=== PATIENT | female | born 1950 | race African-American/Black ===

== ENCOUNTER 2019-11-29 10:32 | Outpatient (CLI) | payer MEDICARE, SELFPAY ==
[2019-11-29 10:50] LABS: Basophils Absolute Auto 0.1 K/mm3 (0.0-0.1); Basophils Percent Auto 0.7 % (0.2-1.2); Eosinophils Absolute Auto 0.2 K/mm3 (0-0.3); Eosinophils Percent Auto 2.2 % (0-4.4); Hematocrit 32.1 % (37.0-47.0); Hemoglobin 9.8 g/dL (12.0-15.0); Immature Granulocyte Absolute 0.02 K/mm3 (0.00-0.031); Immature Granulocyte Percent A 0.3 % (0-0.5); Lymphocytes Absolute Auto 1.38 K/mm3 (0.9-3.2); Lymphocytes Percent Auto 18.1 % (18.3-44.2); Mean Corpuscular HGB Conc 30.5 g/dl (32-36); Mean Corpuscular Hemoglobin 27.8 pg (26-34); Mean Corpuscular Volume 90.9 fl (80-100); Monocytes Absolute Auto 0.5 K/mm3 (0.1-0.6); Monocytes Percent Auto 6.3 % (2.6-8.5); Neutrophils Absolute Auto 5.5 K/mm3 (1.3-6.7); Neutrophils Percent Auto 72.4 % (45.5-73.1); Platelet Count Result 216 k/mm3 (150-375); Red Blood Count 3.53 M/mm3 (4.2-5.4); Red Cell Distribution Width 14.9 % (11.5-14.5); White Blood Count 7.6 K/mm3 (4.5-10.0)
[2019-11-29 10:53] LABS: Blood Urea Nitrogen 80 mg/dL (8-26); Carbon Dioxide 27 mmol/L (22-30); Chloride 101 mmol/L (98-109); Estimated Glomerular Filt Rate 32; Glucose 165 mg/dL (70-105); Potassium 4.3 mmol/L (3.5-4.9); Sodium 137 mmol/L (138-146)
[2019-11-29 12:13] LABS: Iron 55 ug/dL (37-170)
[2019-11-29 12:22] LABS: Percent Iron Saturation 26 % (20-50)
== END 2019-11-29 10:33 | disposition home or self-care (01) ==
LOC: ANHLAB 10:33
PROVIDERS: PCP Internal Medicine; Visit Provider Internal Medicine Hematology & Oncology
DX: N18.3 Chronic kidney disease, stage 3 (moderate) (principal); D63.1 Anemia in chronic kidney disease
CPT/HCPCS: 36415; 80048; 82728; 83540; 83550; 85025

== ENCOUNTER 2022-04-01 08:00 | Outpatient (CLI) | payer MEDICARE, SELFPAY ==
--- NOTE | ~2022-04-01 | US_ITS ---
EXAMINATION: US venous doppler [facility] DATE: 04/01/2022 09:03 INDICATION: Acute deep venous thrombosis of the proximal vein of the bilateral lower limbs. TECHNIQUE: Grayscale ultrasound images without and with compression and Doppler ultrasound images of the bilateral lower extremity veins were obtained. COMPARISON: None. FINDINGS: There are paired right femoral veins one of which is patent throughout and the second of which is thr ombosed and noncompressible in the mid to distal vein. The visualized portions of right common femora l vein, profunda (deep) femoral vein, popliteal vein, posterior tibial veins, peroneal veins, gastroc nemius vein and greater saphenous vein outflow are patent. The visualized portions of left common femoral vein, profunda femoral vein, femoral vein, popliteal v ein, posterior tibial veins, peroneal veins, gastrocnemius vein and greater saphenous vein outflow ar e patent. IMPRESSION: 1. Deep venous thrombosis in the mid to distal aspect of one of the paired right femoral veins. The second right femoral vein remains patent. Dr. Johnson discussed these findings with Dr. Ortiz at 9: 32 AM. 2. No deep venous fibrosis in the left lower limb. Reviewed, dictated and finalized at location A. IMPRESSION: 1. Deep venous thrombosis in the mid to distal aspect of one of the paired rig ht femoral veins. The second right femoral vein remains patent. Dr. Johnson di scussed these findings with Dr. Ortiz at 9:32 AM. 2. No deep venous fibrosis in the left lower limb.
== END 2022-04-01 08:01 | disposition home or self-care (01) ==
PROVIDERS: PCP Internal Medicine; Visit Provider Internal Medicine Hematology & Oncology
DX: I82.4Y3 Acute embolism and thrombosis of unspecified deep veins of proximal lower extremity, bilateral (principal)
CPT/HCPCS: 93970

== ENCOUNTER 2022-08-11 07:09 | Outpatient (CLI) | payer MEDICARE, SELFPAY ==
--- NOTE | ~2022-08-11 | US_ITS ---
EXAMINATION:US venous doppler LE RT INDICATION:Previous deep venous thrombosis of the right femoral vein TECHNIQUE: Multiple grayscale, color flow and Doppler images of the right lower extremity deep venous systems were obtained and reviewed. COMPARISON:04/01/2022 FINDINGS: The common femoral, superficial femoral and popliteal veins demonstrate normal respiratory variation, augmentation and compressibility. There is chronic DVT of the right femoral vein. Color fl ow is also seen within the posterior tibial, peroneal, greater saphenous and profunda veins. IMPRESSION: 1: Chronic deep venous thrombosis of the right femoral vein. Reviewed, dictated and finalized at location A. Y LEVEL PROGRAMMER
== END 2022-08-11 07:10 | disposition home or self-care (01) ==
PROVIDERS: PCP Internal Medicine; Visit Provider Internal Medicine Hematology & Oncology
DX: I82.511 Chronic embolism and thrombosis of right femoral vein (principal)
CPT/HCPCS: 93971

== ENCOUNTER 2023-08-24 08:33 | Outpatient (RCR) | payer MEDICARE, SELFPAY ==
[2023-08-24] VITALS (9 sets, daily range): BP systolic 127–144; BP diastolic 57–66; PULSE 72–82; RESP 16–20; TEMP 36.1–36.8; O2SAT 100
[2023-08-24 09:22] LABS: Hematocrit 23.4 % (37.0-47.0)
[2023-08-24 09:26] LABS: Hemoglobin 6.6 g/dL (12.0-15.0)
[2023-08-24] MEDS: ACETAMINOPHEN 325 MG TABLET 650 MG PO (10:58)
[2023-08-24] MEDS: SODIUM CHLORIDE 0.9% IV 250 ML 30 ML IV CONT (10:58)
[2023-08-24] MEDS: diphenhydrAMINE HCl CAP 25 MG CAPSULE PO (10:58)
[2023-08-24] MEDS: FUROSEMIDE INJ 40 MG/4 ML VIAL 20 MG IV PUSH (13:49)
== END 2023-11-22 23:59 | disposition home or self-care (01) ==
LOC: ANHCPCTRAN 08:33
PROVIDERS: PCP Internal Medicine; Visit Provider Internal Medicine Hematology & Oncology
DX: D64.9 Anemia, unspecified (principal)
CPT/HCPCS: 36415; 36430; 85014; 85018; 86850; 86900; 86901; 86923; 96374; A9270; J1940; J7050; P9016

== ENCOUNTER 2024-06-23 08:39 | Outpatient (CLI) | payer MEDICARE, SELFPAY ==
--- NOTE | 2024-06-23 14:55 | WPDPFTINT ---
PFT Procedure Performed PFT Procedure Performed Spirometry with Pre/Post Bronchodilator Plethysmography (Lung Vol) Diffusing Cap (DLCO) Flow Vol Loop PFT Interpretation Lung volumes were measured the body plethysmography method. The diminished expiratory reserve volume is related to severe obesity. The remaining lung volumes are unremarkable. Spirometry showed diminished expiratory flow rates and a normal FEV1 to FVC ratio 74%. Following administration of a bronchodilator there was no significant increase in expiratory flow rates. Lung diffusion capacity is within the normal range at 77% predicted. The restrictive pattern on spirometry in conjunction with a normal total lung capacity is indicative of a nonspecific pattern. Impression: Nonspecific pattern. Lung diffusion capacity within normal range.
== END 2024-06-23 08:40 | disposition home or self-care (01) ==
LOC: ANHPFT 08:41
PROVIDERS: PCP Internal Medicine; Visit Provider Internal Medicine Pulmonary Disease
DX: J45.40 Moderate persistent asthma, uncomplicated (principal)
CPT/HCPCS: 94060; 94726; 94729

== ENCOUNTER 2024-11-28 08:13 | Outpatient (CLI) | payer MEDICARE, SELFPAY ==
--- OUTSIDE RECORDS SUMMARY | 2024-11-28 08:28 | XMS_ITS ---
Author Organization [facility] Address [address] [facility] [address] [place] [address] Care Team Providers Care Roll Operator Name Role Phone Reid Cashjibernardino Gentile [phone] MEDICATIONS Medication SIG (Take, Route, Frequency, Duration) Notes Start Date End Date Status Lasix 40 MG 1 tablet Orally twic e a day for 90 day(s) 07/08/2024 04/04/2025 Active Encounters Encounter Location Date Provider Diagnosis [facility] [place] [facility] [address] [place] [address] 07/08/2024 Christophe Cash PLAN OF TREATMENT Medication Medication Name Sig Start Date Stop Date Notes Lasix 40 MG 1 tablet Orally twice a day for 90 day(s) 06/1504/04/2025 Next Appt Details Provider Name:Christophe Cash , 12/09/2024 02:00:00 PM, [address] [facility], [facility], [place], [place], [facility], Progress Notes * TOMER HUTTONOB:[birth year] (73 yo F)Acc No.[id number]:07/08/2024 Patient: МАРИЯ HUTTON :1950 Age:73 Y Sex:Female Address:;;;;;, [place], [place], [place] [address] * Refills Start Lasix Tablet, 40 MG, Orally, 180 Tablet, 1 tablet, twice a day, 90 day(s), Refills=2 * true * Date:
--- OUTSIDE RECORDS SUMMARY | 2024-11-28 08:28 | XMS_ITS | Encounter Summary ---
Author Organization [facility] Healthcare Address [address] [place] [address] Care Team Providers Care Chipper Feeder Name Role Phone Quinton Gurrola MD Primary Care Provide r Mamta Gayle MD Unavailable Vy Sheehan MD Unavailable Encounter Details Date Type Department Care Team (Late st Contact Info) Description 07/06/2020 Telephone [facility] [address] [place] [address] [phone] Alyce Fairbanks MD [id number] [place] [address] Social History Tobacco Use Types Packs/Day Years Used Date Smoking Tobacco: Former Smokeless Tobacco: Never Alcohol Use Standard Drinks/Week Comments No 0 (1 standard drink = 0.6 oz pur e alcohol) PHQ-2 Answer Date Recorded PHQ-2 Score 3 11/20/2018 Comments No Sex and Gender Information Value Date Recorded Sex Assigned at Not on file Legal Sex Female 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 [address] [place] [address] Referring Physician Gynecologic Oncology 09/20/20 documented as of this encounter
--- OUTSIDE RECORDS SUMMARY | 2024-11-28 08:28 | XMS_ITS | Encounter Summary ---
Author Organization [facility] Healthcare Address [address] [place] [address] Care Team Providers Care Relay Worker Name Role Phone Quinton Gurrola MD Primary Care Provide r Mamta Gayle MD Unavailable Vy Sheehan MD Unavailable Encounter Details Date Type Department Care Team (Late st Contact Info) Description 09/20/2020 Completion of Therapy [facility] Advanced Medicine Radiation Oncology [address] 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 Vy Sheehan (Smoke Room Operator Onc) RADIATION ONCOLOGY COMPLETION OF THERAPY (COT) Cancer Staging Endometrial cancer (CMS/HCC) Staging form: Corpus Uteri - Carcinoma and Carcinosarcoma, AJCC 8th Edition - Clinical: FIGO Stage I - Signed by Alyce Fairbanks MD on 07/13/2020 Identifying Information: 70 y.o. 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 She could not tolerate MRI due to claustrophobia. She is receiving HDR brachytherapy alone to 36 Gy / 6 fractions with TO/SHC. Treatment Delivered: Radiation Treatments No active radiation treatments to show. Radiation Treatments No historical radiation treatments to show. HDR Brachytherapy, T&O/SHC Fraction 6 of 6 (3600 cGy of 3600 cGy) Concurrent Therapy: N/A Wt Readings from Last 3 Encounters: 09/11/20 123 kg (271 lb 3.2 oz) 09/04/20 123.8 kg (273 lb) 08/30/20 123.8 kg (272 lb 14.4 oz) Pain Plan: RAD ONC PAIN PLAN: The patient is not currently having any pain that requires changes in pain management. Tolerance to Treatment: Mrs. Pérez tolerated the treatment well. She had post-procedural bleeding after each implant, with continued mild bleeding between procedures but with stable hgb on CBC. She also had mild fatigue and nausea but was able to complete her ADLs. She had one episode of ED presentation due to nausea and self-induced vomiting and was prescribed antiemetics and antibiotics for a UTI. Disposition: ?? Follow up with gynecology oncology as scheduled by their clinic. ?? Post treatment skin care instructions given. ?? Patient was instructed to call with any concerns prior to scheduled follow up visit. Mamta Gayle MD supervised the patient???s radiation treatment as summarized. Mary Vergara MD Resident Physician Department of Radiation Oncology Cosigned by Mamta Gayle MD at 09/24/2020 12:10 AM LEAD DRIVER DRIVER DRIVER Associated attestation - Mamta Gayle MD - 09/24/2020 12:10 AM LEAD DRIVER Julisa Pérez was evaluated with the resident, Dr. Vergara, throughout the course of treatment along with my colleagues, and agree with the resident???s note. The patient will follow-up as scheduled and call with any questions or concerns in the interim. Mamta Gayle MD 09/24/2020 12:09 AM documented in this encounter Plan of Treatment Not on file documented as of this encounter Visit Diagnoses Diagnosis Endometrial cancer (HCC)- Primary Malignant neoplasm of corpus uteri, except isthmus documented in this encounter Care Teams Relay Worker Relationship Specialty Start Date End Date Quinton Gurrola MD [address] [address] PCP - General Internal Medicine 03/09/18 Mamta Gayle MD [address] [facility] [address] [place] [address] Radiation Oncologist Radiation Oncology 09/20/20 Vy Sheehan MD [address] [facility] [address] [place] [address] Referring Physician Gynecologic Oncology 09/20/20 documented as of this encounter
--- OUTSIDE RECORDS SUMMARY | 2024-11-28 08:28 | XMS_ITS | Continuity of Care Document ---
Author Organization [facility] Address [address] [facility] [address] [place] [address] Phone Care Team Providers Care Treasury Management Sales Consultant Name Role Phone [facility] Unavailable Unavail able Procedures Procedure Date Anti-reflective Coating Tax - Medical Progressive Lens, Polycarb Vision Svcs Frames Purchases Eye Exam & Treatment Refraction Eye Exam Established Pt Eye Exam & Treatment Advance Directives Directive Yes / No Effective Date File Name No Information Encounters Encounter Description Practice Location Reason(s) For Visit Diagnoses Date Provider Providers Copied on Encounter [facility], [address] [place] [address] [address], [place], [place], [id number], [place] tel:[phone] SEC Formerly named [facility] No Information 0-201 0 [facility]. [address] [facility], [facility] [address], [place], [id number], [place]. tel:[phone] Referring Provider: Drake plummer, [address], [place], [address]. tel:[phone] [facility], [address] [place] [address] [address], [place], [place], [id number], [place] tel:[phone] SEC Formerly named [facility] No Information 6-201 0 [facility]. [address] [facility], [facility] [address], [place], [id number], [place]. tel:[phone] Referring Provider: Drake Kurtisjose plummer, [facility], [facility] [facility] [place] [address], [place], [place], [facility]. tel:[phone] [facility], [address] [place] [address] [address], [place], [place], [id number], tel:[phone] SEC Formerly named [facility] No Information 0 2-201 0 Christina Juan. [address] [place] [address], [place], [facility], . tel:[phone] Referring Provider: Steve Pierre, [facility] [place] [place] [address], [place], [place], [facility]. tel:[phone] [facility], [address] [place] [address] [address], [place], [place], [id number], tel:[phone] SEC Formerly named [facility] No Information [address]. [facility], 1926[address] [facility] , [address], [place], [place], [facility], . tel:[phone] Referring Provider: Steve Pierre, [address] [facility] [address], [place], [place], [facility]. tel:[phone] [facility], [address] [place], [place] [address], [place], [place], [id number], tel:[phone] SEC Formerly named [facility] No Information [address]lee. [facility], 1926[address] [facility] , [address], [place], [place], [facility], [place]. tel:[phone] Referring Provider: Steve Pierre, [address] [facility] [address], [place], [place], [facility]. tel:[phone] Family History Family Member Type Diagnosis Age At Onset No Information Payers Payer name Insurance type Covered democrat ID Authoriza tion(s) No Information Social History Type Description Quantity Date Captured Comments Sex Female Smoking Status No Information Chief Complaint And Reason For Visit No Information Reason For Referral Reason For Referral No Information History Of Present Illness Encounter Date Complaint History Of Prese nt Illness No Information Functional Status Date Functional Assessmen t No Information Instructions Date Instruction Additional Infor mation No Information Assessments Type Assessment Date No Information Patient Care Teams Name Effective Dates (start - stop) Status Members No Information
--- OUTSIDE RECORDS SUMMARY | 2024-11-28 08:29 | XMS_ITS | Encounter Summary ---
Author Organization [facility] Healthcare Address [address] [place] [address] Care Team Providers Care Degreasing Wheel Operator Name Role Phone Quinton Gurrola MD Primary Care Provide r Mamta Gayle MD Unavailable Vy Sheehan MD Unavailable Encounter Details Date Type Department Care Team (Late st Contact Info) Description 06/18/2020 Telephone [facility] Advanced Medicine Radiation Oncology [address] [facility] [place] [address] Ana Barraza RN Social History Tobacco Use Types Packs/Day Years Used Date Smoking Tobacco: Former Smokeless Tobacco: Never Alcohol Use Standard Drinks/Week Comments No 0 (1 standard drink = 0.6 oz pur e alcohol) PHQ-2 Answer Date Recorded PHQ-2 Score 3 11/20/2018 Comments No Sex and Gender Information Value Date Recorded Sex Assigned at Not on file 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 Gender Identity Not on file Sexual Orientation Not on file documented as of this encounter Plan of Treatment Not on file documented as of this encounter Visit Diagnoses Not on filedocumented in this encounter Care Teams Degreasing Wheel Operator Relationship Specialty Start Date End Date Quinton Gurrola MD [address] [facility] [address] [place] [address] PCP - General Internal Medicine 03/09/18 Mamta Gayle MD [address] [facility] [address] [place] [address] Radiation Oncologist Radiation Oncology 09/20/20 Vy Sheehan MD [address] [facility] [address] [place] [address] Referring Physician Gynecologic Oncology 09/20/20 documented as of this encounter
--- OUTSIDE RECORDS SUMMARY | 2024-11-28 08:29 | XMS_ITS ---
Author Organization [facility] Physician Office Building [address] [place] [address] Care Team Providers Care Bag Bundler Name Role Phone Quinton Gurrola MD Primary Care Provide r Mamta Gayle MD Unavailable Vy Sheehan MD Unavailable Active Problems Problem Noted Date Diagnosed Date Vitamin D deficiency 07/29/2023 Moderate persistent asthma 05/07/2023 Peripheral venous insufficiency 04/30/2023 Arthritis 04/30/2023 Dyslipidemia 04/17/2023 Gastritis 02/11/2023 Abnormal uterine bleeding 12/08/2022 Cholecystitis 12/08/2022 Deep venous thrombosis of lower extremity 2022 Epigastric pain 12/08/2022 Hypothyroidism 12/08/2022 Heart murmur 12/08/2022 Hepatomegaly 12/08/2022 Trigger finger of right hand 12/08/2022 Type 2 diabetes mellitus without complication Hyperlipidemia 04/25/2022 Eczema 12/06/2021 Dry skin 06/07/2021 Anemia 05/10/2021 Family history of other specified conditions Family history of stroke 05/10/2021 History of abdominal hernia 05/10/2021 Mass of cecum 05/10/2021 Uterine cancer 07/31/2020 Asthma 07/30/2020 GERD (gastroesophageal reflux disease) 0 Hypercoagulable state 07/30/2020 Stroke 07/30/2020 Endometrial cancer 07/13/2020 Cancer Staging:Clinical:FIGO Stage I- Signed by Alyce Fairbanks MD on 07/13/2020 Chronic obstructive lung disease 06/08/2020 Diabetic nephropathy 06/08/2020 Essential hypertension 06/08/2020 Foot pain 06/08/2020 Microalbuminuria 06/08/2020 Other pulmonary embolism without acute cor pulmo nale 05/01/2020 Anemia of chronic renal failure, stage 3 (modera te) 08/02/2019 Diabetes mellitus 06/03/2019 Tinea pedis 06/03/2019 Iron deficiency anemia 12/13/2018 Restrictive lung disease 11/03/2018 Acute embolism and thrombosi s of unspecified deep veins of left lower extremity 11/04/2017 Leg edema 11/04/2017 Obstructive sleep apnea (adult) (pediatric) 05/16 Chest pain, unspecified 03/31/2017 Chronic kidney disease, stage 2 (mild) 7 Obesity 03/31/2017 Shortness of breath 03/31/2017 Current Treatment and Therapy Plans No current plan information found. Past Treatment and Therapy Plans No past plan information found. Lifetime Dose Tracking * Chemical Lifetime Dose Automatic Entry Manual Entr y Fluoro Time 0.1 minutes 0.1 minutes 0 minutes Air kerma at the reference point (Ka,r) 1 mGy 1 mGy 0 mGy DLP 8,591 mGycm 8,591 mGycm 0 mGycm
--- OUTSIDE RECORDS SUMMARY | 2024-11-28 08:29 | XMS_ITS | Patient Health Record ---
Author Organization [facility] Address [address] [place] [address] Care Team Providers Care Home Service Director Name Role Phone Christophe Cash Unavailable [phone] REASON FOR REFERRAL No Information MEDICATIONS Medication SIG (Take, Route, Frequency, Duration) Notes Start Date End Date Status Vitamin D (Ergocalciferol) 1.25 MG (26513 UT) Take 1 capsule by mouth once a week for 91 Active Metoprolol Tartrate 25 MG 1 tablet with food Orally Twice a day for 30 day(s) 06/17/2024 Active Lasix 40 MG 1 tablet Orally twic e a day for 90 day(s) 07/08/2024 07/11/2025 Active Calcitriol 0.25 MCG Take 1 capsule by mo uth once daily for 90 Active Lisinopril 20 MG Take 1 tablet by efrain th once daily for 90 Active Furosemide 40 MG Take 1 tablet by efrain th twice daily for 90 Active Allopurinol 100 MG Take 1 tablet by efrain th once daily for 90 Active Lisinopril 40 MG 1 tablet Orally twic e a day for 90 days 11/21/2021 Active SV Vitamin D3 50 MCG Take 1 capsule by m out once daily for 30 Active Quinapril HCl 40 MG 1 tablet Orally Twic e a day for 90 day(s) 11/22/2021 Active PROBLEMS Problem Type ICD Code Onset Dates Problem Status W/U Status Risk SNOMED Code Notes Problem Type 2 diabetes mellitus with hyperglycemia (E11.65) Active confirmed Hyperglycemia d ue to type 2 diabetes mellitus (221669441474763) Problem Secondary hyperparathyroid ism, not elsewhere classified (E21.1) Active confirmed Secondary hyperparathyroidism (71375756) Problem Vitamin D deficiency, unspecified (E55.9) Active confirmed Vitamin D defic iency (14745557) Problem Hyperlipidemia, unspecified (E78.5) Active confirmed Hyperlipidemia (84984562) Problem Renal osteodystrophy (N25.0) Active confirmed Renal osteodyst rophy (74840605) Problem Essential hypertension (I10) Active confirmed Essential hypertension (31485383) Problem Gastro-esophagea l reflux disease with esophagitis, without bleeding (K21.00) Active confirmed Gastroesophagea l reflux disease with esophagitis (disorder) (252252048) Problem Chronic kidney disease, stage 3a (N18.31) Active confirmed Chronic kidney disease stage 3A (disorder) (113640683) Encounters Encounter Location Date Provider Diagnosis [place] [facility] [address] [facility] [address] [place] [address] 01/08/2024 Christophe Cash Chronic kidney disea se, stage 3a N18.31 ; Gastro-esophageal reflux disease with esophagitis, without bleeding K21.00 ; Renal osteodystrophy N25.0 ; Secondary hyperparathyroidism, not elsewhere classified E21.1 ; Type 2 diabetes mellitus with hyperglycemia E11.65 and Vitamin D deficiency, unspecified E55.9 [place] [facility] [address] [facility] [address] [place] [address] 03/11/2024 Christophe Cash Chronic kidney disea se, stage 3a N18.31 ; Gastro-esophageal reflux disease with esophagitis, without bleeding K21.00 ; Renal osteodystrophy N25.0 ; Secondary hyperparathyroidism, not elsewhere classified E21.1 ; Type 2 diabetes mellitus with hyperglycemia E11.65 and Vitamin D deficiency, unspecified E55.9 [facility] [place] [facility] [address] [place] [address] 06/10/2024 Christophe Cash Chronic kidney disea se, stage 3a N18.31 ; Gastro-esophageal reflux disease with esophagitis, without bleeding K21.00 ; Renal osteodystrophy N25.0 ; Secondary hyperparathyroidism, not elsewhere classified E21.1 ; Type 2 diabetes mellitus with hyperglycemia E11.65 and Vitamin D deficiency, unspecified E55.9 [facility] [place] [facility] [address] [place] [address] 07/08/2024 Christophe Cash Chronic kidney disea se, stage 3a N18.31 ; Essential hypertension I10 ; Gastro-esophageal reflux disease with esophagitis, without bleeding K21.00 ; Renal osteodystrophy N25.0 ; Secondary hyperparathyroidism, not elsewhere classified E21.1 ; Type 2 diabetes mellitus with hyperglycemia E11.65 and Vitamin D deficiency, unspecified E55.9 [place] [facility] [address] [place] [address] 10/14/2024 Christophe Cash Chronic kidney disea se, stage 3a N18.31 ; Essential hypertension I10 ; Vitamin D deficiency, unspecified E55.9 ; Hyperlipidemia, unspecified E78.5 and Edema, unspecified R60.9 [facility] [address] [place] [address] 06/17/2024 Christophe Cash [facility] [address] [place] [address] 10/14/2024 Christophe Cash [facility] [place] [facility] [address] [place] [address] 06/10/2024 Christophe Cash [facility] [address] [place] [address] 06/17/2024 Christophe Cash [facility] [place] [facility] [address] [place] [address] 07/08/2024 Christophe Cash ASSESSMENTS Encounter Date Diagnosis Assessment Notes Treatment Notes Treatment Clinical Notes Section Notes 01/08/2024 Chronic kidney disease, stage 3a (ICD-10 - N18.31) 03/11/2024 Chronic kidney disease, stage 3a (ICD-10 - N18.31) 06/10/2024 Chronic kidney disease, stage 3a (ICD-10 - N18.31) 07/08/2024 Chronic kidney disease, stage 3a (ICD-10 - N18.31) 10/14/2024 Essential hypertension (ICD-10 - I10) 10/14/2024 Chronic kidney disease, stage 3a (ICD-10 - N18.31) 10/14/2024 Vitamin D deficiency, unspecified (ICD-10 - E55.9) 07/08/2024 Essential hypertension (ICD-10 - I10) 06/10/2024 Gastro-esophageal reflux disease with esophagitis, without bleeding (ICD-10 - K21.00) 01/08/2024 Gastro-esophageal reflux disease with esophagitis, without bleeding (ICD-10 - K21.00) 03/11/2024 Gastro-esophageal reflux disease with esophagitis, without bleeding (ICD-10 - K21.00) 03/11/2024 Renal osteodystrophy (ICD-10 - N25.0) 01/08/2024 Renal osteodystrophy (ICD-10 - N25.0) 06/10/2024 Renal osteodystrophy (ICD-10 - N25.0) 07/08/2024 Gastro-esophageal reflux disease with esophagitis, without bleeding (ICD-10 - K21.00) 10/14/2024 Hyperlipidemia, unspecified (ICD-10 - E78.5) 10/14/2024 Edema, unspecified (ICD-10 - R60.9) 07/08/2024 Renal osteodystrophy (ICD-10 - N25.0) 06/10/2024 Secondary hyperparathyroidism , not elsewhere classified (ICD-10 - E21.1) 03/11/2024 Secondary hyperparathyroidism , not elsewhere classified (ICD-10 - E21.1) 01/08/2024 Secondary hyperparathyroidism , not elsewhere classified (ICD-10 - E21.1) 01/08/2024 Type 2 diabetes mellitus with hyperglycemia (ICD-10 - E11.65) 03/11/2024 Type 2 diabetes mellitus with hyperglycemia (ICD-10 - E11.65) 06/10/2024 Type 2 diabetes mellitus with hyperglycemia (ICD-10 - E11.65) 07/08/2024 Secondary hyperparathyroidism , not elsewhere classified (ICD-10 - E21.1) 06/10/2024 Vitamin D deficiency, unspecified (ICD-10 - E55.9) 07/08/2024 Type 2 diabetes mellitus with hyperglycemia (ICD-10 - E11.65) 03/11/2024 Vitamin D deficiency, unspecified (ICD-10 - E55.9) 01/08/2024 Vitamin D deficiency, unspecified (ICD-10 - E55.9) 07/08/2024 Vitamin D deficiency, unspecified (ICD-10 - E55.9) PLAN OF TREATMENT Next Appt Details Provider Name:Christophe Cash , 12/09/2024 02:00:00 PM, [address], [place], [address],
--- OUTSIDE RECORDS SUMMARY | 2024-11-28 08:29 | XMS_ITS | Clinical Summary ---
Author Organization [facility] Address [address] [place] [address] Care Team Providers Care Veterans Services Specialist Name Role Phone Unavailable Primary Care Provider Unavailabl e Social History Tobacco Use Types Packs/Day Years Used Date Smoking Tobacco: Never Assessed Comments Unknown Sex and Gender Information Value Date Recorded Sex Assigned at Not on file Legal Sex Female 7:38 AM CDT Gender Identity Not on file Sexual Orientation Not on file Plan of Treatment Health Maintenance Due Date Last Done Comments Colorectal Cancer Screening Colonoscopy (10 Years) 1952 Hepatitis C 1970 DTaP, Tdap and Td Vaccines ( 1 - Tdap) 1971 Mammogram Screening 1992 Zoster Vaccines (1 of 2) 2002 Dexa Scan (General) 2017 Pneumococcal Vaccine: 65+ Ye ars (1 of 1 - PCV) 2017 COVID-19 Vaccine (2023-2 5 season) 2024 Influenza Adult (#1) 2024 RSV Immunization or 60+ Years (1 - 1-dose 75+ series) 2027 Meningococcal B Vaccine Aged Out No l onger eligible based on patient's age to complete this topic Meningococcal Vaccine Aged Out No timothy marquita eligible based on patient's age to complete this topic RSV Immunizations Under 20 Months Aged Out No longer eligible based on patient's age to complete this topic
--- OUTSIDE RECORDS SUMMARY | 2024-11-28 08:29 | XMS_ITS ---
Author Organization [facility] Address [address] [facility] [address] [facility] [address] [place] [address] Care Team Providers Care Data Entry Technician Name Role Phone Christophe Cash Unavailable [phone] PROBLEMS Problem Type ICD Code Onset Dates Problem Status W/U Status Risk SNOMED Code Notes Problem Hyperlipidemia, unspecified (E78.5) Active confirmed Hyperlipidemia (08039822) Encounters Encounter Location Date Provider Diagnosis [place] [facility] [address] [facility] [address] [place] [address] 10/14/2024 Christophe Cash Chronic kidney disease, stage 3a N18.31 ; Essential hypertension I10 ; Vitamin D deficiency, unspecified E55.9 ; Hyperlipidemia, unspecified E78.5 and Edema, unspecified R60.9 ASSESSMENTS Encounter Date Diagnosis Assessment Notes Treatment Notes Treatment Clinical Notes Section Notes 10/14/2024 Chronic kidney disease, stage 3a (ICD-10 - N18.31) 10/14/2024 Essential hypertension (ICD-10 - I10) 10/14/2024 Vitamin D deficiency, unspecified (ICD-10 - E55.9) 10/14/2024 Hyperlipidemia, unspecified (ICD-10 - E78.5) 10/14/2024 Edema, unspecified (ICD-10 - R60.9) PLAN OF TREATMENT Next Appt Details Provider Name:Christophe Cash , 12/09/2024 02:00:00 PM, [address] [facility], [facility] [address], [place], [address], Progress Notes * TOMER HUTTONOB:[birth year] (74 yo F)Acc No.[id number]:10/14/2024 Progress Notes Patient: МАРИЯ HUTTON Provider: MD EVANGELISTA, Kavita, F.A.S.N. :1950 Age:74 Y Sex:Female Date:10/14/2024 Address:;;;;;, [place] [address] Subjective: * Chief Complaints: * * Medical History: Objective: Assessment: * Assessment: 1. Chronic kidney disease, stage 3a - N18.31 (Primary) 2. Essential hypertension - I10 3. Vitamin D deficiency, unspecified - E55.9 4. Hyperlipidemia, unspecified - E78.5 5. Edema, unspecified - R60.9 Plan: * Treatment: * Billing Information: * Visit Code: 02887 Office Visit, Est Pt., Level 4. * Procedure Codes: * Sign off status: Pending * Provider: MD EVANGELISTA, Kavita, F.A.S.N. Date: 10/14/2024
--- OUTSIDE RECORDS SUMMARY | 2024-11-28 08:29 | XMS_ITS | Referral Summary ---
Author Organization [facility] [address] [place] [address] Care Team Providers Care Land Commissioner Name Role Phone Quinton Gurrola MD Primary Care Provide r Mamta Gayle MD Unavailable Vy Sheehan MD Unavailable Allergies Active Allergy Reactions Criticality Noted Date Comments Metformin Other (See comments) ,Shortness of breath High 03/29/2020 Glyburide Unknown 06/08/2020 Mushroom Unknown 06/08/2020 [place] Extract Unknown 06/08/2020 Omeprazole Nausea only,Nausea And Vomiting Low 10/16 Prednisone Other (See comments) ,Shortness of breath High 03/29/2020 Spinach Unknown 06/08/2020 Medications furosemide (LASIX) 40 mg tablet furosemide 40 mg tablet Active ketoconazole (NIZORAL) 2 % cream 8 Active albuterol HFA (PROVENTIL HFA,VENTOLIN HFA,PROAIR HFA) 90 mcg/actuation inhaler ProAir HFA 90 mcg/actuation aerosol inhaler Active ferrous sulfate 325 mg (65 mg of elemental iron) tablet Iron (ferrous sulfate) 1 tabs twice a day Active allopurinoL (ZYLOPRIM) 100 mg tablet allopurinol 100 mg tablet Active loratadine (CLARITIN) 10 mg tablet loratadine 10 mg tablet TAKE 1 TABLET BY MOUTH IN THE EVENING Active fluticasone propionate (FLOVENT HFA) 110 mcg/actuation inhaler Flovent HFA 110 mcg/actuation aerosol inhaler Active metoprolol tartrate (LOPRESSOR) 25 mg immediate release tablet 2 tablets (50 mg total) daily Active rosuvastatin (CRESTOR) 10 mg tablet Take 1 tablet (10 mg total) by mouth daily Active Breo Ellipta 200-25 mcg/dose diskus inhaler INHALE 1 PUFF BY MOUTH ONCE DAILY 0 Active glimepiride (AMARYL) 1 mg tablet glimepiride 1 mg tablet TAKE 1 TABLETS BY MOUTH TWICE DAILY BEFORE MEAL(S) Active calcitRIOL (ROCALTROL) 0.25 mcg capsule calcitriol 0.25 mcg capsule Active ergocalciferol (VITAMIN D) 50,000 unit capsule Vitamin D2 1,250 mcg (50,000 unit) capsule TAKE 1 CAPSULE BY MOUTH EVERY TWO WEEKS Active LORazepam (ATIVAN) 1 mg tablet lorazepam 1 mg tablet TAKE 1 HOUR PRIOR TO SCAN AND 1 MORE IF NEEDED Active ondansetron (ZOFRAN) 4 mg tablet ondansetron HCl 4 mg tablet TAKE 1 TABLET BY MOUTH EVERY 8 HOURS Active linaGLIPtin (TRADJENTA) 5 mg tablet Tradjenta 5 mg tablet TAKE 1 TABLET BY MOUTH ONCE DAILY IN THE MORNING FOR 30 DAYS Active mupirocin (BACTROBAN) 2 % ointment mupirocin 2 % topical ointment APPLY the wounds daily on the left foot Active spironolactone (ALDACTONE) 25 mg tablet spironolactone 25 mg tablet TAKE 1 TABLET BY MOUTH ONCE DAILY Active TRESIBA 100 unit/mL vial for injection INJECT 26 UNITS SUBCUTANEOUSLY ONCE DAILY AT BEDTIME 2 Active insulin syringe-needle U-100 0.3 mL 31 gauge x 5/16 syringe BD Insulin Syringe Ultra-Fine 0.3 mL 31 gauge x 5/16 USE ONCE DAILY WITH TRESIBA Active multivitamin tablet MULTIVITAMINS ORAL CAPSULE 7 Active semaglutide (Ozempic) 1 mg/dose (2 mg/1.5 mL) pen injector injection Ozempic 1 mg/dose (2 mg/1.5 mL) pen injector 0 Active ammonium lactate (LAC-HYDRIN) 12 % lotion ammonium lactate 12 % lotion APPLY TO BOTH FEET DAILY NEEDED Active terbinafine (LamISIL) 1 % cream terbinafine HCl 1 % topical cream APPLY TO THE AFFECTED AND SURROUNDING AREAS OF SKIN BY TOPICAL ROUTE ONCE DAILY Active blood glucose diagnostic (OneTouch Ultra Test) strip OneTouch Ultra Test strips TESTS TID/ DX: 250.00...ONE TOUCH ULTRA MINI STRIPS Active levothyroxine (SYNTHROID) 50 mcg tablet Take 1 tablet (50 mcg total) by mouth daily 3 Active prednisoLONE acetate (PRED FORTE) 1 % ophthalmic suspension INSTILL 1 DROP INTO THE AFFECTED EYE THREE TIMES DAILY STARTING AFTER SURGERY CONTINUE FOR 3 WEEKS 3 Active insulin glargine (LANTUS) 100 unit/mL (3 mL) pen for injection Active lisinopriL (PRINIVIL,ZEST RIL) 20 mg tablet Take 1 tablet (20 mg total) by mouth daily 4 Active apixaban (ELIQUIS) 5 mg tabletIndicati ons:Venous Thrombosis Take 1 tablet (5 mg total) by mouth 2 (two) times a day 60 tablet 11 4 Active Active Problems Problem Noted Date Diagnosed Date [...] 7 Obesity 03/31/2017 Shortness of breath 03/31/2017 Immunizations Immunization Administration Dates Next Due Influenza, Quadrivalent, Hig h Dose, Preservative Free, Intrr 08/12/2022,07/16/2021,07/24/2020 Influenza, Quadrivalent, Spl it, Intramuscular 07/24/2020,07/20/2018 Influenza, Trivalent, High D ose, Split, Preservative Free, Intramuscular 08/18/2018 Influenza, Trivalent, IM (MDV) 08/08/2014 Moderna SARS-CoV-2 Monovalen t Vaccination (12+ YRS) 01/15/2021,12/16/2020 Moderna Sars-cov-2 Monovalen t Booster Vaccination .25 Ml dose (12+ YRS) 09/05/2021 Pneumococcal Conjugate PCV 13 08/31/2018 Pneumococcal Polysaccharide PPV23 08/08/2014 Social History Tobacco Use Types Packs/Day Years Used Date Smoking Tobacco: Former Smokeless Tobacco: Never Tobacco Cessation:Counseling Given: Not Answered Alcohol Use Standard Drinks/Week Comments No 0 (1 standard drink = 0.6 oz pur e alcohol) PHQ-2 Answer Date Recorded PHQ-2 Score 3 11/20/2018 Comments No Sex and Gender Information Value Date Recorded Sex Assigned at Not on file Legal Sex Female 8:33 AM BATCH WEIGHER Gender Identity Not on file Sexual Orientation Not on file Last Filed Vital Signs Vital Sign Reading Time Taken Comments Blood Pressure 172/75 07/22/2024 11:28 AM BATCH WEIGHER Pulse 90 07/22/2024 11:28 AM BATCH WEIGHER Temperature 36.6 C (97.9 F) 07/22/2024 11:28 AM BATCH WEIGHER Respiratory Rate 16 07/22/2024 11:28 AM BATCH WEIGHER Oxygen Saturation 99% 07/22/2024 11:28 AM BATCH WEIGHER Inhaled Oxygen Concentration - - Weight 112 kg (246 lb 14.4 oz) 07/22/2024 11:28 AM BATCH WEIGHER Height 165.1 cm (5' 5 ) 07/22/2024 11:28 AM BATCH WEIGHER Body Mass Index 41.09 07/22/2024 11:28 AM BATCH WEIGHER Plan of Treatment Not on file Insurance [employer] Advance Directives For more information, please contact: [phone] * Full Code (Latest Code Status on File) Date Activated Date Inactivated Comments 08/22/2020 11:59 AM 08/22/2020 5:42 PM Care Teams Land Commissioner Relationship Specialty Start Date End Date Quinton Gurrola MD [address] [facility] [address] [place] [address] PCP - General Internal Medicine 03/09/18 Mamta Gayle MD [address] [place] [address] Radiation Oncologist Radiation Oncology 09/20/20 Vy Sheehan MD [address] [place] [address] Referring Physician Gynecologic Oncology 09/20/20
--- OUTSIDE RECORDS SUMMARY | 2024-11-28 08:29 | XMS_ITS | Encounter Summary ---
Author Organization [facility] [email or web address] [facility] Address [address] [place] [address] Care Team Providers Care Concrete Vault Maker Name Role Phone Dany Gurrola MD Primary Care Provider Encounter Details Date Type Department Care Team (Late st Contact Info) Description 11/28/2024 Orders Only [facility] Oncology and Hematology - [address] [place] [address] Braulio Ortiz MD [address] [place] [address] Anemia of chronic renal failure, stage 3 (moderate), unspecified whether stage 3a or 3b CKD (CMS/HCC) Social History Tobacco Use Types Packs/Day Years Used Date Smoking Tobacco: Former Cigarettes 0.3 5 0 12/13/1994 - 12/14/1999 Smokeless Tobacco: Never Alcohol Use Standard Drinks/Week Comments No 0 (1 standard drink = 0.6 oz pur e alcohol) Comments No Sex and Gender Information Value Date Recorded Sex Assigned at Not on file Legal Sex Female 9:41 AM CDT Gender Identity Not on file Sexual Orientation Not on file documented as of this encounter Plan of Treatment Upcoming Encounters Date Type Department Care Team (Late st Contact Info) Description 12/12/2024 9:00 AM CDT Office Visit [facility] Oncology and Hematology - [address] [place] [address] Braulio Ortiz MD [address] [place] [phone] documented as of this encounter Visit Diagnoses Diagnosis Anemia of chronic renal failure, stage 3 (moderate), unspecified whether stage 3a or 3b CKD (CMS/HCC) documented in this encounter Care Teams Concrete Vault Maker Relationship Specialty Start Date End Date Dany Gurrola MD PCP - General Internal Medicine 11/29/18 documented as of this encounter
--- OUTSIDE RECORDS SUMMARY | 2024-11-28 08:29 | XMS_ITS | Clinical Summary ---
Author Organization [facility] [address] [place] [address] Care Team Providers Care Banking Officer Name Role Phone Quinton Gurrola MD Primary Care Provide r Mamta Gayle MD Unavailable Vy Sheehan MD Unavailable Allergies Active Allergy Reactions Criticality Noted Date Comments Metformin Other (See comments) ,Shortness of breath High 03/29/2020 Glyburide Unknown 06/08/2020 Mushroom Unknown 06/08/2020 [place] Extract Unknown 06/08/2020 Omeprazole Nausea only,Nausea And [...] 07/13/2020 Cancer Staging:Clinical:FIGO Stage I- Signed by Alcye Fairbanks MD on 07/13/2020 Chronic obstructive lung [...] PCV 13 08/31/2018 Pneumococcal Polysaccharide PPV23 08/08/2014 Surgical History Surgery Date Site/Laterality Comments TUBAL LIGATION Patient states occurred around 40 years ago, does not remember details/date of surgery CENTRAL LINE PLACEMENT > 5 YEARS 08/22/2020 N/A Medical History Medical History Date Comments Diabetes mellitus (HCC) Heart murmur Jaundice Obesity Anxiety Arthritis Gastric reflux Asthma History of blood clots Irregular heart beat COPD (chronic obstructive pulmonary disease) (HC C) Endometrial cancer (HCC) Family History Medical History Relation Name Comments Diabetes Brother 1 Paul Hypertension Brother 1 Paul Diabetes Brother 2 Say Heart disease Brother 2 Say Hypertension Brother 2 Say No Known Problems Brother 3 Félix Cancer Brother 4 Deion Hypertension Brother 4 Deion Heart attack Father No Known Problems Mother Diabetes Sister 1 Inna Hypertension Sister 1 Inna Heart disease Sister 2 Anisha Diabetes Sister 3 Charlene Hypertension Sister 3 Charlene Kidney disease Sister 3 Charlene Diabetes Sister 4 Pedro Hypertension Sister 4 Pedro Relation Name Status Comments Brother 1 Paul Alive Brother 2 Say Alive Brother 3 Félix Brother 4 Deion Alive Father Mother Sister 1 Inna Alive Sister 2 Anisha Alive Sister 3 Charlene Alive Patient's Twin Sister Sister 4 Pedro Alive Social History Tobacco Use Types Packs/Day Years [...] on file Legal Sex Female 8:33 AM TEA TREE FARM WORKER Gender Identity Not on file Sexual Orientation Not on file Obstetrics History Para Term AB IAB SAB Ectopic Multiple Livin g Live Births 1 1 1 1 Date Outcome GA Total Labor Labor/2nd/3rd Weight Sex Type Anes PTL Xiao A1 A5 Name Clin Term Last Filed Vital Signs Vital Sign Reading Time Taken Comments Blood Pressure 172/75 07/22/2024 11:28 AM TEA TREE FARM WORKER Pulse 90 07/22/2024 11:28 AM TEA TREE FARM WORKER Temperature 36.6 C (97.9 F) 07/22/2024 11:28 AM TEA TREE FARM WORKER Respiratory Rate 16 07/22/2024 11:28 AM TEA TREE FARM WORKER Oxygen Saturation 99% 07/22/2024 11:28 AM TEA TREE FARM WORKER Inhaled Oxygen Concentration - - Weight 112 kg (246 lb 14.4 oz) 07/22/2024 11:28 AM TEA TREE FARM WORKER Height 165.1 cm (5' 5 ) 07/22/2024 11:28 AM TEA TREE FARM WORKER Body Mass Index 41.09 07/22/2024 11:28 AM TEA TREE FARM WORKER Plan of Treatment Health Maintenance Due Date Last Done Comments Albumin Creatinine Ratio, Urine 1950 Breast Cancer Screening-Mammogram 1950 Colon Cancer Screening-Colonoscopy 1950 Depression Screening 1950 Hemoglobin A1C 1950 Hepatitis C Screening 1950 eGFR 1950 Dilated Eye Exam 1950 Foot Exam 1950 Lipid Panel 1950 DTaP/Tdap/Td Vaccine (1 - Tdap) 1963 Hepatitis B Screening 1970 Zoster Vaccine (1 of 2) 2002 Well Visit 65+ 2017 Fall Risk Assessment 08/22/2021 08/22/2020 Pneumococcal vaccine 65+ (3 of 3 - PCV20 or PCV21) 08/31/2023 08/31/2018, 08/08/2014 Covid-19 Vaccine (4 - 2023-2 5 season) 2024 09/05/2021, 01/15/2021, 12/16/2020 Influenza Vaccine (#1) 2024 , 07/16/2021, 07/24/2020, Additional history exists Osteoporosis Screening-Bone Density Scan 07/20/2025 07/20/2023, 12/18/2020 Insurance [facility] [facility] Address: [address] [address] [employer] Address: [address] [address] [place] [address] [employer] [facility] Address: [address] [address] [place] [address] Advance Directives For more information, please contact: [phone] * Full Code (Latest Code Status on File) Date Activated Date Inactivated Comments 08/22/2020 11:59 AM 08/22/2020 5:42 PM Care Teams Banking Officer Relationship Specialty Start Date End Date Quinton Gurrola MD [address] [address] PCP - General Internal Medicine 03/09/18 Mamta Gayle MD [address] [place] [address] Radiation Oncologist Radiation Oncology 09/20/20 Vy Sheehan MD [address] [place] [address] Referring Physician Gynecologic Oncology 09/20/20
--- OUTSIDE RECORDS SUMMARY | 2024-11-28 08:29 | XMS_ITS | Clinical Summary ---
Author Organization [facility] Address [address] [place] [address] Care Team Providers Care Belt Puncher Name Role Phone Dany Gurrola MD Primary Care Provider Allergies Active Allergy Reactions Criticality Noted Date Comments Glyburide Unknown 06/08/2020 Metformin Shortness of Breath/ Wheezing,Other (See Comments) High 03/29/2020 Mushroom Unknown 06/08/2020 [place] Extract Unknown 06/08/2020 Omeprazole Nausea and Vomiting Low 11/11/2018 Prednisone Shortness of Breath/ Wheezing,Other (See Comments) High 03/29/2020 Spinach Unknown 06/08/2020 Medications metoprolol tartrate (LOPRESSOR) 25 mg tablet 50 mg daily. Active furosemide (LASIX) 40 mg tablet Take 40 mg by mouth daily. Active rosuvastatin (CRESTOR) 10 mg tablet Take 10 mg by mouth daily at bedtime. Active albuterol sulfate 90 mcg/actuation metered powder inhaler Take by inhalation. Active fluticasone propionate (FLONASE) 50 mcg/spray [place], Suspension nasal inhaler Administer 2 Sprays in each nostril daily. Active zinc oxide-hydrocor tisone-ketocon azole Apply to affected area. Active fluticasone furoate-vilant clara (BREO ELLIPTA) 200-25 mcg/dose Disk with Device Take 1 Puff by inhalation daily. Active insulin degludec (TRESIBA FLEXTOUCH U-200) 200 unit/mL pen syringe Inject by subcutaneous injection. Active levothyroxine 25 mcg tablet TAKE 1 TABLET BY MOUTH ONCE DAILY IN THE MORNING FOR 30 DAYS 2 9 Active TRADJENTA 5 mg Tablet TAKE 1 TABLET BY MOUTH ONCE DAILY IN THE MORNING FOR 30 DAYS 0 Active ketoconazole (NIZORAL) 2 % Cream ketoconazole 2 % topical cream APPLY TO THE AFFECTED AREA(S) BY TOPICAL ROUTE 2 TIMES DAILY Active allopurinoL (ZYLOPRIM) 100 mg tablet allopurinol 100 mg tablet Active ferrous sulfate 325 mg (65 mg iron) tablet Iron (ferrous sulfate) 1 tabs twice a day Active esomeprazole (NexIUM) 20 mg Capsule, Delayed Release(E.C.) 40 mg daily. Active insulin degludec (Tresiba FlexTouch U-200) 200 unit/mL pen syringe Tresiba FlexTouch U-200 insulin 200 unit/mL (3 mL) subcutaneous pen INJECT 22 UNITS SUBCUTANEOUSLY AT BEDTIME Active calcitRIOL (ROCALTROL) 0.25 mcg capsule calcitriol 0.25 mcg capsule TAKE 1 CAPSULE BY MOUTH ONCE DAILY Active ondansetron (Zofran) 4 mg Tablet 2 times daily. Activ e lisinopriL (PRINIVIL) 20 mg tablet 20 mg. 3 Active metroNIDAZOLE (FLAGYL) 500 mg tablet 3 Active loratadine (CLARITIN) 10 mg tablet Take 10 mg by mouth daily. Active apixaban (ELIQUIS) 5 mg tablet Take 5 mg by mouth 2 times daily. 3 Active Active Problems Problem Noted Date Diagnosed Date Grade 1 malignant neoplasm of endometrium 2019 DM (diabetes mellitus), type 2 07/30/2020 HTN (hypertension) 07/30/2020 Hypercoagulable state 07/30/2020 Stroke 07/30/2020 Asthma 07/30/2020 GERD (gastroesophageal reflux disease) 0 Anemia of chronic renal failure, stage 3 (modera te) 08/02/2019 Iron deficiency anemia 12/13/2018 Encounters Date Type Department Care Team Description 11/28/2024 Orders Only [facility] - [place] [address] [place] [address] Braulio Ortiz MD Anemia of chronic renal failure, stage 3 (moderate), unspecified whether stage 3a or 3b CKD (CMS/HCC) 11/14/2024 Orders Only [facility] - [place] [address] [place] [phone] Braulio Ortiz MD Anemia of chronic renal failure, stage 3 (moderate), unspecified whether stage 3a or 3b CKD (CMS/HCC) 10/31/2024 Orders Only [facility] - [place] [address] [place] [address] Braulio Ortiz MD Anemia of chronic renal failure, stage 3 (moderate), unspecified whether stage 3a or 3b CKD (CMS/HCC) 10/17/2024 Orders Only [facility] - [place] [address] Braulio Ortiz MD Anemia of chronic renal failure, stage 3 (moderate), unspecified whether stage 3a or 3b CKD (CMS/HCC) 10/14/2024 Orders Only [facility] - [place] [address] [place] [phone] Braulio Ortiz MD 10/13/2024 9:15 AM SENIOR BACK END JAVA DEVELOPER Office Visit [facility] - [place] [address] [place] [id number] Braulio Ortiz MD Chronic anemia (Primary Dx) 10/03/2024 Orders Only [facility] - [place] [address] [place] [id number] Braulio Ortiz MD Anemia of chronic renal failure, stage 3 (moderate), unspecified whether stage 3a or 3b CKD (CMS/HCC) 09/21/2024 Orders Only [facility] - [place] [address] [place] [id number] Braulio Ortiz MD 09/19/2024 Orders Only [facility] - [place] [address] [place] [id number] Braulio Ortiz MD Anemia of chronic renal failure, stage 3 (moderate), unspecified whether stage 3a or 3b CKD (CMS/HCC) 09/05/2024 Orders Only [facility] - [place] [address] [address] Braulio Ortiz MD Anemia of chronic renal failure, stage 3 (moderate), unspecified whether stage 3a or 3b CKD (CMS/HCC) from Last 3 Months Family History Medical History Relation Name Comments Diabetes Brother 1 Diabetes Brother 3 Diabetes Brother 4 Diabetes Brother 5 Diabetes Father Heart Attack Father Diabetes Mother Diabetes Sister 1 Hypertension Sister 1 Diabetes Sister 3 Kidney Disease Sister 3 Healthy Sister 5 Diabetes Sister 6 Relation Name Status Comments Brother 1 Alive Brother 2 Brother 3 Brother 4 Alive Brother 5 Alive Brother 6 Alive Father Mother Sister 1 Alive Sister 2 Alive Sister 3 Alive Sister 4 Alive Sister 5 Alive Sister 6 Alive Social History Tobacco Use Types Packs/Day Years Used Date Smoking Tobacco: Former Cigarettes 0.3 5 0 12/13/1994 - 12/14/1999 Smokeless Tobacco: Never Tobacco Cessation:Counseling Given: Not [...] Sign Reading Time Taken Comments Blood Pressure 138/67 10/13/2024 8:56 AM SENIOR BACK END JAVA DEVELOPER Pulse 74 10/13/2024 8:52 AM SENIOR BACK END JAVA DEVELOPER Temperature 36.7 C (98.1 F) 10/13/2024 8:52 AM SENIOR BACK END JAVA DEVELOPER Respiratory Rate 15 10/13/2024 8:52 AM SENIOR BACK END JAVA DEVELOPER Oxygen Saturation 98% 10/13/2024 8:52 AM SENIOR BACK END JAVA DEVELOPER Inhaled Oxygen Concentration - - Weight 112.8 kg (248 lb 9.6 oz) 10/13/2024 8:52 AM SENIOR BACK END JAVA DEVELOPER Height 165.1 cm (5' 5 ) 10/02/2021 9:43 AM SENIOR BACK END JAVA DEVELOPER Body Mass Index 41.37 10/02/2021 9:43 AM SENIOR BACK END JAVA DEVELOPER Plan of Treatment Upcoming Encounters Date Type Department Care Team (Late st Contact Info) Description 12/12/2024 9:00 AM CDT Office Visit [facility] - [place] [address] [place] [address] Braulio Ortiz MD [address] [place] [address] Health Maintenance Due Date Last Done Comments DIABETES ANNUAL FOOT EXAM 1970 DIABETES ANNUAL RETINAL EXAM 1970 DIABETES HBA1C Q 6 MONTHS 1970 LDL CHOLESTEROL ANNUAL 1970 DTAP/TDAP/TD VACCINES (1 - Tdap) 1971 BREAST CANCER SCREENING 1992 FIT-DNA Q 3 years 1997 FIT/FOBT Q 1 year 1997 Flex Sig/CT Colonography Q 5 years 1997 ZOSTER VACCINE (1 of 2) 2002 RSV VACCINE (60+ or ) (1 - Risk 60-74 years 1-dose series) 2012 DIABETES MICROALBUMIN ANNUAL SCREEN 09/30/2022 09/30/2021, 09/30/2021 PNEUMOCOCCAL VACCINE 50+ YEA RS (3 of 3 - PCV20 or PCV21) 08/31/2023 08/31/2018, 08/08/2014 INFLUENZA VACCINE (#1) 2024 , 08/12/2022, 07/16/2021, Additional history exists COVID-19 Vaccine (4 - 2023-2 5 season) 2024 09/05/2021, 01/15/2021, 12/21/2020 Medicare Advantage ([place]) Preventative Visit/Annual Wellness Visit 09/14/2024 05/17/2024, 02/12/2023 COLORECTAL SCREENING 12/03/2030 12/03/2020 Colorectal Cancer Screening 12/03/2030 OSTEOPOROSIS SCREENING Completed 07/20/2023, 2020 Procedures Procedure Name Priority Date/Time Associated Diagnosis Comments CBC WITH AUTODIFFERENTIAL Routine 2024 2:36 PM SENIOR BACK END JAVA DEVELOPER BASIC METABOLIC PANEL Routine 10/13/2024 11:46 AM SENIOR BACK END JAVA DEVELOPER CBC WITH DIFFERENTIAL Routine 10/13/2024 10:55 AM SENIOR BACK END JAVA DEVELOPER CBC WITH DIFFERENTIAL Routine 09/15/2024 4:32 PM SENIOR BACK END JAVA DEVELOPER MICROALBUMIN, RANDOM URINE Routine 09/30/2021 from Last 3 Months or Most Recently Relevant to Health Maintenance Results * CBC WITH AUTODIFFERENTIAL (11/14/2024 2:36 PM SENIOR BACK END JAVA DEVELOPER) Blood Braulio Ortiz MD HEMATOLOGY ORDERABLES Final Res ult * BASIC METABOLIC PANEL (10/13/2024 11:46 AM SENIOR BACK END JAVA DEVELOPER) Blood Braulio Ortiz MD CHEMISTRY ORDERABLES Final Resu lt * CBC WITH DIFFERENTIAL (10/13/2024 10:55 AM SENIOR BACK END JAVA DEVELOPER) Only the most recent of2 resultswithin the time period is included. Blood Braulio Ortiz MD HEMATOLOGY ORDERABLES Final Res ult * MICROALBUMIN, RANDOM URINE (09/30/2021) Urine URINE SPECIMEN OBTAINED BY CLEAN CATCH PROCEDURE / Unknown [facility] Provider URINE ORDERABLES Final Result from Last 3 Months or Most Recently Relevant to Health Maintenance [place] [address] [place] [id number] Care Teams Belt Puncher Relationship Specialty Start Date End Date Dany Gurrola MD PCP - General Internal Medicine 11/29/18
--- OUTSIDE RECORDS SUMMARY | 2024-11-28 08:29 | XMS_ITS | CONTINUITY OF CARE DOCUMENT ---
Author Name eren jason Address Unknown Organization [facility] Address [address] [place] [address] Phone [phone] Care Team Providers Care Import/Export Administrator Name Role Phone Mike Alicea MD Unavailable COREY CLAY MD Unavailable COREY CLAY MD Unavailable [phone] PROBLEMS Condition Status Date Provider Notes HTN--echo ef nl, mild LVH, 03/2023 active Steve Parson Family History of Sudden Cardiac : active ? Mike Alicea MD Diabetes mellitus active Mike Alicea MD Obesity active Mike Alicea MD Sleep apnea, obstructive, moderate--on cpap active Mike Alicea MD Leg edema active Cordell Laguna MD Ulcer of left toe completed - Cordell Laguna MD DVT r an l leg on Xarelto 20 mg active Mike Alicea MD Leg pain, left active Gricel Rosenbaum NP Uterine cancer active Prabhjot Canchola Pulmonary embolism in 10/2018 active Prabhjot Motta acht Bleeding completed - Prabhjot Canchola Shortness of breath Moderate STANISLAV active Mike Alicea MD Chest pain- nl stress test 2019, echo ef nl, mild lvh, mod phtn, 04/2023 active Steve Parson Renal disease, chronic, mild follows with ROZINA Alicea active Mike Alicea MD Family History of CVA or Stroke: completed - Mike Alicea MD ENCOUNTERS Date Type Provider Location Encounter Diag nosis - In-person encounter Office Visit Mike Alicea MD [facility] - In-person encounter Office Visit Mike Alicea MD [facility] - In-person encounter Office Visit Mike Alicea MD [facility] Chest pain- nl stress test 2019, echo ef nl, mild lvh, mod phtn, 04/2023 - In-person encounter Office Visit Mike Alicea MD [facility] HTN--echo ef nl, mild LVH, 03/2023 - In-person encounter Office Visit Mike Alicea MD [facility] - In-person encounter Office Visit Mike Alicea MD [facility] DVT r an l leg on Xarelto 20 mg - In-person encounter Office Visit Mike Alicea MD [facility] - In-person encounter Office Visit Mike Alicea MD [facility] Chest pain- nl stress test 2019, echo ef nl, mild lvh, mod phtn, 04/2023Sleep apnea, obstructive, moderate--on cpap - In-person encounter Office Visit Mike Alicea MD [facility] - In-person encounter Office Visit Mike Alicea MD [facility] BleedingPulmonary embolism in 10/2018Uterine cancer - In-person encounter Office Visit Mike Alicea MD [facility] Family History of CVA or Stroke:Pulmonary embolism in 10/2018 - In-person encounter Office Visit Mike Alicea MD [facility] - In-person encounter Office Visit Mike Alicea MD [facility] - In-person encounter Office Visit Mike Alicea MD [facility] Leg pain, left - In-person encounter Office Visit Mike Alicea MD [facility] - In-person encounter Office Visit Mike Alicea MD [facility] DVT r an l leg on Xarelto 20 mg - In-person encounter Office Visit Mike Alicea MD [facility] - In-person encounter Office Visit Cordell Laguna MD [facility] Leg edemaUlcer of left toeDVT r an l leg on Xarelto 20 mg - In-person encounter Office Visit Miek Alicea MD [facility] Renal disease, chronic, mild follows with IJ SinghChest pain- nl stress test 2019, echo ef nl, mild lvh, mod phtn, 04/2023Shortness of breath Moderate STANISLAV - In-person encounter Office Visit Mike Alicea MD [facility] HTN--echo ef nl, mild LVH, 03/2023Family History of Sudden Cardiac :Diabetes mellitusRenal disease, chronic, mild follows with IJ SinghObesityChest pain- nl stress test 2019, echo ef nl, mild lvh, mod phtn, 04/2023Shortness of breath Moderate STANISLAV VITAL SIGNS Date Observation Value Provider Body Mass Index (Ratio) 40.35 kg/m2 Russ Alicea MD blood pressure, cuff size regular [facility] blood pressure, diastolic 66 mm[Hg] [facility] blood pressure, systolic 120 mm[Hg] [facility] oxygen saturation, oximetry 98 % Siomara Laughlin pulse rate 94 /min Siomara Huddy respiratory rate E&M 18 /min Siomara murrell weight E&M 250 [lb_av] Siomara Huddy height E&M 66 [in_i] [facility] Body Mass Index (Ratio) 40.51 kg/m2 Russ Alicea MD blood pressure, diastolic 64 mm[Hg] Li sonaLogic blood pressure, systolic 118 mm[Hg] Yuki ogic blood pressure, cuff size large Ja rret blood pressure, diastolic 64 mm[Hg] Ja rret blood pressure, systolic 118 mm[Hg] Jar ret respiratory rate E&M 12 /min Phil oxygen saturation, oximetry 99 % Phil weight E&M 251 [lb_av] Phil y height E&M 66 [in_i] Phil y Body Mass Index (Ratio) 41.80 kg/m2 Russ Alicea MD blood pressure, diastolic -1 mm[Hg] Li sonaLog blood pressure, systolic 134 mm[Hg] Yuki [facility] blood pressure, diastolic 64 mm[Hg] Marilee Dominguez blood pressure, systolic 134 mm[Hg] She lina Dominguez pulse rate 871 /min Gricel Dominguez oxygen saturation, oximetry 97 % Gricel Dominguez respiratory rate E&M 20 /min Gricel Dominguez weight E&M 259 [lb_av] Gricel Dominguez blood pressure, cuff size large kayden Dominguez height E&M 66 [in_i] Gricel Dominguez Body Mass Index (Ratio) 42.44 kg/m2 Russ Alicea MD pulse rate 78 /min Phil y blood pressure, cuff size regular Ja rret blood pressure, diastolic 79 mm[Hg] Ja rret blood pressure, systolic 163 mm[Hg] Jar ret respiratory rate E&M 12 /min Phil oxygen saturation, oximetry 100 % weight E&M 263 [lb_av] Phil y height E&M 66 [in_i] Phil y Body Mass Index (Ratio) 42.61 kg/m2 Russ Alicea MD blood pressure, diastolic 65 mm[Hg] Li nkLogic blood pressure, systolic 140 mm[Hg] Yuki kLogic blood pressure, diastolic 65 mm[Hg] St acy Emmanuel blood pressure, systolic 140 mm[Hg] Sta cy Emmanuel oxygen saturation, oximetry 97 % Trang Emmanuel pulse rate 95 /min Trang Emmanuel respiratory rate E&M 18 /min Trang D torres weight E&M 264 [lb_av] Trang Emmanuel height E&M 66 [in_i] Trang Emmanuel Body Mass Index (Ratio) 43.64 kg/m2 Russ Alicea MD blood pressure, diastolic 78 mm[Hg] St acy Emmanuel blood pressure, systolic 151 mm[Hg] Sta cy Emmanuel oxygen saturation, oximetry 97 % Trang Emmanuel pulse rate 94 /min Trang Emmanuel weight E&M 270.4 [lb_av] Trang Emmanuel respiratory rate E&M 16 /min Trang D torres height E&M 66 [in_i] Trang Emmanuel blood pressure, cuff size regular Ca therine Big Laurel height E&M 66 [in_i] Dede Big [place]urel Body Mass Index (Ratio) 43.74 kg/m2 Russ Alicea MD blood pressure, diastolic 76 mm[Hg] Ca therine Alberto blood pressure, systolic 137 mm[Hg] Cat herine Alberto blood pressure, cuff size regular Ca therine Alberto oxygen saturation, oximetry 94 % Dede Alberto respiratory rate E&M 16 /min Catheri ne Alberto pulse rate 100 /min Dede Alberto weight E&M 271 [lb_av] Dede [place] height E&M 66 [in_i] Dede [place] Body Mass Index (Ratio) 42.93 kg/m2 Russ Alicea MD blood pressure, cuff size regular Cy ntdevin Keys blood pressure, diastolic 80 mm[Hg] Cy ntbhaskara Keys blood pressure, systolic 132 mm[Hg] Barbara massimo Keys oxygen saturation, oximetry 98 % Bela Keys pulse rate 93 /min Bela Jorgebel l respiratory rate E&M 16 /min Bela Keys weight E&M 266 [lb_av] Prabhjot Cordobabernardino height E&M 66 [in_i] Bela Campbel l Body Mass Index (Ratio) 45.06 kg/m2 Russ Alicea MD blood pressure, diastolic 66 mm[Hg] Delfina Casanova blood pressure, systolic 130 mm[Hg] Cassandra Casanova oxygen saturation, oximetry 93 % Pooja Casanova respiratory rate E&M 20 /min Kristina Casanova pulse rate 92 /min Pooja Hoyose nson weight E&M 279.2 [lb_av] Pooja santos height E&M 66 [in_i] Pooja Hidalgo nsangel Body Mass Index (Ratio) 46.00 kg/m2 Russ Alicea MD blood pressure, diastolic 73 mm[Hg] To lolis Weeks blood pressure, systolic 155 mm[Hg] Ton [facility] oxygen saturation, oximetry 96 % [facility] respiratory rate E&M 18 /min [facility] pulse rate 0.86 /min [facility] weight E&M 285 [lb_av] [facility] height E&M 66 [in_i] [facility] Body Mass Index (Ratio) 46.00 kg/m2 Russ Alicea MD blood pressure, diastolic 67 mm[Hg] To [facility] blood pressure, systolic 143 mm[Hg] Ton [facility] pulse rate 85 /min [facility] oxygen saturation, oximetry 98 % [facility] respiratory rate E&M 16 /min [facility] weight E&M 285 [lb_av] [facility] height E&M 66 [in_i] [facility] Body Mass Index (Ratio) 46.00 kg/m2 Russ Alicea MD respiratory rate E&M 18 /min [facility] blood pressure, diastolic 70 mm[Hg] To [facility] blood pressure, systolic 141 mm[Hg] Ton [facility] oxygen saturation, oximetry 98 % [facility] pulse rate 84 /min [facility] weight E&M 285 [lb_av] [facility] height E&M 66 [in_i] [facility] Body Mass Index (Ratio) 45.83 kg/m2 Russ Alicea MD blood pressure, diastolic 70 mm[Hg] Asif Walker blood pressure, systolic 126 mm[Hg] Yuki Walker blood pressure, resting Yes Adarsh Walker oxygen saturation, oximetry 96 % Ashley Walker pulse rate 70 /min Ashley Alicea weight E&M 284 [lb_av] Ashley Alicea height E&M 66 [in_i] Ashley Williamson- [facility] Body Mass Index (Ratio) 46.64 kg/m2 Russ Alicea MD blood pressure, cuff size large Ke rri Gruenenfelder blood pressure, diastolic 70 mm[Hg] Ke rri Gruenenfelder blood pressure, systolic 130 mm[Hg] Ker ri Gruenenfelder oxygen saturation, oximetry 95 % Jaqui Gruenenfelder respiratory rate E&M 20 /min Jaqui G ruenenfelder pulse rate 75 /min Jaqui Gruenenfe lder weight E&M 289 [lb_av] Jaqui Gruenenfe lder height E&M 66 [in_i] Jaqui Gruenenfe lder Body Mass Index (Ratio) 47.93 kg/m2 Russ Alicea MD blood pressure, cuff size large Ke rri Gruenenfelder blood pressure, diastolic 80 mm[Hg] Ke rri Gruenenfelder blood pressure, systolic 138 mm[Hg] Ker ri Gruenenfelder oxygen saturation, oximetry 98 % Jaqui Gruenenfelder respiratory rate E&M 18 /min Jaqui G ruenenfelder pulse rate 70 /min Jaqui Gruenenfe lder weight E&M 297 [lb_av] Jaqui Gruenenfe lder height E&M 66 [in_i] Jaqui Gruenenfe lder Body Mass Index (Ratio) 49.06 kg/m2 Russ Alicea MD blood pressure, cuff size large Ke rri Gruenenfelder blood pressure, diastolic 100 mm[Hg] Ke rri Gruenenfelder blood pressure, systolic 160 mm[Hg] Ker ri Gruenenfelder oxygen saturation, oximetry 95 % Jaqui Grsashanenffrancisco javierer respiratory rate E&M 24 /min Jaqui G abrahamenenfelder pulse rate 89 /min Jaqui Gruenenfe lder weight E&M 304 [lb_av] Jaqui Grsashanenfe lder height E&M 66 [in_i] Jaqui Magdalenae lder Body Mass Index (Ratio) 48.58 kg/m2 [facility] blood pressure, cuff size large Ke rri Gruenenffrancisco javierer blood pressure, diastolic 76 mm[Hg] Ke rri Gruenenfelder blood pressure, systolic 148 mm[Hg] Scarlet ri Chivouenenffrancisco javierer oxygen saturation, oximetry 98 % Jaqui Chivosmooth respiratory rate E&M 20 /min Jaqui G cecilia pulse rate 77 /min Jaqui Grasshanekiyae lder weight E&M 301 [lb_av] Jaqui Girishnekiyae lder height E&M 66 [in_i] Jaqui Blessingkiyadarcy er Body Mass Index (Ratio) 48.42 kg/m2 Russ Alicea MD blood pressure, cuff size large Ke rri Gruenenffrancisco javierer blood pressure, diastolic 80 mm[Hg] Ke rri Gruenenfelder blood pressure, systolic 142 mm[Hg] Scarlet ri Chivouenetrinity oxygen saturation, oximetry 94 % Jaqui Girishnenfnadya respiratory rate E&M 20 /min Jaqui G abrahamenenfelder pulse rate 69 /min Jaqui Gruenenfe lder weight E&M 300 [lb_av] Jaqui Gruenenfe lder height E&M 66 [in_i] Jaqui Gruenenfe er Body Mass Index (Ratio) 48.58 kg/m2 Russ Alicea MD blood pressure, cuff size large Ori Lima blood pressure, diastolic 80 mm[Hg] Ori Lima blood pressure, systolic 124 mm[Hg] Scarlet Lima oxygen saturation, oximetry 93 % Jaqui Lima respiratory rate E&M 18 /min Jaqui brooks pulse rate 73 /min Jaqui onealer weight E&M 301 [lb_av] Jaqui chicas height E&M 66 [in_i] Jaqui Barbosa asif ALLERGIES Allergy Name Onset Date Reaction Criticality Status MICRONASE Low Criticality active PREDNISONE Low Criticality active RESULTS Date Observation Value Provider Reference Range Interpretation Location microalbumin/crea tinine ratio, urine 190.7 MG/G CREAT [facility] 0.0-30.0 High microalbumin, random, urine 5.11 mg/dL [facility] Units converted. See lab report for original value. creatinine, random, urine 26.8 mg/dL [facility] Not Estab. HISTORY OF MEDICATION USE Medication Status Instructions Dates Provider Indications Com ments glimepiride 1 mg tablet completed TAKE 1 TABLET BY MOUTH TWICE DAILY BEFORE MEAL(S) - 11/23 Steve Parson calcitriol 0.25 mcg capsule active TAKE 1 CAPSULE BY MOUTH ONCE DAILY Steve Winterszanehal hydrocodone-acet aminophen 5-325 mg tablet active TAKE 1 TABLET BY MOUTH EVERY 8 HOURS NEEDED FOR PAIN. DO NOT EXCEED 4,000MG ACETAMINOPHEN PER 24 HOURS Steve Winterszanehal Xarelto 20 mg tablet completed TAKE 1 TABLET BY MOUTH ONCE DAILY DIRECTED - 10/19 Steve Winterszanehal Eliquis 5 mg tablet completed TAKE 1 TABLET BY MOUTH TWICE DAILY - 05/26 Steve Parson Ozempic 0.25 mg or 0.5 mg (2 mg/3 mL) pen injector active 0.5 mg Steve Parson metoprolol tartrate 25 mg tablet active Take 1 tablet by mouth twice daily 03/26 Steve Parson lisinopril 20 mg tablet active TAKE 1 TABLET BY MOUTH ONCE DAILY Steve Parson liothyronine 5 mcg tablet active TAKE 1 TABLET BY MOUTH TWICE DAILY Mike Alicea MD metoprolol tartrate 25 mg tablet completed Take 1/2 tablet by mouth twice daily 11/05 - 03/26 Steve Parson ondansetron HCl 4 mg tablet active Take 1 tablet once a day as needed 11/22 Prabhjot Canchola ergocalciferol (vitamin D2) 1,250 mcg (50,000 unit) capsule active Take 1 capsule by mouth every two weeks 10/03 Prabhjot Canchola #8, 84 days supply, Prescribed by SUDHA ALICEA, Filled 11/11/2020 glimepiride 1 mg tablet completed Take 1 tablet by mouth once a day 09/27 - 01/27 Mike Alicea MD #180, 90 days supply, Prescribed by BEVERLY WOLF, Filled 12/22/2020 Ozempic 0.25 mg or 0.5 mg(2 mg/1.5 mL) pen injector completed Inject 0.5 mg subcutaneously once a week - 01/28 Prabhjot Canchola #2, 28 days supply, Prescribed by BEVERLY WOLF, Filled 07/26/2020 Xarelto 10 mg tablet completed 1 tablet every night 05/01 - 09/24 Steve Parson Ozempic 1 mg/dose (2 mg/1.5 mL) pen injector completed Inject once a week 05/01 - 01/27 Mike Alicea MD ASPIRIN 81 81 MG ORAL TABLET DELAYED RELEASE completed One Tab By Mouth Daily 01/06 - 04/17 Pooja Casanova TRADJENTA 5 MG ORAL TABLET completed one tablet daily in the morning 10/04 - 05/01 Prabhjot Canchola ALLERGY 10 MG ORAL TABLET active 1 tablet once a day 04/05 Mike Alicea MD esomeprazole magnesium 20 mg capsule,delayed release(DR/EC) active 1 tablet once a day 04/05 Mike Alicea MD rosuvastatin 10 mg tablet active 1 tablet once a day 01/20 Mike Alicea MD #90, 90 days supply, Prescribed by BEVERLY WOLF, Filled 01/20/2019 MONTELUKAST SODIUM 10 MG ORAL TABLET completed TAKE 1 TABLET BY MOUTH ONCE DAILY AT BEDTIME FOR 30 DAYS 11/24 - 04/17 Pooja Casanova #30, 30 days supply, Prescribed by MANI SINGLETON, Filled 03/02/2019 Breo Ellipta 200-25 mcg/dose blister with device active Inhale 1 puff by mouth once a day 03/21 Mike Alicea MD #60, 30 days supply, Prescribed by MANI SINGLETON, Filled 03/21/2019 XARELTO 20 MG ORAL TABLET completed HOLDING FOR NOW 01/06 - 8 Pooja Casanova #30, 30 days supply, Prescribed by MANI SINGLETON, Filled 03/21/2019 levothyroxine 50 mcg tablet active Take 1 tablet by mouth every morning 01/20 Steve Parson #30, 30 days supply, Prescribed by BEVERLY WOLF, Filled 03/19/2019 allopurinol 100 mg tablet active Take 1 tablet by mouth once a day 04/01 Mike Alicea MD #90, 90 days supply, Prescribed by SUDHA ALICEA, Filled 04/01/2019 Tresiba FlexTouch U-100 100 unit/mL (3 mL) insulin pen completed 22 unit every night 09/28 - 05/26 Steve Parson TRACEBA completed 22 units once a day at night 09/28 - 09/28 Mike Alicea MD spironolactone 25 mg tablet completed 1 tablet once a day 03/16 - 01/27 Mike Alicea MD ketoconazole 2% cream active Apply twice a day 03/16 Jaqui Lima CRESTOR 10 MG ORAL TABLET completed ONE TAB. DAILY 03/16 - 04/17 Jaqui Lima XARELTO STARTER PACK 15 & 20 MG ORAL TABLET THERAPY PACK completed Take 15mg tablet twice daily x21 days, then starting on day 22, take 20mg tablet daily until directed by physician to stop 11/04 - 8 Jaqui Lima XARELTO 20 MG ORAL TABLET completed One tab. daily with evening meal 11/19 - 03/16 Mike Alicea MD ferrous sulfate 325 mg (65 mg iron) tablet active Take 1 once a day 03/31 Jaqui Lima Shortness of breath Moderate STANISLAV MULTIVITAMINS ORAL CAPSULE completed 1 tablet once a day 03/31 - 05/26 Steve Parson Breo Ellipta 100-25 mcg/dose blister with device completed 1 puff once a day 03/31 - 01/28 Jaqui Lima OMEPRAZOLE 40 MG ORAL CAPSULE DELAYED RELEASE completed once a day 03/31 - 8 Jaqui Lima TRAMADOL HCL 50 MG ORAL TABLET completed take 1 to 2 pills every 6 hours as needed 03/31 - 8 Jaqui Lima DOXAZOSIN MESYLATE 2 MG ORAL TABLET completed take one pill at bedtime 03/31 - 12/15 Mike Alicea MD Flonase Allergy Relief 50 mcg/actuation spray,suspension active as directed 03/31 Jaqui Lima furosemide 40 mg tablet active Take 1 twice a day 03/31 Jaqui Lima quinapril 40 mg tablet completed 1 tablet once a day 03/31 - 01/27 Mike Alicea MD metoprolol tartrate 25 mg tablet completed Take 1 tablet by mouth twice a day 11/11 - 11/05 Steve Parson GLIMEPIRIDE 1 MG ORAL TABLET completed one pill twice a day 03/31 - 10/04 Mike Alicea MD VITAMIN D (ERGOCALCIFEROL) 90955 UNIT ORAL CAPSULE completed once a week 03/31 - 8 Jaqui Lima LANTUS SOLOSTAR 100 UNIT/ML SUBCUTANEOUS SOLUTION PEN-INJECTOR completed 30 units a day 03/31 - 04/17 Jaqui Clarence ProAir HFA 90 mcg/actuation HFA aerosol inhaler active 2 puff every four to six hours 03/31 Jaqui Lima SOCIAL HISTORY Date Observation Value Provider smoking status Never smoker Steve Wintersriley smoking status Never smoker Steve Chawlanehal social history E&M S moking History: Alivia vásquez has never smoked. Steve Wintersriley social history reviewed E&M revi ewed - no changes required Steve Singhriley smoking status Never smoker Gricel Dominguez social history reviewed E&M revi ewed - no changes required Steve Parson social history E&M S moking History: Alivia vásquez is a former smoker. Mike Alicea MD smoking, year quit 1999 Trangnorm [place] is smoking history, tot al pack/day 1 pk per month Trang Emmanuel cigarette use yes Trang Emmanuel smoking status Former smoker Trang Emmanuel social history reviewed E&M revi ewed - no changes required Mike Alicea MD social history E&M S moking History: Alivia vásquez is a former smoker. Mike Alicea MD smoking, year quit 1999 Trang Aba is smoking history, tot al pack/day 1 pk per month Trang Benitez cigarette use yes Trang Benitez smoking status Former smoker Trang Benitez social history reviewed E&M revi ewed - no changes required Mike Alicea MD smoking, year quit 1999 Dede Dominguez smoking history, tot al pack/day 1 pk per month Dede Alberto cigarette use yes Dede Big Laurel smoking status Former smoker Dede Ot is social history reviewed E&M revi ewed - no changes required Mike Alicea MD social history E&M S moking History: P thalia is a former smoker. Steve Wintersriley social history reviewed E&M revi ewed - no changes required Steve Jossiejake smoking, year quit 1999 Dede Big [place] smoking history, tot al pack/day 1 pk per month Dede [place] cigarette use yes Dede Alberto smoking status Former smoker Dede Ot is social history E&M S moking History: P atnoah is a former smoker. Prabhjot Canchola social history reviewed E&M revi ewed - no changes required Prabhjot Canchola smoking, year quit 1999 Bela bee smoking history, tot al pack/day 1 pk per month Bela Massimo cigarette use yes Bela Patelgrecia curtis smoking status Former smoker Bela Patel patel social history E&M S moking History: Alivia vásquez is a former smoker. Prabhjot Canchola social history reviewed E&M revi ewed - no changes required Prabhjot Canchola smoking, year quit 1999 Pooja Casanova smoking history, tot al pack/day 1 pk per month Pooja Casanova cigarette use yes PoojaWhitley santos smoking status Former smoker Pooja St savage social history E&M S moking History: P thalia is a former smoker. Prabhjot Canchola social history reviewed E&M revi ewed - no changes required Prabhjot Canchola smoking, year quit 1999 Tonsha Mo ss smoking history, tot al pack/day 1 pk per month Tonsha Weeks cigarette use yes Tonsha Weeks smoking status Former smoker [facility] social history E&M S moking History: Alivia vásquez is a former smoker. Prabhjot Jesika social history reviewed E&M revi ewed - no changes required Prabhjot Cordobabernardino smoking, year quit 1999 [facility] smoking history, tot al pack/day 1 pk per month [facility] cigarette use yes [facility] smoking status Former smoker [facility] number of grandchildren Mike Alicea MD T marin Alicea MD social history E&M S moking History: Alivia vásquez is a former smoker. Mike Alicea MD social history reviewed E&M revi ewed - no changes required Mike Alicea MD smoking, year quit 1999 [facility] smoking history, tot al pack/day 1 pk per month [facility] cigarette use yes [facility] smoking status Former smoker [facility] smoking status Former smoker Gricel Raj smith [employer] smoking, year quit 1999 Ashley Torres smoking history, tot al pack/day 1 pk per month Ashley Walker cigarette use yes Ashley Ramachandran social history reviewed E&M revi ewed - no changes required Ashley Walker social history E&M S moking History: Alivia vásquez is a former smoker. Mike Alicea MD social history reviewed E&M revi ewed - no changes required Mike Alicea MD smoking, year quit 1999 Jaqui gracia smoking history, tot al pack/day 1 pk per month Jaqui Lima cigarette use yes Jaqui covington smoking status Former smoker Jaqui petersen smoking, year quit 1999 Jaqui gracia smoking history, tot al pack/day 1 pk per month Jaqui Nicholsfrancisco javierasif cigarette use yes Jaqui Nichols elder smoking status Former smoker [facility] social history reviewed E&M revi ewed - no changes required Mike Alicea MD smoking, year quit 1999 [facility], tot al pack/day 1 pk per month Jaqui Martins cigarette use yes Jaqui Nichols [facility] smoking status Former smoker Jaqui Funk banner social history reviewed E&M revi ewed - no changes required [facility] social history E&M Smoking Histo ry: Alivia vásquez is a former smoker. [facility] smoking, year quit 1999 [facility] smoking history, tot al pack/day 1 pk per month Jaqui Nicholsfrancisco javier cigarette use yes Jaqui Nichols [facility] smoking status Former smoker Jaqui Funk banner social history reviewed E&M revi ewed - no changes required Mike Alicea MD smoking, year quit 1999 [facility], tot al pack/day 1 pk per month Jaqui Waldronsashajaylafrancisco javier cigarette use yes Jaqui Nichols [facility] smoking status Former smoker Jaqui Funk banner social history reviewed E&M revi ewed - no changes required Mike Alicea MD handedness R Handed Mike Alicea MD smoking history, tot al pack/day 1 pk per month Jaqui Nicholsfrancisco javier smoking, year quit 1999 [facility] use yes Jaqui Nichols [facility] smoking status Former smoker Jaqui Funk banner FAMILY HISTORY Family Member Condition Mother Family History of Di abetes: Father Family History of Mcpherson dden Cardiac : Father Family History of CV A or Stroke: INSURANCE PROVIDERS Payer name Policy type / Coverage type [place] [employer] party ID AARP MEDICARE ADVANTAGE HMO-POS HMO [id number] ADVANCE DIRECTIVES Name Date DISCUSSED - NO DECISION MADE TREATMENT PLAN Date Name Performer [id number],S, Steve Ahmedza i [id number],S, Steve Ahmedza i [id number],S, Steve Ahmedza i [id number],S, Steve Ahmedza i [id number],S, Steve Ahmedza i [id number],B, Steve Ahmedza i [id number],S, Steve Ahmedza i [id number],S, Steve Ahmedza i [id number],S, Steve Ahmedza i [id number],S, Steve Ahmedza i [id number],S, Steve Ahmedza i [id number],S, Steve Ahmedza i [id number],B, Mike Alicea MD [id number],B, Mike Alicea MD [id number],B, Mike Alicea MD [id number],S, Mike Alicea MD [id number],B, Mike Alicea MD [id number],B, Steve Chawla i [id number],S, Steve Ahmedza i [id number],S, Steve Jossiemedza i [id number],S, Steve Chawla i [id number],B, Steve Chawla i [id number],B, [facility] [id number],S, [facility] [id number],S, [facility] [id number],S, Steve Chawla [id number],S, Stevejacqueline Chawla [id number],S, Steve Chawla [id number],S, Stevejacqueline Chawla Cardiology: H er updated medication list for this problem includes: Lisinopril 20 Mg Tablet (Lisinopril) ..... Take 1 tablet by mouth once daily Metoprolol Tartrate 25 Mg Tablet (Metoprolol tartrate) ..... Take 1 tablet by mouth twice daily Furosemide 40 Mg Tablet (Furosemide) ..... Take 1 twice a day [facility] Cardiology: H er updated medication list for this problem includes: Lisinopril 20 Mg Tablet (Lisinopril) ..... Take 1 tablet by mouth once daily Metoprolol Tartrate 25 Mg Tablet (Metoprolol tartrate) ..... Take 1 tablet by mouth twice daily [facility]: T he following medications were removed from the medication list: Glimepiride 1 Mg Tablet (Glimepiride) ..... Take 1 tablet by mouth twice daily before meal(s) Her updated medication list for this problem includes: Ozempic 0.25 Mg Or 0.5 Mg (2 Mg/3 Ml) Pen Injector (Semaglutide) ..... 0.5 mg Lisinopril 20 Mg Tablet (Lisinopril) ..... Take 1 tablet by mouth once daily [facility]: B P today: 120/66 P rior BP: 118/64 (10/19/2023) Her updated medication list for this problem includes: Lisinopril 20 Mg Tablet (Lisinopril) ..... Take 1 tablet by mouth once daily Metoprolol Tartrate 25 Mg Tablet (Metoprolol tartrate) ..... Take 1 tablet by mouth twice daily Furosemide 40 Mg Tablet (Furosemide) ..... Take 1 twice a day [facility]: H er updated medication list for this problem includes: Lisinopril 20 Mg Tablet (Lisinopril) ..... Take 1 tablet by mouth once daily Metoprolol Tartrate 25 Mg Tablet (Metoprolol tartrate) ..... Take 1 tablet by mouth twice daily Furosemide 40 Mg Tablet (Furosemide) ..... Take 1 twice a day [facility] Cardiology: H er updated medication list for this problem includes: Lisinopril 20 Mg Tablet (Lisinopril) ..... Take 1 tablet by mouth once daily Glimepiride 1 Mg Tablet (Glimepiride) ..... Take 1 tablet by mouth twice daily before meal(s) Ozempic 1 Mg/dose (4 Mg/3 Ml) Pen Injector (Semaglutide) [facility] Cardiology: H er updated medication list for this problem includes: Lisinopril 20 Mg Tablet (Lisinopril) ..... Take 1 tablet by mouth once daily Metoprolol Tartrate 25 Mg Tablet (Metoprolol tartrate) ..... Take 1 tablet by mouth twice daily Furosemide 40 Mg Tablet (Furosemide) ..... Take 1 twice a day [facility] Cardiology: H er updated medication list for this problem includes: Lisinopril 20 Mg Tablet (Lisinopril) ..... Take 1 tablet by mouth once daily Metoprolol Tartrate 25 Mg Tablet (Metoprolol tartrate) ..... Take 1 tablet by mouth twice daily [facility] Cardiology Steve [facility]ai Cardiology Steve Ahmedzai Cardiology Steve Ahmedzai Cardiology Steve Ahmedzai Cardiology Steve Ahmedzai Cardiology Steve Ahmedzai Cardiology Steve Ahmedzai Cardiology Steve Ahmedzai Cardiology Steve Ahmedzai Cardiology Steve Ahmedzai Cardiology Steve Ahmedzai Cardiology Steve Ahmedzai Cardiology Mike Alicea MD Cardiology Mike Alicea MD Cardiology Mike Alicea MD Cardiology Mike Alicea MD Cardiology Mike Alicea MD Cardiology Steve Ahmedzai Cardiology Steve Ahmedzai Cardiology Steve Ahmedzai Cardiology Steve Ahmedzai Cardiology Steve Ahmedzai Cardiology Steve Ahmedzai Cardiology Steve Ahmedzai Cardiology Steve Ahmedzai Cardiology Steve Ahmedzai Cardiology Steve Ahmedzai Cardiology Steve Ahmedzai Cardiology Steve Ahmedzai Cardiology follow [facility] Mike Alicea MD Cardiology Mike Alicea MD Cardiology Mike Alicea MD Cardiology Mike Alicea MD Cardiology Mike Alicea MD Cardiology Mike Alicea MD Cardiology:will check stress alicia t Gricel Rosenbaum NP Cardiology:Would suggest xrays o f knee. Gricel Rosenbaum NP Cardiology:Reports compliance wi th CPAP at night. Gricel Rosenbaum NP Cardiology:weight loss encourage d Gricel Rosenbaum NP Cardiology: H er updated medication list for this problem includes: Quinapril Hcl 40 Mg Oral Tablet (Quinapril hcl) ..... 1/2 pill twice a day Metoprolol Tartrate 50 Mg Oral Tablet (Metoprolol tartrate) ..... One tab. twice daily Furosemide 40 Mg Oral Tablet (Furosemide) ..... Take one pill twice a day Spironolactone 25 Mg Oral Tablet (Spironolactone) ..... One tab. daily Gricel Rosenbaum NP Cardiology:remains on Xarelto Marilee Rosenbaum NP Cardiology Follow up Mike li MD Cardiology Follow up Tusharithu li MD Cardiology Follow up Tonithu li MD Cardiology Follow up Tonithu li MD Cardiology Follow up Tonithu li MD Cardiology Follow up Mike zuniga MD Cardiology Follow up Toniya Jaspreet li MD Cardiology Follow up Tonithu li MD Cardiology Follow up Tonithu li MD Cardiology Follow up Tonithu li MD Cardiology Follow up Tonithu li MD Cardiology Follow up Toniya Sing h MD Cardiology Follow up Mike li MD Cardiology Follow up :The patient is using CPAP on a regular basis. The patient has been benefiting from therapy and should continue use. Mike Alicea MD Cardiology Follow up Mike li MD Cardiology Follow up :BP today: 148/76 P rior BP: 142/80 (04/28/2017) Her updated medication list for this problem includes: Doxazosin Mesylate 2 Mg Oral Tablet (Doxazosin mesylate) ..... Take one pill at bedtime Furosemide 40 Mg Oral Tablet (Furosemide) ..... Take one pill twice a day Quinapril Hcl 40 Mg Oral Tablet (Quinapril hcl) ..... 1/2 pill twice a day Metoprolol Tartrate 25 Mg Oral Tablet (Metoprolol tartrate) ..... Take one pill twice a day [facility] Follow up :The pt complains of swelling and pain in the left foot and ankle. On exam the foot is erythematous and swollen. Venous duplex revealed DVT. Will start Xarelto. [facility] Follow up :The pt complains of swelling and pain in the left foot and ankle. On exam the foot is erythematous and swollen. Venous duplex revealed DVT. Will start Xarelto. [facility] Follow up Mike li MD Cardiology Follow up Mike li MD Cardiology Follow up Mike li MD Cardiology Follow up Mike li MD Cardiology New Patient Toniya Chayo meyers MD Cardiology New Patient Tonithu meyers MD Cardiology New Patient Toniya Chayo meyers MD Cardiology New Patient Toniya Chayo meyers MD Date Name Complete Echo Complete Echo Stress Regadenoson URINALYSIS, RANDOM, MICROALB/CREATININE Venous Doppler Bilat eral LE - Reflux URINALYSIS, RANDOM, MICROALB/CREATININE Arterial Duplex Bi-L ower EX Venous Doppler Bilat eral LE - Reflux HISTORY OF PROCEDURES Procedure Date Procedure Name Provider Procedure Notes S tatus EKG Mike Alicea MD completed EKG Mike Alicea MD completed EKG Mike Alicea MD completed EKG Mike Alicea MD completed EKG Mike Alicea MD completed Regadenoson, 4 units Mike Alicea MD completed Cardiolite, 2 units Mike Alicea MD completed SPECT Images Mike Alicea MD complet ed Stress EKG Mike Alicea MD completed EKG Mike Alicea MD completed SNOMED-CT: 90858509 Physical Exam, Performed: Pulse Exam of Foot Mike Alicea MD completed SNOMED-CT: 893499323 103858 Current Medications Documented Mike Alicea MD completed Stress EKG Rickey Su MD complete d Regadenoson, 4 units Mike Alicea MD completed Cardiolite, 2 units Mike Alicea MD completed SPECT Images Mike Alicea MD complet ed SNOMED-CT: 62865377 Physical Exam, Performed: Pulse Exam of Foot Mike Alicea MD completed EKG Mike Alicea MD completed SNOMED-CT: 585911283 141123 Current Medications Documented Mike Alicea MD completed
--- OUTSIDE RECORDS SUMMARY | 2024-11-28 08:30 | XMS_ITS | Data Portability ---
Author Organization [facility] Shailesh LOMELI Address [address] [place] [address] Assessment No assessment recorded. Plan of Treatment Reminders Order Date Submit Date Provider Last Modified By Organization Details Last Modified Time Details Appointments None recorded. 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 Procedures None recorded. Surgeries None recorded. Imaging None recorded. Medication Orders None recorded. Patient TargetsNo targets recorded. Patient Instructions Encounter Date Encounter Id Patient Instructions Last Modified By Organization Details Last Modified Time 06/04/2017 [id number] MRSA: care instructions [email or web address] Not available 06/05/2017 09:31:07 cellulitis: care instructions [email or web address] Not available 06/05/2017 09:31:07 Reason for Referral None Reported. Results Created Date Observation Date Name Description Value Unit Range Abnormal Flag Note LastModifiedBy Organization Detail LastModifiedTime 06/04/20 17 06/04/2017 urina lysis , dipst ick Leukocytes Negati ve Not Available In-Office Order Internal Use Only DO Not Attach Compendium DO Not Attach Compendium, Do Not Delete/merge, [id number] 06/04/2017 18:02:06 06/04/20 17 06/04/2017 urina lysis , dipst ick Nitrite negati ve Not Available In-Office Order Internal Use Only DO Not Attach Compendium DO Not Attach Compendium, Do Not Delete/merge, [id number] 06/04/2017 18:02:06 06/04/20 17 06/04/2017 urina lysis , dipst ick Urobilinogen .2 Not Available In-Of fice Order Internal Use Only DO Not Attach Compendium DO Not Attach Compendium, Do Not Delete/merge, [id number] 06/04/2017 18:02:06 06/04/20 17 06/04/2017 urina lysis , dipst ick Protein 30 Not Available In-Office Order Internal Use Only DO Not Attach Compendium DO Not Attach Compendium, Do Not Delete/merge, 06/04/2017 18:02:06 06/04/20 17 06/04/2017 urina lysis , dipst ick pH 6.5 Not Available In-Office Order Internal Use Only DO Not Attach Compendium DO Not Attach Compendium, Do Not Delete/merge, [id number] 06/04/2017 18:02:06 06/04/20 17 06/04/2017 urina lysis , dipst ick Blood Non-He molyze d: Trace Not Available In-Office Order Internal Use Only DO Not Attach Compendium DO Not Attach Compendium, Do Not Delete/merge, 06/04/2017 18:02:06 06/04/20 17 06/04/2017 urina lysis , dipst ick Specific [place] 1.015 Not Available In-Off ice Order Internal Use Only DO Not Attach Compendium DO Not Attach Compendium, Do Not Delete/merge, [id number] 06/04/2017 18:02:06 06/04/20 17 06/04/2017 urina lysis , dipst ick Ketone Negati ve Not Available In-Office Order Internal Use Only DO Not Attach Compendium DO Not Attach Compendium, Do Not Delete/merge, [id number] 06/04/2017 18:02:06 06/04/20 17 06/04/2017 urina lysis , dipst ick Bilirubin Negati ve Not Available In-Office Order Internal Use Only DO Not Attach Compendium DO Not Attach Compendium, Do Not Delete/merge, [id number] 06/04/2017 18:02:06 06/04/20 17 06/04/2017 urina lysis , dipst ick Glucose Negati ve Not Available In-Office Order Internal Use Only DO Not Attach Compendium DO Not Attach Compendium, Do Not Delete/merge, [id number] 06/04/2017 18:02:06 06/04/20 17 06/04/2017 urina lysis , dipst ick Appearance Clear Not Available In-Offi ce Order Internal Use Only DO Not Attach Compendium DO Not Attach Compendium, Do Not Delete/merge, [id number] 06/04/2017 18:02:06 06/04/20 17 06/04/2017 urina lysis , dipst ick Color Yellow Not Available In-Office Order Internal Use Only DO Not Attach Compendium DO Not Attach Compendium, Do Not Delete/merge, [id number] 06/04/2017 18:02:06 06/04/20 17 06/06/2017 methi cilli n resis tant staph yloco ccus aureu s, cultu re, unspe cifie d speci men MRSA screening culture TNP Dupli anatoly proce dure order ed. Not Available [facility] ([facility]) [address] [place], [address], 06/07/2017 14:06:48 06/04/20 17 06/07/2017 methi cilli n resis tant staph yloco ccus aureu s, cultu re, nasal MRSA mssa screening culture Final report Not Available [facility] ([facility]) [address] [place], [address], 06/07/2017 14:06:49 06/04/20 17 06/07/2017 methi cilli n resis tant staph yloco ccus aureu s, cultu re, nasal result 1 Commen t No Methi cilli n - resis tant Staph yloco ccus aureu s. Not Available [facility] ([facility]) [address] [place], [address], 06/07/2017 14:06:49 06/04/20 17 06/07/2017 methi cilli n resis tant staph yloco ccus aureu s, cultu re, nasal result 2 Commen t No Methi cilli n-brenden cepti ble Staph yloco ccus aureu s Not Available [facility] ([facility]) [address], [place], [address], 06/07/2017 14:06:49 Result Notes None recorded. Procedures Surgical History Date Name Laterality Status Provider Name and Address Organization Details Recorded Time Tubal Ligation completed Gaby Enriquez MA [place] - [facility] 06/04/2017 16:51:30 Imaging Results None recorded. Procedure Notes None recorded. Medical Equipment None Reported. Allergies Allergen ID Allergen Name Allergen Category Reaction Reaction Severity Criticality Documentation Date Start Date Code Code System Note Provider Name and Address Organization Details Recorded Time 35694 metformin medicatio n other Not available Not available 06/04/2017 6809 RxNorm Start ed seein g 5 peopl e Not Available Not Available Not Available 11845 prednison e medicatio n other Not available Not available 06/04/2017 8640 RxNorm Black bumps Not Available Not Available Not Available Medications Name Sig Start Date Stop Date Status Note LastModified by Organization Details LastModified Time furosemide 40 mg tablet active Not Available Not Available No t Available azithromycin 250 mg tablet 2016 completed Not Available Not Available Not Available glyburide 5 mg tablet active Not Available Not Available Not Available cephalexin 250 mg capsule active Not Available Not Available N ot Available omeprazole 40 mg capsule,delaye d release active Not Available Not Available No t Available tramadol 50 mg tablet active Not Available Not Available Not Available quinapril 40 mg tablet active Not Available Not Available No t Available furosemide 20 mg tablet 2016 completed Not Available Not Available Not Available Vitamin D2 1,250 mcg (50,000 unit) capsule 2016 completed Not Available Not Available Not Available fluticasone propionate 50 mcg/actuation nasal spray,suspensi on active Not Available Not Available Not Available doxazosin 2 mg tablet active Not Available Not Available Not Available amoxicillin 875 mg-potassium clavulanate 125 mg tablet 2016 completed Not Available Not Available Not Available amoxicillin 500 mg-potassium clavulanate 125 mg tablet 2016 completed Not Available Not Available Not Available metoprolol tartrate 25 mg tablet active Not Available Not Available Not Available Lantus Solostar U-100 Insulin 100 unit/mL (3 mL) subcutaneous pen active Not Available Not Available Not Available Vitals Date Recorded Body weight Provider Name an d Address Organization Details Last Updated DateTime 06/04/2017 742506.53 g Gaby Enriquez MA [facility] 06/04/2017 16:45:17 Social History Question Answer Notes LastModified by Organizat ion Details LastModified Time Tobacco Smoking Status Former Smoker Gaby Enriquez MA null, [facility] 06/04/2017 17:02:56 What Is Your Level Of Alcohol Consumption? None Information not available 06/04/2017 What Is Your Level Of Caffeine Consumption? None Information not available 06/04/2017 How Much Tobacco Do You Chew? None Information not available 06/04/2017 Are You Currently Employed? No Information not available 06/04/2017 What Type Of Diet Are You Following? REGULAR Information not available 06/04/2017 Which Illicit Or Recreational Drugs Have You Used? None Information not available 06/04/2017 Education 12 Information no t available 06/04/2017 What Is Your Occupation? Retired Information not available 06/04/2017 Live Alone Or With Others? With Others Information not available 06/04/2017 What Was The Date Of Your Most Recent Tobacco Screening? 06/04/2017 Information not available 04/07/2019 How Many Children Do You Have? 2 Information not available 06/04/2017 What Is Your Relationship Status? Information not available 06/04/2017 Seat Belts Used Routinely Yes Information not available 06/04/2017 Are You Sexually Active? No Information not available 06/04/2017 General Stress Level Low Information not available 06/04/2017 Sex: Unknown Functional Status Question Answer Note LastModified by Organization D etails LastModified Time What is your exercise level? None Information not available 06/04/2017 Mental Status None recorded. Family History Relationship Description Onset Age of this Age Resolved Age Notes LastModified by Organization Details LastModified Time Mother Diabetes mellitus 70s [email or web address] Not available 06/04 16:58:24 Paternal Grandmother Diabetes mellitus Possib le [email or web address] Not available 06/04/2017 16:58:57 Paternal Grandfather Diabetes mellitus Possib le sdevriesma Not available 06/04/2017 16:58:54 Brother Diabetes mellitus [email or web address] Not available 06/04 16:59:14 Brother Diabetes mellitus [email or web address] Not available 06/04 16:59:17 Brother Hypertensive disorder most of family [email or web address] Not available 06/04/2017 17:00:54 Sister Diabetes mellitus [email or web address] Not available 06/04 17:00:16 Sister Diabetes mellitus [email or web address] Not available 06/04 16:59:25 Sister Diabetes mellitus sdevriesma Not available 06/04 16:59:29 Father Heart disease sdevriesma Not available 06/04 17:00:32 Medical History No medical history recorded. Gynecological History Statement/Question Response If Post Menopausal, Age at Menopause Sexually Active? N Menses Monthly N STIs/STDs N Current Control Method Tubal Ligat ion Most Recent Mammogram Age at First Child 20 LMP Obstetrics History GPAL:G 2 P 2 0 0 2 Type Value Multiple Births 0 Full Term 2 Induced 0 Spontaneous 0 Premature 0 Living 2 Ectopics 0 Total 2 Past Encounters Encounter ID Performer Location Encounter Start Date Encounter Closed Date Diagnosis/Indication Diagnosis SNOMED-CT Code Diagnosis ICD10 Code Diagnosis Note [id number] Vincent Kd Macdonald ([employer]) [address] [place] [address] 06/04/2017 15:47:37 06/05/2017 17:03:30 Cellulitis 622254424 L03.90 right labial cellulitis . Currently on Keflex for past 6 days. Instructed to finish entire course of meds. Cultures obtained Health Concerns Section Related Observation LastModified by Organization Detai ls LastModified Time None Recorded Concern Status LastModified by Organization Details LastModified Time None Recorded Advance Directives Directive None Recorded Payers Encounter Date Sequence Insurance Name Policy Number Policy Gusman Covered Member ID Gusman Member ID Guarantor Name 06/04/2017 1 [facility]: (PPO) [id number] Julisa Pérez [id number] Julisa Pérez Notes Date Note Type Note Provider Name and Address Organization Details Recorded Time 06/04/2017 text/html Vaginal/Vulvar ProblemReported bypatient.Associated Symptoms:no vaginal itching; no vaginal irritation; no vulvar itching/irritation; no pelvic pain; no dyspareunia; no dyruria; no fever; no abdominal pain;vulvar swelling/erythema;vul patricia pain;vulvar lesions This is a 66 y/o AAF with c/o a boil on her genital region that started 9 days ago. Reports the boil burst after 3 days and drained pus and blood. Has been on Keflex for 6 days. Reports the pain is better since then, but it is still sore. Vincent Yi [facility] 06/06/2017 06:10:32 OBGyn Episode Ob Episode Information Episode Created Date Number of Fetuses Patient Bloodtype Patient rh Status Prepregnancy Weight lbs Domestic Partner Domestic Partner Phone Father Name Caul Fat Puller Status 06/04/20 17 1 CLOSED Fetus Data First Name Last Name Admitted to NICU Weight (g) Sex Living Outcome Pediatric Complications Fetus ID Race Codes Race Delivery Type M Full Term [id number] Vaginal Fox Calculation Initial Fox Date Initial Exam Date Initial Exam Provider Initial Ultrasound Date Last Menstrual Period Date Ultra Sound Weeks Gestation 0 Eighteen To Twenty Week Fox Update Ultra Sound Date Fundal Height At Umbil Quickening Date Ultra Sound Latest Weeks Gestation Final Fox Confirmed By Final Fox Confirmed Date Final Fox Date Ultra Sound Latest Days Gestation 0 0 Menstrual History Last Menstrual Date Menses Monthly On Bcp Conception Prior Menses Frequency Hcg Plus Date Menarche Onset Age Delivery Information Delivery Date Delivery Type Labor Anesthesia Weeks Gestation Incision Type Labor Labor Length Hrs Delivered By Post Complications Tubal Sterilization Discharge Date Comments 1 [place] Discharge Information Feeding Method Contraceptive Method Maternal HG B and HCT Levels
--- OUTSIDE RECORDS SUMMARY | 2024-11-28 08:30 | XMS_ITS ---
Author Organization [facility] Address [address] [place] [address] Care Team Providers Care Ditch Inspector Name Role Phone ShaileshGwenChristophemauricio Gentile [phone] MEDICATIONS Medication SIG (Take, Route, Frequency, Duration) Notes Start Date End Date Status Ergocalciferol 1.25 MG (63120 UT) 1 capsule Orally Once a week for 30 days 10/14/2024 11/13/2024 Active Lasix 40 MG 1 tablet Orally twic e a day for 90 day(s) 07/08/2024 07/11/2025 Active Encounters Encounter Location Date Provider Diagnosis [facility] [address] [facility] [address] [place] [address] 10/14/2024 Christophe Cash PLAN OF TREATMENT Medication Medication Name Sig Start Date Stop Date Notes Ergocalciferol 1.25 MG (5000 0 UT) 1 capsule Orally Once a week for 30 days 10/14/2024 11/13/2024 Lasix 40 MG 1 tablet Orally twic e a day for 90 day(s) 07/08/2024 07/11/2025 Next Appt Details Provider Name:Christophe Cash , 12/09/2024 02:00:00 PM, [address] [facility], [place], [address], Progress Notes * TOMER HUTTONOB:[birth year] (74 yo F)Acc No.[id number]:10/14/2024 Patient: МАРИЯ HUTTON :1950 Age:74 Y Sex:Female Address:[address];, [place], [place], [place] [address] * Refills Refill Lasix Tablet, 40 MG, Orally, 180 Tablet, 1 tablet, twice a day, 90 day(s), Refills=2 Start Ergocalciferol Capsule, 1.25 MG (56673 UT), Orally, 4, 1 capsule, Once a week, 30 days * * Date:
--- OUTSIDE RECORDS SUMMARY | 2024-11-28 08:30 | XMS_ITS | Data Portability ---
Author Organization [facility] [employer], Main Office Address [address] [place] [address] Care Team Providers Care Physician Relations Representative Name Role Phone COREY GURROLA Primary Care Provider COREY GURROLA Referring Provider [phone] Assessment Encounter Date Assessment Date Assessment LastModified by Organization Details LastModified Time 06/28/2024 06/28/2024 This note is dictated and transcribed by [employer]. [employer] variances may occur. Despite proofreading, typographical errors may occur. Occasional wrong-word or '[id number]' substitutions may have occurred due to the inherent limitations of voice recording. Read the chart carefully and recognize, using context, where substitutions have occurred. Not available 06/28/2024 10:22:46 08/03/2024 08/03/2024 Assessment: Nicotine smoke: 10/13 ppd 3091-1260 = 0.5 pack year Moderate OSAHS, AHI = 20 Methacholine (+) moderate persistent asthma Multiple environmental allergies Plan: The following were reviewed and explained to the patient: [facility] home sleep study 04/21/17 AHI = 20 [facility] titration sleep study 05/23/17 F&P small Simplus full face mask @ 13 cmH2O Lab data 05/11/23 multiple environmental allergies PFT 09/01/18 nl FEV1/FVC, FEV1 1.32 L (70%), BD 30 mL = 3%, TLC 2.83 L (58%), DLCO 63%, DLCO/VA 165% PFT 07/01/21 nl FEV1/FVC, FEV1 1.35 L (70%), BD 60 mL = 5%, TLC 3.27 L (65%), DLCO 53% PFT 06/23/24 nl FEV1/FVC, FEV1 1.22 L (63%), BD 30 mL = 2%, TLC 3.52 L (77%), DLCO 77%, DLCO/VA 134% Methacholine challenge testing 06/30/23 (+) methacholine challenge at level 3 General information on bronchial asthma was covered. Patient will monitor peak flow daily at a set time and again when symptoms of chest tightness, cough, dyspnea or wheezing occur. Patient will bring peak flow record to subsequent visits. The color of a traffic light will guide the patient's use of asthma medications: (1) Green means Go Zone. Peak flow: above 80% of personal best. Symptoms: Breathing is good, no cough or wheeze present, patient sleeps through the night and can work and play. Plan: Patient will continue the use of preventative medicine. (2) Yellow means Caution Zone. Peak flow: between 50-80% of personal best. Symptoms: Presence of first signs of a cold, exposure to known trigger, mild wheeze, tight chest and coughing especially night. Plan: Patient will add quick-relief medicine to preventative medicine. (3) Red means Danger Zone. Peak flow: below 50% of personal best. Symptoms: Asthma is getting worse quickly and medicine is not helping, breathing is hard and fast, nose opens widely when breathing, ribs showing when breathing, and patient cannot speak in full sentences. Plan: Patient will get help from a physician immediately. Advised to continue not to smoke. Continue Breo Ellipta 200/25 mcg 1 puff daily. Gargle after use. Continue albuterol HFA as needed. The patient does not know how to accurately administer the inhalers. Today, the patient was shown how to take these medications. The proper technique for delivering these medications was instructed. The patient expressed a clear understanding and demonstrated back how to use these medications. Without the proper technique, the patient will not reap the benefits of these medications as the contents will not reach the lower airways as intended to be. Adherence to therapy is advocated. Nonadherence may lead to treatment failure, further progression of the condition, and other complications. Hospitals admissions are often the result of individuals not taking prescription medications accurately. Alternatively, greater adherence to medication regimens have shown to lower rates of hospitalization and decrease total medical costs in patients with chronic medical conditions. PAP compliance downloaded and interpreted x 20 minutes. Data reviewed and explained to the patient. Average apnea/hypopnea index (AHI) is 0.1. Patient used PAP > 4 hours 99% of the time. PAP is set at 13 cmH2O. PAP will remain at 13 cmH2O. Keep EPR +3 furniture assembler. Keep ramp off. Keep humidifier level at 5. Oxygen supplementation: none Patient is benefiting from PAP therapy. Encouraged patient to maintain PAP use more than 70% of the time. Statement of PAP use and benefits will be sent to the home care store. ResMed Air Sense 11 auto set unit with heated humidifier, supplies and full face mask @ 13 cmH2O ordered. Further adjustment will be based on clinical response. Educated the patient on problems and solutions associated with positive airway pressure (PAP) use. Difficulty tolerating pressure, mask leaks, intolerance of interface, nasal congestion, claustrophobic response, dry mouth, and unintentional mask removal during sleep were covered. Patient's mask leaks air. We will ensure the mask is situated properly. Patient can wear protective eye covering during sleep, and the mask can be resized. Dry mouth is a normal occurrence for people who just start out on PAP therapy because they are not used to air blowing in to the throat to hold open. Dry mouth is exacerbated for people who wear nasal PAP mask and whose jaw drops open during sleep. Not only does this create a much less efficient therapy because of leakage, it also causes dry mouth. There are a couple solutions to help prevent this type of problem. A simple solution would be to wear a chinstrap which essentially holds the jaw in place. A second solution would be a switch to a full face mask which covers both the nose and mouth. Although this is another easy solution, using a full face mask for some could seem claustrophobic or confining. There is no silver bullet solution as no single mask is right for everybody. Sometimes it takes a bit of experimentation to find a PAP mask which best meets the patient's needs as well as fits comfortably. Another tactic is to use a humidifier on your PAP machine. Most new PAP machines have integrated humidifiers. Humidification is hilton when dealing with symptoms of dry mouth because the humidifier can supply both warm and room temperate air. Even a small amount of humidity in the airflow will help nasal passages to stay hydrated. If a person is using both a full face mask and a PAP machine with a heated humidifier and is still experiencing dry mouth, an ill-fitted PAP mask might be causing the problem. Leakage can be caused by a mask that is to large or small, the wrong style mask, the cushion is degraded or simply because the mask's straps aren't adjusted correctly. If leakage occurs, dry air from the room can leak in while humidification escapes. The result is reduced humidification within the circuit and resulting in dry throat and mouth. Finally, beyond factors involving the PAP machine and mask, dry mouth can also be caused or worsened by dehydration. The general recommendation to during eight 8 oz. glasses of water a day might be too little for many people. When people drink large amounts of coffee or other caffeine beverages, or sweat a lot during the day, making sure to rehydrate is an important part of PAP therapy. Patient will setup an appointment with [employer] for supplies and pressure adjustments. A major predictor of success with use of PAP is follow-up with both the respiratory supplier and the treating physician. The download results can show the treating physician information about adherence to treatment, residual AHI while on treatment and presence of large mask leakage. This information is especially helpful if the patient has residual sleepiness despite treatment. General information on sleep disorder breathing, evaluation of sleep disordered breathing, treatment with PAP therapy, and living with PAP therapy were covered. We discussed with the patient the impact of weight on: Sleep disordered breathing PE Hypertension DM Umbilical hernia Hepatomegaly CKD Left knee pain We discussed with the patient the benefit of PAP therapy on: Sleep disordered breathing Bilateral hearing loss Hypertension DM CKD Educated the patient on sleep hygiene measures. Relaxing rituals to rest easy, understanding foods with positive and negative impact on sleep, creating a peaceful sleep environment, timing of exercise, using herbal sleep aids, and practicing sleep-friendly meditation were covered. To determine how much sleep is needed, the patient will assess where (s)he falls on the spectrum, examine what lifestyle factors such as work schedules and stress are affecting the quality and quantity of sleep. In general, adults need 7-9 hours of sleep. Educated the patient regarding foods that promote sleep. These include but are not limited to cherries, bananas, toast, oatmeal, and warm milk. Educated the patient regarding foods and drinks to avoid before bedtime. These include but are not limited to aged cheese, chocolate, spicy foods, tomato-based sauces, soy, ginseng tea and processed meat. Advocated influenza vaccination annually and pneumonia vaccination in 2025. Advocated weight loss through diet and exercise. Patient's ideal body weight according to height and gender is up to 130 lbs. Encouraged patient to adjust caloric intake to maintain/achieve ideal body weight, emphasizing on fruits, vegetables, whole grains, and fat-free or low-fat products. These include lean meats, poultry, fish, beans, eggs, and nuts and foods that are low in saturated fats, trans-fats, cholesterol, salt (sodium), and glycemic index. Stressed the importance of regular exercise up to the patient's capacity limits. In this case, we recommend 20 min daily walking, 2 days a week of resistance training. Patient to monitor BP daily and bring records to PCP for further management. Follow-up: 3 months, October 2024 Not available 08/03/2024 09:19:47 10/06/2024 10/06/2024 45 minutes spent with the patient 12/03/2022: Dr Marie/Dr Cash IJ TSH/FT4: WNL Lipids: Stable CMP: BUN 70, Cr 1.95, GFR 31 CBC: H/H 7.9/27.3 A1C 6.8 01/08/2023: Dr Ortiz CBC: H/H 7.5/25.9 03/05/2023: Dr Ortiz H/H 8.6/28.9 04/30/2023: Dr Ortiz H/H 8.9/29.4, MCV 78.4 07/23/2023: Cr 1.70, GFR 36, TP 9.0, ALK 135 H/H 8.4/29.6 07/31/2023: A1C 6.0 VIT D 109H 09/25/2023: Dr Ortiz BUN/Cr/GFR: 45/1.40/45 HGB 9.3 12/11/3033: Dr Ortiz BUN 46, Cr 1.80, GFR 34L, I ca 1.33 12/17/2023: Dr Ortiz H/H 9.8/33.3 04/14/2024: [facility] labs Chol 110, TG 61, HDL 64, LDL 34 A1C 6.4 04/20/2024: [facility] labs Gluc 191, Cr 1.53, GFR 40, ALT 101, AST 92, TP 6.2, ALB 2.9 H/H 8.4/29.4 08/25/2024: Dr Ortiz BUN 31, Cr 1.6, GFR 38 10/04/2024: Dr Ortiz H/H 9.1/31.1 45 minutes spent with the patient, reviewed the labs and updated her chart [email or web address] Not available 10/10/2024 09:04:51 10/25/2024 10/25/2024 This note is dictated and transcribed by [employer]. [employer] variances may occur. Despite proofreading, typographical errors may occur. Occasional wrong-word or '[id number]-[id number]' substitutions may have occurred due to the inherent limitations of voice recording. Read the chart carefully and recognize, using context, where substitutions have occurred. Not available 10/25/2024 11:01:22 11/02/2024 11/02/2024 Assessment: Nicotine smoke: 10/13 ppd 7109-1365 = 0.5 pack year Moderate OSAHS, AHI = 20 Methacholine (+) moderate persistent asthma Multiple environmental allergies Plan: The following were reviewed and explained to the patient: [facility] home sleep study 04/21/17 AHI = 20 [facility] titration sleep study 05/23/17 F&P small Simplus full face mask @ 13 cmH2O Lab data 05/11/23 multiple environmental allergies PFT 09/01/18 nl FEV1/FVC, FEV1 1.32 L (70%), BD 30 mL = 3%, TLC 2.83 L (58%), DLCO 63%, DLCO/VA 165% PFT 07/01/21 nl FEV1/FVC, FEV1 1.35 L (70%), BD 60 mL = 5%, TLC 3.27 L (65%), DLCO 53% PFT 06/23/24 nl FEV1/FVC, FEV1 1.22 L (63%), BD 30 mL = 2%, TLC 3.52 L (77%), DLCO 77%, DLCO/VA 134% Methacholine challenge testing 06/30/23 (+) methacholine challenge at level 3 General information on bronchial asthma was covered. Patient will monitor peak flow daily at a set time and again when symptoms of chest tightness, cough, dyspnea or wheezing occur. Patient will bring peak flow record to subsequent visits. The color of a traffic light will guide the patient's use of asthma medications: (1) Green means Go Zone. Peak flow: above 80% of personal best. Symptoms: Breathing is good, no cough or wheeze present, patient sleeps through the night and can work and play. Plan: Patient will continue the use of preventative medicine. (2) Yellow means Caution Zone. Peak flow: between 50-80% of personal best. Symptoms: Presence of first signs of a cold, exposure to known trigger, mild wheeze, tight chest and coughing especially night. Plan: Patient will add quick-relief medicine to preventative medicine. (3) Red means Danger Zone. Peak flow: below 50% of personal best. Symptoms: Asthma is getting worse quickly and medicine is not helping, breathing is hard and fast, nose opens widely when breathing, ribs showing when breathing, and patient cannot speak in full sentences. Plan: Patient will get help from a physician immediately. Advised to continue not to smoke. Continue Breo Ellipta 200/25 mcg 1 puff daily. Gargle after use. Continue albuterol HFA as needed. The patient does not know how to accurately administer the inhalers. Today, the patient was shown how to take these medications. The proper technique for delivering these medications was instructed. The patient expressed a clear understanding and demonstrated back how to use these medications. Without the proper technique, the patient will not reap the benefits of these medications as the contents will not reach the lower airways as intended to be. Adherence to therapy is advocated. Nonadherence may lead to treatment failure, further progression of the condition, and other complications. Hospitals admissions are often the result of individuals not taking prescription medications accurately. Alternatively, greater adherence to medication regimens have shown to lower rates of hospitalization and decrease total medical costs in patients with chronic medical conditions. PAP compliance downloaded and interpreted x 20 minutes. Data reviewed and explained to the patient. Average apnea/hypopnea index (AHI) is 0.1. Patient used PAP > 4 hours 100% of the time. PAP is set at 13 cmH2O. PAP will remain at 13 cmH2O. Keep EPR +3 furniture assembler. Keep ramp off. Keep humidifier level at 5. Oxygen supplementation: none Patient is benefiting from PAP therapy. Encouraged patient to maintain PAP use more than 70% of the time. Statement of PAP use and benefits will be sent to the home care store. ResMed Air Sense 11 auto set unit with heated humidifier, supplies and full face mask @ 13 cmH2O ordered. Further adjustment will be based on clinical response. Educated the patient on problems and solutions associated with positive airway pressure (PAP) use. Difficulty tolerating pressure, mask leaks, intolerance of interface, nasal congestion, claustrophobic response, dry mouth, and unintentional mask removal during sleep were covered. Patient's mask leaks air. We will ensure the mask is situated properly. Patient can wear protective eye covering during sleep, and the mask can be resized. Dry mouth is a normal occurrence for people who just start out on PAP therapy because they are not used to air blowing in to the throat to hold open. Dry mouth is exacerbated for people who wear nasal PAP mask and whose jaw drops open during sleep. Not only does this create a much less efficient therapy because of leakage, it also causes dry mouth. There are a couple solutions to help prevent this type of problem. A simple solution would be to wear a chinstrap which essentially holds the jaw in place. A second solution would be a switch to a full face mask which covers both the nose and mouth. Although this is another easy solution, using a full face mask for some could seem claustrophobic or confining. There is no silver bullet solution as no single mask is right for everybody. Sometimes it takes a bit of experimentation to find a PAP mask which best meets the patient's needs as well as fits comfortably. Another tactic is to use a humidifier on your PAP machine. Most new PAP machines have integrated humidifiers. Humidification is hilton when dealing with symptoms of dry mouth because the humidifier can supply both warm and room temperate air. Even a small amount of humidity in the airflow will help nasal passages to stay hydrated. If a person is using both a full face mask and a PAP machine with a heated humidifier and is still experiencing dry mouth, an ill-fitted PAP mask might be causing the problem. Leakage can be caused by a mask that is to large or small, the wrong style mask, the cushion is degraded or simply because the mask's straps aren't adjusted correctly. If leakage occurs, dry air from the room can leak in while humidification escapes. The result is reduced humidification within the circuit and resulting in dry throat and mouth. Finally, beyond factors involving the PAP machine and mask, dry mouth can also be caused or worsened by dehydration. The general recommendation to during eight 8 oz. glasses of water a day might be too little for many people. When people drink large amounts of coffee or other caffeine beverages, or sweat a lot during the day, making sure to rehydrate is an important part of PAP therapy. Patient will setup an appointment with [employer] for supplies and pressure adjustments. A major predictor of success with use of PAP is follow-up with both the respiratory supplier and the treating physician. The download results can show the treating physician information about adherence to treatment, residual AHI while on treatment and presence of large mask leakage. This information is especially helpful if the patient has residual sleepiness despite treatment. General information on sleep disorder breathing, evaluation of sleep disordered breathing, treatment with PAP therapy, and living with PAP therapy were covered. We discussed with the patient the impact of weight on: Sleep disordered breathing PE Hypertension DM Umbilical hernia Hepatomegaly CKD Left knee pain We discussed with the patient the benefit of PAP therapy on: Sleep disordered breathing Bilateral hearing loss Hypertension DM CKD Educated the patient on sleep hygiene measures. Relaxing rituals to rest easy, understanding foods with positive and negative impact on sleep, creating a peaceful sleep environment, timing of exercise, using herbal sleep aids, and practicing sleep-friendly meditation were covered. To determine how much sleep is needed, the patient will assess where (s)he falls on the spectrum, examine what lifestyle factors such as work schedules and stress are affecting the quality and quantity of sleep. In general, adults need 7-9 hours of sleep. Educated the patient regarding foods that promote sleep. These include but are not limited to cherries, bananas, toast, oatmeal, and warm milk. Educated the patient regarding foods and drinks to avoid before bedtime. These include but are not limited to aged cheese, chocolate, spicy foods, tomato-based sauces, soy, ginseng tea and processed meat. Advocated influenza vaccination annually and pneumonia vaccination in 2025. Advocated weight loss through diet and exercise. Patient's ideal body weight according to height and gender is up to 130 lbs. Encouraged patient to adjust caloric intake to maintain/achieve ideal body weight, emphasizing on fruits, vegetables, whole grains, and fat-free or low-fat products. These include lean meats, poultry, fish, beans, eggs, and nuts and foods that are low in saturated fats, trans-fats, cholesterol, salt (sodium), and glycemic index. Stressed the importance of regular exercise up to the patient's capacity limits. In this case, we recommend 20 min daily walking, 2 days a week of resistance training. Patient to monitor BP daily and bring records to PCP for further management. Follow-up: 3 months, January 2025 Not available 11/02/2024 09:12:02 Plan of Treatment Reminders Order Date Submit Date Provider Last Modified By Organization Details Last Modified Time Details Appointments Any 2024 09:00A Kim bonilla MD Not available Not available Not available Any 2024 07:30A Kim Smith MD Not available Not available Not available Lab lipid panel, serum 2024 025 [facility] (Lab), [address] [place], [address], 10/10/2024 11:23:02 TSH, serum or plasma 2024 025 [facility] (Lab), [address] [place], [address], 10/10/2024 11:44:17 vitamin D, 25-hydrox y, total, serum [address] (Lab), [address] [place], [address], 10/06/2024 16:40:38 glycohemo globin, total, blood [address] (Lab), [address] [place], [address], 10/06/2024 16:40:37 microalbu min, urine [address] (Lab), [address] [place], [address], 10/06/2024 16:40:37 Referral pulmonolo gist referral - Per [facility] website, patient's plan does not require an insurance referral 2024 025 [email or web address] Arnaud Smith MD, [address] [place], [address], 11/24/2024 19:48:38 nephrolog ist referral - Please call pt to schedule appt. [facility], patient's plan does not require an insurance referral 2024 025 [facility] Christophe Cash MD (Nephrology, [address], [address], [place], [address], 11/24/2024 21:57:11 hematolog ist referral - Please call patient to schedule an appointme nt. Thank you. 2024 025 ALMA Ortiz MD, [address], [place], [address], 11/25/2024 01:05:21 orthopedi c surgeon referral - Per [facility] website, patient's plan does not require an insurance referral. Please call patient to schedule an appointme nt. Thank you. 2024 025 [email or web address] Paul Leigh MD, [address] [facility], [place], [address], 11/24/2024 19:45:12 pulmonolo gist referral - Per [facility] website, patient's plan does not require an insurance referral 2024 025 [email or web address] Smith MD, [address] [place], [address], 11/24/2024 19:47:02 gastroent erologist referral - Please call patient to schedule an appointme nt. Thank you. 2024 025 [facility] Radha Stinson MD, [address], [place], [address], 11/24/2024 21:57:14 cardiolog ist referral - Please call pt to schedule appt. [facility], patient's plan does not require an insurance referral 2024 [place], [address], [address], [place], [address], 11/24/2024 21:00:58 Procedures None recorded. Surgeries None recorded. Imaging MAMMO, screening , digital, bilateral - Please call patient to schedule. Due on or around 4 2024 025 [email or web address] [facility], [address], [facility] [address], [place], [address], 10/06/2024 19:56:39 Medication Orders albuterol sulfate HFA 90 mcg/actua tion aerosol inhaler [address] [facility], [address] [place] [address], [id number], 11/02/2024 09:13:27 Breo Ellipta 200 mcg-25 mcg/dose powder for inhalatio n [address] [facility], [address] [place] [address], [id number], 11/02/2024 09:13:28 albuterol sulfate HFA 90 mcg/actua tion aerosol inhaler [address] [facility], [address] [place] [address], [id number], 08/03/2024 09:20:28 Breo Ellipta 200 mcg-25 mcg/dose powder for inhalatio n [address] [facility], [address] [place] [address], [id number], 08/03/2024 09:20:29 Patient TargetsNo targets recorded. Patient Instructions Encounter Date Encounter Id Patient Instructions Last Modified By Organization Details Last Modified Time 10/06/2024 [id number] diabetic eye exam* [email or web address] Not available 10/06/2024 16:40:38 Reason for Referral Uniform Room Attendant Referral for Ch ronic kidney disease Please call pt to schedule appt. [facility], patient's plan does not require an insurance referral Referring Physician: Satnam Chiang, Encounter Date: 10/06/2024 Trans Router Referral for He art murmur Please call pt to schedule appt. [facility] plan does not require an insurance referral Referring Physician: Satnam Chiang, Encounter Date: 10/06/2024 Welder Boilermaker Referral for A sthma Per [facility] website, patient's plan does not require an insurance referral Referring Physician: Satnam Chiang, Encounter Date: 10/06/2024 Orthopedic Surgeon Referral for Trigger finger of right hand Per [facility] website, patient's plan does not require an insurance referral. Please call patient to schedule an appointment. Thank you. Referring Physician: Satnam Chiang, Encounter Date: 10/06/2024 Welder Boilermaker Referral for S leep apnea Per [facility] website, patient's plan does not require an insurance referral Referring Physician: Satnam Chiang, Encounter Date: 10/06/2024 Button Grader Referral for Hepatomegaly Please call patient to schedule an appointment. Thank you. Referring Physician: Satnam Chiang, Encounter Date: 10/06/2024 Please call patient to sched ule an appointment. Thank you. Referring Physician: Satnam Chiang, Encounter Date: 10/06/2024 Results Created Date Observation Date Name Description Value Unit Range Abnormal Flag Note LastModifiedBy Organization Detail LastModifiedTime 10/10/192025 LIPID PANEL cholesterol 108 mg/dL 140-19 9 low [facility] SHANDA NSUS RECOM MENDA TION FOR LEONEL STERO L: ADULT CHILD LOW RISK: <200 <170 BORDE RLINE : <200- 239 ----- HIGH RISK: >240 >200 Not Available [facility] (Lab) [address] [place], [address], 10/10/2024 11:23:01 10/10/19 25 10/10/2024 LIPID PANEL triglyceride s 60 mg/dL 0-150 NIH SHANDA NSUS REPOR T RECOM MENDA TION FOR TRIGL YCERI KATEY: ADULT CHILD LOW RISK: <150 ----- BODER LINE: 150-1 99 ----- HIGH RISK: >200 ----- Not Available [facility] (Lab) [address] [place], [address], 10/10/2024 11:23:01 10/10/19 25 10/10/2024 LIPID PANEL HDL cholesterol 56 mg/dL 40- Not Available [facility] (Lab) [address] [place], [address], 10/10/2024 11:23:01 10/10/19 25 10/10/2024 LIPID PANEL LDL cholesterol, calculated 40 mg/dL 0-130 [facility] SHANDA NSUS REPOR T RECOM MENDA TIONS FOR LDL: ADULT CHILD LOW RISK <130 <110 (OPTI MAL LDL) <100 ----- BORDE RLINE : 130-1 59 ----- HIGH RISK: >160 >130 A TRIGL YCERI DE RESUL T >400 INVAL IDATE S THE CALCU LATIO N FOR LDL FRACT IONAT ION - THE LDL RESUL T WILL NOT BE REPOR SE. Not Available [facility] (Lab) [address] [place], [address], 10/10/2024 11:23:01 10/10/19 25 10/10/2024 TSH W/REF JOSE CARLOS FT4 TSH with reflex free T4 2.220 uIU/m L 0.465- 4.680 Not Available [facility] (Lab) [address], [place], [address], 10/10/2024 11:44:16 07/29/20 24 07/29/2024 imagi ng/di agnos tic resul t No observ ation record ed. [facility] [address], [place], [address], 07/29/2024 11:10:21 08/02/20 24 06/23/2024 compl ete PFT w/ post [facility] hodil ator lex metry * No observ ation record ed. [facility] [address], [place], [address], 08/02/2024 11:16:42 Result Notes None recorded. Problems Name Problem SNOMED Code Status Onset Date Resolution Date Notes Provider Name and Address Organization Details Recorded Time Allergic rhinitis 21384551 Active 2022 Not Available [facility] 4 05:37:12 Deep venous thrombosis of lower extremity 815965109 Active 2022 Not Available [facility] 4 05:37:11 Hypothyroi dism 15064259 Active 2022 Not Available [facility] 4 05:37:11 Arthritis 2800247 Active 2022 Not Available [facility] 4 05:37:11 Peripheral venous insufficie ncy 59690161 Active 2022 Not Available [facility] 4 05:37:11 Moderate persistent asthma 579778368 Active 2022 Not Available [facility] 4 05:37:11 Trigger finger of right hand 0392131701783 9101 Active 2022 Not Available [facility] 4 05:37:11 Vitamin D deficiency 01251437 Active 2022 Not Available [facility] 4 05:37:11 Goiter 9932573 Active 2022 Not Available [facility] 4 05:37:11 Obesity 215713489 Active 2022 Not Available [facility] 4 05:37:11 Hepatomega ly 35683833 Active 2024 Corey acosta MD [address] [facility], [facility] [address], [place], [address] , [facility] 5 15:17:01 Heart murmur 36546150 Active 2024 Corey acosta MD [address] [facility] [facility], [facility] [address], [place], [address] , [facility] 5 15:17:01 Disorder of kidney due to diabetes mellitus 560593206 Active Not Available [facility] 4 05:37:11 Anemia 673316333 Active Not Available [facility] 4 05:37:11 Microalbum inuria 590725308 Active Not Available [facility] 4 05:37:11 Saddle embolus of pulmonary artery 9231554586362 09 Active 2018 Not Available [facility] 4 05:37:11 Body mass index 40+ - severely obese 976569636 Active 2017 Not Available [facility] 4 05:37:11 Hyperlipid emia 17126229 Active 2021 Not Available [facility] 4 05:37:12 Essential hypertensi on 06075440 Active Not Available [facility] 4 05:37:12 Obstructiv e sleep apnea syndrome 16179697 Active 2017 Not Available [facility] 4 05:37:12 Notes:Medical History: Bilat eral hearing loss Rhinitis to multiple environmental allergens IgE 56 IU/mL Eosinophils 160 /uL Left thyroid nodules AAT PiMM 160 mg% Methacholine (+) moderate persistent asthma Bibasilar atelectasis Saddle embolus 11/09/18 on Eliquis Obesity with mod OSAHS, AHI = 20, 04/21/17, on CPAP c/o [employer] Hypertension T2DM with microalbuminuria Umbilical hernia Hepatomegaly CKD Iron deficiency Normocytic anemia Vit D deficiency Left knee pain Tinea pedis Procedure History: Colonoscopy 2020 Cholecystectomy 2023 Occupational History: Seamstress Problem Notes None recorded. Procedures Surgical History Date Name Laterality Status Provider Name and Address Organization Details Recorded Time 10/25/19 25 Nail Debridement completed Prabhjot Lee DPM [address] [facility] [facility], [place], [address], [facility] [employer] [facility] [employer] [facility] 10/25/2024 11:00:56 05/17/20 24 Medicare Wellness CPT Code, subsequent completed Bridger Guidry LPN [place] [employer] [facility] [employer] [facility] 05/17/2024 09:00:47 05/17/20 24 Advanced Care Planning completed Bridger Guidry LPN [place] [employer] [facility] [employer] [facility] 05/17/2024 16:59:07 04/18/20 24 Cholecystectomy completed Anneliese Rothman MA [facility] [employer] [facility] 05/09/2024 14:34:41 11/09/19 24 Ortho - Cortisone Injection completed Jaclyn Schilling NP [address] [facility], [place], [address], [facility] [employer] [facility] [employer] [facility] 11/09/2023 11:33:37 05/07/20 23 Transitional_Care_ Management completed Corey Gurrola MD [address] [facility], [place], [address], [facility] [employer] [facility] [employer] [facility] 05/07/2023 10:22:47 02/13/20 23 Medicare Wellness CPT Code, subsequent completed Renee Torres RN [facility] [employer] [facility] 02/12/2023 15:45:44 12/19/19 21 Most Recent Bone Density completed Not Available [facility] 11/12/2022 04:42:06 12/04/19 21 Date of Last Colonoscopy completed Not Available [facility] 11/12/2022 04:42:06 04/26/20 20 Dilation and curettage completed Not Available [facility] 11/12/2022 04:42:10 Ther radiology tx plng smpl completed Not Available [facility] 11/12/2022 04:42:10 Tubal Ligation completed Not Available [facility] 11/12/2022 04:42:10 section completed Not Available [facility] 11/12/2022 04:42:10 Cataract Surgery completed Rossana Ángel, RMA [employer] 08/04/2023 09:20:48 Imaging Results Imaging Date Name Status LastModified by Organization Details LastModified Time 07/29/2024 imaging/diagnostic result active [facility] [address], [place], [address], 07/29/2024 11:10:21 06/23/2024 complete PFT w/ post bronchodilator spirometry* completed [facility] [address], [place], [address], 08/02/2024 11:16:42 Procedure Notes None recorded. Medical Equipment None Reported. Allergies Allergen ID Allergen Name Allergen Category Reaction Reaction Severity Criticality Documentation Date Start Date Code Code System Note Provider Name and Address Organization Details Recorded Time 24717 glyburide medicatio n rash Not available Not available 11/02/2024 4815 RxNorm Arnaud Smith MD [address] [facility], [facility] [address], [place], [address], [employer] 5 09:03:52 8895 spinach extract food Not available Not available Not available 11/12/2022 36951 76 RxNorm Not Available [facility] 3 05:06:45 8896 prednison e medicatio n rash Not available Not available 11/12/2022 8640 RxNorm Arnaud Smith MD [address] [facility], [facility] [address], [place], [address], [employer] 5 09:13:25 8899 omeprazol e medicatio n nausea Not available Not available 11/12/20222018 7646 RxNorm Not Available [facility] 3 05:06:45 8901 olive extract food,medi cation Not available Not available Not available 11/12/2022 06890 UNK Not Available [facility] 3 05:06:45 8902 cultivate d mushroom extract food Not available Not available Not available 11/12/2022 32037 17 RxNorm Not Available [facility] 3 05:06:45 8904 metformin medicatio n Not available Not available Not available 11/12/2022 6809 RxNorm Not Available [facility] 3 05:06:45 8906 Glucophag e medicatio n Not available Not available Not available 11/12/2022 32324 7 RxNorm Not Available [facility] 3 05:06:45 Medications Name Sig Start Date Stop Date Status Note LastModified by Organization Details LastModified Time vitamin d3 (leonel) 50mcg cap TAKE 1 CAPSULE BY MOUTH ONCE DAILY 08/03 completed Not Available Not Available Not Available amoxicill in 500 mg capsule 02/25 completed Not Available Not Available Not Available furosemid e 40 mg tablet TAKE 1 TABLET BY MOUTH TWICE DAILY active Not Available Not Available No t Available terbinafi ne HCl 1 % topical cream APPLY TO THE AFFECTED AND SURROUND ING AREAS OF SKIN BY TOPICAL ROUTE ONCE DAILY 08/12 completed Not Available Not Available Not Available ammonium lactate 12 % lotion APPLY TO BOTH FEET DAILY NEEDED 04/17 completed Not Available Not Available Not Available azithromy criss 250 mg tablet TAKE 2 TABLETS (500 MG) BY ORAL ROUTE ONCE DAILY FOR 1 DAY THEN 1 TABLET (250 MG) BY ORAL ROUTE ONCE DAILY FOR 4 DAYS 09/30 completed Not Available Not Available Not Available glyburide 5 mg tablet TAKE TWO TABLETS BY MOUTH TWICE DAILY 08/31 completed Not Available Not Available Not Available Cytotec 200 mcg tablet Take 2 tablets by oral route at bedtime for 1 day. active Not Available Not Available No t Available cephalexi n 250 mg capsule Take 1 capsule 4 times a day by oral route for 7 days. active Not Available Not Available No t Available hydrocodo ne 5 mg-acetam inophen 325 mg tablet TAKE 1 TABLET BY MOUTH EVERY 6 HOURS NEEDED FOR PAIN ON SCALE 4-6 ON SCALE 05/17 completed Not Available Not Available Not Available sucralfat e 1 gram tablet 10/06 completed Not Available Not Available Not Available lisinopri l 20 mg tablet TAKE 1 TABLET BY MOUTH ONCE DAILY active Not Available Not Available No t Available ondansetr on HCl 4 mg tablet TAKE 1 TABLET BY MOUTH EVERY 8 HOURS 12/16 completed Not Available Not Available Not Available metronida zole 500 mg tablet TAKE 1 TABLET BY MOUTH 4 TIMES DAILY 02/12 completed Not Available Not Available Not Available acetamino phen 300 mg-codein e 30 mg tablet 05/27 completed Not Available Not Available Not Available fexofenad ine 180 mg tablet Take 1 tablet every day by oral route for 30 days. 02/12 completed Not Available Not Available Not Available ciproflox acin 250 mg tablet TAKE 1 TABLET BY MOUTH TWICE DAILY 02/12 completed Not Available Not Available Not Available allopurin ol 100 mg tablet TAKE 1 TABLET BY MOUTH ONCE DAILY active Not Available Not Available No t Available omeprazol e 40 mg capsule,d elayed release Take 1 capsule every day by oral route for 30 days. 10/06 completed Not Available Not Available Not Available liothyron ine 5 mcg tablet TAKE 1 TABLET BY MOUTH TWICE DAILY 01/20 completed made her feel worse so she stopped taking Not Available Not Available Not Available doxycycli ne monohydra te 100 mg tablet Take 1 tablet twice a day by oral route as directed for 5 days. active Not Available Not Available No t Available tramadol 50 mg tablet tramadol 1-2 tabs po q6 hrs prn pain active called to pharm Not Available Not Available Not Available spironola ctone 25 mg tablet TAKE 1 TABLET BY MOUTH ONCE DAILY active Not Available Not Available No t Available amoxicill in 500 mg tablet Take 1 tablet twice a day by oral route with meals for 5 days. 12/25 completed Not Available Not Available Not Available quinapril 40 mg tablet TAKE 1 TABLET BY MOUTH TWICE DAILY 09/18 completed Not Available Not Available Not Available levothyro xine 25 mcg tablet TAKE 1 TABLET BY MOUTH ONCE DAILY FOR 90 DAYS 05/21 completed Not Available Not Available Not Available glimepiri de 1 mg tablet TAKE 2 TABLETS BY MOUTH TWICE DAILY BEFORE MEAL(S) 10/06 completed Not Available Not Available Not Available meloxicam 7.5 mg tablet Take 1 tablet twice a day by oral route as needed for 15 days. 10/06 completed Not Available Not Available Not Available prednisol one acetate 1 % eye drops,brenden pension INSTILL 1 DROP INTO LEFT EYE THREE TIMES DAILY 08/04 completed Not Available Not Available Not Available dicyclomi ne 20 mg tablet TAKE 1 TABLET BY MOUTH THREE TIMES DAILY 03/11 /2021 completed Not Available Not Available Not Available OneTouch Ultra Test strips TESTS TID/ DX: 250.00.. .ONE TOUCH ULTRA MINI STRIPS active Not Available Not Available No t Available levothyro xine 50 mcg tablet TAKE 1 TABLET BY MOUTH ONCE DAILY active Not Available Not Available No t Available ranitidin e 150 mg tablet active Not Available Not Available Not Available lisinopri l 10 mg tablet TAKE 1 TABLET BY MOUTH ONCE DAILY FOR 90 DAYS 08/04 completed pt taking 1/2 tab daily Not Available Not Available Not Available Qvar 40 mcg/actua tion Metered Aerosol oral inhaler Inhale 2 puffs twice a day by inhalati on route. 12/02 completed pt states takes once daily Not Available Not Available Not Available metoprolo l tartrate 50 mg tablet TAKE 1 TABLET BY MOUTH TWICE DAILY active Not Available Not Available No t Available omeprazol e 20 mg capsule,d elayed release Take 1 capsule every day by oral route as needed for 90 days. 11/11 completed Not Available Not Available Not Available etodolac 400 mg tablet Take 1 tablet twice a day by oral route as needed. 10/02 completed Not Available Not Available Not Available monteluka st 10 mg tablet Take 1 tablet every day by oral route at bedtime for 30 days. 05/31 completed Not Available Not Available Not Available mupirocin 2 % topical ointment Apply 1 applicat ion twice a day by topical route for 7 days. active Not Available Not Available No t Available diclofena c sodium 50 mg tablet,de layed release Take 1 tablet twice a day by oral route for 14 days. active Not Available Not Available No t Available furosemid e 20 mg tablet Take 1 tablet every day by oral route. 02/12 completed Not Available Not Available Not Available ergocalci ferol (vitamin D2) 1,250 mcg (50,000 unit) capsule TAKE 1 CAPSULE BY MOUTH ONCE A WEEK active Not Available Not Available No t Available lorazepam 1 mg tablet TAKE 1 HOUR PRIOR TO SCAN AND 1 MORE IF NEEDED active Not Available Not Available No t Available albuterol sulfate HFA 90 mcg/actua tion aerosol inhaler Inhale 1 puff every 4 hours by inhalati on route as needed. 2024 active Not Available Not Available Not Avai lable ketoconaz ole 2 % topical cream APPLY TO THE AFFECTED AREA(S) BY TOPICAL ROUTE 2 TIMES DAILY 07/16 completed Not Available Not Available Not Available lisinopri l 40 mg tablet TAKE 1 TABLET BY MOUTH TWICE DAILY FOR 90 DAYS 08/12 completed Not Available Not Available Not Available ondansetr on 4 mg disintegr ating tablet DISSOLVE 1 TABLET ON THE TONGUE EVERY 8 HOURS 11/22 completed Not Available Not Available Not Available fluticaso ne propionat e 50 mcg/actua tion nasal spray,bren[employer] pension USE 2 SPRAY(S) IN EACH NOSTRIL ONCE DAILY 02/13 completed Not Available Not Available Not Available calcitrio l 0.25 mcg capsule TAKE 1 CAPSULE BY MOUTH ONCE DAILY active Not Available Not Available No t Available loratadin e 10 mg tablet TAKE 1 TABLET BY MOUTH ONCE DAILY 04/17 completed Not Available Not Available Not Available metoclopr amide 10 mg tablet TAKE 1 TABLET BY MOUTH ONCE DAILY FOR 1 DAY TAKE 2 HOURS PRIOR TO CAPSULE INGESTIO N 08/03 completed Not Available Not Available Not Available doxazosin 2 mg tablet qd 12/19 completed Not Available Not Available Not Available amoxicill in 875 mg-potass ium clavulana te 125 mg tablet TAKE 1 TABLET BY MOUTH TWICE DAILY active Not Available Not Available No t Available amoxicill in 500 mg-potass ium clavulana te 125 mg tablet 03/19 completed Not Available Not Available Not Available esomepraz ole magnesium 20 mg capsule,d elayed release Take 1 capsule twice a day by oral route as needed. OTC 08/12 completed PT STATES SHE HAS NO ISSUES TAKING THIS MEDICATI ON EVEN THOUGH SHE HAS OMEPRAZO LE LISTED AN ALLERGY Not Available Not Available Not Available Vitamin B-12 1,000 mcg tablet Take 1 tablet every day by oral route. 08/03 completed Not Available Not Available Not Available iron 325 mg (65 mg iron) tablet Take 1 tablet every day by oral route. 11/09 completed Not Available Not Available Not Available rosuvasta tin 10 mg tablet TAKE 1 TABLET BY MOUTH ONCE DAILY active Not Available Not Available No t Available metoprolo l tartrate 25 mg tablet TAKE 1 TABLET BY MOUTH TWICE DAILY active Not Available Not Available No t Available nitrofura ntoin monohydra te/macroc rystals 100 mg capsule TAKE 1 CAPSULE BY MOUTH TWICE DAILY FOR 10 DAYS active Not Available Not Available No t Available lactulose 10 gram/15 mL oral solution TAKE 30 ML BY MOUTH EVERY 8 HOURS NEEDED 12/16 completed Not Available Not Available Not Available Flovent HFA 110 mcg/actua tion aerosol inhaler Inhale 1 puff twice a day by inhalati on route. active Not Available Not Available No t Available GlucaGen HypoKit 1 mg Injection INJECT 1 MG DIRECTED FOR HYPOGLYC EMIC EMERGENC IES 04/17 completed Not Available Not Available Not Available One-A-Day Womens Formula 1 po qd 12/16 completed Not Available Not Available Not Available aspirin 81mg daily 04/[address] Cash [facility] stopped the xarelto started on aspirin and also stopped the glipmepe ride on 04/02/20 20Stoppe d by [place] [facility]-Dr. Nam Nunez Not Available Not Available Not Available Iron (ferrous sulfate) 1 tabs twice a day 08/03 completed Not Available Not Available Not Available metoprolo l succinate 25mg bid 10/[address] Cash decrease d the dose to 25mg bid 10/04/19 Not Available Not Available Not Available esomepraz ole magnesium one cap bid 08/03 completed Not Available Not Available Not Available One A Day 08/03 completed Not Available Not Available Not Available BD Ultra-Fin e Short Pen Needle 31 gauge x 01/27 completed Not Available Not Available Not Available peg 3350 240 gram-elec trolytes 22.72 gram-6.72 g-5.84 g powdr for soln 07/23 completed Not Available Not Available Not Available Lantus Solostar U-100 Insulin 100 unit/mL (3 mL) subcutane ous pen Inject 30 units every day by subcutan eous route. 08/31 completed Not Available Not Available Not Available Allergy Relief (cetirizi ne) 08/03 completed Not Available Not Available Not Available Onglyza 5 mg tablet active Not Available Not Available No t Available levothyro xine 25 mcg capsule Take 1 capsule every day by oral route. 11/22 completed Not Available Not Available Not Available Suprep Bowel Prep Kit 17.5 gram-3.13 gram-1.6 gram oral solution USE DIRECTED active Not Available Not Available No t Available loratadin e 10 mg capsule Take 1 tablet by mouth once daily 11/12 completed Not Available Not Available Not Available Tradjenta 5 mg tablet TAKE 1 TABLET BY MOUTH ONCE DAILY IN THE MORNING FOR 30 DAYS active Not Available Not Available No t Available Xarelto 10 mg tablet TAKE 1 TABLET BY MOUTH ONCE DAILY AT NIGHT 08/12 completed Not Available Not Available Not Available Xarelto 15 mg tablet Take 1 tablet every day by oral route. 12/21 completed Not Available Not Available Not Available Xarelto 20 mg tablet TAKE 1 TABLET BY MOUTH ONCE DAILY DIRECTED 11/09 completed Not Available Not Available Not Available Vitamin D2 12/16 completed Not Available Not Available Not Available Eliquis 5 mg tablet TAKE 1 TABLET BY MOUTH TWICE DAILY active Not Available Not Available No t Available BD Insulin Syringe Ultra-Fin e 0.3 mL 31 gauge x 5/16 USE ONCE DAILY WITH TRESIBA 12/08 completed Not Available Not Available Not Available Breo Ellipta 1 puff once a day 06/01 completed Not Available Not Available Not Available Levemir FlexTouch U-100 Insulin 100 unit/mL (3 mL) subcutane ous pen Inject by subcutan eous route 22 units daily 02/12 completed Not Available Not Available Not Available Arnuity Ellipta 200 mcg/actua tion powder for inhalatio n qd 05/27 completed Not Available Not Available Not Available Breo Ellipta 200 mcg-25 mcg/dose powder for inhalatio n INHALE 1 PUFF BY MOUTH ONCE DAILY active Not Available Not Available No t Available Allergy 05/07 completed Not Available Not Available Not Available Tresiba FlexTouch U-200 insulin 200 unit/mL (3 mL) subcutane ous pen INJECT 22 UNITS SUBCUTAN EOUSLY AT BEDTIME 07/16 completed Not Available Not Available Not Available Tresiba FlexTouch U-100 insulin 100 unit/mL (3 mL) subcutane ous pen Inject by subcutan eous route. 08/31 completed Not Available Not Available Not Available esomepraz ole magnesium 20 mg tablet,de layed release Take 1 tablet twice a day by oral route. 07/16 completed Not Available Not Available Not Available Ozempic 0.25 mg or 0.5 mg (2 mg/1.5 mL) subcutane ous pen injector INJECT 0.25 MILLIGRA MS SUBCUTAN OUSLY EVERY WEEK IN THE MORNING FOR 4 WEEKS AND INCREASE TO 0.5 SUB Q WEEKLY THEREAFT ER IF TOLERATE D 06/30 completed Not Available Not Available Not Available Eusebio DVT-PE Treatment 30-Day Starter 5 mg (74 tablets) in dose pack TAKE 2 TABLETS BY MOUTH TWICE DAILY FOR 7 DAYS, THEN TAKE 1 TABLET BY MOUTH TWICE DAILY THEREAFT ER 10/06 completed Not Available Not Available Not Available Tresiba U-100 Insulin 100 unit/mL subcutane ous solution INJECT 20-22 UNITS SUBCUTAN EOUSLY ONCE DAILY AT BEDTIME 11/06 completed Not Available Not Available Not Available Tresiba U-100 Insulin 08/03 completed Not Available Not Available Not Available Ozempic 1 mg/dose (4 mg/3 mL) subcutane ous pen injector Inject 0.5 mL every week by subcutan eous route. 05/17 completed Not Available Not Available Not Available Vitals Date Recorded Body height Body mass index (BMI) Body weight Heart rate Respiratory rate Oxygen saturation Oxygen saturation in Arterial blood by Pulse oximetry Systolic blood pressure Diastolic blood pressure Provider Name and Address Organization Details Last Updated DateTime 4 165.1 cm 41.8 kg/m2 398913. 68 g 89 /min 14 /min 98 % 98 % 147 mm[Hg] 70 mm[Hg] Angelica FRANKLIN [facility] 4 09:43:31 Date Recorded Body height Body mass index (BMI) Body weight Body temperature Heart rate Oxygen saturation Oxygen saturation in Arterial blood by Pulse oximetry Systolic blood pressure Diastolic blood pressure Provider Name and Address Organization Details Last Updated DateTime 4 165.1 cm 40.9 kg/m2 766040. 72 g 98.6 [degF] 72 /min 99 % 99 % 130 mm[Hg] 70 mm[Hg] Tammy Lopez MA [facility] 4 08:52:24 Date Recorded Heart rate Respiratory rate Provider N viki and Address Organization Details Last Updated DateTime 08/03/2024 72 /min 15 /min Arnaud Smith MD [address], [place], [address], [facility] [employer] [facility] 08/03/2024 09:27:11 Date Recorded Body height Body mass index (BMI) Body weight Body temperature Heart rate Systolic blood pressure Diastolic blood pressure Provider Name and Address Organization Details Last Updated DateTime 5 165.1 cm 42.9 kg/m2 002781. 83 g 97.6 [degF] 78 /min 144 mm[Hg] 80 mm[Hg] BHUPINDER Guerrero [facility] [employer] [facility] 5 15:57:57 Date Recorded Body height Body mass index (BMI) Body weight Heart rate Respiratory rate Oxygen saturation Oxygen saturation in Arterial blood by Pulse oximetry Systolic blood pressure Diastolic blood pressure Provider Name and Address Organization Details Last Updated DateTime 5 165.1 cm 42.9 kg/m2 690423. 83 g 76 /min 14 /min 98 % 98 % 130 mm[Hg] 72 mm[Hg] Angelica Olivarez [facility] 5 10:22:53 Date Recorded Body height Body mass index (BMI) Body weight Body temperature Heart rate Oxygen saturation Oxygen saturation in Arterial blood by Pulse oximetry Systolic blood pressure Diastolic blood pressure Provider Name and Address Organization Details Last Updated DateTime 5 165.1 cm 41.6 kg/m2 268243. 37 g 98.5 [degF] 75 /min 99 % 99 % 126 mm[Hg] 64 mm[Hg] Sherly Lance MA [facility] [employer] [facility] 5 08:38:34 Date Recorded Heart rate Respiratory rate Provider N viki and Address Organization Details Last Updated DateTime 11/02/2024 75 /min 15 /min Arnaud Smith MD [address], [place], [address], [place] [facility] 11/02/2024 09:05:17 Social History Question Answer Notes LastModified by Organization Details LastModified Time Tobacco Smoking Status Former Smoker quit 2002 Not Available [employer] 11/12/2022 04:15:26 Do You Have An Advance Directive? No MIGRATION.030 [id number] Information not available 11/12/2022 What Is Your Level Of Alcohol Consumption? None MIGRATION.030 569104 Information not available 11/12/2022 Are You Blind Or Do You Have Difficulty Seeing? No MIGRATION.030 559528 Information not available 11/12/2022 What Is Your Level Of Caffeine Consumption? Occasional MIGRATION.030 874737 Information not available 11/12/2022 How Much Tobacco Do You Chew? None MIGRATION.030 273811 Information not available 11/12/2022 In The 14 Days Before Symptom Onset, Have You Had Close Contact With A Laboratory-conf irmed COVID-19 While That Case Was Ill? No MIGRATION.030 996875 Information not available 11/12/2022 In The 14 Days Before Symptom Onset, Have You Had Close Contact With A Person Who Is Under Investigation For COVID-19 While That Person Was Ill? No MIGRATION.030 818454 Information not available 11/12/2022 Are You Currently Employed? No Information not available 12/09/2022 Are You Deaf Or Do You Have Serious Difficulty Hearing? Yes Wears Bilateral Hearing Aids [email or web address] Information not available 05/17/2024 What Type Of Diet Are You Following? REGULAR MIGRATION.030 [id number] Information not available 11/12/2022 Which Illicit Or Recreational Drugs Have You Used? None MIGRATION.030 719067 Information not available 11/12/2022 Do You Or Have You Ever Used E-cigarettes Or Vape? Never Used Electronic Cigarettes MIGRATION.030 263245 Information not available 11/12/2022 What Is The Highest Grade Or Level Of School You Have Completed Or The Highest Degree You Have Received? PM11149-9 MIGRATION.030 889806 Information not available 11/12/2022 Do You Have An Electrostatic Air Filter? No Information not available 12/16/2022 What Is Your Occupation? Retired MIGRATION.030 535282 Information not available 11/12/2022 How Many Days Of Moderate To Strenuous Exercise, Like A Brisk Walk, Did You Do In The Last 7 Days? 0 [email or web address] Information not available 05/17/2024 Have You Been Exposed To Chemicals Or Toxins? No Not That Aware Of Information not available 11/02/2024 Have There Been Any Changes To Your Family Or Social Situation? No Information not available 12/09/2022 What Is The Fluoride Status Of Your Home? Unknown MIGRATION.0301 103738 Information not available 11/12/2022 When Did You Quit Smoking? 16+yearssincelast cigarette MIGRATION.0301 385606 Information not available 11/12/2022 Are There Any Guns Present In Your Home? No MIGRATION.0301 435934 Information not available 11/12/2022 Do You Have A Humidifier? No Information not available 12/16/2022 Do You Use Insect Repellent Routinely? No MIGRATION.0301 680012 Information not available 11/12/2022 Where Do You Live? [facility] MIGRATION.0301 661777 Information not available 11/12/2022 Presence Of Domestic Violence No Information not available 05/17/2024 Guns Present In The Home? No Information not available 05/17/2024 Are You Able To Care For Yourself? Yes Information not available 05/17/2024 Are You Blind Or Do Yo Have Difficulty Seeing? No [email or web address] Information not available 05/17/2024 Are You Deaf Or Do You Have Serious Difficulty Hearing? Yes Wears Bilateral Heraing Aids. [email or web address] Information not available 05/17/2024 General Stress Level? Moderate [email or web address] Information not available 05/17/2024 Live Alone Of With Others? With Others [email or web address] Information not available 05/17/2024 Do You Have A Medical Power Of Hospital Sales Representative? No MIGRATION.0301 815011 Information not available 11/12/2022 Do You Have Moisture Problems In Your Home? No Information not available 12/16/2022 What Was The Date Of Your Most Recent Tobacco Screening? 11/02/2024 Information not available 11/02/2024 How Many Children Do You Have? 2 1 Living. Son . [email or web address] Information not available 05/17/2024 Do You Have Any Pets? No MIGRATION.0301 568119 Information not available 11/12/2022 Do You Use Protection During Sex? No [email or web address] Information not available 05/17/2024 What Is Your Relationship Status? MIGRATION.0301 775780 Information not available 11/12/2022 Do You Use Your Seat Belt Or Car Seat Routinely? Yes [email or web address] Information not available 05/17/2024 Are You Sexually Active? No [email or web address] Information not available 05/17/2024 Do You Have Smoke And Carbon Monoxide Detectors In Your Home? Yes [email or web address] Information not available 05/17/2024 Are You Passively Exposed To Smoke? No MIGRATION.0301 812743 Information not available 11/12/2022 Do You Or Have You Ever Used Smokeless Tobacco? Never Used Smokeless Tobacco MIGRATION.0301 157941 Information not available 11/12/2022 Are There Any Smokers In Your House? No MIGRATION.0301 668121 Information not available 11/12/2022 What Types Of Sporting Activities Do You Participate In? None [email or web address] Information not available 05/17/2024 Do You Feel Stressed (tense, Restless, Nervous, Or Anxious, Or Unable To Sleep At Night)? [id number] MIGRATION.0301 608500 Information not available 11/12/2022 Do You Use Any Illicit Or Recreational Drugs? No MIGRATION.0301 425125 Information not available 11/12/2022 Do You Use Sunscreen Routinely? No MIGRATION.0301 367107 Information not available 11/12/2022 Has Tobacco Cessation Counseling Been Provided? No [email or web address] Information not available 05/17/2024 Have You Recently Traveled Abroad? No MIGRATION.0301 758096 Information not available 11/12/2022 Do You Have Any Dietary Restrictions? No MIGRATION.0301 992940 Information not available 11/12/2022 Do You Or Have You Ever Used Any Other Forms Of Tobacco Or Nicotine? No MIGRATION.0301 400327 Information not available 11/12/2022 Sex: Female Functional Status Question Answer Note LastModified by Organizat ion Details LastModified Time Do you have difficulty walking or climbing stairs? Yes Uses cane [email or web address] Information not available 05/17/2024 Do you have transportation difficulties? No MIGRATION.501931 5813 Information not available 11/12/2022 Are you able to walk? YESASSIST Christofer [email or web address] Information not available 05/17/2024 Do you have difficulty doing errands alone? No MIGRATION.055722 9609 Information not available 11/12/2022 Are you able to care for yourself? Yes MIGRATION.723248 2225 Information not available 11/12/2022 Do you have difficulty dressing or bathing? No MIGRATION.471591 6164 Information not available 11/12/2022 What is your exercise level? None MIGRATION.043353 0424 Information not available 11/12/2022 Mental Status Question Answer Note LastModified by Organizat ion Details LastModified Time Do you have difficulty concentrating, remembering or making decisions? No MIGRATION.[id number] 6 Information not available 11/12/2022 Family History Relationship Description Onset Age of this Age Resolved Age Notes LastModified by Organization Details LastModified Time Father Heart disease MIGRATION.773 [id number] Not available 11/12/2022 04:42:12 Mother Diabetes mellitus MIGRATION.119 [id number] Not available 11/12/2022 04:42:12 Mother Benign essential hypertension MIGRATION.504 [id number] Not available 11/12/2022 04:42:12 Sister Diabetes mellitus MIGRATION.192 [id number] Not available 11/12/2022 04:42:13 Sister Asthma MIGRATION.800 [id number] Not available 11/12/2022 04:42:13 Sister Heart disease deceas ed MIGRATION.427 1330495 Not available 11/12/2022 04:42:13 Sister Kidney disease MIGRATION.275 [id number] Not available 11/12/2022 04:42:13 Brother Diabetes mellitus MIGRATION.149 [id number] Not available 11/12/2022 04:42:13 Brother Malignant neoplasm of skin MIGRATION.786 [id number] Not available 11/12/2022 04:42:13 Unspecified Relation Arthritis [email or web address] Not available 023 11:03:00 Sister Benign essential hypertension [email or web address] Not available 11:03:11 Brother Benign essential hypertension [email or web address] Not available 11:03:14 Medical History Condition Response NERVE DISEASE N BLINDNESS N RHEUMATIC FEVER N KIDNEY STONES N BLADDER PROBLEMS N MRSA N OTHER # 1 Y POLIO N LUNG DISEASE/DISORDER N HISTORY OF DRUG ABUSE N COPD N RADIATION / CHEMOTHERAPY N Other # 2 N BLOOD DISEASES N EAR OR HEARING PROBLEMS N MUMPS N SHINGLES N DEPRESSION (INCLUDING POST ) N BOWEL PROBLEMS Y STROKE/TIA N ULCERS N BENIGN PROSTATIC HYPERPLASIA N MEASLES N HYPOTENSION N MYOCARDIAL INFARCTION N OBESITY Y GERD/NAUSEA N ANEURYSM N URINARY/BLADDER/KIDNEY PROBLEMS Y CORONARY ARTERY DISEASE (CAD) N ADDICTION CONCERNS N Impotence N ENDOMETRIOSIS N USE OF BLOOD THINNERS Y SKIN PROBLEMS N GASTROINTESTINAL DISORDER N PERIPHERAL VASCULAR DISEASE N MUSCLE,JOINT OR BONE PROBLEMS N GASTROINTESTINAL BLEEDING N BLOOD CLOTS Y ASTHMA Y CATARACTS N Abdominal Pain N ERECTILE DYSFUNCTION N VARICOSITIES N GI PROBLEMS N Low Testosterone N INFERTILITY N AIDS/HIV N CHEMOTHERAPY / RADIATION N LIVER DISEASE N MALE HYPOGONADISM N HYPERTENSION Y Deficiency Y TOURETTE'S N ANXIETY DISORDER N BLOOD TRANSFUSION N ANEMIA/BLOOD DISORDER Y CHRONIC EAR INFECTIONS N BRONCHITIS N TUBERCULOSIS N GLAUCOMA N FOOT PROBLEM N DIVERTICULITIS N SLEEP APNEA Y CHICKENPOX N ALLERGIES/HAYFEVER Y INFECTIOUS DISEASE N PROSTATE N HEART ARRHYTHMIA N INSOMNIA N HIGH CHOLESTEROL / HYPERLIPIDEMIA N HYPERTHYROIDISM N EYE PROBLEMS Y EDEMA N CHRONIC PAIN SYNDROME N HYPOTHYROIDISM N CONSTIPATION N CAROTID BLOCKAGE N BACK / NECK PROBLEMS N ATHEROSCLEROSIS N BREAST PROBLEMS N DIALYSIS N ECZEMA N OSTEOPOROSIS N ARTHRITIS Y APPENDICITIS N DIABETES, TYPE Y BAD TEETH N ENT N HEARTBURN / REFLUX N AUTISM SPECTRUM DISORDER (ASD) N HEPATITIS / LIVER DISEASE N GOUT Y SLEEP DISORDER N ALZHEIMER'S DISEASE N Brain Problems N HERPES N DEMENTIA N SEIZURES/EPILEPSY N HEADACHES/MIGRAINES N VASCULAR DISEASE N PACEMAKER N Blood Disorder N DIZZINESS N KIDNEY DISEASE Y HEART DISEASE/HEART PROBLEMS Y MULTIPLE SCLEROSIS N CARDIAC ARRHYTHMIA N CANCER: SPECIFY Y Gall Stones N ATRIAL FIBRILLATION N PULMONARY EMBOLISM Y AUTOIMMUNE DISEASE N Gynecological History Statement/Question Response Date of Last Mammogram 05/20/2019 Date of Last Colonoscopy 12/03/2020 Desired Control Method Most Recent Bone Density 12/18/2020 Obstetrics History GPAL:G 0 P 0 0 0 0 Immunizations Vaccine Type Date Status Note Provider Nam e and Address Organization Details Recorded Time COVID-19, mRNA, LNP-S, PF, 100 mcg/0.5mL dose or 50 mcg/0.25mL dose completed RASHMI Mosqu[place], [place] [facility] [place] [employer] [facility] 05/12/2024 13:33:56 COVID-19, mRNA, LNP-S, PF, 100 mcg/0.5mL dose or 50 mcg/0.25mL dose 1 completed RASHMI Mosqueda, [place] [employer] [facility] 05/12/2024 13:33:56 COVID-19, mRNA, LNP-S, PF, 100 mcg/0.5mL dose or 50 mcg/0.25mL dose 1 completed Not Available [facility] 09/28/2023 05:37:13 COVID-19, mRNA, LNP-S, PF, 100 mcg/0.5mL dose or 50 mcg/0.25mL dose 1 completed RASHMI Mosqu[place], [place] [employer] [facility] 05/12/2024 13:33:56 Influenza, split virus, quadrivalent, preservative 0 completed Not Available [facility] 09/28/2023 05:37:13 Influenza, split virus, quadrivalent, preservative 8 completed Not Available [facility] 09/28/2023 05:37:13 Influenza, high-dose, quadrivalent, PF 2 completed Not Available [facility] 09/28/2023 05:37:13 Influenza, high-dose, quadrivalent, PF 1 completed Not Available [facility] 09/28/2023 05:37:13 Influenza, high-dose, quadrivalent, PF 0 completed Not Available [facility] 09/28/2023 05:37:13 Pneumococcal conjugate PCV 13 8 completed Not Available [facility] 09/28/2023 05:37:13 Influenza, high-dose, trivalent, PF 8 completed Not Available [facility] 09/28/2023 05:37:13 pneumococcal polysaccharide PPV23 4 completed Not Available [facility] 09/28/2023 05:37:13 Influenza, split virus, trivalent, preservative 4 completed RASHMI Mosqueda, [facility] 05/12/2024 13:33:56 Influenza, high-dose, quadrivalent, PF 3 completed Rossana Neal BHUPINDER null, [place] [facility] 08/04/2023 09:46:04 Past Encounters Encounter ID Performer Location Encounter Start Date Encounter Closed Date Diagnosis/Indication Diagnosis SNOMED-CT Code Diagnosis ICD10 Code Diagnosis Note [id number] [facility] [address] [place] [address] [facility] [address] [place] [address] 11/22/2020 00:00:00 11/22/2020 11:45:22 [id number] [facility] [address] [facility] [address] [place] [address] 12/20/2020 00:00:00 05/15/2021 17:54:18 [id number] _ATHENA_M IGRATION_ DEFAULT_1 _1 , 01/24/2021 00:00:00 01/24/2021 10:17:19 [id number] [facility] [address] [place] [address] 03/04/2021 00:00:00 03/04/2021 13:22:53 [id number] _ATHENA_M IGRATION_ DEFAULT_1 _1 , 06/07/2021 00:00:00 06/09/2021 19:47:51 [id number] _ATHENA_M IGRATION_ DEFAULT_1 _1 , 07/11/2021 00:00:00 07/11/2021 09:49:21 [id number] [facility] [address] [facility] [address] [place] [address] 07/16/2021 00:00:00 07/17/2021 16:55:42 [id number] [facility] [address] [facility] [address] [place] [address] 11/12/2021 00:00:00 11/12/2021 09:38:05 [id number] [facility] General Surgery [address] [place], [place] [address]., [facility] [address] [place] [address] 11/21/2021 00:00:00 11/21/2021 13:33:26 [id number] _ATHENA_M IGRATION_ DEFAULT_1 _1 , 12/06/2021 00:00:00 12/08/2021 14:58:36 [id number] [facility] Pulmonolo [facility] [address] [place] [address], [address] [address] 12/16/2021 00:00:00 12/16/2021 16:19:54 [id number] _ATHENA_M IGRATION_ DEFAULT_1 _1 , 01/09/2022 00:00:00 01/09/2022 10:21:00 [id number] [facility] Internal Med [address], [address] [address] 04/22/2022 00:00:00 04/22/2022 16:46:06 [id number] [facility] Internal Med [facility] [address] [place] [address], [address] [address] 08/12/2022 00:00:00 08/12/2022 09:45:40 [id number] [facility] Endo [facility] [address] [place] [address] 09/18/2022 00:00:00 09/18/2022 13:38:31 [id number] Corey acosta MD [facility] Internal [facility] [address] [place] [address], [address] [address] 12/09/2022 08:51:09 12/09/2022 09:43:11 Screening - NAD 103538805 Z13.9 C-scope: 07/03/17, Next in 10 years-sco pe: 12/03/2020 : Dr Crawford Mammogram: 03/27/17: Now yearlyMamm ogram: 05/20/19: NegMammogr am: 06/18/2020 : NegMammogr am: 08/02/2021 : Neg, orderedMam mogram: 08/04/2022 : Neg PAP: Did see Ivette OFFSET PRINTER 05/18/19[place]: 05/07/2020 : 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 DEXA: 09/01/18: NegDEXA: 12/18/2020 : Neg Do yearly flu shot 07/24/2020 UTD on pneumovax 08/31/18, 08/08/14Sh ould do Tdap and Shingles vaccineUTD on COVID 19 vaccine RTC in 2 monthsDo labsER if worseShe did verbalize her understand ing of the above Hyperlipidemia 47092070 E78.5 On rosuvastat in 10mg dailyGet labs 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 112498046 E11.9 On glimeperid e 1mg bidOn trescibaOn ozempicDoe s see eye MDSees podiatry last 12/06/[address] Marie, next 09/18/2022 Hepatomegaly 82253825 R1 6.[address] A/P 08/20/2021 US liver: 11/22/2021 : Hepatomega ly: See case 11/27/2021 Needs to see GI Essential hypertension 16076628 I10 On lasix 40mgOn lisinopril 20mg dailyOn metoprolol 25mg bidShould not be on lisinopril 40mg bid, given by Dr Shailesh Lama quinapril 40mg bid given by Dr Cash IJJohn the xareltoDoe s [facility] Cash 07/29/2022 , f/u in 6 months Chronic ki dney disease 450574552 N18.[address] Cash the kidney specialist On vit d weeklyOn allopurino Jordana calcitriol Does well Sleep apnea 14123791 G47 .30 On CPAPSees Nae Jacques [employer] PRINTER last OV 03/04/2021 Dr Smith 12/16/2021 , next 12/16/2022 Goiter 1410374 E04.9 US thyroid 09/01/18, neg ordred by Dr Mancia eythyrox 25mcgs daily OV 12/20/2020 :US thyroid 12/18/2020 : Multiple sub centimeter thyroid nodules, Dr Marie monitors OV 11/12/2021 US thyroid 08/02/2021 Dr Marie Heart murmur 08183881 R0 1.[address] [facility] [address] Cash Epigastric pain 03505269 R10.13 08/20/2020 : Dr Crawford EGD: Neg On PPIDoes well Pulmonary embolism [address] chest 11/09/18: Iliana Jacques [employer]INTER On xarelto Allergic rhinitis 891033 04 J30.9 Has rhinitis, no fevers or chills, no chest pain or SOBShe has used the flonase and has helped her Abnormal u terine bleeding 8455387816 9100 N93.9 Addendum: 04/04/2020 :Se[facility] in the ER at [facility] for the bleedingS/ p US pelvic 03/29/2020 Now to get hysterosco py DNC by Dr Quezada/p CBC: 04/04/2020 : H/H 9.10/13.4Sh e is cleared for this by [facility] Dr Cash and is cleared for this surgery, she does remain a moderate risk for this surgery OV 05/22/2020 ;Now referred to OB oncologist Dr Fairbanks as per her history Addendum: 2020 : 0: Dr Fairbanks: Is to get radiation OV 07/24/2020 :Is seeing Dr Fairbanks Addendum: 07/27/2020 : 0: Radiation oncology Dr Turcios OV 11/08/2020 :Did see Dr Fairbanks 10/05/[address] Gayle and Dr Stringer radiation oncologyAl so sees Dr Sheehan adjunct faculty instructor onco Sees Dr Ortiz also OV 11/22/2020 :Keep apts with Dr Fairbanks, and Dr Stringer and Dr Sheehan and Dr Ortiz OV 12/20/2020 :Keep apts now with Dr Ortiz and Dr Fairbanks, she does not know when she will see Dr Fairbanks, get a referral again OV 07/16/2021 :No more bleeding noted 05/10/2021 : Dr Fairbanks, f/u 11/15/[address] Ortiz 08/28/2021 OV 11/12/2021 :Dr Ortiz 10/02/2021 OV 04/22/[address] Ortiz on 05/12/2022 , did speak personally on 04/21/2022 , was told to increase xarelto to 20mg daily OV 08/12/2022 :Dr Ortiz 05/12/2022 , f/u in 3 monthsDr Fairbanks 06/13/2022 OV 12/09/2022 :Keep apts with Dr Ortiz Abdominal pain 19433686 R10.9 S/p ER visit on 11/17/2020 S/P CT A/P 11/17/2020 : Large cecal mass Is to see Dr Crawford will need c-scope Also should see Dr Ortiz NANY Concern for SBO Get another CT A/P without contrast stat Get on zofran, can do 4mg bid Notify if any bleeding or if any constipati on May need to go back to the ER She will proceed to get the CT A/P stat OV 12/20/2020 :Does wellCT abd/pelvis : 11/22/2020 : noted, no more mass noted OV 07/16/2021 :C/o mid abdominal discomfort , not associated with her food intake, feels that her constipati on is gone, last CT 11/2020, get another CT A/P again OV 11/12/2021 :S/p ER visitCT A/P 08/20/2021 Needs to see GS OV 04/22/2022 :Dr Sheikh 11/21/2021 , no complaints today OV 08/12/2022 :Dr Ortiz 05/12/2022 OV 12/09/2022 :Needs to see Dr Ortiz Asthma 038383803 J45.90 9 On breoOn proair She is doing well todaySees Nae Ingram OFFSET PRINTER and Dr Smith Obesity 228214632 E66.9 Diet and exercise, noted by pulmonary Obstructiv e sleep apnea syndrome 39023027 G47.33 On CPAPSees Nae Jacquse [employer] PRINTER 03/04/[address] Smith 12/16/2021 , next 12/16/2022 Anemia 537427515 D64.9 07/30/2020 : Mamta Hooker NP, hematology , f/u in 3 months, 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 Keep apt with Dr Ortiz Cholecystitis 60766349 K 81.[address] A/P 08/20/2021 Dr Sheikh 11/21/2021 Deep venou s thrombosis of lower extremity 520796525 I82.409 US LE: 04/01/2022 : Dr Ortiz: R femoral DVT Keep apt with Dr Ortiz on 05/12/2022 , did speak personally on 04/21/2022 , was told to increase xarelto to 20mg daily Trigger fi nger of right hand [id number] 9358346 M65.30 R MF, there is a trigger finger, get a referral to Dr Gallegos hand orthoRefer red again [id number] Arnaud Smith MD [facility] [address] 12/16/2022 10:04:42 12/17/2022 08:40:17 Obstructive sleep apnea syndrome 26556812 G47.33 [id number] Corey acosta MD [facility] [address] 01/20/2023 09:15:56 01/20/2023 09:53:06 Screening - NAD 589218214 Z13.9 C-scope: 07/03/17, Next in 10 yearsC-sco pe: 12/03/2020 : Dr Crawford Mammogram: 03/27/17: Now yearlyMamm ogram: 05/20/19: NegMammogr am: 06/18/2020 : NegMammogr am: 08/02/2021 : Neg, orderedMam mogram: 08/04/2022 : Neg PAP: Did see Ivette OFFSET PRINTER 05/18/19Dr [place]san [place]: 05/07/2020 : 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 DEXA: 09/01/18: NegDEXA: 12/18/2020 : Neg Do yearly flu shot 07/24/2020 UTD on pneumovax 08/31/18, 08/08/14Sh ould do Tdap and Shingles vaccineUTD on COVID 19 vaccine RTC in 2 monthsDo labsER if worseShe did verbalize her understand ing of the above Hyperlipidemia 51732046 E78.5 On rosuvastat in 10mg dailyGet labs 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 905086102 E11.9 On glimeperid e 1mg bidOn trescibaOn ozempicDoe s see eye MDSees podiatry last 12/06/[address] Marie Hepatomegaly 03904381 R1 6.[address] A/P 08/20/2021 US liver: 11/22/2021 : Hepatomega ly: See case 11/27/2021 Needs to see GI Essential hypertension 46681855 I10 On lasix 40mgOn lisinopril 20mg daily, will decrease to 10mg daily 01/20/2023 , keep BP logsOn metoprolol 25mg bidShould not be on lisinopril 40mg bid, given by Dr Shailesh Lama quinapril 40mg bid given by Dr Shailesh Lama the xareltoDoe s [facility] Dr Cash 07/29/2022 , f/u in 6 months Chronic ki dney disease [id number] N18.[address] Cash the kidney specialist On vit d weeklyOn allopurino Jordana calcitriol Does well Sleep apnea 05923677 G47 .30 On CPAPSees Nae Jacques OFFSET PRINTER last OV 03/04/2021 Dr Smith 12/16/2021 , next 12/16/2022 Goiter 9467333 E04.9 US thyroid 09/01/18, neg ordred by Dr Mancia eythyrox 25mcgs daily OV 12/20/2020 :US thyroid 12/18/2020 : Multiple sub centimeter thyroid nodules, Dr Marie monitors OV 11/12/2021 US thyroid 08/02/2021 Dr Marie OV 01/20/2023 :Dr Marie 09/18/2022 Heart murmur 92820095 R0 1.[address] Cash Epigastric pain 75806228 R10.13 08/20/2020 : Dr Crawford EGD: Neg On PPIDoes well Pulmonary embolism [address] chest 11/09/18: Iliana Jacques OFFSET PRINTER On xarelto Allergic rhinitis 755063 04 J30.9 Has rhinitis, no fevers or chills, no chest pain or SOBShe has used the flonase and has helped her Abnormal u terine bleeding 4415588010 9100 N93.9 Addendum: 04/04/2020 :Seen in the ER at [facility] and [facility] for the bleedingS/ p US pelvic 03/29/2020 Now to get hysterosco py DNC by Dr Quezada/patrizia CBC: 04/04/2020 : H/H 9.1/30.4Sh e is cleared for this by [facility] Dr Cash and is cleared for this surgery, she does remain a moderate risk for this surgery OV 05/22/2020 ;Now referred to OB oncologist Dr Fairbanks as per her history Addendum: 2020 : 0: Dr Fairbanks: Is to get radiation OV 07/24/2020 :Is seeing Dr Fairbanks Addendum: 07/27/2020 : 0: Radiation oncology Dr Turcios OV 11/08/2020 :Did see Dr Fairbanks 10/05/[address] Gayle and Dr Stringer radiation oncologyAl so sees Dr Sheehan adjunct faculty instructor onco Sees Dr Ortiz also OV 11/22/2020 :Keep apts with Dr Fairbanks, and Dr Stringer and Dr Sheehan and Dr Ortiz OV 12/20/2020 :Keep apts now with Dr Ortiz and Dr Fairbanks, she does not know when she will see Dr Fairbanks, get a referral again OV 07/16/2021 :No more bleeding noted 05/10/2021 : Dr Fairbanks, f/u 11/15/[address] Ortiz 08/28/2021 OV 11/12/2021 :Dr Ortiz 10/02/2021 OV 04/22/[address] Ortiz on 05/12/2022 , did speak personally on 04/21/2022 , was told to increase xarelto to 20mg daily OV 08/12/2022 :Dr Ortiz 05/12/2022 , f/u in 3 monthsDr Fairbanks 06/13/2022 OV 12/09/2022 :Keep apts with Dr Ortiz OV 01/19/2023 :Dr Ortiz 12/11/2022 , started on procrit 20K units 2 weeks, f/u in 6 weeks Abdominal pain 39744998 R10.9 S/p ER visit on 11/17/2020 S/P CT A/P 11/17/2020 : Large cecal mass Is to see Dr Crawford will need c-scopeAls o should see Dr Angel Dawkins n for SBO Get another CT A/P without contrast statGet on zofran, can do 4mg bidNotify if any bleeding or if any constipati onMay need to go back to the ERShe will proceed to get the CT A/P stat OV 12/20/2020 :Does wellCT abd/pelvis : 11/22/2020 : noted, no more mass noted OV 07/16/2021 :C/o mid abdominal discomfort , not associated with her food intake, feels that her constipati on is gone, last CT 11/2020, get another CT A/P again OV 11/12/2021 :S/p ER visitCT A/P 08/20/2021 Needs to see GS OV 04/22/2022 :Dr Sheikh 11/21/2021 , no complaints today OV 08/12/2022 :Dr Ortiz 05/12/2022 OV 12/09/2022 :Needs to see Dr Ortiz OV 01/20/2023 :Sees Dr Ortiz Asthma 722238494 J45.90 9 On breoOn proair She is doing well todaySees Nae Ingram OFFSET PRINTER and Dr Smith Obesity 481404855 E66.9 Diet and exercise, noted by pulmonary Obstructiv e sleep apnea syndrome 03323873 G47.33 On CPAPSees Nae Jacques OFFSET PRINTER 03/04/[address] Smith 12/16/2022 Anemia 260054497 D64.9 07/30/2020 : Mamta Hooker NP, hematology , f/u in 3 months, 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 Keep apt with Dr Ortiz Cholecystitis 95676050 K 81.[address] A/P 08/20/2021 Dr Sheikh 11/21/2021 Deep venou s thrombosis of lower extremity 938379976 I82.409 US LE: 04/01/2022 : Dr Ortiz: R femoral DVT Keep apt with Dr Ortiz on 05/12/2022 , did speak personally on 04/21/2022 , was told to increase xarelto to 20mg daily Trigger fi nger of right hand [id number] 6099559 M65.30 R MF, there is a trigger finger, get a referral to Dr Gallegos hand orthoRefer red again [id number] Corey acosta MD [facility] Internal Med [facility] [address], [facility] [address] [place] [address] 02/12/2023 15:17:25 02/12/2023 16:01:32 Transition of care [id number] 105 Z75.8 Transition Care Management Questionna ireDate of Discharge 02/03/23Adm ission Date: 01/31/23Dat e of Contact: 1st attempt: 02/05/23, 2nd attempt: 02/06/23 (02/10/23 - spoke with patient)[facility] ason for Admission: [facility] Diagnosis( es): Noninfecti ve gastroente ritis, UTIDiagnos tic Test(s) Performed: CT (abdomen/p raquel), Other: lab work, urinalysis . upper endoscopyD id your hospital physician prescribe any new medicines upon discharge? yes: Cipro, Metronidaz oleDid you brain picker your prescripti on(s) and begin taking them as the doctor prescribed ? yesDo you have any questions about your new medication s? noDid the hospital set up a follow up appointmen t with your PCP? yes, when:Did the hospital set up an appointmen t up with any specialist s? noDid the hospital set up Home Health Care or Outpatient therapy? noDid the hospital set you up with any equipment before discharge? noDo you have all the equipment you need to perform daily living activities ? yesPerform ed by: (include credential s) Rudy Berumen RN Screening - NAD [id number] 3 Z13.9 C-scope: 07/03/17, Next in 10 yearsC-sco pe: 12/03/2020 : Dr Crawford Mammogram: 03/27/17: Now yearlyMamm ogram: 05/20/19: NegMammogr am: 06/18/2020 : NegMammogr am: 08/02/2021 : Neg, orderedMam mogram: 08/04/2022 : Neg PAP: Did see Ivette LUCIANO 05/18/19Dr Mosqueda: 05/07/2020 : 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 DEXA: 09/01/18: NegDEXA: 12/18/2020 : Neg Do yearly flu shot 07/24/2020 UTD on pneumovax 08/31/18, 08/08/14Sh ould do Tdap and Shingles vaccineUTD on COVID 19 vaccine RTC in 2 monthsDo labsER if worseShe did verbalize her understand ing of the above Hyperlipidemia 78909071 E78.5 On rosuvastat in 10mg dailyGet labs 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 458455449 E11.9 On glimeperid e 1mg bidOn trescibaOn ozempicDoe s see eye MDSees podiatry last 12/06/[address] Marie Hepatomegaly 51002543 R1 6.[address] A/P 08/20/2021 US liver: 11/22/2021 : Hepatomega ly: See case 11/27/2021 Needs to see GI Essential hypertension 20398204 I10 On lasix 40mgOn lisinopril 10mg 1/2 tab dailyOn metoprolol 25mg 1/2 tab bidShould not be on lisinopril 40mg bid, given by Dr Shailesh Skinner on quinapril 40mg bid given by Dr Shailesh Lama the xareltoDoe s [facility] Dr Cash 07/29/2022 , f/u in 6 months Chronic ki dney disease 922409579 N18.[address] Cash the kidney specialist On vit d weeklyOn allopurino Jordana calcitriol Does well Sleep apnea 87194291 G47 .30 On CPAPSees Nae Jacques OFFSET PRINTER last OV 03/04/2021 Dr Smith 12/16/2021 , 12/16/2022 , next 12/16/2023 Goiter 0861934 E04.9 US thyroid 09/01/18, neg ordred by Dr Mancia eythyrox 25mcgs daily OV 12/20/2020 :US thyroid 12/18/2020 : Multiple sub centimeter thyroid nodules, Dr Marie monitors OV 11/12/2021 US thyroid 08/02/2021 Dr Marie OV 01/20/2023 :Dr Marie 09/18/2022 OV 02/12/2023 :Sees Dr Marie Heart murmur 74734469 R0 1.1 Sees [facility] Dr Cash Epigastric pain 14453928 R10.13 08/20/2020 : Dr Crawford EGD: Neg On PPIDoes well Pulmonary embolism [address] chest 11/09/18: Iliana Nae Sawyer OFFSET PRINTER On xarelto Allergic rhinitis 074658 04 J30.9 Has rhinitis, no fevers or chills, no chest pain or SOBShe has used the flonase and has helped her Abnormal u terine bleeding 6806056653 9100 N93.9 Addendum: 04/04/2020 :Seen in the ER at [facility] and [facility] for the bleedingS/ p US pelvic 03/29/2020 Now to get hysterosco py DNC by Dr Quezada/p CBC: 04/04/2020 : H/H 9.1.4Sh e is cleared for this by [facility] Dr Cash and is cleared for this surgery, she does remain a moderate risk for this surgery OV 05/22/2020 ;Now referred to OB oncologist Dr Fairbanks as per her history Addendum: 2020 : 0: Dr Fairbanks: Is to get radiation OV 07/24/2020 :Is seeing Dr Fairbanks Addendum: 07/27/2020 : 0: Radiation oncology Dr Turcios OV 11/08/2020 :Did see Dr Fairbanks 10/05/[address] Gayle and Dr Stringer radiation oncologyAl so sees Dr Sheehan adjunct faculty instructor onco Sees Dr Ortiz also OV 11/22/2020 :Keep apts with Dr Fairbanks, and Dr Stringer and Dr Sheehan and Dr Ortiz OV 12/20/2020 :Keep apts now with Dr Ortiz and Dr Fairbanks, she does not know when she will see Dr Fairbanks, get a referral again OV 07/16/2021 :No more bleeding noted 05/10/2021 : Dr Fairbanks, f/u 11/15/[address] Ortiz 08/28/2021 OV 11/12/2021 :Dr Ortiz 10/02/2021 OV 04/22/[address] Ortiz on 05/12/2022 , did speak personally on 04/21/2022 , was told to increase xarelto to 20mg daily OV 08/12/2022 :Dr Ortiz 05/12/2022 , f/u in 3 monthsDr Tiki 06/13/2022 OV 12/09/2022 :Keep apts with Dr Ortiz OV 01/19/2023 :Dr Ortiz 12/11/2022 , started on procrit 20K units 2 weeks, f/u in 6 weeks OV 02/12/2023 :Sees Dr Ortiz Abdominal pain 04756454 R10.9 S/p ER visit on 11/17/2020 S/P CT A/P 11/17/2020 : Large cecal mass Is to see Dr Crawford will need c-scopeAls o should see Dr Angel Dawkins n for SBO Get another CT A/P without contrast statGet on zofran, can do 4mg bidNotify if any bleeding or if any constipati onMay need to go back to the ERShe will proceed to get the CT A/P stat OV 12/20/2020 :Does wellCT abd/pelvis : 11/22/2020 : noted, no more mass noted OV 07/16/2021 :C/o mid abdominal discomfort , not associated with her food intake, feels that her constipati on is gone, last CT 11/2020, get another CT A/P again OV 11/12/2021 :S/p ER visitCT A/P 08/20/2021 Needs to see OV 04/22/2022 :Dr Sheikh 11/21/2021 , no complaints today OV 08/12/2022 :Dr Ortiz 05/12/2022 OV 12/09/2022 :Needs to see Dr Ortiz OV 01/20/2023 :Sees Dr Ortiz OV 02/12/2023 : Keep apts with Dr Ortiz Asthma 955862089 J45.90 9 On breoOn proair She is doing well todaySees Nae Ingram OFFSET PRINTER and Dr Smith Obesity 711583093 E66.9 Diet and exercise, noted by pulmonary Obstructiv e sleep apnea syndrome 41086564 G47.33 On CPAPSees Nae Jacques OFFSET PRINTER 03/04/[address] Smith 12/16/2023 Anemia 979335722 D64.9 07/30/2020 : Mamta Hooker NP, hematology , f/u in 3 months, 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 Keep apt with Dr Ortiz Cholecystitis 10913664 K 81.[address] A/P 08/20/2021 Dr Sheikh 11/21/2021 Deep venou s thrombosis of lower extremity 266342770 I82.409 US LE: 04/01/2022 : Dr Ortiz: R femoral DVT Keep apt with Dr Ortiz on 05/12/2022 , did speak personally on 04/21/2022 , was told to increase xarelto to 20mg daily Trigger fi nger of right hand [id number] 4845736 M65.30 R MF, there is a trigger finger, get a referral to Dr Gallegos hand orthoRefer red again Gastritis 9087299 K29.70 D/c 01/31-01/13 12/04 for gastritis, UTI, s/p EGD done, now is doing well Adult heal th examination 701385514 Z00.00 Screening for disorder 875863125 Z13.9 [id number] Corey acosta MD [facility] Internal Med [facility] [address], [address] [place] [address] 03/05/2023 15:01:45 03/05/2023 15:54:29 Screening - NAD 722679417 Z13.9 C-scope: 07/03/17, Next in 10 yearsC-sco pe: 12/03/2020 : Dr Crawford Mammogram: 03/27/17: Now yearlyMamm ogram: 05/20/19: NegMammogr am: 06/18/2020 : NegMammogr am: 08/02/2021 : Neg, orderedMam mogram: 08/04/2022 : Neg PAP: Did see Ivette LUCIANO 05/18/19Dr Panda: 05/07/2020 : 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 DEXA: 09/01/18: NegDEXA: 12/18/2020 : Neg Do yearly flu shot 07/24/2020 UTD on pneumovax 08/31/18, 08/08/14Sh ould do Tdap and Shingles vaccineUTD on COVID 19 vaccine RTC in 2 monthsDo labsER if worseShe did verbalize her understand ing of the above Hyperlipidemia 41657557 E78.5 On rosuvastat in 10mg dailyGet labs 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 258091182 E11.9 On glimeperid e 1mg bidOn trescibaOn ozempicDoe s see eye MDSees podiatry last 12/06/[address] Marie Hepatomegaly 46952338 R1 6.[address] A/P 08/20/2021 US liver: 11/22/2021 : Hepatomega ly: See case 11/27/2021 Needs to see GI Essential hypertension 47770514 I10 On lasix 40mgOn lisinopril 10mg 1/2 tab dailyOn metoprolol 25mg 1/2 tab bidShould not be on lisinopril 40mg bid, given by Dr Shailesh Skinner on quinapril 40mg bid given by Dr [facility]ail[facility] , f/u in 6 months Chronic ki dney disease 220262357 N18.[address] Cash the kidney specialist On vit d weeklyOn allopurino Jordana calcitriol Does well Sleep apnea 91967870 G47 .30 On CPAPSees Nae Jacques OFFSET PRINTER last OV 03/04/2021 Dr Smith 12/16/2021 , 12/16/2022 , next 12/16/2023 Goiter 2062832 E04.9 US thyroid 09/01/18, neg ordred by Dr Mancia eythyrox 25mcgs daily OV 12/20/2020 :US thyroid 12/18/2020 : Multiple sub centimeter thyroid nodules, Dr Marie monitors OV 11/12/2021 US thyroid 08/02/2021 Dr Marie OV 01/20/2023 :Dr Marie 09/18/2022 OV 02/12/2023 :Sees Dr Marie OV 03/05/2023 : See Dr Marie Heart murmur 46215715 R0 1.1 Sees [facility] Dr Cash Epigastric pain 96292104 R10.13 08/20/2020 : Dr Crawford EGD: Neg On PPIDoes well Pulmonary embolism [address] chest 11/09/18: Iliana Jacques OFFSET PRINTER, referred Not on xarelto Allergic rhinitis 510868 04 J30.9 Has rhinitis, no fevers or chills, no chest pain or SOBShe has used the flonase and has helped her Abnormal u terine bleeding 7090510600 9100 N93.9 Addendum: 04/04/2020 :Seen in the ER at [facility] and [facility] for the bleedingS/ p US pelvic 03/29/2020 Now to get hysterosco py DNC by Dr Quezada/p CBC: 04/04/2020 : H/H 9.10/13.4Sh e is cleared for this by [facility] Dr Cash and is cleared for this surgery, she does remain a moderate risk for this surgery OV 05/22/2020 ;Now referred to OB oncologist Dr Fairbanks as per her history Addendum: 2020 : 0: Dr Fairbanks: Is to get radiation OV 07/24/2020 :Is seeing Dr Fairbanks Addendum: 07/27/2020 : 0: Radiation oncology Dr Turcios OV 11/08/2020 :Did see Dr Fairbanks 10/05/[address] Gayle and Dr Stringer radiation oncologyAl so sees Dr Sheehan adjunct faculty instructor onco Sees Dr Ortiz also OV 11/22/2020 :Keep apts with Dr Fairbanks, and Dr Stringer and Dr Sheehan and Dr Ortiz OV 12/20/2020 :Keep apts now with Dr Ortiz and Dr Fairbanks, she does not know when she will see Dr Fairbanks, get a referral again OV 07/16/2021 :No more bleeding noted 05/10/2021 : Dr Fairbanks, f/u 11/15/[address] Ortiz 08/28/2021 OV 11/12/2021 :Dr Ortiz 10/02/2021 OV 04/22/20[address] Keep apt [address] Ortiz on 05/12/2022 , did speak personally on 04/21/2022 , was told to increase xarelto to 20mg daily OV 08/12/2022 :Dr Ortiz 05/12/2022 , f/u in 3 monthsDr Tiki 06/13/2022 OV 12/09/2022 :Keep apts with Dr Ortiz OV 01/19/2023 :Dr Ortiz 12/11/2022 , started on procrit 20K units 2 weeks, f/u in 6 weeks OV 02/12/2023 :Sees Dr Ortiz OV 03/05/2023 : See Dr Ortiz Abdominal pain 02103570 R10.9 S/p ER visit on 11/17/2020 S/P CT A/P 11/17/2020 : Large cecal mass Is to see Dr Crawford will need c-scopeAls o should see Dr Angel Dawkins n for SBO Get another CT A/P without contrast statGet on zofran, can do 4mg bidNotify if any bleeding or if any constipati onMay need to go back to the ERShe will proceed to get the CT A/P stat OV 12/20/2020 :Does wellCT abd/pelvis : 11/22/2020 : noted, no more mass noted OV 07/16/2021 :C/o mid abdominal discomfort , not associated with her food intake, feels that her constipati on is gone, last CT 11/2020, get another CT A/P again OV 11/12/2021 :S/p ER visitCT A/P 08/20/2021 Needs to see OV 04/22/2022 :Dr Sheikh 11/21/2021 , no complaints today OV 08/12/2022 :Dr Ortiz 05/12/2022 OV 12/09/2022 :Needs to see Dr Ortiz OV 01/20/2023 :Sees Dr Ortiz OV 02/12/2023 : Keep apts with Dr Coffey 03/05/2023 : See Dr Ortiz Asthma 747693448 J45.90 9 On breoOn proair She is doing well todaySees Nae Ingram OFFSET PRINTER and Dr Smith Obesity 232841162 E66.9 Diet and exercise, noted by pulmonary Obstructiv e sleep apnea syndrome 23179775 G47.33 On CPAPSees Nae Jacques OFFSET PRINTER 03/04/[address] Smith 12/16/2023 Anemia 006986265 D64.9 07/30/2020 : Mamta Hooker NP, hematology , f/u in 3 months, 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 Keep apt with Dr Ortiz Cholecystitis 45887092 K 81.[address] A/P 08/20/2021 Dr Sheikh 11/21/2021 Deep venou s thrombosis of lower extremity 582790608 I82.409 US LE: 04/01/2022 : Dr Ortiz: R femoral DVT Keep apt with Dr Ortiz on 05/12/2022 , did speak personally on 04/21/2022 , was told to increase xarelto to 20mg daily Trigger fi nger of right hand [id number] 3262359 M65.30 R MF, there is a trigger finger, get a referral to Dr Gallegos hand orthoRefer red again Gastritis 3454976 K29.70 D/c 01/31-01/13 12/04 for gastritis, UTI, s/p EGD done, now is doing well Screening for osteoporosis 951650481 Z13.820 Screening mammography 24 517018 Z12.31 [id number] Zeny Marie MD [facility] [address] [place] [address] 04/17/2023 14:25:37 04/17/2023 15:49:26 Well controlled type 2 diabetes mellitus 248188251 E11.9 a1c 6.9% in range- patient encouraged to never take higher than 15 units of tresiba as it appears the 20 units or higher drop her sugars under 80 mg/dL fasting- she is aware she can titrate up or down on her dosing every 3 days to assess response to every dose titration. Continue on ozempic 0.5 mg once weekly and metformin for insulin sensitizat ion and glimepirid e as needed per scale dosing to avoid hypoglycem ia. Hypothyroidism 62437855 E03.9 TFTs in range- continue on LT4 25 mcg daily. Dyslipidemia 266915360 E 78.5 Continue on statin therapy. Spent up to 25 minutes preparing to see the patient (eg, review of tests), obtaining and/or reviewing separately obtained history, performing a medically appropriat e examinatio n and evaluation , counseling and educating the patient, ordering medication s, tests, along with documentin g clinical informatio n in the electronic health record, independen tly interpreti ng results and communicat ing results to the patient. Patient can be followed by PCP - she/he is aware of my resignatio n and last day of June 26. If needed his/her PCP can refer patient to another endocrinol ogist in the area. All questions /concerns answered and refills necessary at visit today. [id number] Corey acosta MD [facility] Internal [facility] [address], [place] [address] 05/07/2023 09:46:03 05/07/2023 10:25:25 Transition of care 9304340225 105 Z75.8 Facility: [facility] ion Date: 04/24/23Dis charge Date: 04/26/23Dis charge Diagnoses: Obstructiv e sleep apnea syndrome, cholecysti tis, chronic kidney disease stage 3, iron deficiency anemia, acute pulmonary embolism Screening - NAD 65044394 3 Z13.9 C-scope: 07/03/17, Next in 10 years-sco pe: 12/03/2020 : Dr Crawford Mammogram: 03/27/17: Now yearlyMamm ogram: 05/20/19: NegMammogr am: 06/18/2020 : NegMammogr am: 08/02/2021 : Neg, orderedMam mogram: 08/04/2022 : Neg PAP: Did see Ievtte LUCIANO 05/18/19Dr Panda: 05/07/2020 : 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 DEXA: 09/01/18: NegDEXA: 12/18/2020 : Neg Do yearly flu shot 07/24/2020 UTD on pneumovax 08/31/18, 08/08/14Sh ould do Tdap and Shingles vaccineUTD on COVID 19 vaccine RTC in 2 monthsDo labsER if worseShe did verbalize her understand ing of the above Hyperlipidemia 98406605 E78.5 On rosuvastat in 10mg dailyGet labs 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 674295967 E11.9 On glimeperid e 1mg bidOn trescibaOn ozempicDoe s see eye MDSees podiatry last 12/06/[address] Marie Hepatomegaly 80126128 R1 6.[address] A/P 08/20/2021 US liver: 11/22/2021 : Hepatomega ly: See case 11/27/2021 Needs to see GI Essential hypertension 07158173 I10 On lasix 40mgOn lisinopril 10mg 1/2 tab dailyOn metoprolol 25mg 1/2 tab bidShould not be on lisinopril 40mg bid, given by Dr Shailesh Skinner on quinapril 40mg bid given by Dr Shailesh Skinner on xareltoNow on eliquis 5mg bidDoes wellSHV Dr Cash 07/29/2022 , f/u in 6 months Chronic ki dney disease 066840306 N18.[address] Cash the kidney specialist On vit d weeklyOn allopurino Jordana calcitriol Does well Sleep apnea 11903505 G47 .30 On CPAPSees Nae Jacques OFFSET PRINTER last OV 03/04/2021 Dr Smith 12/16/2021 , 12/16/2022 , next 12/16/2023 Goiter 9215843 E04.9 US thyroid 09/01/18, neg ordred by Dr Mancia eythyrox 25mcgs daily OV 12/20/2020 :US thyroid 12/18/2020 : Multiple sub centimeter thyroid nodules, Dr Marie monitors OV 11/12/2021 US thyroid 08/02/2021 Dr Marie OV 01/20/2023 :Dr Marie 09/18/2022 OV 02/12/2023 :Sees Dr Marie OV 03/05/2023 : See Dr Marie OV 05/07/2023 : Now will see Dr Mullins, no complaints now Heart murmur 12558680 R0 1.1 Sees [facility] Dr Cash Epigastric pain 91539794 R10.13 08/20/2020 : Dr Crawford EGD: Neg On PPIDoes well Pulmonary embolism [address] chest 11/09/18: Iliana Jacques OFFSET PRINTER, referred Not on xarelto 04/24/2023 : [facility] ER04/24/20 23 CTA Peng Lindo on eliquis, needs to see Dr Ortiz Allergic rhinitis 079211 04 J30.9 Has rhinitis, no fevers or chills, no chest pain or SOBShe has used the flonase and has helped her Abnormal u terine bleeding 2054564017 9100 N93.9 Addendum: 04/04/2020 :Seen in the ER at [facility] and [facility] for the bleedingS/ p US pelvic 03/29/2020 Now to get hysterosco py DNC by Dr Quezada/p CBC: 04/04/2020 : H/H 9.30.4Sh e is cleared for this by [facility] Dr Cash and is cleared for this surgery, she does remain a moderate risk for this surgery OV 05/22/2020 ;Now referred to OB oncologist Dr Fairbanks as per her history Addendum: 2020 : 0: Dr Fairbanks: Is to get radiation OV 07/24/2020 :Is seeing Dr Fairbanks Addendum: 07/27/2020 : 0: Radiation oncology Dr Turcios OV 11/08/2020 :Did see Dr Fairbanks 10/05/[address] Gayle and Dr Stringer radiation oncologyAl so sees Dr Sheehan adjunct faculty instructor onco Sees Dr Ortiz also OV 11/22/2020 :Keep apts with Dr Fairbanks, and Dr Stringer and Dr Sheehan and Dr Ortiz OV 12/20/2020 :Keep apts now with Dr Ortiz and Dr Fairbanks, she does not know when she will see Dr Fairbanks, get a referral again OV 07/16/2021 :No more bleeding noted 05/10/2021 : Dr Fairbanks, f/u 11/15/[address] Ortiz 08/28/2021 OV 11/12/2021 :Dr Ortiz 10/02/2021 OV 04/22/20[address] Keep [address] Ortiz on 05/12/2022 , did speak personally on 04/21/2022 , was told to increase xarelto to 20mg daily OV 08/12/2022 :Dr Ortiz 05/12/2022 , f/u in 3 monthsDr Fairbanks 06/13/2022 OV 12/09/2022 :Keep apts with Dr Ortiz OV 01/19/2023 :Dr Ortiz 12/11/2022 , started on procrit 20K units 2 weeks, f/u in 6 weeks OV 02/12/2023 :Sees Dr Ortiz OV 03/05/2023 : See Dr Ortiz OV 05/07/2023 : Keep apt with Dr Ortiz, she does also see Dr Fairbanks Abdominal pain 76765901 R10.9 S/p ER visit on 11/17/2020 S/P CT A/P 11/17/2020 : Large cecal mass Is to see Dr Crawford will need c-scopeAls o should see Dr Angel Dawkins n for SBO Get another CT A/P without contrast statGet on zofran, can do 4mg bidNotify if any bleeding or if any constipati onMay need to go back to the ERShe will proceed to get the CT A/P stat OV 12/20/2020 :Does wellCT abd/pelvis : 11/22/2020 : noted, no more mass noted OV 07/16/2021 :C/o mid abdominal discomfort , not associated with her food intake, feels that her constipati on is gone, last CT 11/2020, get another CT A/P again OV 11/12/2021 :S/p ER visitCT A/P 08/20/2021 Needs to see OV 04/22/2022 :Dr Sheikh 11/21/2021 , no complaints today OV 08/12/2022 :Dr Ortiz 05/12/2022 OV 12/09/2022 :Needs to see Dr Ortiz OV 01/20/2023 :Sees Dr Ortiz OV 02/12/2023 : Keep apts with Dr Coffey 03/05/2023 : See Dr Ortiz OV 05/07/2023 : Seen in ER, does well today, will f/u with Dr Ortiz Asthma [id number] J45.90 9 On breoOn proair She is doing well todaySees Nae Ingram OFFSET PRINTER and Dr Sarah Jiménez [id number] E66.9 Diet and exercise, noted by pulmonary Obstructiv e sleep apnea syndrome 76480734 G47.33 On CPAPNitesh Jacques OFFSET PRINTER 03/04/[address] Smith 12/16/2023 Anemia 302242843 D64.9 07/30/2020 : Mamta Hooker, OFFSET PRINTER, hematology , f/u in 3 months, 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 Keep apt with Dr Ortiz Cholecystitis 71484798 K 81.[address] A/P 08/20/2021 Dr Sheikh 11/21/2021 Get a referral again to his office Deep venou s thrombosis of lower extremity 882931991 I82.409 US LE: 04/01/2022 : Dr Ortiz: R femoral DVT Keep apt with Dr Ortiz on 05/12/2022 , did speak personally on 04/21/2022 , was told to increase xarelto to 20mg daily OV 05/07/2023 : Now on eliquis Trigger fi nger of right hand [id number] 7019107 M65.30 R MF, there is a trigger finger, get a referral to Dr Gallegos hand orthoRefer red again Gastritis 9592661 K29.70 D/c 01/31-01/13 12/04 for gastritis, UTI, s/p EGD done, now is doing well Screening for osteoporosis 774606135 Z13.820 Screening mammography 24 244032 Z12.31 Vitamin D deficiency 347 46879 E55.9 [id number] Prabhjot Lee DPM [facility] Podiatry [address], [address] [place] [address] 04/30/2023 10:10:20 04/30/2023 11:31:18 Type 2 diabetes mellitus without complication 511371324 E11.9 Patient educated on neuropathy , diabetes, diabetic diet, and daily foot exams. Patient is to check feet daily for new wounds, blisters, redness to prevent infection and ulceration s to the feet. Patient will return to clinic in 6 months for diabetic foot workup. Peripheral venous insufficiency 75360095 I87.2 recommend compressio n stockingsk eep legs elevated when at restmuscle pumps when at rest to prevent DVT Severe dry skin 25517275 2 L85.3 daily hygiene [id number] Arnaud Smith MD [facility] [address] [place] [address] 0 05/07/2023 10:22:26 05/08/2023 08:07:37 Dyspnea on exertion 48064118 R06.09 R05.9 T78.40XA D89.9 Obstructiv e sleep apnea syndrome 48740282 G47.33 Moderate p ersistent asthma 224096598 J45.40 [id number] Remington hill MD [facility] General Surgery [address] [place] [address] 1 05/21/2023 10:48:15 05/21/2023 12:22:04 Chronic cholecystitis 42577468 K81.1 [id number] Arnaud Smith MD [facility] [address] [place] [address] 0 06/30/2023 10:14:26 07/01/2023 08:34:01 Obstructive sleep apnea syndrome 69742349 G47.33 Moderate p ersistent asthma 619251701 J45.40 [id number] Corey acosta MD [facility] Internal Med [facility] [address] [place] [address] 08/04/2023 09:09:28 08/04/2023 09:50:12 Transition of care [id number] 105 Z75.8 Facility: [facility] ion Date: 04/24/23Dis charge Date: 04/26/23Dis charge Diagnoses: Obstructiv e sleep apnea syndrome, cholecysti tis, chronic kidney disease stage 3, iron deficiency anemia, acute pulmonary embolism Screening - NAD 47878649 3 Z13.9 C-scope: 07/03/17, Next in 10 yearsC-sco pe: 12/03/2020 : Dr Crawford Mammogram: 03/27/17: Now yearlyMamm ogram: 05/20/19: NegMammogr am: 06/18/2020 : NegMammogr am: 08/02/2021 : Neg, orderedMam mogram: 08/04/2022 : NegMammogr am: 07/20/2023 : Neg PAP: Did see Ivette OFFSET PRINTER 05/18/19Dr Mosqueda: 05/07/2020 : 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 DEXA: 09/01/18: NegDEXA: 12/18/2020 : NegDEXA: 07/20/2023 : Neg Do yearly flu shot 07/24/2020 UTD on pneumovax 08/31/18, 08/08/14Sh ould do Tdap and Shingles vaccineUTD on COVID 19 vaccineCan do RSV vaccine RTC in 4 monthsDo labsER if worseShe did verbalize her understand ing of the above Hyperlipidemia 70968214 E78.5 On rosuvastat in 10mg dailyGet labs 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 235557604 E11.9 On glimeperid e 1mg bidOn tresciba 26U dailyOn ozempicDoe s see eye MDDr Rosa 10/29/[address] Marie Hepatomegaly 86361523 R1 6.[address] A/P 08/20/2021 US liver: 11/22/2021 : Hepatomega ly: See case 11/27/2021 Needs to see GI US abd 06/30/2023 : Hepatomega ly Sees Dr Stinson Essential hypertension 33688193 I10 On lasix 40mgOn lisinopril 20mg daily Dr Cash 07/03/2023 filledOn metoprolol 25mg tab bid Dr Cash [facility] 06/27/2023 filledNot on eliquis 5mg bidShould not be on lisinopril 40mg bid, given by Dr Shailesh Skinner on quinapril 40mg bid given by Dr Shailesh Skinner [facility] xarelto [facility] Chronic ki dney disease 067482803 N18.[address] Cash the kidney specialist 07/07/2023 On vit d weeklyOn allopurino Jordana calcitriol Does well Sleep apnea 56751256 G47 .30 On CPAPSees Nae Jacques OFFSET PRINTER last OV 03/04/2021 Dr Smith 12/16/2021 , 12/16/2022 , next 12/16/2023 Goiter 2188096 E04.9 US thyroid 09/01/18, neg ordred by Dr Mancia eythyrox 25mcgs daily OV 12/20/2020 :US thyroid 12/18/2020 : Multiple sub centimeter thyroid nodules, Dr Marie monitors OV 11/12/2021 US thyroid 08/02/2021 Dr Marie OV 01/20/2023 :Dr Marie 09/18/2022 OV 02/12/2023 :Sees Dr Marie OV 03/05/2023 : See Dr Marie OV 05/07/2023 : Now will see Dr Mullins, no complaints now OV 08/04/2023 : See [facility] see telephone 06/17/2023 Dr Júnior Callejas, states that she would like to not travel, will refer to Dr Varela Heart murmur 82645525 R0 1.1 Sees [facility] Dr Cash last OV 05/26/2023 Epigastric pain 67571066 R10.13 08/20/2020 : Dr Crawford EGD: Neg On PPIDoes well Pulmonary embolism [address] chest 11/09/18: Iliana Jacques OFFSET PRINTER, referred Not on xarelto 04/24/2023 : [facility] ER04/24/20 23 CTA R PE Allergic rhinitis 510042 04 J30.9 Has rhinitis, no fevers or chills, no chest pain or SOBShe has used the flonase and has helped her Abnormal u terine bleeding 1307744724 9100 N93.9 Addendum: 04/04/2020 :Seen in the ER at [facility] and [facility] for the bleedingS/ p US pelvic 03/29/2020 Now to get hysterosco py DNC by Dr Quezada/p CBC: 04/04/2020 : H/H 9.10/13.4Sh e is cleared for this by [facility] Dr Cash and is cleared for this surgery, she does remain a moderate risk for this surgery OV 05/22/2020 ;Now referred to OB oncologist Dr Fairbanks as per her history Addendum: 2020 : 0: Dr Fairbanks: Is to get radiation OV 07/24/2020 :Is seeing Dr Fairbanks Addendum: 07/27/2020 : 0: Radiation oncology Dr Turcios OV 11/08/2020 :Did see Dr Fairbanks 10/05/[address] Gayle and Dr Stringer radiation oncologyAl so sees Dr Sheehan adjunct faculty instructor onco Sees Dr Ortiz also OV 11/22/2020 :Keep apts with Dr Fairbanks, and Dr Stringer and Dr Sheehan and Dr Ortiz OV 12/20/2020 :Keep apts now with Dr Ortiz and Dr Fairbanks, she does not know when she will see Dr Fairbanks, get a referral again OV 07/16/2021 :No more bleeding noted 05/10/2021 : Dr Fairbanks, f/u 11/15/[address] Ortiz 08/28/2021 OV 11/12/2021 :Dr Ortiz 10/02/2021 OV 04/22/[address] Ortiz on 05/12/2022 , did speak personally on 04/21/2022 , was told to increase xarelto to 20mg daily OV 08/12/2022 :Dr Ortiz 05/12/2022 , f/u in 3 monthsDr Fairbanks 06/13/2022 OV 12/09/2022 :Keep apts with Dr Ortiz OV 01/19/2023 :Dr Ortiz 12/11/2022 , started on procrit 20K units 2 weeks, f/u in 6 weeks OV 02/12/2023 :Sees Dr Ortiz OV 03/05/2023 : See Dr Ortiz OV 05/07/2023 : Keep apt with Dr Ortiz, she does also see Dr Fairbanks OV 08/04/2023 : Dr Fairbanks 06/19/2023 Abdominal pain 79372226 R10.9 S/p ER visit on 11/17/2020 S/P CT A/P 11/17/2020 : Large cecal mass Is to see Dr Crawford will need c-scopeAls o should see Dr Angel Dawkins n for SBO Get another CT A/P without contrast statGet on zofran, can do 4mg bidNotify if any bleeding or if any constipati onMay need to go back to the ERShe will proceed to get the CT A/P stat OV 12/20/2020 :Does wellCT abd/pelvis : 11/22/2020 : noted, no more mass noted OV 07/16/2021 :C/o mid abdominal discomfort , not associated with her food intake, feels that her constipati on is gone, last CT 11/2020, get another CT A/P again OV 11/12/2021 :S/p ER visitCT A/P 08/20/2021 Needs to see GS OV 04/22/2022 :Dr Sheikh 11/21/2021 , no complaints today OV 08/12/2022 :Dr Ortiz 05/12/2022 OV 12/09/2022 :Needs to see Dr Ortiz OV 01/20/2023 :Sees Dr Ortiz OV 02/12/2023 : Keep apts with Dr Coffey 03/05/2023 : See Dr Ortiz OV 05/07/2023 : Seen in ER, does well today, will f/u with Dr Ortiz OV 08/04/2023 : Dr Shantell GATES's PA Nilda Stewart 05/20/2023 , f/u in one year Asthma 288132719 J45.90 9 On breoOn proair She is doing well todaySees Nae Ingram OFFSET PRINTER and Dr Smith Obesity 960559557 E66.9 Diet and exercise, noted by pulmonary Obstructiv e sleep apnea syndrome 53853161 G47.33 On CPAPSees Nae Jacques OFFSET PRINTER 03/04/[address] Smith 12/16/2023 Anemia 730364142 D64.9 07/30/2020 : Mamta Hooker NP, hematology , f/u in 3 months, 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 Keep apt with Dr Ortiz Cholecystitis 83929213 K 81.[address] A/P 08/20/2021 Dr Sheikh 11/21/2021 Get a referral again to his office Dr Sheikh 05/21/2023 : F/u PRN Deep venou s thrombosis of lower extremity 018255709 I82.409 US LE: 04/01/2022 : Dr Ortiz: R femoral DVT Keep apt with Dr Ortiz on 05/12/2022 , did speak personally on 04/21/2022 , was told to increase xarelto to 20mg daily OV 05/07/2023 : Now on eliquis Trigger fi nger of right hand [id number] 7777041 M65.30 R MF, there is a trigger finger, get a referral to Dr Gallegos hand orthoRefer red again Gastritis 8318244 K29.70 D/c 01/31-01/13 12/04 for gastritis, UTI, s/p EGD done, now is doing well Vitamin D deficiency 347 64928 E55.9 Administra tion of influenza vaccine 05977092 Z23 [id number] Corey acosta MD [facility] Internal Med [facility] [address] [facility], [facility] [address] [place] [address] 09/29/2023 10:26:52 09/29/2023 11:01:56 Screening - NAD 198277280 Z13.9 C-scope: 07/03/17, Next in 10 yearsC-sco pe: 12/03/2020 : Dr Crawford Mammogram: 03/27/17: Now yearlyMamm ogram: 05/20/19: NegMammogr am: 06/18/2020 : NegMammogr am: 08/02/2021 : Neg, orderedMam mogram: 08/04/2022 : NegMammogr am: 07/20/2023 : Neg PAP: Did see Ivette LUCIANO 05/18/19Dr Panda: 05/07/2020 : 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 DEXA: 09/01/18: NegDEXA: 12/18/2020 : NegDEXA: 07/20/2023 : Neg Do yearly flu shot 07/24/2020 UTD on pneumovax 08/31/18, 08/08/14Sh ould do Tdap and Shingles vaccineUTD on COVID 19 vaccineCan do RSV vaccine RTC in 4 monthsDo labsER if worseShe did verbalize her understand ing of the above Hyperlipidemia 60765360 E78.5 On rosuvastat in 10mg dailyGet labs 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 092201870 E11.9 On glimeperid e 1mg bidOn tresciba 26U dailyOn ozempicDoe s see eye MDDr Rosa 10/29/[address] Marie Hepatomegaly 85552856 R1 6.[address] A/P 08/20/2021 US liver: 11/22/2021 : Hepatomega ly: See case 11/27/2021 Needs to see GI US abd 06/30/2023 : Hepatomega ly Sees Dr Stinson Essential hypertension 27749028 I10 On lasix 40mgOn lisinopril 20mg daily Dr Cash 07/03/2023 filledOn metoprolol 25mg tab bid Dr Cash [facility] 06/27/2023 filledNot on eliquis 5mg bidShould not be on lisinopril 40mg bid, given by Dr Shailesh Skinner on quinapril 40mg bid given by Dr Shailesh Skinner on xarelto Does wellSL[facility] Dr Cash Chronic ki dney disease 383553568 N18.[address] Cash the kidney specialist 07/07/2023 On vit d weeklyOn allopurino Jordana calcitriol Does well Sleep apnea 06587842 G47 .30 On CPAPSees Nae Jacques OFFSET PRINTER last OV 03/04/2021 Dr Smith 12/16/2021 , 12/16/2022 , next 12/16/2023 Goiter 1558718 E04.9 US thyroid 09/01/18, neg ordred by Dr Mancia eythyrox 25mcgs daily OV 12/20/2020 :US thyroid 12/18/2020 : Multiple sub centimeter thyroid nodules, Dr Marie monitors OV 11/12/2021 US thyroid 08/02/2021 Dr Marie OV 01/20/2023 :Dr Marie 09/18/2022 OV 02/12/2023 :Sees Dr Marie OV 03/05/2023 : See Dr Marie OV 05/07/2023 : Now will see Dr Mullins, no complaints now OV 08/04/2023 : See [facility] see telephone 06/17/2023 Dr Júnior Callejas, states that she would like to not travel, will refer to Dr Varela OV 09/29/2022 :On levothyrox ine 50mcgs dailyNeeds to see Dr Varela Heart murmur 87952420 R0 1.[address] [facility] [address] Cash last OV 05/26/2023 Epigastric pain 22717811 R10.13 08/20/2020 : Dr Crawford EGD: Neg On PPIDoes well Pulmonary embolism [address] chest 11/09/18: Iliana Jacques OFFSET PRINTER, referred Not on xarelto 04/24/2023 : [facility] ER04/24/20 23 CTA R PE Allergic rhinitis 561518 04 J30.9 Has rhinitis, no fevers or chills, no chest pain or SOBShe has used the flonase and has helped her Abnormal u terine bleeding 1762157197 9100 N93.9 Addendum: 04/04/2020 :Seen in the ER at [facility] and [facility] for the bleedingS/ p US pelvic 03/29/2020 Now to get hysterosco py DNC by Dr Quezada/patrizia CBC: 04/04/2020 : H/H 9.10/13.4Sh e is cleared for this by [facility] Dr Cash and is cleared for this surgery, she does remain a moderate risk for this surgery OV 05/22/2020 ;Now referred to OB oncologist Dr Fairbanks as per her history Addendum: 2020 : 0: Dr Fairbanks: Is to get radiation OV 07/24/2020 :Is seeing Dr Fairbanks Addendum: 07/27/2020 : 0: Radiation oncology Dr Turcios OV 11/08/2020 :Did see Dr Fairbanks 10/05/[address] Gayle and Dr Stringer radiation oncologyAl so sees Dr Sheehan adjunct faculty instructor onco Sees Dr Ortiz also OV 11/22/2020 :Keep apts with Dr Fairbanks, and Dr Stringer and Dr Sheehan and Dr Ortiz OV 12/20/2020 :Keep apts now with Dr Ortiz and Dr Fairbanks, she does not know when she will see Dr Fairbanks, get a referral again OV 07/16/2021 :No more bleeding noted 05/10/2021 : Dr Fairbanks, f/u 11/15/[address] Ortiz 08/28/2021 OV 11/12/2021 :Dr Ortiz 10/02/2021 OV 04/22/20[address] Keep apt [address] Ortiz on 05/12/2022 , did speak personally on 04/21/2022 , was told to increase xarelto to 20mg daily OV 08/12/2022 :Dr Ortiz 05/12/2022 , f/u in 3 monthsDr Fairbanks 06/13/2022 OV 12/09/2022 :Keep apts with Dr Ortiz OV 01/19/2023 :Dr Ortiz 12/11/2022 , started on procrit 20K units 2 weeks, f/u in 6 weeks OV 02/12/2023 :Sees Dr Ortiz OV 03/05/2023 : See Dr Ortiz OV 05/07/2023 : Keep apt with Dr Ortiz, she does also see Dr Fairbanks OV 08/04/2023 : Dr Fairbanks 06/19/2023 OV 09/29/2023 : Sees Dr Fairbanks on 12/22/[address] Ortiz next week Abdominal pain 71164782 R10.9 S/p ER visit on 11/17/2020 S/P CT A/P 11/17/2020 : Large cecal mass Is to see Dr Crawford will need c-scopeAls o should see Dr Angel Dawkins n for SBO Get another CT A/P without contrast statGet on zofran, can do 4mg bidNotify if any bleeding or if any constipati onMay need to go back to the ERShe will proceed to get the CT A/P stat OV 12/20/2020 :Does wellCT abd/pelvis : 11/22/2020 : noted, no more mass noted OV 07/16/2021 :C/o mid abdominal discomfort , not associated with her food intake, feels that her constipati on is gone, last CT 11/2020, get another CT A/P again OV 11/12/2021 :S/p ER visitCT A/P 08/20/2021 Needs to see OV 04/22/2022 :Dr Sheikh 11/21/2021 , no complaints today OV 08/12/2022 :Dr Ortiz 05/12/2022 OV 12/09/2022 :Needs to see Dr Ortiz OV 01/20/2023 :Sees Dr Ortiz OV 02/12/2023 : Keep apts with Dr Coffey 03/05/2023 : See Dr Ortiz OV 05/07/2023 : Seen in ER, does well today, will f/u with Dr Ortiz OV 08/04/2023 : Dr Shantell GATES's PA Nildakarla Stewart 05/20/2023 , f/u in one year OV 09/29/2022 :[facility] ER 08/26/2024 CT A/P 08/26/2024 : EnteritisD oes well nowIs now taking Ozempic 0.5mg weekly instead of 1mg weekly Asthma 643696471 J45.90 9 On breoOn proair She is doing well todaySees Nae Ingram OFFSET PRINTER and Dr Smith Obesity 232652169 E66.9 Diet and exercise, noted by pulmonary Obstructiv e sleep apnea syndrome 95447192 G47.33 On CPAPSees Nae Jacques OFFSET PRINTER 03/04/[address] Smith 12/16/2023 Anemia 418761067 D64.9 07/30/2020 : Mamta Hooker NP, hematology , f/u in 3 months, 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 Keep apt with Dr Ortiz Cholecystitis 14961002 K 81.[address] A/P 08/20/2021 Dr Sheikh 11/21/2021 Get a referral again to his office Dr Sheikh 05/21/2023 : F/u PRN Deep venou s thrombosis of lower extremity 088504383 I82.409 US LE: 04/01/2022 : Dr Ortiz: R femoral DVT Keep apt with Dr Ortiz on 05/12/2022 , did speak personally on 04/21/2022 , was told to increase xarelto to 20mg daily OV 05/07/2023 : Now on eliquis OV 09/29/2023 : Not on any eliquis or xarelto Trigger fi nger of right hand [id number] 1059513 M65.30 R MF, there is a trigger fingerRefe rred again Gastritis 7731584 K29.70 D/c 01/31-01/13 12/04 for gastritis, UTI, s/p EGD done, now is doing well OV 09/29/2023 :States that she did see Dr Stinson and did have another EGD on 09/20/2023 , also advised her to cut back on the ozempic as it can cause GI upset, she states that she is now taking only 0.5mg weekly Vitamin D deficiency 347 17328 E55.9 [id number] Prabhjot Lee DPM [facility] [place] [address] [facility], [address] [place] [address] 10/29/2023 09:41:56 10/29/2023 10:32:20 Type 2 diabetes mellitus without complication 150431014 E11.9 cont pcp recommenda tion on glucose controlche ck feet dailycont supportive shoe gearfollow up in 4 mo [id number] Jaclyn Schilling NP [facility] [place] [address] [place] [address] 11/09/2023 09:44:45 11/09/2023 11:27:27 Pain in right hand 7841331762 42242 M79.384 [id number] Corey acosta MD [facility] Internal Med [facility] [address] [facility], [facility] [address] [place] [address] 12/29/2023 08:58:45 12/29/2023 09:58:41 Screening - NAD 191031314 Z13.9 C-scope: 07/03/17, Next in 10 yearsC-sco pe: 12/03/2020 : Dr Crawford Mammogram: 03/27/17: Now yearlyMamm ogram: 05/20/19: NegMammogr am: 06/18/2020 : NegMammogr am: 08/02/2021 : Neg, orderedMam mogram: 08/04/2022 : NegMammogr am: 07/20/2023 : Neg PAP: Did see Ivette LUCIANO 05/18/19Dr Panda: 05/07/2020 : 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 DEXA: 09/01/18: NegDEXA: 12/18/2020 : NegDEXA: 07/20/2023 : Neg Do yearly flu shot 07/24/2020 UTD on pneumovax 08/31/18, 08/08/14Sh ould do Tdap and Shingles vaccineUTD on COVID 19 vaccineCan do RSV vaccine RTC in 4 monthsDo labsER if worseShe did verbalize her understand ing of the above Hyperlipidemia 03739702 E78.5 On rosuvastat in 10mg dailyGet labs 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 836918907 E11.9 On glimeperid e 1mg bidOn tresciba 26U dailyOn ozempicDoe s see eye MDDr Rosa 10/29/[address] Marie Hepatomegaly 05597806 R1 6.[address] A/P 08/20/2021 US liver: 11/22/2021 : Hepatomega ly: See case 11/27/2021 Needs to see GI US abd 06/30/2023 : Hepatomega ly Sees Dr Stinson, last 12/21/2023 , f/u in 6 months and f/u with Dr Ortiz Essential hypertension 52422014 I10 On lasix 40mgOn lisinopril 20mg daily Dr Cash 07/03/2023 filledOn metoprolol 25mg tab bid Dr Cash [facility] 06/27/2023 filledNot on eliquis 5mg bidShould not be on lisinopril 40mg bid, given by Dr Shailesh Skinner on quinapril 40mg bid given by Dr Shailesh HANDYNot on xarelto Does [facility] Dr Cash Chronic ki dney disease 939744138 N18.[address] Cash the kidney specialist 07/07/2023 On vit d weeklyOn allopurino Jordana calcitriol , filled 12/04/2023 Dr Cash IJ Does well Sleep apnea 89275435 G47 .30 On CPAPSees Nae Jacques OFFSET PRINTER last OV 03/04/2021 Dr Smith next 06/30/2024 Goiter 8530586 E04.9 US thyroid 09/01/18, neg ordred by Dr Mancia eythyrox 25mcgs daily OV 12/20/2020 :US thyroid 12/18/2020 : Multiple sub centimeter thyroid nodules, Dr Marie monitors OV 11/12/2021 US thyroid 08/02/2021 Dr Marie OV 01/20/2023 :Dr Marie 09/18/2022 OV 02/12/2023 :Sees Dr Marie OV 03/05/2023 : See Dr Marie OV 05/07/2023 : Now will see Dr Mullins, no complaints now OV 08/04/2023 : See [facility] see telephone 06/17/2023 Dr Júnior Callejas, states that she would like to not travel, will refer to Dr Varela OV 09/29/2022 :On levothyrox ine 50mcgs dailyNeeds to see Dr Varela OV 12/29/2023 :On levothyrox ine 50mcgs daily, keep apt with endocrine Heart murmur 83274295 R0 1.[address] Cash last OV 05/26/2023 Epigastric pain 38767988 R10.13 08/20/2020 : Dr Crawford EGD: Neg On PPIDoes well Pulmonary embolism [address] chest 11/09/18: PESees Nae Jacques OFFSET PRINTER, referred Not on xarelto 04/24/2023 : [facility] ER04/24/20 23 CTA R PE Allergic rhinitis 959305 04 J30.9 Has rhinitis, no fevers or chills, no chest pain or SOBShe has used the flonase and has helped her Abnormal u terine bleeding 7391920862 9100 N93.9 Addendum: 04/04/2020 :Seen in the ER at [facility] and [facility] for the bleedingS/ p US pelvic 03/29/2020 Now to get hysterosco py DNC by Dr Quezada/p CBC: 04/04/2020 : H/H 9.1/30.4Sh e is cleared for this by [facility] Dr Cash and is cleared for this surgery, she does remain a moderate risk for this surgery OV 05/22/2020 ;Now referred to OB oncologist Dr Fairbanks as per her history Addendum: 2020 : 0: Dr Fairbanks: Is to get radiation OV 07/24/2020 :Is seeing Dr Fairbanks Addendum: 07/27/2020 : 0: Radiation oncology Dr Turcios OV 11/08/2020 :Did see Dr Fairbanks 10/05/[address] Gayle and Dr Stringer radiation oncologyAl so sees Dr Sheehan adjunct faculty instructor onco Sees Dr Ortiz also OV 11/22/2020 :Keep apts with Dr Fairbanks, and Dr Stringer and Dr Sheehan and Dr Ortiz OV 12/20/2020 :Keep apts now with Dr Ortiz and Dr Fairbanks, she does not know when she will see Dr Fairbanks, get a referral again OV 07/16/2021 :No more bleeding noted 05/10/2021 : Dr Fairbanks, f/u 11/15/[address] Ortiz 08/28/2021 OV 11/12/2021 :Dr Ortiz 10/02/2021 OV 04/22/[address] Ortiz on 05/12/2022 , did speak personally on 04/21/2022 , was told to increase xarelto to 20mg daily OV 08/12/2022 :Dr Ortiz 05/12/2022 , f/u in 3 monthsDr Fairbanks 06/13/2022 OV 12/09/2022 :Keep apts with Dr Ortiz OV 01/19/2023 :Dr Ortiz 12/11/2022 , started on procrit 20K units 2 weeks, f/u in 6 weeks OV 02/12/2023 :Sees Dr Ortiz OV 03/05/2023 : See Dr Ortiz OV 05/07/2023 : Keep apt with Dr Ortiz, she does also see Dr Fairbanks OV 08/04/2023 : Dr Fairbanks 06/19/2023 OV 09/29/2023 : Sees Dr Fairbanks on 12/22/[address] Ortiz next week OV 12/29/2023 : Keep apts with Dr Fairbanks and Dr Ortiz Abdominal pain 53765508 R10.9 S/p ER visit on 11/17/2020 S/P CT A/P 11/17/2020 : Large cecal mass Is to see Dr Crawford will need c-scopeAls o should see Dr Ortiz ASAPConcer n for SBO Get another CT A/P without contrast statGet on zofran, can do 4mg bidNotify if any bleeding or if any constipati onMay need to go back to the ERShe will proceed to get the CT A/P stat OV 12/20/2020 :Does wellCT abd/pelvis : 11/22/2020 : noted, no more mass noted OV 07/16/2021 :C/o mid abdominal discomfort , not associated with her food intake, feels that her constipati on is gone, last CT 11/2020, get another CT A/P again OV 11/12/2021 :S/p ER visitCT A/P 08/20/2021 Needs to see GS OV 04/22/2022 :Dr Sheikh 11/21/2021 , no complaints today OV 08/12/2022 :Dr Ortiz 05/12/2022 OV 12/09/2022 :Needs to see Dr Ortiz OV 01/20/2023 :Sees Dr Ortiz OV 02/12/2023 : Keep apts with Dr Coffey 03/05/2023 : See Dr Ortiz OV 05/07/2023 : Seen in ER, does well today, will f/u with Dr Ortiz OV 08/04/2023 : Dr Shantell GATES's PA Nilda Stewart 05/20/2023 , f/u in one year OV 09/29/2022 :[facility] ER 08/26/2024 CT A/P 08/26/2024 : EnteritisD oes well nowIs now taking Ozempic 0.5mg weekly instead of 1mg weekly OV 12/29/2023 : Does well now Asthma 142254231 J45.90 9 On breoOn proair She is doing well todaySees Nae Ingram OFFSET PRINTER and Dr Smith Obesity 907422855 E66.9 Diet and exercise, noted by pulmonary Obstructiv e sleep apnea syndrome 58195358 G47.33 On CPAPSees Nae Jacques OFFSET PRINTER 03/04/[address] Smith Anemia 226538747 D64.9 07/30/2020 : Mamta Hooker NP, hematology , f/u in 3 months, 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 Keep apt with Dr Ortiz Cholecystitis 77011565 K 81.[address] A/P 08/20/2021 Dr Sheikh 11/21/2021 Get a referral again to his office Dr Sheikh 05/21/2023 : F/u PRN Deep venou s thrombosis of lower extremity 537486450 I82.409 US LE: 04/01/2022 : Dr Ortiz: R femoral DVT Keep apt with Dr Ortiz on 05/12/2022 , did speak personally on 04/21/2022 , was told to increase xarelto to 20mg daily OV 05/07/2023 : Now on eliquis OV 09/29/2023 : Not on any eliquis or xarelto Trigger fi nger of right hand [id number] 9827186 M65.30 R MF, there is a trigger fingerRefe rred again Gastritis 1949533 K29.70 D/c 01/31-01/13 12/04 for gastritis, UTI, s/p EGD done, now is doing well OV 09/29/2023 :States that she did see Dr Stinson and did have another EGD on 09/20/2023 , also advised her to cut back on the ozempic as it can cause GI upset, she states that she is now taking only 0.5mg weekly OV 12/29/2023 : Dr Stinson last apt 12/21/2023 , f/u in 6 months Vitamin D deficiency 347 65136 E55.9 [id number] Prabhjot Lee DPM [facility] [address], [address] [place] [address] 03/01/2024 09:25:32 03/01/2024 15:45:59 Type 2 diabetes mellitus without complication 700552454 E11.9 cont pcp recommenda tion on glucose controlche ck feet dailycont supportive shoe gearfollow up in 4 mo [id number] Corey acosta MD [facility] [address] , [address] [place] [address] 05/17/2024 15:49:22 05/17/2024 17:05:40 Screening - NAD 893445706 Z13.9 C-scope: 07/03/17, Next in 10 yearsC-sco pe: 12/03/2020 : Dr Crawford Mammogram: 03/27/17: Now yearlyMamm ogram: 05/20/19: NegMammogr am: 06/18/2020 : NegMammogr am: 08/02/2021 : Neg, orderedMam mogram: 08/04/2022 : NegMammogr am: 07/20/2023 : Neg PAP: Did see Ivette LUCIANO 05/18/19Dr Panda: 05/07/2020 : 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 DEXA: 09/01/18: NegDEXA: 12/18/2020 : NegDEXA: 07/20/2023 : Neg Do yearly flu shot 07/24/2020 UTD on pneumovax 08/31/18, 08/08/14Sh ould do Tdap and Shingles vaccineUTD on COVID 19 vaccineCan do RSV vaccine RTC in 4 monthsDo labsER if worseShe did verbalize her understand ing of the above Hyperlipidemia 81635136 E78.5 On rosuvastat in 10mg dailyGet labs 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 217671589 E11.9 On glimeperid e 1mg 2 tabs bidOn tresciba 26U dailyOn ozempic will d/c d/t pancreatit isDoes see eye MDDr Rosa 10/29/[address] Marie Hepatomegaly 72610081 R1 6.[address] A/P 08/20/2021 US liver: 11/22/2021 : Hepatomega ly: See case 11/27/2021 Needs to see GI US abd 06/30/2023 : Hepatomega ly Sees Dr Stinson, last 12/21/2023 , f/u in 6 months and f/u with Dr Ortiz Essential hypertension 22908227 I10 On lasix 40mgOn lisinopril 20mg daily Dr Cash 07/03/2023 filledOn metoprolol 25mg tab bid Dr Cash HV 06/27/2023 filledNot on eliquis 5mg bidShould not be on lisinopril 40mg bid, given by Dr Shailesh Skinner on quinapril 40mg bid given by Dr Shailesh Skinner on xarelto Does [facility] Dr Cash Chronic ki dney disease 164786199 N18.[address] Cash the kidney specialist 07/07/2023 On vit d weeklyOn allopurino Jordana calcitriol , filled 12/04/2023 Dr Cash IJ Does well Sleep apnea 95623647 G47 .30 On CPAPSees Nae Jacques OFFSET PRINTER last OV 03/04/2021 Dr Smith next 06/30/2024 Goiter 6926457 E04.9 US thyroid 09/01/18, neg ordred by Dr Mancia eythyrox 25mcgs daily OV 12/20/2020 :US thyroid 12/18/2020 : Multiple sub centimeter thyroid nodules, Dr Marie monitors OV 11/12/2021 US thyroid 08/02/2021 Dr Marie OV 01/20/2023 :Dr Marie 09/18/2022 OV 02/12/2023 :Sees Dr Marie OV 03/05/2023 : See Dr Marie OV 05/07/2023 : Now will see Dr Mullins, no complaints now OV 08/04/2023 : See [facility] see telephone 06/17/2023 Dr Júnior Callejas, states that she would like to not travel, will refer to Dr Varela OV 09/29/2022 :On levothyrox ine 50mcgs dailyNeeds to see Dr Varela OV 12/29/2023 :On levothyrox ine 50mcgs daily, keep apt with endocrine OV 05/17/2024 :On levothyrox ine 50mcgs dailyGet labs Heart murmur 99934574 R0 1.[address] [facility] [address] aCsh last OV 05/26/2023 Epigastric pain 51944246 R10.13 08/20/2020 : Dr Crawford EGD: Neg On PPIDoes well Pulmonary embolism [address] chest 11/09/18: PESees Nae Jacques OFFSET PRINTER, referred Not on xarelto 04/24/2023 : [facility] ER04/24/20 23 CTA R PE Allergic rhinitis 992565 04 J30.9 Has rhinitis, no fevers or chills, no chest pain or SOBShe has used the flonase and has helped her Abnormal u terine bleeding 1274619580 9100 N93.9 Addendum: 04/04/2020 :Seen in the ER at [facility] and [facility] for the bleedingS/ p US pelvic 03/29/2020 Now to get hysterosco py DNC by Dr Quezada/patrizia CBC: 04/04/2020 : H/H 9.1/30.4Sh e is cleared for this by [facility] Dr Cash and is cleared for this surgery, she does remain a moderate risk for this surgery OV 05/22/2020 ;Now referred to OB oncologist Dr Fairbanks as per her history Addendum: 2020 : 0: Dr Fairbanks: Is to get radiation OV 07/24/2020 :Is seeing Dr Fairbanks Addendum: 07/27/2020 : 0: Radiation oncology Dr Turcios OV 11/08/2020 :Did see Dr Fairbanks 10/05/[address] Gayel and Dr Stringer radiation oncologyAl so sees Dr Sheehan adjunct faculty instructor onco Sees Dr Ortiz also OV 11/22/2020 :Keep apts with Dr Fairbanks, and Dr Stringer and Dr Sheehan and Dr Ortiz OV 12/20/2020 :Keep apts now with Dr Ortiz and Dr Fairbanks, she does not know when she will see Dr Fairbanks, get a referral again OV 07/16/2021 :No more bleeding noted 05/10/2021 : Dr Fairbanks, f/u 11/15/[address] Ortiz 08/28/2021 OV 11/12/2021 :Dr Ortiz 10/02/2021 OV 04/22/[address] Ortiz on 05/12/2022 , did speak personally on 04/21/2022 , was told to increase xarelto to 20mg daily OV 08/12/2022 :Dr Ortiz 05/12/2022 , f/u in 3 monthsDr Fairbanks 06/13/2022 OV 12/09/2022 :Keep apts with Dr Ortiz OV 01/19/2023 :Dr Ortiz 12/11/2022 , started on procrit 20K units 2 weeks, f/u in 6 weeks OV 02/12/2023 :Sees Dr Ortiz OV 03/05/2023 : See Dr Ortiz OV 05/07/2023 : Keep apt with Dr Ortiz, she does also see Dr Fairbanks OV 08/04/2023 : Dr Fairbanks 06/19/2023 OV 09/29/2023 : Sees Dr Fairbanks on 12/22/[address] Ortiz next week OV 12/29/2023 : Keep apts with Dr Fairbanks and Dr Ortiz OV 05/17/2024 :Dr Ortiz 04/08/[address] Fairbanks Abdominal pain 86299096 R10.9 S/p ER visit on 11/17/2020 S/P CT A/P 11/17/2020 : Large cecal mass Is to see Dr Crawford will need c-scopeAls o should see Dr Angel Dawkins n for SBO Get another CT A/P without contrast statGet on zofran, can do 4mg bidNotify if any bleeding or if any constipati onMay need to go back to the ERShe will proceed to get the CT A/P stat OV 12/20/2020 :Does wellCT abd/pelvis : 11/22/2020 : noted, no more mass noted OV 07/16/2021 :C/o mid abdominal discomfort , not associated with her food intake, feels that her constipati on is gone, last CT 11/2020, get another CT A/P again OV 11/12/2021 :S/p ER visitCT A/P 08/20/2021 Needs to see OV 04/22/2022 :Dr Sheikh 11/21/2021 , no complaints today OV 08/12/2022 :Dr Ortiz 05/12/2022 OV 12/09/2022 :Needs to see Dr Ortiz OV 01/20/2023 :Sees Dr Ortiz OV 02/12/2023 : Keep apts with Dr Coffey 03/05/2023 : See Dr Ortiz OV 05/07/2023 : Seen in ER, does well today, will f/u with Dr Ortiz OV 08/04/2023 : Dr Shantell MERINOs MAYDA Stewart 05/20/2023 , f/u in one year OV 09/29/2022 :[facility] ER 08/26/2024 CT A/P 08/26/2024 : EnteritisD oes well nowIs now taking Ozempic 0.5mg weekly instead of 1mg weekly OV 12/29/2023 : Does well now OV 05/17/2024 :S/p choleSeen Dr Sheikh Asthma 470592580 J45.90 9 On breoOn proair She is doing well todaySees Nae Ingram OFFSET PRINTER and Dr Smith Obesity 768002049 E66.9 Diet and exercise, noted by pulmonary Obstructiv e sleep apnea syndrome 82652643 G47.33 On CPAPSees Nae Jacques OFFSET PRINTER 03/04/[address] Smith Anemia 170644737 D64.9 07/30/2020 : Mamta Hooker NP, hematology , f/u in 3 months, 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 Keep apt with Dr Ortiz Cholecystitis 75705227 K 81.[address] A/P 08/20/2021 Dr Sheikh 11/21/2021 Get a referral again to his office Dr Sheikh 05/21/2023 : F/u PRN Deep venou s thrombosis of lower extremity 696165663 I82.409 US LE: 04/01/2022 : Dr Ortiz: R femoral DVT Keep apt with Dr Ortiz on 05/12/2022 , did speak personally on 04/21/2022 , was told to increase xarelto to 20mg daily OV 05/07/2023 : Now on eliquis OV 09/29/2023 : Not on any eliquis or xarelto Trigger fi nger of right hand [id number] 4030385 M65.30 R MF, there is a trigger fingerRefe rred again Gastritis 6534445 K29.70 D/c 01/31-01/13 12/04 for gastritis, UTI, s/p EGD done, now is doing well OV 09/29/2023 :States that she did see Dr Stinson and did have another EGD on 09/20/2023 , also advised her to cut back on the ozempic as it can cause GI upset, she states that she is now taking only 0.5mg weekly OV 12/29/2023 : Dr Stinson last apt 12/21/2023 , f/u in 6 months Vitamin D deficiency 347 88437 E55.9 Adult heal th examination 855567582 Z00.00 Screening for disorder 428825957 Z13.9 Screening mammography 24 129202 Z12.31 [id number] Remington hill MD [facility] [address] [facility], [address] [place] [address] 05/05/2024 10:35:17 05/05/2024 11:09:07 [id number] Arnaud Smith MD [facility] [address] [place] [address] 05/19/2024 09:30:04 05/20/2024 10:33:27 Obstructive sleep apnea syndrome 77633717 G47.33 Moderate p ersistent asthma 733378128 J45.40 [id number] Prabhjot Lee DPM [facility] [address], [address] [place] [address] 06/28/2024 09:38:24 06/28/2024 14:54:28 Diabetes mellitus 03727353 E11.9 continue diabetic control per PCP recommenda tionRecomm end exercise daily to reduce weight and regularly glucoseChe ck feet daily for wounds infectionW ear supportive shoe gear dailyFollo w-up in 4 months [id number] Arnaud Smith MD [facility] [address] [place] [address] 08/03/2024 08:30:32 09/12/2024 11:55:41 Obstructive sleep apnea syndrome 42929641 G47.33 Moderate p ersistent asthma 127790217 J45.40 [id number] Corey acosta MD [facility] [address] [facility], [place] [address] 10/06/2024 15:13:07 10/06/2024 16:42:04 Screening - NAD 266530345 Z13.9 C-scope: 07/03/17, Next in 10 yearsC-sco pe: 12/03/2020 : Dr Crawford Mammogram: 03/27/17: Now yearlyMamm ogram: 05/20/19: NegMammogr am: 06/18/2020 : NegMammogr am: 08/02/2021 : Neg, orderedMam mogram: 08/04/2022 : NegMammogr am: 07/20/2023 : Neg PAP: Did see Ivette LUCIANO 05/18/19Dr Panda: 05/07/2020 : 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 DEXA: 09/01/18: NegDEXA: 12/18/2020 : NegDEXA: 07/20/2023 : Neg Do yearly flu shot 07/24/2020 UTD on pneumovax 08/31/18, 08/08/14Sh ould do Tdap and Shingles vaccineUTD on COVID 19 vaccineCan do RSV vaccine RTC in 4 monthsDo labsER if worseShe did verbalize her understand ing of the above Hyperlipidemia 59368628 E78.5 On rosuvastat in 10mg dailyGet labs 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 262371142 E11.9 Not on glimeperid e 1mg 2 tabs bidOn tresciba 8U at bedtime as per her history Dr Varela has decreased her doseNot on ozempic will d/c d/t pancreatit isDoes see eye MDDr Rosa 10/29/[address] Marie Hepatomegaly 12585482 R1 6.[address] A/P 08/20/2021 US liver: 11/22/2021 : Hepatomega ly: See case 11/27/2021 Needs to see GI US abd 06/30/2023 : Hepatomega ly Sees Dr Stinson, last 12/21/2023 , f/u in 6 months and f/u with Dr Ortiz Essential hypertension 88483499 I10 On lasix 40mg will restart 10/06/2024 as she has had heidy +1 pitting edemaOn lisinopril 20mg daily Dr Cash 07/03/2023 filledOn metoprolol 25mg tab bid Dr Cash SL 06/27/2023 filledNot on eliquis 5mg bidShould not be on lisinopril 40mg bid, given by Dr Cash IJNot on quinapril 40mg bid given by Dr Cash IJNot on xarelto [facility] Chronic ki dney disease 386339291 N18.[address] Cash the kidney specialist 07/07/2023 On vit d weeklyOn allopurino Jordana calcitriol , filled 12/04/2023 Dr Cash IJ Does well Sleep apnea 12249736 G47 .30 On CPAPSees Nae Jacquse OFFSET PRINTER last OV 03/04/2021 Dr Smith next 06/30/2024 Goiter 8671422 E04.9 US thyroid 09/01/18, neg ordred by Dr Mancia eythyrox 25mcgs daily OV 12/20/2020 :US thyroid 12/18/2020 : Multiple sub centimeter thyroid nodules, Dr Marie monitors OV 11/12/2021 US thyroid 08/02/2021 Dr Marie OV 01/20/2023 :Dr Marie 09/18/2022 OV 02/12/2023 :Sees Dr Marie OV 03/05/2023 : See Dr Marie OV 05/07/2023 : Now will see Dr Mullins, no complaints now OV 08/04/2023 : See [facility] see telephone 06/17/2023 Dr Júnior Callejas, states that she would like to not travel, will refer to Dr Varela OV 09/29/2022 :On levothyrox ine 50mcgs dailyNeeds to see Dr Varela OV 12/29/2023 :On levothyrox ine 50mcgs daily, keep apt with endocrine OV 05/17/2024 :On levothyrox ine 50mcgs dailyGet labs OV 10/06/2024 :Sees Dr Varela, next apt 11/24/2024 as per her historyOn levothyrox ine 50mcgs daily Heart murmur 47771851 R0 1.[address] [facility] [address] Cash last OV 05/26/2023 Epigastric pain 98934237 R10.13 08/20/2020 : Dr Crawford EGD: Neg On PPIDoes well Pulmonary embolism [address] chest 11/09/18: PESees Nae Jacques OFFSET PRINTER, referred Not on xarelto 04/24/2023 : [facility] ER/08/03 23 CTA R PE Allergic rhinitis 126273 04 J30.9 Has rhinitis, no fevers or chills, no chest pain or SOBShe has used the flonase and has helped her Abnormal u terine bleeding 9822465744 9100 N93.9 Addendum: 04/04/2020 :Seen in the ER at [facility] and [facility] for the bleedingS/ p US pelvic 03/29/2020 Now to get hysterosco py DNC by Dr Quezada/p CBC: 04/04/2020 : H/H 9.1/30.4Sh e is cleared for this by [facility] Dr Cash and is cleared for this surgery, she does remain a moderate risk for this surgery OV 05/22/2020 ;Now referred to OB oncologist Dr Fairbanks as per her history Addendum: 2020 : 0: Dr Fairbanks: Is to get radiation OV 07/24/2020 :Is seeing Dr Fairbanks Addendum: 07/27/2020 : 0: Radiation oncology Dr Turcios OV 11/08/2020 :Did see Dr Fairbanks 10/05/[address] Gayle and Dr Stringer radiation oncologyAl so sees Dr Sheehan adjunct faculty instructor onco Sees Dr Ortiz also OV 11/22/2020 :Keep apts with Dr Fairbanks, and Dr Stringer and Dr Sheehan and Dr Ortiz OV 12/20/2020 :Keep apts now with Dr Ortiz and Dr Fairbanks, she does not know when she will see Dr Fairbanks, get a referral again OV 07/16/2021 :No more bleeding noted 05/10/2021 : Dr Fairbanks, f/u 11/15/[address] Ortiz 08/28/2021 OV 11/12/2021 :Dr Ortiz 10/02/2021 OV 04/22/[address] Ortiz on 05/12/2022 , did speak personally on 04/21/2022 , was told to increase xarelto to 20mg daily OV 08/12/2022 :Dr Ortiz 05/12/2022 , f/u in 3 monthsDr Fairbanks 06/13/2022 OV 12/09/2022 :Keep apts with Dr Ortiz OV 01/19/2023 :Dr Ortiz 12/11/2022 , started on procrit 20K units 2 weeks, f/u in 6 weeks OV 02/12/2023 :Sees Dr Ortiz OV 03/05/2023 : See Dr Ortiz OV 05/07/2023 : Keep apt with Dr Ortiz, she does also see Dr Fairbanks OV 08/04/2023 : Dr Fairbanks 06/19/2023 OV 09/29/2023 : Sees Dr Fairbanks on 12/22/[address] Ortiz next week OV 12/29/2023 : Keep apts with Dr Fairbanks and Dr Ortiz OV 05/17/2024 :Dr Ortiz 04/08/[address] Fairbanks OV 10/06/2024 :Dr Ortiz 08/25/2024 Abdominal pain 85275974 R10.9 S/p ER visit on 11/17/2020 S/P CT A/P 11/17/2020 : Large cecal mass Is to see Dr Crawford will need c-scopeAls o should see Dr Angel Dawkins n for SBO Get another CT A/P without contrast statGet on zofran, can do 4mg bidNotify if any bleeding or if any constipati onMay need to go back to the ERShe will proceed to get the CT A/P stat OV 12/20/2020 :Does wellCT abd/pelvis : 11/22/2020 : noted, no more mass noted OV 07/16/2021 :C/o mid abdominal discomfort , not associated with her food intake, feels that her constipati on is gone, last CT 11/2020, get another CT A/P again OV 11/12/2021 :S/p ER visitCT A/P 08/20/2021 Needs to see GS OV 04/22/2022 :Dr Sheikh 11/21/2021 , no complaints today OV 08/12/2022 :Dr Ortiz 05/12/2022 OV 12/09/2022 :Needs to see Dr Ortiz OV 01/20/2023 :Sees Dr Ortiz OV 02/12/2023 : Keep apts with Dr Coffey 03/05/2023 : See Dr Ortiz OV 05/07/2023 : Seen in ER, does well today, will f/u with Dr Ortiz OV 08/04/2023 : Dr Shantell GATES's PA Nilda Stewart 05/20/2023 , f/u in one year OV 09/29/2022 :[facility] ER 08/26/2024 CT A/P 08/26/2024 : EnteritisD oes well nowIs now taking Ozempic 0.5mg weekly instead of 1mg weekly OV 12/29/2023 : Does well now OV 05/17/2024 :S/p choleSeen Dr Sheikh OV 10/06/2024 : No complaints at this time Asthma 093513359 J45.90 9 On breoOn proair She is doing well todaySees Nae Ingram OFFSET PRINTER and Dr Smith Obesity 723280157 E66.9 Diet and exercise, noted by pulmonary Obstructiv e sleep apnea syndrome 22018721 G47.33 On CPAPSees Nae Jacques OFFSET PRINTER 03/04/[address] Smith Anemia 314507487 D64.9 07/30/2020 : Mamta Hooker NP, hematology , f/u in 3 months, 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 Keep apt with Dr Ortiz Cholecystitis 04375500 K 81.[address] A/P 08/20/2021 Dr Sheikh 11/21/2021 Get a referral again to his office Dr Sheikh 05/21/2023 : F/u PRN Deep venou s thrombosis of lower extremity 435989512 I82.409 US LE: 04/01/2022 : Dr Ortiz: R femoral DVT Keep apt with Dr Ortiz on 05/12/2022 , did speak personally on 04/21/2022 , was told to increase xarelto to 20mg daily OV 05/07/2023 : Now on eliquis OV 09/29/2023 : Back on the eliquis, started by Dr Fairbanks Trigger fi nger of right hand [id number] 8404265 M65.30 R MF, there is a trigger fingerRefe rred again Gastritis 8764080 K29.70 D/c 01/31-01/13 12/04 for gastritis, UTI, s/p EGD done, now is doing well OV 09/29/2023 :States that she did see Dr Stinson and did have another EGD on 09/20/2023 , also advised her to cut back on the ozempic as it can cause GI upset, she states that she is now taking only 0.5mg weekly OV 12/29/2023 : Dr Stinson last apt 12/21/2023 , f/u in 6 months OV 10/06/2024 :Dr Stinson 08/24/2024 , f/u in 6 months Vitamin D deficiency 347 99482 E55.9 Screening mammography 24 615774 Z12.31 [id number] Prabhjot Lee DPM [facility] [address] [place] [address] 10/25/2024 10:12:18 10/25/2024 11:50:25 Diabetes mellitus 67877468 E11.9 continue diabetic control per PCP recommenda tionRecomm end exercise daily to reduce weight and regularly glucoseChe ck feet daily for wounds infectionW ear supportive shoe gear dailyFollo w-up in 3-4 months Dystrophia unguium 96873 009 L60.3 Nails 1 through 10 were debrided with sharp mechanical debridemen t without incident. Nails were debrided and greater than 50% length and thickness where needed. Peripheral venous insufficiency 32032397 I87.2 recommend compressio n stockingsc ontinue furosemide per PCPkeep legs elevated when at restmuscle pumps when at rest to prevent DVT [id number] Arnaud Smith MD [facility] [address] [facility] [address] [place] [address] 11/02/2024 08:15:26 11/02/2024 09:26:10 Obstructive sleep apnea syndrome 40944163 G47.33 Moderate p ersistent asthma 027586575 J45.40 Health Concerns Section Related Observation LastModified by Organization Detai ls LastModified Time None Recorded Concern Status LastModified by Organization Details LastModified Time None Recorded Advance Directives Directive N: Payers Encounter Date Sequence Insurance Name Policy Number Policy Gusman Covered Member ID Gusman Member ID Guarantor Name 06/28/2024 1 [facility] (MEDICARE REPLACEMENT/A DVANTAGE - HMO) [id number] Julisa De [place] [id number] Julisa Pérez 08/03/2024 1 [facility] (MEDICARE REPLACEMENT/A DVANTAGE - HMO) [id number] Julisa De [place] [id number] Julisa De La [place]egawood 10/06/2024 1 [facility] (MEDICARE REPLACEMENT/A DVANTAGE - HMO) [id number] Julisa De La [place] [id number] Julisa De La [place]egawood 10/25/2024 1 [facility] (MEDICARE REPLACEMENT/A DVANTAGE - HMO) [id number] Julisa [place] [id number] Julsia Pérez 11/02/2024 1 [facility] (MEDICARE REPLACEMENT/A DVANTAGE - HMO) [id number] Julisa De [place] [id number] Julisa Pérez Notes Date Note Type Note Provider Name and Address Organization Details Recorded Time 06/28/2024 text/html . Patient is a 73-year-old female who returns to the office for follow-up on diabetic foot care she states overall she is doing well. patient denies any open wounds or injury of the foot. Patient denies any painful calluses. Patient denies any intermittent claudication walking or rest pain. Prabhjot Lee DPM [address] [place] [address], [address], [place] [facility] [place] [employer] 06/28/2024 10:23:23 08/03/2024 text/html Primary care/Ref erring provider: Corey Gurrola MD Patient is here to go over her asthma management. Initial development of shortness of breath: 2012Duration of shortness of breath: 12 yearsCondition of shortness of breath: stableTiming of shortness of breath: noneFrequency:up to 3 times a dayLimits activities: yesAggravating factors: walking, climbing up stepsAlleviating factors: rest Modified [employer] [place] (mMRC) Dyspnea Scale - Grade 1Grade 0 I only get breathless with strenuous exercise .Grade 1 I get short of breath when hurrying on the level or walking up a slight hill .Grade 2 I walk slower than people of the same age on the level because of breathlessness or have to stop for breath when walking at my own pace on the level .Grade 3 I stop for breath after walking about 100 yards or after a few minutes on the level .Grade 4 I am too breathless to leave the house or I am breathless when dressing . Patient's personal best peak flow has increased from 460 to 550 L/min. Treatment history: Albuterol HFA as needed since 2011 Breo Ellipta 200/25 mcg 1 inhalation daily since 2018 Other symptoms:Drooling: noDysarthria: noNeck pain: noOdynophagia: noDysphagia: noWeak mastication: noFacial weakness: noNasal speech: noProtruding tongue: noProductive cough: noWheezing: noChest tightness: yesOrthopnea: noFrequent throat clearing or swallowing: yesPalpitations: noHeartburn: noEdema: yes Environmental exposures:Nicotine smoke: 10/13 ppd [id number] = 0.5 pack yearPaint: noDye: noDust mites: yesMold: noDamp basement: noWood burning stove: noAnimal dander: noCockroaches: noPollen: yesArsenic: noAsbestos: noBeryllium: noCadmium: noChromium: noCoal smoke: noDiesel fumes: noNickel: noSilica: noSoot: no At home since 05/19/24, the patient uses a [employer] Air[employer]ense 10 autoset unit with heated humidification. The patient does not need the ramp to start low and go up slowly on the pressure anymore. There is some xerostomia in a.m. There is no hose/mask condensation with water.The patient wears a full face mask without chin strap. There is no claustrophobia, no nostril/nose bridge irritation, no facial rash, no facial numbness, no nosebleeding.The patient feels more refreshed upon waking and daytime alertness is improved. Energy levels are sustained until noon.At home, the patient sleeps from 12 am to 9 am and wakes up without an alarm.Snoring: light, since .Snorting: noChoking: noCoughing: noGasping: noGagging: noSighing: yesWitnessed apnea: yesTwitching or jerking of leg(s), arm(s), body, head: noTeeth grinding: n/aTeeth clenching: n/aSleeptalking: noSleepwalking: noSleep crying: noBedwetting: noTongue/lip/gum/cheek biting: yesSleeping with open mouth: yesSleep paralysis: noHypnagogic hallucinations: noHypnopompic hallucinations: noVivid dreams: yes fightingDifficulty with sleep onset: noDifficulty with sleep maintenance: yesSleep interruptions: nocturia x 2Patient wakes up with: fatigue, xerostomia, mobility impairmentDaytime cataplexy: noMorning hypersomnolence: noAfternoon hypersomnolence: yesCaffeine sources in diet: soda 1/2 can per dayAssociated medical and psychiatric conditions:Congestive heart failure: noCoronary artery disease: noMyocardial infarction: noHypertension: yesArrhythmias: yesStroke: noBronchial asthma: noChronic obstructive pulmonary disease: noDepression: noBipolar disorder: noAnxiety: noPanic disorder: noPosttraumatic stress disorder: noAttention deficit and hyperactivity disorder: noObsessive Compulsive disorder: noSchizophrenia: noSchizoaffective disorder: noPersonality disorder: noChronic analgesic use: noChronic sedative/hypnotic use: noEPWORTH SLEEPINESS SCALE (ESS)CHANCE OF DOZING SCORE0 = would never doze1 = slight chance of dozing2 = moderate chance of dozing3 = high chance of dozingSITUATION AND CHANCE OF DOZINGSitting and reading - 1Watching television - 1Sitting inactive in a public place (e.g. a theater or meeting) - 0As a passenger in a car for an hour without a break - 0Lying down to rest in the afternoon when circumstances permit - 0Sitting and talking to someone - 0Sitting quietly after lunch without alcohol - 0In a car, while stopped for a few minutes in the traffic - 0TOTAL SCORE 2Subjectively, patient has a slight chance of dozing. Arnaud Smith MD [address] [place] [address], [phone], [facility] 08/03/2024 09:27:20 10/06/2024 text/html 04/28/17Past Hx:UICOPDDMIIHTNGERDLBP Low vit DReviewed her past social, family and surgical historyHere to discuss her above issues, and some of the labs, she states that she has been able to see the application coordinator and has had testing done for her legs and her heartShe has not yet had the sleep study d/t her insurance issues and has not been able to see the commercial real estate assistant also d/t the above nciwhi58/19/17CV:Here with a knot on the vagina, she was given a prescription for keflex and feels that this is helping, she states that it did 'burst' and now there is some pus from thereDenies any fevers or chills or nausea or vomiting.No discharge noted now, she states that the pain too is much improved and now she can sit in a regular chair while last week she had to sit on a pillow, no dysuria or hematuria noted, no abdominal painShe is also to see her OB on Dr YiOV: 07/23/17:Here as she did have some L hip pain, this is located on the L side and is an achy pain, no swelling is noted, does not recall any acute traumaShe also states that she is now very compliant with the CPAP and has qvar for her COPD, she did do the labsShe will see Dr Cash the supervisor waterproofing tomorrowOV 10/06/17:She is here today to discuss her DM med glyburide, she states that the insurance is not willing to pay for this medicationOV 10/22/17:Here for her routine aptShe did do the labs by Dr Cash nephrologyShe states that she is doing well todayACV:Here with L leg pain, states that the pain began about 4 days ago and it got really painful yesterdayPain is a stabbing and located on the plantar surface of the foot, also located on the mid calfThere is redness and swelling alsoShe states that it does hurt to walk on the L leg and feels that there are 'knots' on her calf and bottom of the footNo chest pain, no SOB, no palpitations, no N/VNo presyncope or syncopeOV: 11/12/17:Here to discuss the blisters on her feet, she was recently started on xarelto by Dr Laguna for a DVTShe states that there is a blister on the L big toe since the past week or so, and there is another blister between the big toe and the first fingerThere is pain when she bends the L big toeNo fevers or chillsNormal gaitNo blood in the toesOV 02/25/18:Here for her routine aptShe states that she does have some LBPNo N/T in the legsNo weaknessNo loss of bowel or bladder controlShe does have some nausea with tramadol OV 05/27/18:Here for her routine aptShe states that she is doing well at this timeShe did do the labs on 05/21/18 and is here to review theseOV 06/17/18:Here to discuss her diabetesShe states that her sugars were running low in the am, her insulin was adjusted and now she feels a lot betterShe also did see Dr Sheikh and was reassured regarding her abd hernia, no surgery done OV 08/31/18:Here for her routine aptShe now has seen Dr Marie also OV 11/09/18:Here for her routine aptShe did see Dr Marie on 10/21/18No recent labs done since 08/23/19 OV 11/25/18:Here [facility] was told she did not ave a pneumoniaShe did have labs on 11/19/18She states that now she is on xarelto, and is to see small electric engine technician alsoShe also has a 'swelling' on the L inner thigh, she would like to look at, it is tender, no d/cNo fevers or chills OV 04/19/19:Here for her routine aptNo recent labsIs to see Dr Marie and Dr Cash and is to get a stress testIs doing well otherwise OV 09/22/2019:Here for her routine aptIs doing wellShe did do the labs and is here to review theseShe still has some knee pain, she states that she did not do the PT as she could not afford the #34 copays, she is wanting to see Dr Moreno again and perhaps get the knee injections OV 01/19/2020:Tele visit, she is agreeable to do thisIs doing well at thisNo recent labs OV 04/17/2020:Here for her post hosp follow upShe was seen in the ER for vaginal bleed and then admitted for abd cramps, she was put on antibiotics and is doing well nowThe vaginal bleed is now very minimal, no abd pain, no N/V or diarrhea notedShe has seen Dr Cash [facility] and Dr Ortiz and also Dr Mosqueda the OBNow is to get d/c next , and she is off the xareltoShe is also here for her MWVOV 05/22/2020:Here for her one month aptShe is doing very well todayShe did see Dr Mosqueda OB, has been diagnosed with uterine cancer and is to see Dr Salomon in [facility] on 06/08/2020 OV 07/24/2020:Here for her routine aptShe feels well except for epigastric painShe feels bloated and thinks perhaps the ozempic could be causing this or the nexiumShe has not yet had the EGD doneOV 11/08/2020:Here for her routine aptShe is doing wellShe did see Dr Marie on 09/27/2020 and she did see Dr Mosqueda on 05/07/2020She has done the labs on 09/24/2020 alsoOV 12/20/2020:Here for her one month follow upShe feels well todayShe did do the US neck and her DEXA scanShe also states that she did see Dr Cash nephrology who did do the labsShe also did get the c-scope and was told that it was 'clear' by Dr Crawford OV 07/16/2021:Here for her routine aptShe is doing well, but has noted mild abdominal discomfort, no N/V/D or constipationNo blood in urine or stoolShe is here for MWVShe did do the labs on 05/21/2021dmitted and d/c for abd pain with pancreatitis, s/p CT A/P on 08/20/2021OV 11/12/2021:Here for her routine aptShe is doing wellNo new labsSeen in ER on 08/20/2021, s/p CT A/PStill has occasional abd discomfort, no blood in urine or stool, good appetite, feels 'gassy', no fevers or chills OV 04/22/2022:Here for her routine apt, she states that she feels well, did see Dr Sheikh for her abd pain, also has done US for her legs, but has not yet seen Dr Munguia recent labs notedOV 08/12/2022:Here for her f/u apt, does well, no new labs since 04/22/2022, states that she has seen Dr Cash SL and Dr Cash IJ, also has an apt with Dr Fairbanks in 11/2022, she does c/o R MF 'locking up', she is RHD OV 12/09/2022:Here for her f/u apt, she is doing well OV 02/12/2023:Here for her f/u apt, she is s/p hospitalization, now is doing well OV 03/05/2023: Here for her f/u apt, she feels well today, did do the labs OV 05/07/2023: Here for her f/u apt, she is doing well today, s/p hosp for PE and is now on eliquis, needs to see Dr Smith today if possible OV 08/04/2023: Here for her f/u apt, she feels well today, she did do the labs OV 09/29/2023: Here for her routine apt, she did see Dr Ortiz and did have to have PRBC, feels well today, recently admitted and d/c for enteritis OV 12/29/2023: Here for her f/u apt, she feels well today, she did do the labs with Dr Ortiz OV 05/17/2024: Here for her f/u apt, she was d/c from [facility] on 04/20/2024 for cholelithiasis and also for pancreatitis, now doing well, has noted some 'belching', she did see Dr Sheikh on 05/05/2024 OV 10/06/2024: Here for her f/u apt, she is doing very well today, she did see hematology Corey Gurrola MD [address] [place], [place] [address], [address], [place], [phone], [facility] 10/10/2024 09:04:58 10/25/2024 text/html . Patient is a 74-year-old female she returns to the office for follow-up on diabetic foot care. Patient states she is doing well she denies any new complaints. She states that she did have increased swelling in her legs due to her furosemide being stopped but since that time it has pain continued and she is not having any swelling issues. Patient denies any calf pain. Patient denies any other complaints. Prabhjot Lee DPM [address] [facility], [facility] [address], [place], [address], [place] [facility] 10/25/2024 11:02:28 11/02/2024 text/html Primary care/Ref erring provider: Corey Gurrola MD Patient is here to go over her asthma management. Initial development of shortness of breath: 2012Duration of shortness of breath: 13 yearsCondition of shortness of breath: stableTiming of shortness of breath: noneFrequency: up to 2 times a dayLimits activities: yesAggravating factors: walking, climbing up stepsAlleviating factors: rest Modified [employer] [place] (mMRC) Dyspnea Scale - Grade 1Grade 0 I only get breathless with strenuous exercise .Grade 1 I get short of breath when hurrying on the level or walking up a slight hill .Grade 2 I walk slower than people of the same age on the level because of breathlessness or have to stop for breath when walking at my own pace on the level .Grade 3 I stop for breath after walking about 100 yards or after a few minutes on the level .Grade 4 I am too breathless to leave the house or I am breathless when dressing . Patient's personal best peak flow has remained at 550 L/min. Treatment history: Albuterol HFA as needed since 2011 Breo Ellipta 200/25 mcg 1 inhalation daily since 2018 Other symptoms:Drooling: noDysarthria: noNeck pain: noOdynophagia: noDysphagia: noWeak mastication: noFacial weakness: noNasal speech: noProtruding tongue: noProductive cough: noWheezing: noChest tightness: yesOrthopnea: noFrequent throat clearing or swallowing: yesPalpitations: noHeartburn: noEdema: yes Environmental exposures:Nicotine smoke: 10/13 ppd [id number] = 0.5 pack yearPaint: noDye: noDust mites: yesMold: noDamp basement: noWood burning stove: noAnimal dander: noCockroaches: noPollen: yesArsenic: noAsbestos: noBeryllium: noCadmium: noChromium: noCoal smoke: noDiesel fumes: noNickel: noSilica: noSoot: no CC: I have not heard from [employer] regarding my new CPAP. At home since 08/03/24, the patient uses a ResMed AirSense 10 autoset unit with heated humidification. The patient does not need the ramp to start low and go up slowly on the pressure anymore. There is some xerostomia in a.m. There is no hose/mask condensation with water.The patient wears a full face mask without chin strap. There is no claustrophobia, no nostril/nose bridge irritation, no facial rash, no facial numbness, no nosebleeding.The patient feels more refreshed upon waking and daytime alertness is improved. Energy levels are sustained until noon.At home, the patient sleeps from 12 am to 9 am and wakes up without an alarm.Snoring: light, since .Snorting: noChoking: noCoughing: noGasping: noGagging: noSighing: yesWitnessed apnea: yesTwitching or jerking of leg(s), arm(s), body, head: noTeeth grinding: n/aTeeth clenching: n/aSleeptalking: noSleepwalking: noSleep crying: noBedwetting: noTongue/lip/gum/cheek biting: yesSleeping with open mouth: yesSleep paralysis: noHypnagogic hallucinations: noHypnopompic hallucinations: noVivid dreams: yes fightingDifficulty with sleep onset: noDifficulty with sleep maintenance: yesSleep interruptions: nocturia x 2Patient wakes up with: fatigue, xerostomia, mobility impairmentDaytime cataplexy: noMorning hypersomnolence: noAfternoon hypersomnolence: yesCaffeine sources in diet: soda 1/2 can per dayAssociated medical and psychiatric conditions:Congestive heart failure: noCoronary artery disease: noMyocardial infarction: noHypertension: yesArrhythmias: yesStroke: noBronchial asthma: noChronic obstructive pulmonary disease: noDepression: noBipolar disorder: noAnxiety: noPanic disorder: noPosttraumatic stress disorder: noAttention deficit and hyperactivity disorder: noObsessive Compulsive disorder: noSchizophrenia: noSchizoaffective disorder: noPersonality disorder: noChronic analgesic use: noChronic sedative/hypnotic use: noEPWORTH SLEEPINESS SCALE (ESS)CHANCE OF DOZING SCORE0 = would never doze1 = slight chance of dozing2 = moderate chance of dozing3 = high chance of dozingSITUATION AND CHANCE OF DOZINGSitting and reading - 0Watching television - 1Sitting inactive in a public place (e.g. a theater or meeting) - 0As a passenger in a car for an hour without a break - 0Lying down to rest in the afternoon when circumstances permit - 0Sitting and talking to someone - 0Sitting quietly after lunch without alcohol - 0In a car, while stopped for a few minutes in the traffic - 0TOTAL SCORE 1Subjectively, patient has a slight chance of dozing. Arnaud Smith MD [address] [place] [address], [id number], [place] [facility] 11/02/2024 09:18:39 OBGyn Episode No OBEpisode recorded.
[2024-11-28 11:16] LABS: Creatinine Urine 47.1 mg/dL
[2024-11-28 11:27] LABS: MALB Creatinine Ratio < 12.7 mg/g (0-30); Microalbumin Urine Random < 6.0 mg/L (0-16.7)
== END 2024-11-28 08:14 | disposition home or self-care (01) ==
LOC: ANHLAB 08:15
PROVIDERS: PCP Internal Medicine; Visit Provider Internal Medicine
DX: E11.9 Type 2 diabetes mellitus without complications (principal); E03.9 Hypothyroidism, unspecified; E04.9 Nontoxic goiter, unspecified
CPT/HCPCS: 36415; 82043; 84439; 84443

== ENCOUNTER 2024-12-12 08:07 | Outpatient (CLI) | payer MEDICARE, SELFPAY ==
--- OUTSIDE RECORDS SUMMARY | 2024-12-12 08:15 | XMS_ITS | Encounter Summary ---
Author Organization [facility] Healthcare Address [address] [place] [address] Care Team Providers Care Evaluation Engineer Name Role Phone Quinton Gurrola MD Primary Care Provide r Mamta Gayle MD Unavailable Vy Sheehan MD Unavailable Encounter Details Date Type Department Care Team (Late st Contact Info) Description 07/06/2020 Telephone [facility] [address] [place] [id number] Alyce Fairbanks MD [phone] [place] [address] Social History Tobacco Use Types Packs/Day Years Used Date Smoking Tobacco: Former Smokeless Tobacco: Never Alcohol Use Standard Drinks/Week Comments No 0 (1 standard drink = 0.6 oz pur e alcohol) PHQ-2 Answer Date Recorded PHQ-2 Score 3 11/20/2018 Comments No Sex and Gender Information Value Date Recorded Sex Assigned at Not on file 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 Gender Identity Not on file Sexual Orientation Not on file documented as of this encounter Plan of Treatment Not on file documented as of this encounter Visit Diagnoses Not on filedocumented in this encounter Care Teams Evaluation Engineer Relationship Specialty Start Date End Date Quinton Gurrola MD [address] [facility] [address] [place] [address] PCP - General Internal Medicine 03/09/18 Mamta Gayle MD [address] [facility] [address] [place] [address] Radiation Oncologist Radiation Oncology 09/20/20 Vy Sheehan MD [address] [facility] [address] [place] [address] Referring Physician Gynecologic Oncology 09/20/20 documented as of this encounter
--- OUTSIDE RECORDS SUMMARY | 2024-12-12 08:15 | XMS_ITS ---
Author Organization [facility] Address [address] [facility] [address] [facility] [address] [place] [address] Care Team Providers Care Pencil Inspector Name Role Phone Shailesh Christophe Gentile [phone] Encounters Encounter Location Date Provider Diagnosis [place] [facility] [address] [facility] [address] [place] [address] 12/09/2024 Christophe Cash PLAN OF TREATMENT Next Appt Details Provider Name:Christophe Cash , 12/30/2024 12:15:00 PM, [address] [facility], [facility] [address], [place], [address], Progress Notes * SCAR HUTTONINEDOB:[birth year] (74 yo F)Acc No.[id number]:12/09/2024 Progress Notes Patient: МАРИЯ HUTTON Provider: MD EVANGELISTA, Simon.Sina.C.P, F.A.S.N. :1950 Age:74 Y Sex:Female Date:12/09/2024 Address:;;;;;, [place] [address] Subjective: * Chief Complaints: * * Medical History: Objective: Assessment: Plan: * Treatment: * Billing Information: * Visit Code: * Procedure Codes: * Sign off status: Pending * Provider: MD EVANGELISTA, Sera.C.P, F.A.S.N. Date: 12/09/2024
--- OUTSIDE RECORDS SUMMARY | 2024-12-12 08:15 | XMS_ITS | Encounter Summary ---
Author Organization [facility] Healthcare Address [address] [place] [address] Care Team Providers Care Gis Software Engineer Name Role Phone Quinton Gurrola MD Primary Care Provide r Mamta Gayle MD Unavailable Vy Sheehan MD Unavailable Encounter Details Date Type Department Care Team (Late st Contact Info) Description 09/20/2020 Completion of Therapy [facility] Advanced Medicine Radiation Oncology [address] [facility] Advanced Medicine [facility] [address] Mamta Gayle MD [address] [facility] [address] [place] [address] Endometrial cancer (HCC) (Primary Dx) Social History [...] on file 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 Vy Sheehan (Stove Polisher Onc) RADIATION ONCOLOGY COMPLETION OF THERAPY (COT) Cancer Staging Endometrial cancer (CMS/HCC) Staging form: Corpus Uteri - Carcinoma and Carcinosarcoma, AJCC 8th Edition - Clinical: FIGO Stage I - Signed by Alyce Fairbanks MD on 07/13/2020 Identifying Information: 70 y.o. 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 She [...] Mamta Gayle MD at 09/24/2020 12:10 AM VEST BUSHELER BUSHELER BUSHELER Associated attestation - Mamta Gayle MD - 09/24/2020 12:10 AM VEST BUSHELER Julisa Pérez was evaluated with the resident, [...] isthmus documented in this encounter Care Teams Gis Software Engineer Relationship Specialty Start Date End Date Quinton Gurrola MD [address] [address] PCP - General Internal Medicine 03/09/18 Mamta Gayle MD [address] [facility] [address] [place] [address] Radiation Oncologist Radiation Oncology 09/20/20 Vy Sheehan MD [address] [facility] [address] [place] [address] Referring Physician Gynecologic Oncology 09/20/20 documented as of this encounter
--- OUTSIDE RECORDS SUMMARY | 2024-12-12 08:16 | XMS_ITS | Patient Health Record ---
Author Organization [facility] Address [address] [place] [address] Care Team Providers Care Clinical Quality Manager Name Role Phone Christopeh Cash Unavailable [phone] REASON FOR REFERRAL No Information MEDICATIONS Medication SIG (Take, Route, Frequency, Duration) Notes Start Date End Date Status Vitamin D (Ergocalciferol) 1.25 MG (84511 UT) Take 1 capsule by mouth once [...] d ue to type 2 diabetes mellitus (870148320373417) Problem Secondary hyperparathyroid ism, not elsewhere classified (E21.1) Active confirmed Secondary hyperparathyroidism (86822289) Problem Vitamin D deficiency, unspecified (E55.9) Active confirmed Vitamin D defic iency (55259790) Problem Hyperlipidemia, unspecified (E78.5) Active confirmed Hyperlipidemia (39112441) Problem Renal osteodystrophy (N25.0) Active confirmed Renal osteodyst rophy (94022239) Problem Essential hypertension (I10) Active confirmed Essential hypertension (07280910) Problem Gastro-esophagea l reflux disease with esophagitis, without bleeding (K21.00) Active confirmed Gastroesophagea l reflux disease with esophagitis (disorder) (478970016) Problem Chronic kidney disease, stage 3a (N18.31) Active confirmed Chronic kidney disease stage 3A (disorder) (495493870) Encounters Encounter Location Date Provider Diagnosis [facility] [address] [facility] [address] [place] [address] 01/08/2024 Christophe Cash Chronic kidney disea se, stage 3a N18.31 ; Gastro-esophageal reflux disease with esophagitis, without bleeding K21.00 ; Renal osteodystrophy N25.0 ; Secondary hyperparathyroidism, not elsewhere classified E21.1 ; Type 2 diabetes mellitus with hyperglycemia E11.65 and Vitamin D deficiency, unspecified E55.9 [facility] [address] [facility] [address] [place] [address] 03/11/2024 Christophe Cash Chronic kidney disea se, stage 3a N18.31 ; Gastro-esophageal reflux disease with esophagitis, without bleeding K21.00 ; Renal osteodystrophy N25.0 ; Secondary hyperparathyroidism, not elsewhere classified E21.1 ; Type 2 diabetes mellitus with hyperglycemia E11.65 and Vitamin D deficiency, unspecified E55.9 [facility] [place] [facility] [address] [place] [address] 06/10/2024 Christophe Cash Chronic kidney disea se, stage 3a N18.31 ; Gastro-esophageal reflux disease with esophagitis, without bleeding K21.00 ; Renal osteodystrophy N25.0 ; Secondary hyperparathyroidism, not elsewhere classified E21.1 ; Type 2 diabetes mellitus with hyperglycemia E11.65 and Vitamin D deficiency, unspecified E55.9 [facility] [place] [facility] [address] [place] [address] 07/08/2024 Christophe Cash Chronic kidney disea se, stage 3a N18.31 ; Essential hypertension I10 ; Gastro-esophageal reflux disease with esophagitis, without bleeding K21.00 ; Renal osteodystrophy N25.0 ; Secondary hyperparathyroidism, not elsewhere classified E21.1 ; Type 2 diabetes mellitus with hyperglycemia E11.65 and Vitamin D deficiency, unspecified E55.9 [facility] [address] [address] 10/14/2024 Christophe Cash Chronic kidney disea se, stage 3a N18.31 ; Essential hypertension I10 ; Vitamin D deficiency, unspecified E55.9 ; Hyperlipidemia, unspecified E78.5 and Edema, unspecified R60.9 [facility] [address] [address] 12/09/2024 Christophe Cash [facility] [address] [place] [address] 06/17/2024 Christophe Cash [facility] [address] [address] 10/14/2024 Christophe Cash [facility] [place] [facility] [address] [place] [address] 06/10/2024 Christophe Cash [facility] [address] [address] 06/17/2024 Christophe Cash [facility] [place] [facility] [address] [place] [address] 07/08/2024 Christophe Cash ASSESSMENTS Encounter Date Diagnosis Assessment Notes Treatment Notes Treatment Clinical Notes Section Notes 01/08/2024 Chronic kidney disease, stage 3a (ICD-10 - N18.31) 03/11/2024 Chronic kidney disease, stage 3a (ICD-10 - N18.31) 06/10/2024 Chronic kidney disease, stage 3a (ICD-10 - N18.31) 07/08/2024 Chronic kidney disease, stage 3a (ICD-10 - N18.31) 10/14/2024 Chronic kidney disease, stage 3a (ICD-10 - N18.31) 10/14/2024 Essential hypertension (ICD-10 - I10) 10/14/2024 Vitamin D deficiency, unspecified (ICD-10 - E55.9) 06/10/2024 Gastro-esophageal reflux disease with esophagitis, without bleeding (ICD-10 - K21.00) 03/11/2024 Gastro-esophageal reflux disease with esophagitis, without bleeding (ICD-10 - K21.00) 01/08/2024 Gastro-esophageal reflux disease with esophagitis, without bleeding (ICD-10 - K21.00) 07/08/2024 Essential hypertension (ICD-10 - I10) 01/08/2024 Renal osteodystrophy (ICD-10 - N25.0) 03/11/2024 Renal osteodystrophy (ICD-10 - N25.0) 06/10/2024 Renal osteodystrophy (ICD-10 - N25.0) 10/14/2024 Hyperlipidemia, unspecified (ICD-10 - E78.5) 07/08/2024 Gastro-esophageal reflux disease with esophagitis, without bleeding (ICD-10 - K21.00) 07/08/2024 Renal osteodystrophy (ICD-10 - N25.0) 10/14/2024 Edema, unspecified (ICD-10 - R60.9) 06/10/2024 Secondary hyperparathyroidism , not elsewhere classified [...] , not elsewhere classified (ICD-10 - E21.1) 07/08/2024 Type 2 diabetes mellitus with hyperglycemia (ICD-10 - E11.65) 06/10/2024 Vitamin D deficiency, unspecified (ICD-10 - E55.9) 03/11/2024 Vitamin D deficiency, unspecified (ICD-10 - E55.9) 01/08/2024 Vitamin D deficiency, unspecified (ICD-10 - E55.9) 07/08/2024 Vitamin D deficiency, unspecified (ICD-10 - E55.9) PLAN OF TREATMENT Next Appt Details Provider Name:Christophe Cash , 12/30/2024 12:15:00 PM, [address], [facility] [address], [place], [address],
--- OUTSIDE RECORDS SUMMARY | 2024-12-12 08:16 | XMS_ITS | Clinical Summary ---
Author Organization [facility] Address [address] [place] [address] Care Team Providers Care Lead Principal Technical Architect Name Role Phone Unavailable Primary Care Provider [...] of 1 - PCV) 2017 COVID-19 Vaccine ( - 2023-2 5 season) 2024 RSV Immunization or 60+ Years (1 [...]
--- OUTSIDE RECORDS SUMMARY | 2024-12-12 08:16 | XMS_ITS | CONTINUITY OF CARE DOCUMENT ---
Author Name eren jason Address Unknown Organization [facility] Address [address] [place] [address] Phone [phone] Care Team Providers Care Measurement Supervisor Name Role Phone Shailesh ROMANO, Mike Unavailable [phone] OBED ROMANO, COREY Unavailable COREY CLAY MD Unavailable PROBLEMS Condition Status Date Provider Notes HTN--echo ef nl, mild LVH, 03/2023 active Steve Parson Family History of CVA or Stroke: completed - Mike Alicea MD Family History of Sudden Cardiac : active ? Mike Alicea MD Diabetes mellitus active Mike Alicea MD Renal disease, chronic, mild follows with IJ Alicea active Mike Alicea MD Obesity active Mike Alicea MD Chest pain- nl stress test 2019, echo ef nl, mild lvh, mod phtn, 04/2023 active Steve Parson Shortness of breath Moderate STANISLAV active Mike Alicea MD Sleep apnea, obstructive, moderate--on cpap active Mike Alicea MD Leg edema active Cordell Laguna MD Ulcer of left toe completed - Cordell Laguna MD DVT r an l leg on Xarelto 20 mg active Mike Alicea MD Leg pain, left active Gricel Rosenbaum [employer] Bleeding completed - Prabhjot Canchola Pulmonary embolism in 10/2018 active Prabhjot Motta acht Uterine cancer active Prabhjot Canchola ENCOUNTERS Date Type Provider Location Encounter Diag nosis - In-person encounter Office Visit Mike Alicea MD [facility] - In-person encounter Office Visit Mike Alicea MD [facility] - In-person encounter Office Visit Mike Alicea MD [facility] - In-person encounter Office Visit Mike Alicea MD [facility] Chest pain- nl stress test 2019, echo ef nl, mild lvh, mod phtn, 04/2023 - In-person encounter Office Visit Mike Alicea MD [facility] HTN--echo ef nl, mild LVH, 03/2023 - In-person encounter Office Visit Mike Alicea MD [facility] - In-person encounter Office Visit Mike Alicea MD [facility] DVT r an l leg on Xarelto 20 mg - In-person encounter Office Visit Mike Alicea MD [facility] - In-person encounter Office Visit Mike Alicea MD [facility] Chest pain- nl stress test 2019, echo ef nl, mild lvh, mod phtn, 04/2023Sleep apnea, obstructive, moderate--on cpap - In-person encounter Office Visit Mike Alicea MD [facility] - In-person encounter Office Visit Mike Alicea MD [facility] BleedingPulmonary embolism in 10/2018Uterine cancer - In-person encounter Office Visit Mike Alicea MD [facility] Family History of CVA or Stroke:Pulmonary embolism in 10/2018 - In-person encounter Office Visit Mike Alicea MD [facility] - In-person encounter Office Visit Mike Alicea MD [facility] - In-person encounter Office Visit Mike Alicea MD [facility] Leg pain, left - In-person encounter Office Visit Mike Alicea MD [facility] - In-person encounter Office Visit Mike Alicea MD [facility] DVT r an l leg on Xarelto 20 mg - In-person encounter Office Visit Mike Alicea MD [facility] - In-person encounter Office Visit Cordell Laguna MD [facility] Leg edemaUlcer of left toeDVT r an l leg on Xarelto 20 mg - In-person encounter Office Visit Mike Alicea MD [facility] Renal disease, chronic, mild follows with IJ SinghChest pain- nl stress test 2019, echo ef nl, mild lvh, mod phtn, 04/2023Shortness of breath Moderate STANISLAV - In-person encounter Office Visit Mike Alicea MD [facility] HTN--echo ef nl, mild LVH, 03/2023Family History of Sudden Cardiac :Diabetes mellitusRenal disease, chronic, mild follows with IJ SinghObesityChest pain- nl stress test 2019, echo ef nl, mild lvh, mod phtn, 04/2023Shortness of breath Moderate STANISLAV VITAL SIGNS Date Observation Value Provider Body Mass Index (Ratio) 39.54 kg/m2 Russ Alicea MD blood pressure, cuff size regular Fa yimi Villafana blood pressure, diastolic 84 mm[Hg] Roger Villafana blood pressure, systolic 148 mm[Hg] Sean Villafana oxygen saturation, oximetry 99 % Juan Villafana pulse rate 82 /min Juan Villafana weight E&M 245 [lb_av] Juan Villafana height E&M 66 [in_i] Juan Villafana Body Mass Index (Ratio) 40.35 kg/m2 Russ Alicea MD blood pressure, cuff size regular Roger kovacs [place] blood pressure, diastolic 66 mm[Hg] Fa fermín [place] blood pressure, systolic 120 mm[Hg] Keshawn [facility] oxygen saturation, oximetry 98 % [facility] pulse rate 94 /min [facility] respiratory rate E&M 18 /min Siomara Alvarez iller weight E&M 250 [lb_av] [facility] height E&M 66 [in_i] [facility] Body Mass Index (Ratio) 40.51 kg/m2 Russ Alicea MD blood pressure, diastolic 64 mm[Hg] Lani nkLogberna blood pressure, systolic 118 mm[Hg] Yuki ic blood pressure, cuff size large Ja rret blood pressure, diastolic 64 mm[Hg] Ja rret blood pressure, systolic 118 mm[Hg] Jar ret respiratory rate E&M 12 /min Phil oxygen saturation, oximetry 99 % Phil weight E&M 251 [lb_av] Phil y height E&M 66 [in_i] Phil da y Body Mass Index (Ratio) 41.80 kg/m2 Russ Alicea MD blood pressure, diastolic -1 mm[Hg] Li nkLogberna blood pressure, systolic 134 mm[Hg] Yuki kLogic blood pressure, diastolic 64 mm[Hg] Sh kayden Angelica blood pressure, systolic 134 mm[Hg] She rrkavitha Angelica pulse rate 871 /min Gricel Angelica oxygen saturation, oximetry 97 % Gricel Dominguez [...] /min Phil oxygen saturation, oximetry 100 % Phil weight E&M 263 [lb_av] Phil y height E&M 66 [in_i] Phil erda y Body Mass Index (Ratio) 42.61 kg/m2 Russ Alicea MD blood pressure, diastolic 65 mm[Hg] Li nkLogic blood pressure, systolic 140 mm[Hg] Yuki kLogic blood pressure, diastolic 65 mm[Hg] ackavitha Benitez blood pressure, systolic 140 mm[Hg] Sta norm Benitez oxygen saturation, oximetry 97 % Trang Emmanuel pulse rate 95 /min Trang Emmanuel respiratory rate E&M 18 /min Trang D torres weight E&M 264 [lb_av] Trang Emmanuel height E&M 66 [in_i] Trang Emmanuel Body Mass Index (Ratio) 43.64 kg/m2 Russ Alicea MD blood pressure, diastolic 78 mm[Hg] St danny Benitez blood pressure, systolic 151 mm[Hg] Sta cy Emmanuel oxygen saturation, oximetry 97 % Trang Benitez pulse rate 94 /min Trang Benitez weight E&M 270.4 [lb_av] Trang Benitez respiratory rate E&M 16 /min Trang macdonald height E&M 66 [in_i] Trang Emmanuel blood pressure, cuff size regular Ca therine Alberto height E&M 66 [in_i] Dede Alberto Body Mass Index (Ratio) 43.74 kg/m2 Russ Alicea MD blood pressure, diastolic 76 mm[Hg] Ca therine Alberto blood pressure, systolic 137 mm[Hg] Cat herine Alberto blood pressure, cuff size regular Ca therine Alberto oxygen saturation, oximetry 94 % Dede Alberto respiratory rate E&M 16 /min Catheri ne Alberto pulse rate 100 /min Dede [place] weight E&M 271 [lb_av] Dede Alberto height E&M 66 [in_i] Dede [place] Body Mass Index (Ratio) 42.93 kg/m2 Russ Alicea MD blood pressure, cuff size regular Cy marcia Keys blood pressure, diastolic 80 mm[Hg] Cy nthia Massimo blood pressure, systolic 132 mm[Hg] Barbara thikarla Keys oxygen saturation, oximetry 98 % Bela Keys pulse rate 93 /min Blea milton respiratory rate E&M 16 /min Bela Keys weight E&M 266 [lb_av] Prabhjot Canchola height E&M 66 [in_i] Bela milton Body Mass Index (Ratio) 45.06 kg/m2 Russ Alicea MD blood pressure, diastolic 66 mm[Hg] Delfina Casanova blood pressure, systolic 130 mm[Hg] Cassandra Casanova oxygen saturation, oximetry 93 % Pooja Casanova respiratory rate E&M 20 /min Kristina Casanova pulse rate 92 /min Pooja Hidalgo nsangel weight E&M 279.2 [lb_av] Pooja solison height E&M 66 [in_i] Pooja Hidalgo nsangel Body Mass Index (Ratio) 46.00 kg/m2 Russ Alicea MD blood pressure, diastolic 73 mm[Hg] To nsha Weeks blood pressure, systolic 155 mm[Hg] Ton sha Weeks oxygen saturation, oximetry 96 % Tonsha Weeks respiratory rate E&M 18 /min Tonsha Weeks pulse rate 0.86 /min Tonsha Weeks weight E&M 285 [lb_av] Tonsha Weeks height E&M 66 [in_i] Tonsha Weeks Body Mass Index (Ratio) 46.00 kg/m2 Russ Alicea MD blood pressure, diastolic 67 mm[Hg] To nsha Weeks blood pressure, systolic 143 mm[Hg] Ton sha Weeks pulse rate 85 /min Tonsha Weeks oxygen saturation, oximetry 98 % Tonsha Weeks respiratory rate E&M 16 /min Tonsha Weeks weight E&M 285 [lb_av] Tonsha Weeks height E&M 66 [in_i] Tonsha Weeks Body Mass Index (Ratio) 46.00 kg/m2 Russ Alicea MD respiratory rate E&M 18 /min Tonsha Weeks blood pressure, diastolic 70 mm[Hg] To nsha Weeks blood pressure, systolic 141 mm[Hg] Ton sha Weeks oxygen saturation, oximetry 98 % Tonsha Weeks pulse rate 84 /min [facility] weight E&M 285 [lb_av] [facility] height E&M 66 [in_i] [facility] Body Mass Index (Ratio) 45.83 kg/m2 Russ Alicea MD blood pressure, diastolic 70 mm[Hg] Asif Williamson-Nixon blood pressure, systolic 126 mm[Hg] Yuki MorenoNixon blood pressure, resting Yes Adarsh Polke oxygen saturation, oximetry 96 % Ashley Walker pulse rate 70 /min Ashley Alicea weight E&M 284 [lb_av] Ashley Calixe height E&M 66 [in_i] Ashley Calixe Body Mass Index (Ratio) 46.64 kg/m2 Russ Alicea MD blood pressure, cuff size large Ke tessi Clarence blood pressure, diastolic 70 mm[Hg] Ke rri Clarence blood pressure, systolic 130 mm[Hg] Scarlet Lima oxygen saturation, oximetry 95 % Jaqui Lima respiratory rate E&M 20 /min Jaqui brooks pulse rate 75 /min Jaqui Barbosa [facility] weight E&M 289 [lb_av] Jaqui Familia [facility] height E&M 66 [in_i] Jaqui Familia [facility] Body Mass Index (Ratio) 47.93 kg/m2 Russ Alicea MD blood pressure, cuff size large Ke rri Clarence blood pressure, diastolic 80 mm[Hg] Ke rri Clarence blood pressure, systolic 138 mm[Hg] Scarlet Lima oxygen saturation, oximetry 98 % Jaqui Gruenenfelder respiratory rate E&M 18 /min Jaqui G abrahamenenfelder pulse rate 70 /min Jaqui Gruenenfe lder weight E&M 297 [lb_av] Jaqui Gruenenfe lder height E&M 66 [in_i] Jaqui Gruenenfe lder Body Mass Index (Ratio) 49.06 kg/m2 Russ Alicea MD blood pressure, cuff size large Ke rri Gruenenfelder blood pressure, diastolic 100 mm[Hg] Ke rri Gruenenfelder blood pressure, systolic 160 mm[Hg] Ker ri Gruenenfelder oxygen saturation, oximetry 95 % Jaqui Grsashanekiyafrancisco javierer respiratory rate E&M 24 /min Jaqui G mabelnfnadya pulse rate 89 /min Jaqui Grsashanekiyae er weight E&M 304 [lb_av] Jaqui Grthaniae er height E&M 66 [in_i] Jaqui Magdalenae er Body Mass Index (Ratio) 48.58 kg/m2 [place] Cr blood pressure, cuff size large Ke rri Gruenenfelder blood pressure, diastolic 76 mm[Hg] Ke rri Gruenenfelder blood pressure, systolic 148 mm[Hg] Ker ri Gruenenfelder oxygen saturation, oximetry 98 % Jaqui Gruenenffrancisco javierer respiratory rate E&M 20 /min Jaqui G abrahamenenfelder pulse rate 77 /min Jaqui Gruenenfe lder weight E&M 301 [lb_av] Jaqui Gruenekiyae lder height E&M 66 [in_i] Jaqui Gruenenfe lder Body Mass Index (Ratio) 48.42 kg/m2 Russ Alicea MD blood pressure, cuff size large Ke rri Lakshmier blood pressure, diastolic 80 mm[Hg] Ke rri Gruenekiyaelder blood pressure, systolic 142 mm[Hg] Scarlet ri Gruenekiyaelder oxygen saturation, oximetry 94 % Jaqui Magdalenaelder respiratory rate E&M 20 /min Jaqui G ruenenfelder pulse rate 69 /min Jaqui Familia lder weight E&M 300 [lb_av] Jaqui Magdalenae lder height E&M 66 [in_i] Jaqui Magdalenae lder Body Mass Index (Ratio) 48.58 kg/m2 Russ Alicea MD blood pressure, cuff size large Ke rri Girishnekiyaelder blood pressure, diastolic 80 mm[Hg] Ke rri Girishnekiyaelder blood pressure, systolic 124 mm[Hg] Scarlet Stoutnekiyaelder oxygen saturation, oximetry 93 % Jaqui Martinser respiratory rate E&M 18 /min Jaqui Judy monroenfelder pulse rate 73 /min Jaqui Magdalenae lder weight E&M 301 [lb_av] Jaqui Nicholse lder height E&M 66 [in_i] Jaqui Blessingnfdarcy lder ALLERGIES Allergy Name Onset Date Reaction Criticality [...] Status Instructions Dates Provider Indications Com ments rosuvastatin 10 mg tablet active Mike Alicea MD Eliquis 5 mg tablet active TAKE 1 TABLET BY MOUTH TWICE DAILY Mike Alicea MD glimepiride 1 mg tablet completed TAKE 1 TABLET BY MOUTH TWICE DAILY BEFORE MEAL(S) - 11/23 Steve Parson calcitriol 0.25 mcg capsule active TAKE 1 CAPSULE BY MOUTH ONCE DAILY Steve Parson hydrocodone-acet aminophen 5-325 mg tablet active TAKE 1 TABLET BY MOUTH EVERY 8 HOURS NEEDED FOR PAIN. DO NOT EXCEED 4,000MG ACETAMINOPHEN PER 24 HOURS Steve Parson Xarelto 20 mg tablet completed TAKE 1 TABLET BY MOUTH ONCE DAILY DIRECTED - 10/19 Steve Parson Eliquis 5 mg tablet completed TAKE 1 [...] DAILY Steve Parson liothyronine 5 mcg tablet completed TAKE 1 TABLET BY MOUTH TWICE DAILY - 12/06 Mike Alicea MD metoprolol tartrate 25 mg [...] tablet every night 05/01 - 09/24 Steve jake Ozempic 1 mg/dose (2 mg/1.5 mL) pen [...] Mike Alicea MD rosuvastatin 10 mg tablet completed 1 tablet once a day 01/20 - 12/06 Mike Alicea MD #90, 90 days supply, [...] directed by physician to stop 11/04 - 04/17 Jaqui Lima XARELTO 20 MG ORAL TABLET [...] every 6 hours as needed 03/31 - 8/ Jaqui Lima DOXAZOSIN MESYLATE 2 MG ORAL [...] 10/04 Mike Alicea MD VITAMIN D (ERGOCALCIFEROL) 14507 UNIT ORAL CAPSULE completed once a week 03/31 - 8 Jaqui Lima LANTUS SOLOSTAR 100 UNIT/ML SUBCUTANEOUS SOLUTION PEN-INJECTOR completed 30 units a day 03/31 - 8 Jaqui Lima ProAir HFA 90 mcg/actuation HFA aerosol inhaler active 2 puff every four to six hours 03/31 Jaqui Lima SOCIAL HISTORY Date Observation Value Provider smoking status Never smoker Steve Parson smoking status Never smoker Steve Parson social history E&M S moking History: Alivia vásquez has never smoked. Steve Parson social history reviewed E&M revi ewed - no changes required Steve Parson smoking status Never smoker Gricel Angelica social history reviewed E&M revi ewed - no changes required Steve Parson social history E&M S moking History: Alivia vásquez is a former smoker. Mike Alicea MD smoking, year quit 1999 Trang Troncoso is smoking history, tot al pack/day 1 pk per month Trangnorm Benitez cigarette use yes Trangnorm Benitez smoking status Former smoker Trangnorm Benitez social history reviewed E&M revi ewed - no changes required Mike Alicea MD social history E&M S moking History: P thalia is a former smoker. Mike Alicea MD smoking, year quit 1999 Trang Troncoso is smoking history, tot al pack/day 1 pk per month Trang Benitez cigarette use yes Trang Benitez smoking status Former smoker Trang Benitez social history reviewed E&M revi ewed - no changes required Mike Alicea MD smoking, year quit 1999 Dede Alberto smoking history, tot al pack/day 1 pk per month Dede Alberto cigarette use yes Dede Alberto smoking status Former smoker Dede Ot is social history reviewed E&M revi ewed - no changes required Mike Alicea MD social history E&M S moking History: Alivia vásquez is a former smoker. Steve Parson social history reviewed E&M revi ewed - no changes required Steve Parson smoking, year quit 1999 Dede [place] smoking history, tot al pack/day 1 pk per month Dede Alberto cigarette use yes Dede Alberto smoking status Former smoker Dede Ot is social history E&M S moking History: Alivia vásquez is a former smoker. Prabhjot Canchola social history reviewed E&M revi ewed - no changes required Prabhjot Canchola smoking, year quit 1999 Bela bee smoking history, tot al pack/day 1 pk per month Bela Keys cigarette use yes Bela Jones ever smoking status Former smoker Bela patel social history E&M S moking History: Alivia vásquez is a former smoker. Prabhjot Canchola social history reviewed E&M revi ewed - no changes required Prabhjot Canchola smoking, year quit 1999 Pooja Casanova smoking history, tot al pack/day 1 pk per month Pooja Casanova cigarette use yes Pooja santos smoking status Former smoker Pooja Pabon social history E&M S moking History: Alivia vásquez is a former smoker. Prabhjot Canchola social history reviewed E&M revi ewed - no changes required Prabhjot Canchola smoking, year quit 1999 Tonsha Mo ss smoking history, tot al pack/day 1 pk per month Tonsha Weeks cigarette use yes Tonsha Weeks smoking status [facility] E&M S moking History: Alivia vásquez is a former smoker. Prabhjot Canchola social history reviewed E&M revi ewed - no changes required Prabhjot Canchola smoking, year quit 1999 Tons Mo smoking history, tot al pack/day 1 pk per month Tonsha Weeks cigarette use yes Tonsha Weeks smoking status Former smoker Tons Weeks number of grandchildren Mike Alicea MD social history E&M S moking History: Alivia vásquez is a former smoker. Mike Alicea MD social history reviewed E&M revi ewed - no changes required Mike Alicea MD smoking, year quit 1999 Tonsha Mo ss smoking history, tot al pack/day 1 pk per month Tonsha Weeks cigarette use yes Tonsha Weeks smoking status Former smoker Tonsha Weeks smoking status Former smoker Gricel smith NP smoking, year quit 1999 Ashley Root christaangelMadie smoking history, tot al pack/day 1 pk per month Ashley WilliamsonArelisNixon cigarette use yes Ashley InfanteNixon social history reviewed E&M revi ewed - no changes required Ashley WilliamsonArelisNixon social history E&M S moking History: P thalia is a former smoker. Mike Alicea MD social history reviewed E&M revi ewed - no changes required Mike Alicea MD smoking, year quit 1999 Jaqui [facility], tot al pack/day 1 pk per month Jaqui Lakshmi cigarette use yes Jaqui Magdalena [facility] smoking status Former smoker Jaqui Stoutrashi [facility] smoking, year quit 1999 Jaqui [facility]ud[facility] smoking history, tot al pack/day 1 pk per month Jaqui Lakshmi cigarette use yes Jaqui Magdalena [facility] smoking status Former smoker Jaqui Stoutrashi [facility] social history reviewed E&M revi ewed - no changes required Mike Alicea MD smoking, year quit 1999 Jaqui [facility] smoking history, tot al pack/day 1 pk per month Jaqui Lakshmi cigarette use yes Jaqui Waldronthania [facility] smoking status Former smoker Jaqui Funk [facility] social history reviewed E&M revi ewed - no changes required Kaus[place] Cr social history E&M Smoking Histo ry: P thalia is a former smoker. Kaushal Cr smoking, year quit 1999 Jaqui [facility] smoking [facility], tot al pack/day 1 pk per month Jaqui Lakshmi cigarette use yes Jaqui Magdalena [facility] smoking status Former smoker Jaqui Funk [facility] social history reviewed E&M revi ewed - no changes required Mike Alicea MD smoking, year quit 1999 Jaqui gracia smoking history, tot al pack/day 1 pk per month Jaqui Lima cigarette use yes Jaqui covington smoking status Former smoker [facility] social history reviewed E&M revi ewed - no changes required Mike Alicea MD handedness R Handed Mike Alicea MD smoking history, tot al pack/day 1 pk per month Jaqui Lima smoking, year quit 1999 Jaqui gracia cigarette use yes Jaqui Nichols [facility] smoking status Former smoker Jaqui Funk [facility] FAMILY HISTORY Family Member Condition Mother Family History of Di abetes: Father Family History of Mcpherson dden Cardiac : Father Family History of CV A or Stroke: INSURANCE PROVIDERS Payer name Policy type / Coverage type [place] green party ID [employer] MEDICARE ADVANTAGE ST 0 [address] (HMO POS) Medicare [id number] ADVANCE DIRECTIVES Name Date DISCUSSED - NO DECISION MADE TREATMENT PLAN Date Name Performer [id number],S, Steve Sethimedza i [id number],S, Steve Sethimedza i [id number],S, Steve Jossiemedza i [id number],S, Steve Ahmedza i [id number],S, Steve Ahmedza i [id number],B, Steve Ahmedza i [id number],S, Steve Ahmedza i [id number],S, Steve Ahmedza i [id number],S, Steve Ahmedza i [id number],S, Steve Ahmedza i [id number],S, Steve Ahmedza i [id number],S, Steve Ahmedza i [id number],B, Mike Alicea MD [id number],B, Mike Alicea MD [id number],B, Mike Alicea MD [id number],S, Mike Alicea MD [id number],B, Mike Alicea MD [id number],B, Steve medza i [id number],S, Steve medza i [id number],S, Steve medza i [id number],S, Steve medza i [id number],B, Steve medza i [id number],B, Steve Ahmedza i [id number],S, Steve Ahmedza i [id number],S, Steve Ahmedza i [id number],S, Steve Ahmedza i [id number],S, Steve Ahmedza i [id number],S, Steve Ahmedza i [id number],S, Steve Ahmedza i Cardiology: H er updated medication list for this problem includes: Metoprolol Tartrate 25 Mg Tablet (Metoprolol tartrate) ..... Take 1 tablet by mouth twice daily Lisinopril 20 Mg Tablet (Lisinopril) ..... Take 1 tablet by mouth once daily Furosemide 40 Mg Tablet (Furosemide) ..... Take 1 twice a day T his visit has been a part of the consistent, comprehensive, and ongoing management of the chronic medical condition(s) listed above for the patient. Mike Alicea MD Cardiology Mike Alicea MD Cardiology Mike Alicea MD Cardiology Mike Alicea MD Cardiology: H er updated medication list for this problem includes: Lisinopril 20 Mg Tablet (Lisinopril) ..... Take 1 tablet by mouth once daily Metoprolol Tartrate 25 Mg Tablet (Metoprolol tartrate) ..... Take 1 tablet by mouth twice daily Furosemide 40 Mg Tablet (Furosemide) ..... Take 1 twice a day Steve Parson Cardiology: H er updated medication list for this problem includes: Lisinopril 20 Mg Tablet (Lisinopril) ..... Take 1 tablet by mouth once daily Metoprolol Tartrate 25 Mg Tablet (Metoprolol tartrate) ..... Take 1 tablet by mouth twice daily Steve Parson Cardiology Steve Parson Cardiology: T he following medications were removed from the medication list: Glimepiride 1 Mg Tablet (Glimepiride) ..... Take 1 tablet by mouth twice daily before meal(s) Her updated medication list for this problem includes: Ozempic 0.25 Mg Or 0.5 Mg (2 Mg/3 Ml) Pen Injector (Semaglutide) ..... 0.5 mg Lisinopril 20 Mg Tablet (Lisinopril) ..... Take 1 tablet by mouth once daily Steve Parson Cardiology: B P today: 120/66 P rior BP: 118/64 (10/19/2023) Her updated medication list for this problem includes: Lisinopril 20 Mg Tablet (Lisinopril) ..... Take 1 tablet by mouth once daily Metoprolol Tartrate 25 Mg Tablet (Metoprolol tartrate) ..... Take 1 tablet by mouth twice daily Furosemide 40 Mg Tablet (Furosemide) ..... Take 1 twice a day [facility] Cardiology [facility] Cardiology [facility] Cardiology [facility] Cardiology: H er updated medication list for this problem includes: Lisinopril 20 Mg Tablet (Lisinopril) ..... Take 1 tablet by mouth once daily Metoprolol Tartrate 25 Mg Tablet (Metoprolol tartrate) ..... Take 1 tablet by mouth twice daily Furosemide 40 Mg Tablet (Furosemide) ..... Take 1 twice a day [facility] Cardiology: H er updated medication list for this problem includes: Lisinopril 20 Mg Tablet (Lisinopril) ..... Take 1 tablet by mouth once daily Glimepiride 1 Mg Tablet (Glimepiride) ..... Take 1 tablet by mouth twice daily before meal(s) Ozempic 1 Mg/dose (4 Mg/3 Ml) Pen Injector (Semaglutide) [facility] Cardiology: H er updated medication list for this problem includes: Lisinopril 20 Mg Tablet (Lisinopril) ..... Take 1 tablet by mouth once daily Metoprolol Tartrate 25 Mg Tablet (Metoprolol tartrate) ..... Take 1 tablet by mouth twice daily Furosemide 40 Mg Tablet (Furosemide) ..... Take 1 twice a day [facility] Cardiology: H er updated medication list for this problem includes: Lisinopril 20 Mg Tablet (Lisinopril) ..... Take 1 tablet by mouth once daily Metoprolol Tartrate 25 Mg Tablet (Metoprolol tartrate) ..... Take 1 tablet by mouth twice daily [facility] Cardiology [facility] Cardiology [facility] Cardiology [facility] Cardiology [facility] Cardiology [facility] Cardiology [facility] Cardiology Steve [facility] Cardiology Steve Ahmedzai Cardiology [...] Mike li MD Cardiology Follow up Mike il MD Cardiology Follow up Mike li MD [...] ..... Take one pill twice a day [facility] Cardiology Follow up :The pt complains of swelling and pain in the left foot and ankle. On exam the foot is erythematous and swollen. Venous duplex revealed DVT. Will start Xarelto. [facility] Cardiology Follow up :The pt complains of swelling and pain in the left foot and ankle. On exam the foot is erythematous and swollen. Venous duplex revealed DVT. Will start Xarelto. [facility] Cardiology Follow up Mike li MD Cardiology Follow up Mike li MD Cardiology Follow up Mike li MD Cardiology Follow up Mike li MD Cardiology New Patient Mike meyers MD Cardiology New Patient Mike meyers MD Cardiology New Patient Mike meyers MD Cardiology New Patient Mike meyers MD Date Name Complete Echo Complete Echo Stress Regadenoson URINALYSIS, RANDOM, MICROALB/CREATININE Venous Doppler Bilat eral LE - Reflux URINALYSIS, RANDOM, MICROALB/CREATININE Arterial Duplex Bi-L ower EX Venous Doppler Bilat eral LE - Reflux HISTORY OF PROCEDURES Procedure Date Procedure Name Provider Procedure Notes S tatus Complex e/m visit add on Mike Alicea MD completed EKG Mike Alicea MD completed EKG Mike Alicea MD completed EKG Mike Alicea MD completed EKG Mike Alicea MD completed EKG Mike Alicea MD completed Regadenoson, 4 units Mike Alicea MD completed Cardiolite, 2 units Mike Alicea MD completed SPECT Images Mike Alicea MD complet ed Stress EKG Mike Alicea MD completed EKG Mike Alicea MD completed SNOMED-CT: 82419153 Physical Exam, Performed: Pulse Exam of Foot Mike Alicea MD completed SNOMED-CT: 790324792 135757 Current Medications Documented Mike Alicea MD completed Stress EKG Rickey Su MD complete d Regadenoson, 4 units Mike Alicea MD completed Cardiolite, 2 units Mike Alicea MD completed SPECT Images Mike Alicea MD complet ed SNOMED-CT: 93522537 Physical Exam, Performed: Pulse Exam of Foot Mike Alicea MD completed EKG Mike Alicea MD completed SNOMED-CT: 752537483 484104 Current Medications Documented Mike Alicea MD completed
--- OUTSIDE RECORDS SUMMARY | 2024-12-12 08:16 | XMS_ITS | Referral Summary ---
Author Organization [facility] Physician Office Building [address] [place] [phone] Care Team Providers Care Oracle R12 Developer Name Role Phone Quinton Gurrola MD Primary Care Provide r Mamta Gayle MD Unavailable Vy Sheehan MD Unavailable Allergies Active Allergy Reactions Criticality Noted Date Comments Metformin Other (See comments) ,Shortness of breath High 03/29/2020 Glyburide Unknown 06/08/2020 Mushroom Unknown 06/08/2020 [place] Extract Unknown 06/08/2020 Omeprazole Nausea only,Nausea And [...] on file Legal Sex Female 8:33 AM ASSESSMENT NURSE Gender Identity Not on file Sexual Orientation Not on file Last Filed Vital Signs Vital Sign Reading Time Taken Comments Blood Pressure 172/75 07/22/2024 11:28 AM ASSESSMENT NURSE Pulse 90 07/22/2024 11:28 AM ASSESSMENT NURSE Temperature 36.6 C (97.9 F) 07/22/2024 11:28 AM ASSESSMENT NURSE Respiratory Rate 16 07/22/2024 11:28 AM ASSESSMENT NURSE Oxygen Saturation 99% 07/22/2024 11:28 AM ASSESSMENT NURSE Inhaled Oxygen Concentration - - Weight 112 kg (246 lb 14.4 oz) 07/22/2024 11:28 AM ASSESSMENT NURSE Height 165.1 cm (5' 5 ) 07/22/2024 11:28 AM ASSESSMENT NURSE Body Mass Index 41.09 07/22/2024 11:28 AM ASSESSMENT NURSE Plan of Treatment Not on file Insurance [facility] MEDICARE ADVANTAGE [facility] MEDICARE ADVANTAGE [facility] [place] [address] Advance Directives For more information, please contact: [phone] * Full Code (Latest Code Status on File) Date Activated Date Inactivated Comments 08/22/2020 11:59 AM 08/22/2020 5:42 PM Care Teams Oracle R12 Developer Relationship Specialty Start Date End Date Quinton Gurrola MD [address] [facility] [address] [place] [address] PCP - General Internal Medicine 03/09/18 Mamta Gayle MD [address] [place] [address] Radiation Oncologist Radiation Oncology 09/20/20 Vy Sheehan MD [address] [facility] [address] [place] [address] Referring Physician Gynecologic Oncology 09/20/20
--- OUTSIDE RECORDS SUMMARY | 2024-12-12 08:16 | XMS_ITS ---
Author Organization [facility] Address [address] [facility] AT [facility] [address] [facility] [address] [place] [address] Care Team Providers Care Hotel Security Officer Name Role Phone Christophe Cash Unavailable [phone] PROBLEMS Problem Type ICD Code Onset Dates Problem Status W/U Status Risk SNOMED Code Notes Problem Hyperlipidemia, unspecified (E78.5) Active confirmed Hyperlipidemia (89014426) Encounters Encounter Location Date Provider Diagnosis [facility] [address] [facility] [address] [place] [address] 10/14/2024 Christophe Cash Chronic kidney disease, stage [...] Name:Christophe Cash , 12/30/2024 12:15:00 PM, [address] [facility], [facility] [address], [place], [address], Progress Notes * TOMER HUTTONOB:[birth year] (74 yo F)Acc No.[id number]:10/14/2024 Progress Notes Patient: МАРИЯ HUTTON Provider: MD EVANGELISTA, Kavita, F.A.S.N. :1950 Age:74 Y Sex:Female Date:10/14/2024 Address:;;;;;, [place] [address] Subjective: * Chief Complaints: * * Medical History: Objective: Assessment: * Assessment: 1. Chronic kidney disease, stage 3a - N18.31 (Primary) 2. Essential hypertension - I10 3. Vitamin D deficiency, unspecified - E55.9 4. Hyperlipidemia, unspecified - E78.5 5. Edema, unspecified - R60.9 Plan: * Treatment: * Billing Information: * Visit Code: 44208 Office Visit, Est Pt., Level 4. * Procedure Codes: * Sign off status: Pending * Provider: MD EVANGELISTA, Kavita, F.A.S.N. Date: 10/14/2024
--- OUTSIDE RECORDS SUMMARY | 2024-12-12 08:16 | XMS_ITS | Clinical Summary ---
Author Organization [facility] Physician Office Building [address] [place] [address] Care Team Providers Care Tile And Mottle Supervisor Name Role Phone Quinton Gurrola MD Primary Care Provide r Mamta Gayle MD Unavailable Vy Sheehan MD Unavailable Allergies Active Allergy Reactions Criticality Noted Date Comments Metformin Other (See comments) ,Shortness of breath High 03/29/2020 Glyburide Unknown 06/08/2020 Mushroom Unknown 06/08/2020 [place] Extract Unknown 06/08/2020 Omeprazole Nausea only,Nausea And [...] on file Legal Sex Female 8:33 AM ADMINISTRATION ASSISTANT Gender Identity Not on file Sexual Orientation Not on file Obstetrics History Para Term AB IAB SAB Ectopic Multiple Livin g Live Births 1 1 1 1 Date Outcome GA Total Labor Labor/2nd/3rd Weight Sex Type Anes PTL Xiao A1 A5 Name Clin Term Last Filed Vital Signs Vital Sign Reading Time Taken Comments Blood Pressure 172/75 07/22/2024 11:28 AM ADMINISTRATION ASSISTANT Pulse 90 07/22/2024 11:28 AM ADMINISTRATION ASSISTANT Temperature 36.6 C (97.9 F) 07/22/2024 11:28 AM ADMINISTRATION ASSISTANT Respiratory Rate 16 07/22/2024 11:28 AM ADMINISTRATION ASSISTANT Oxygen Saturation 99% 07/22/2024 11:28 AM ADMINISTRATION ASSISTANT Inhaled Oxygen Concentration - - Weight 112 kg (246 lb 14.4 oz) 07/22/2024 11:28 AM ADMINISTRATION ASSISTANT Height 165.1 cm (5' 5 ) 07/22/2024 11:28 AM ADMINISTRATION ASSISTANT Body Mass Index 41.09 07/22/2024 11:28 AM ADMINISTRATION ASSISTANT Plan of Treatment Health Maintenance Due Date [...] Screening-Bone Density Scan 07/20/2025 07/20/2023, 12/18/2020 Insurance [facility] MEDICARE ADVANTAGE [facility] MEDICARE ADVANTAGE [facility] MEDICARE ADVANTAGE Advance Directives For more information, please contact: [phone] * Full Code (Latest Code Status on File) Date Activated Date Inactivated Comments 08/22/2020 11:59 AM 08/22/2020 5:42 PM Care Teams Tile And Mottle Supervisor Relationship Specialty Start Date End Date Quinton Gurrola MD [address] [address] PCP - General Internal Medicine 03/09/18 Mamta Gayle MD [address] [place] [address] Radiation Oncologist Radiation Oncology 09/20/20 Vy Sheehan MD [address] [place] [address] Referring Physician Gynecologic Oncology 09/20/20
--- OUTSIDE RECORDS SUMMARY | 2024-12-12 08:16 | XMS_ITS | Encounter Summary ---
Author Organization [facility] Healthcare Address [address] [place] [address] Care Team Providers Care Train Braker Name Role Phone Quinton Gurrola MD Primary Care Provide r Mamta Gayle MD Unavailable Vy Sheehan MD Unavailable Encounter Details Date Type Department Care Team (Late st Contact Info) Description 06/18/2020 Telephone [facility] Advanced Medicine Radiation Oncology [address] [facility] [place] [address] Ana Barraza RN Social History Tobacco Use Types Packs/Day Years Used Date Smoking Tobacco: Former Smokeless Tobacco: Never Alcohol Use Standard Drinks/Week Comments No 0 (1 standard drink = 0.6 oz pur e alcohol) PHQ-2 Answer Date Recorded PHQ-2 Score 3 11/20/2018 Comments No Sex and Gender Information Value Date Recorded Sex Assigned at Not on file Legal Sex Female 8:33 AM SURGICAL INSTRUMENTS INSPECTOR Gender Identity Not on file Sexual Orientation Not on file documented as of this encounter Plan of Treatment Not on file documented as of this encounter Visit Diagnoses Not on filedocumented in this encounter Care Teams Train Braker Relationship Specialty Start Date End Date Quinton Gurrola MD [address] [facility] [address] [place] [address] PCP - General Internal Medicine 03/09/18 Mamta Gayle MD [address] [facility] [address] [place] [address] Radiation Oncologist Radiation Oncology 09/20/20 Vy Sheehan MD [address] [facility] [address] [place] [address] Referring Physician Gynecologic Oncology 09/20/20 documented as of this encounter
--- OUTSIDE RECORDS SUMMARY | 2024-12-12 08:16 | XMS_ITS | Clinical Summary ---
Author Organization [facility] Address [address] [place] [address] Care Team Providers Care Timber Mill Worker Name Role Phone Dany Gurrola MD Primary Care Provider Allergies Active Allergy Reactions Criticality Noted Date Comments Glyburide Unknown 06/08/2020 Metformin Shortness of Breath/ Wheezing,Other (See Comments) High 03/29/2020 Mushroom Unknown 06/08/2020 [place] Extract Unknown 06/08/2020 Omeprazole Nausea and Vomiting [...] inhalation. Active fluticasone propionate (FLONASE) 50 mcg/spray [place], Suspension nasal inhaler Administer 2 Sprays in [...] Encounters Date Type Department Care Team Description 11/30/2024 Orders Only [facility] Oncology and Hematology - [place] [place] [address] Braulio Ortiz MD 11/28/2024 Orders Only [facility] Oncology and Hematology - [place] [address] [place] [address] Braulio Ortiz MD Anemia of chronic renal failure, stage 3 (moderate), unspecified whether stage 3a or 3b CKD (CMS/HCC) 11/14/2024 Orders Only [facility] Oncology and Hematology - [place] [address] [place] [phone] Braulio Ortiz MD Anemia of chronic renal failure, stage 3 (moderate), unspecified whether stage 3a or 3b CKD (CMS/HCC) 10/31/2024 Orders Only [facility] Oncology and Hematology - [place] [address] [place] [phone] Braulio Ortiz MD Anemia of chronic renal failure, stage 3 (moderate), unspecified whether stage 3a or 3b CKD (CMS/HCC) 10/17/2024 Orders Only [facility] Oncology and Hematology - [place] [place] [phone] Braulio Ortiz MD Anemia of chronic renal failure, stage 3 (moderate), unspecified whether stage 3a or 3b CKD (CMS/HCC) 10/14/2024 Orders Only [facility] Oncology and Hematology - [address] [place] [phone] Braulio Ortiz MD 10/13/2024 9:15 AM COMMERCIAL TECHNICIAN Office Visit [facility] Oncology and Hematology - [address] [place] [phone] Braulio Ortiz MD Chronic anemia (Primary Dx) 10/03/2024 Orders Only [facility] Oncology and Hematology - [address] [place] [phone] Braulio Ortiz MD Anemia of chronic renal failure, stage 3 (moderate), unspecified whether stage 3a or 3b CKD (CMS/HCC) 09/21/2024 Orders Only [facility] Oncology and Hematology - [address] [place] [phone] Braulio Ortiz MD 09/19/2024 Orders Only [facility] Oncology and Hematology - [place] [address] [place] [address] Braulio Ortiz MD Anemia of [...] Comments Blood Pressure 138/67 10/13/2024 8:56 AM COMMERCIAL TECHNICIAN Pulse 74 10/13/2024 8:52 AM COMMERCIAL TECHNICIAN Temperature 36.7 C (98.1 F) 10/13/2024 8:52 AM COMMERCIAL TECHNICIAN Respiratory Rate 15 10/13/2024 8:52 AM COMMERCIAL TECHNICIAN Oxygen Saturation 98% 10/13/2024 8:52 AM COMMERCIAL TECHNICIAN Inhaled Oxygen Concentration - - Weight 112.8 kg (248 lb 9.6 oz) 10/13/2024 8:52 AM COMMERCIAL TECHNICIAN Height 165.1 cm (5' 5 ) 10/02/2021 9:43 AM COMMERCIAL TECHNICIAN Body Mass Index 41.37 10/02/2021 9:43 AM COMMERCIAL TECHNICIAN Plan of Treatment Upcoming Encounters Date Type Department Care Team (Late st Contact Info) Description 12/12/2024 9:00 AM CDT Office Visit [facility] Oncology and Hematology - [place] [address] [place] [address] Braulio Ortiz MD [address] [facility] [address] [place] [address] Health Maintenance Due Date Last [...] season) 2024 09/05/2021, 01/15/2021, 12/21/2020 Medicare Advantage ([place]) Preventative Visit/Annual Wellness Visit 09/14/2024 05/17/2024, 02/12/2023 COLORECTAL SCREENING 12/03/2030 12/03/2020 Colorectal Cancer Screening 12/03/2030 OSTEOPOROSIS SCREENING Completed 07/20/2023, 2020 Procedures Procedure Name Priority Date/Time Associated Diagnosis Comments CBC WITH DIFFERENTIAL Routine 11/28/2024 2:34 PM CDT CBC WITH AUTODIFFERENTIAL Routine 2024 2:36 PM COMMERCIAL TECHNICIAN BASIC METABOLIC PANEL Routine 10/13/2024 11:46 AM COMMERCIAL TECHNICIAN CBC WITH DIFFERENTIAL Routine 10/13/2024 10:55 AM COMMERCIAL TECHNICIAN CBC WITH DIFFERENTIAL Routine 09/15/2024 4:32 PM COMMERCIAL TECHNICIAN MICROALBUMIN, RANDOM URINE Routine 09/30/2021 from Last 3 Months or Most Recently Relevant to Health Maintenance Results * CBC WITH DIFFERENTIAL (11/28/2024 2:34 PM CDT) Only the most recent of3 resultswithin the time period is included. Blood Braulio Ortiz MD HEMATOLOGY ORDERABLES Final Res ult * CBC WITH AUTODIFFERENTIAL (11/14/2024 2:36 PM COMMERCIAL TECHNICIAN) Blood Braulio Ortiz MD HEMATOLOGY ORDERABLES Final Res ult * BASIC METABOLIC PANEL (10/13/2024 11:46 AM COMMERCIAL TECHNICIAN) Blood Braulio Ortiz MD CHEMISTRY ORDERABLES Final Resu lt * MICROALBUMIN, RANDOM URINE (09/30/2021) Urine URINE SPECIMEN OBTAINED BY CLEAN CATCH PROCEDURE / Unknown [facility] Provider URINE ORDERABLES Final Result from Last 3 Months or Most Recently Relevant to Health Maintenance Insurance [id number] Care Teams Timber Mill Worker Relationship Specialty Start Date End Date Dany Gurrola MD PCP - General Internal Medicine 11/29/18
--- OUTSIDE RECORDS SUMMARY | 2024-12-12 08:16 | XMS_ITS ---
Author Organization [facility] Physician Office Building [address] [place] [address] Care Team Providers Care Drilling Rig Operator Name Role Phone Quinton Gurrola MD [...]
--- OUTSIDE RECORDS SUMMARY | 2024-12-12 08:17 | XMS_ITS | Data Portability ---
Author Organization [facility] [place], Main Office Address [address] [place] [address] Care Team Providers Care School Physical Therapist Name Role Phone DANY GURROLA Primary Care Provider [phone] DANY GURROLA Referring Provider Assessment Encounter Date Assessment Date Assessment LastModified by Organization Details LastModified Time 06/28/2024 06/28/2024 This note is dictated and transcribed by [employer] Direct Software. Tool And Die Maker Apprentice variances may occur. Despite proofreading, typographical errors may occur. Occasional wrong-word or 'eohln-o-slpq' substitutions may have occurred due to the inherent limitations of voice recording. Read the chart carefully and recognize, using context, where substitutions have occurred. Not available 06/28/2024 10:22:46 08/03/2024 08/03/2024 Assessment: Nicotine smoke: 10/13 ppd [id number] = 0.5 pack year Moderate OSAHS, AHI [...] remain at 13 cmH2O. 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 Keep ramp off. Keep humidifier level at [...] 1.33 12/17/2023: Dr Ortiz H/H 9.8/33.3 04/14/2024: [facility] labs Chol 110, TG 61, HDL 64, LDL 34 A1C 6.4 04/20/2024: [facility] labs Gluc 191, Cr 1.53, GFR 40, ALT 101, AST 92, TP 6.2, ALB 2.9 H/H 8.4/29.4 08/25/2024: Dr Ortiz BUN 31, Cr 1.6, GFR 38 10/04/2024: Dr Ortiz H/H 9.1/31.1 45 minutes spent with the patient, reviewed the labs and updated her chart [email or web address] Not available 10/10/2024 09:04:51 10/25/2024 10/25/2024 This note is dictated and transcribed by [email or web address] Direct Software. Tool And Die Maker Apprentice variances may occur. Despite proofreading, typographical errors may occur. Occasional wrong-word or 'tzsot-n-phtp' substitutions may have occurred due to the inherent limitations of voice recording. Read the chart carefully and recognize, using context, where substitutions have occurred. Not available 10/25/2024 11:01:22 11/02/2024 11/02/2024 Assessment: Nicotine smoke: 10/13 ppd [phone] = 0.5 pack year Moderate OSAHS, AHI [...] remain at 13 cmH2O. 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 Keep ramp off. Keep humidifier level at [...] Last Modified Time Details Appointments Any 2024 02:30P Kim bonilla MD Not available Not available Not available Any 2024 07:30A Kim Smith MD Not available Not available Not available Lab lipid panel, serum 2024 025 [facility] (Lab), [address] [place], [address], 10/10/2024 11:23:02 TSH, serum or plasma 2024 025 [facility] (Lab), [address] [place], [address], 10/10/2024 11:44:17 vitamin D, 25-hydrox y, total, serum [address] (Lab), [address] [place], [address], 10/06/2024 16:40:38 glycohemo globin, total, blood [address] (Lab), [address] [place], [address], 10/06/2024 16:40:37 microalbu min, urine [address] (Lab), [address] [place], [address], 10/06/2024 16:40:37 Referral pulmonolo gist referral - Per [facility] website, patient's plan does not require an insurance referral 2024 025 [email or web address] Arnaud Smith MD, [address] [place], [address], 11/24/2024 19:48:38 nephrolog ist referral - Please call pt to schedule appt. [facility]Per [facility], patient's plan does not require an insurance referral 2024 025 ALMA Cash MD (Nephrology, [address], [address], [place], [address], 11/29/2024 14:20:02 hematolog ist referral - Please call patient to schedule an appointme nt. Thank you. 2024 025 ALAM Ortiz MD, [address], [place], [address], 11/25/2024 01:05:21 orthopedi c surgeon referral - Per [facility] website, patient's plan does not require an insurance referral. Please call patient to schedule an appointme nt. Thank you. 2024 025 hrushingGaby Leigh MD, [address] [facility], [place], [address], 11/24/2024 19:45:12 pulmonolo gist referral - Per [facility] website, patient's plan does not require an insurance referral 2024 025 hrushingGaby Smith MD, [address] [place], [address], 11/24/2024 19:47:02 gastroent erologist referral - Please call patient to schedule an appointme nt. Thank you. 2024 025 ALMA Stinson MD, [address], [place], [address], 11/29/2024 14:17:59 cardiolog ist referral - Please call pt to schedule appt. [facility], patient's plan does not require an insurance referral 2024 025 [place], [address] [facility], [address], [place], [address], 11/24/2024 21:00:58 Procedures None recorded. Surgeries None recorded. Imaging MAMMO, screening , digital, bilateral - Please call patient to schedule. Due on or around 4 2024 025 [facility], [address], [address], [place], [address], 10/06/2024 19:56:39 Medication Orders albuterol sulfate HFA 90 mcg/actua tion aerosol inhaler 2024 025 [facility], [address] [place] [address], [address], 11/02/2024 09:13:27 Breo Ellipta 200 mcg-25 mcg/dose powder for inhalatio n 2024 025 [facility], [address] [place] [address], [id number], 11/02/2024 09:13:28 albuterol sulfate HFA 90 mcg/actua tion aerosol inhaler 2023 024 [facility], [address] [place] [address], [address], 08/03/2024 09:20:28 Breo Ellipta 200 mcg-25 mcg/dose powder for inhalatio n 2023 024 [facility], [address] [place] [address], [id number], 08/03/2024 09:20:29 Patient TargetsNo targets recorded. Patient Instructions Encounter Date Encounter Id Patient Instructions Last Modified By Organization Details Last Modified Time 10/06/2024 [id number] diabetic eye exam* Not available 10/06/2024 16:40:38 Reason for Referral News Editor Referral for Ch ronic kidney disease Please call pt to schedule appt. [facility], patient's plan does not require an insurance referral Referring Physician: Satnam Chiang, Encounter Date: 10/06/2024 Nurse Aide Evaluator Referral for He art murmur Please call pt to schedule appt. [facility], patient's plan does not require an insurance referral Referring Physician: Satnam Chiang, Encounter Date: 10/06/2024 Dental Office Assistant Referral for A sthma Per [facility] website, patient's plan does not require an insurance referral Referring Physician: Satnam Chiang, Encounter Date: 10/06/2024 Orthopedic Surgeon Referral for Trigger finger of right hand Per [facility] website, patient's plan does not require an insurance referral. Please call patient to schedule an appointment. Thank you. Referring Physician: Satnam Chiang Medicine, Encounter Date: 10/06/2024 Dental Office Assistant Referral for S leep apnea Per [facility] website, patient's plan does not require an insurance referral Referring Physician: Satnam Chiang, Encounter Date: 10/06/2024 Subsystems Engineer Referral for Hepatomegaly Please call patient to schedule an appointment. Thank you. Referring Physician: Satanm Chiang, Encounter Date: 10/06/2024 Please call patient to sched ule an appointment. Thank you. Referring Physician: Satnam Chiang, Encounter Date: 10/06/2024 Results Created Date Observation Date Name Description Value Unit Range Abnormal Flag Note LastModifiedBy Organization Detail LastModifiedTime 10/10/1910/10/2024 LIPID PANEL cholesterol 108 mg/dL 140-19 9 low NIH SHANDA NSUS RECOM MENDA TION FOR LEONEL STERO L: ADULT CHILD LOW RISK: <200 <170 BORDE RLINE : <200- 239 ----- HIGH RISK: >240 >200 Not Available [facility] (Lab) [address] [place], [address], 10/10/2024 11:23:01 10/10/19 25 10/10/2024 LIPID PANEL triglyceride s 60 mg/dL 0-150 NIH SHANDA NSUS REPOR T RECOM MENDA TION FOR TRIGL YCERI KATEY: ADULT CHILD LOW RISK: <150 ----- BODER LINE: 150-1 99 ----- HIGH RISK: >200 ----- Not Available [facility] (Lab) [address] [place], [address], 10/10/2024 11:23:01 10/10/19 25 10/10/2024 LIPID PANEL HDL cholesterol 56 mg/dL 40- Not Available [facility] (Lab) [address] [place], [address], 10/10/2024 11:23:01 10/10/19 25 10/10/2024 LIPID PANEL [...] WILL NOT BE REPOR SE. Not Available [facility] (Lab) [address] [place], [address], 10/10/2024 11:23:01 10/10/19 25 10/10/2024 TSH W/REF JOSE CARLOS FT4 TSH with reflex free T4 2.220 uIU/m L 0.465- 4.680 Not Available [facility] (Lab) [address], [place], [address], 10/10/2024 11:44:16 07/29/20 24 07/29/2024 imagi ng/di agnos tic resul t No observ ation record ed. [facility] [address], [place], [address], 07/29/2024 11:10:21 08/02/20 24 06/23/2024 compl ete PFT w/ post [facility] hodil ator lex metry * No observ ation record ed. [facility] [address], [place], [address], 08/02/2024 11:16:42 Result Notes None recorded. Problems Name Problem SNOMED Code Status Onset Date Resolution Date Notes Provider Name and Address Organization Details Recorded Time Allergic rhinitis 36598450 Active 2022 Not Available [facility] 4 05:37:12 Deep venous thrombosis of lower extremity 582613195 Active 2022 Not Available [facility] 4 05:37:11 Hypothyroi dism 36874395 Active 2022 Not Available [facility] 4 05:37:11 Arthritis 9804177 Active 2022 Not Available [facility] 4 05:37:11 Peripheral venous insufficie ncy 84287383 Active 2022 Not Available [facility] 4 05:37:11 Moderate persistent asthma 443952961 Active 2022 Not Available [facility] 4 05:37:11 Trigger finger of right hand 2075073100697 9101 Active 2022 Not Available [facility] 4 05:37:11 Vitamin D deficiency 61029673 Active 2022 Not Available [facility] 4 05:37:11 Goiter 4772861 Active 2022 Not Available [facility] 4 05:37:11 Obesity 717206529 Active 2022 Not Available [facility] 4 05:37:11 Hepatomega ly 87111854 Active 2024 Dany acosta MD [address], [facility] [address], [place], [address] , [facility] [employer] [facility] 5 15:17:01 Heart murmur 40506958 Active 2024 Dany acosta MD [address], [facility] [address], [place], [address] , [facility] 5 15:17:01 Disorder of kidney due to diabetes mellitus 954204214 Active Not Available [facility] 4 05:37:11 Anemia 853095675 Active Not Available [facility] 4 05:37:11 Microalbum inuria 967669936 Active Not Available [facility] 4 05:37:11 Saddle embolus of pulmonary artery 1977901741452 09 Active 2018 Not Available [facility] 4 05:37:11 Body mass index 40+ - severely obese 434417524 Active 2017 Not Available [facility] 4 05:37:11 Hyperlipid emia 72572583 Active 2021 Not Available [facility] 4 05:37:12 Essential hypertensi on 33730474 Active Not Available [facility] 4 05:37:12 Obstructiv e sleep apnea syndrome 21014987 Active 2017 Not Available [facility] 4 05:37:12 Notes:Medical History: Bilat eral hearing [...] Nail Debridement completed Prabhjot Lee DPM [address], [place], [address], [facility] [employer] [facility] Arthena 10/25/2024 11:00:56 05/17/20 24 Medicare Wellness CPT Code, subsequent completed Bridger Guidry LPN [place] [employer] [facility] 05/17/2024 09:00:47 05/17/20 24 Advanced Care Planning completed Bridger Guidry LPN [place] [employer] [facility] Ar[facility]na 05/17/2024 16:59:07 04/18/20 24 Cholecystectomy completed Anneliese Rothman MA [employer] [facility] 05/09/2024 14:34:41 11/09/19 24 Ortho - Cortisone Injection completed Jaclyn Schilling NP [address], [place], [address], [employer] [facility] Arthena 11/09/2023 11:33:37 05/07/20 23 Transitional_Care_ Management completed Dany Gurrola MD [address], [place], [address], [employer] [facility] Arthena 05/07/2023 10:22:47 02/13/20 23 Medicare Wellness CPT Code, subsequent completed Renee Torres RN [place] [employer] [facility] [employer] [facility] 02/12/2023 15:45:44 12/19/19 21 Most Recent Bone Density completed Not Available [facility] 11/12/2022 04:42:06 12/04/19 21 Date of Last Colonoscopy completed Not Available [facility] 11/12/2022 04:42:06 04/26/20 20 Dilation and curettage completed Not Available [facility] 11/12/2022 04:42:10 Ther radiology tx plng smpl completed Not Available [facility] 11/12/2022 04:42:10 Tubal Ligation completed Not Available [facility] 11/12/2022 04:42:10 section completed Not Available [facility] 11/12/2022 04:42:10 Cataract Surgery completed BHUPINDER Guerrero [employer] 08/04/2023 09:20:48 Imaging Results Imaging Date Name Status LastModified by Organization Details LastModified Time 07/29/2024 imaging/diagnostic result active [facility] [address], [place], [address], 07/29/2024 11:10:21 06/23/2024 complete PFT w/ post bronchodilator spirometry* completed [facility] [address], [place], [address], 08/02/2024 11:16:42 Procedure Notes None recorded. Medical Equipment None Reported. Allergies Allergen ID Allergen Name Allergen Category Reaction Reaction Severity Criticality Documentation Date Start Date Code Code System Note Provider Name and Address Organization Details Recorded Time 45998 glyburide medicatio n rash Not available Not available 11/02/2024 4815 RxNorm Arnaud Smith MD [address] [facility], [facility] [address], [place], [address], [employer] 5 09:03:52 8895 spinach extract food Not available Not available Not available 11/12/2022 02780 76 RxNorm Not Available [facility] 3 05:06:45 8896 prednison e medicatio n rash Not available Not available 11/12/2022 8640 RxNorm Arnaud Smith MD [address] [facility], [facility] [address], [place], [address], [employer] 5 09:13:25 8899 omeprazol e medicatio n nausea Not available Not available 11/12/20222018 7646 RxNorm Not Available [facility] 3 05:06:45 8901 olive extract food,medi cation Not available Not available Not available 11/12/2022 16073 UNK Not Available [facility] 3 05:06:45 8902 cultivate d mushroom extract food Not available Not available Not available 11/12/2022 41456 17 RxNorm Not Available [facility] 3 05:06:45 8904 metformin medicatio n Not available Not available Not available 11/12/2022 6809 RxNorm Not Available [facility] 3 05:06:45 8906 Glucophag e medicatio n Not available Not available Not available 11/12/2022 56106 7 RxNorm Not Available [facility] 3 05:06:45 Medications Name Sig Start Date [...] 1 TABLET BY MOUTH THREE TIMES DAILY 11/22 completed Not Available Not Available Not [...] glipmepe ride on 04/02/20 20Stoppe d by [facility]-Dr. Nam Nunez Not Available Not Available [...] e Short Pen Needle 31 gauge x /16 10/27 completed Not Available Not Available Not Available [...] Updated DateTime 4 165.1 cm 41.8 kg/m2 363407. 68 g 89 /min 14 /min 98 % 98 % 147 mm[Hg] 70 mm[Hg] Angelica [place]LIN [place] [employer] [facility] 4 09:43:31 Date Recorded Body height Body mass index (BMI) Body weight Body temperature Heart rate Oxygen saturation Oxygen saturation in Arterial blood by Pulse oximetry Systolic blood pressure Diastolic blood pressure Provider Name and Address Organization Details Last Updated DateTime 4 165.1 cm 40.9 kg/m2 482340. 72 g 98.6 [degF] 72 /min 99 % 99 % 130 mm[Hg] 70 mm[Hg] Tammy Lopez MA [facility] [employer] [facility] 4 08:52:24 Date Recorded Heart rate Respiratory rate Provider N vanessa and Address Organization Details Last Updated DateTime 08/03/2024 72 /min 15 /min Arnaud Smith MD [address], [place], [address], [facility] [employer] [facility] 08/03/2024 09:27:11 Date Recorded Body height Body mass index (BMI) Body weight Body temperature Heart rate Systolic blood pressure Diastolic blood pressure Provider Name and Address Organization Details Last Updated DateTime 5 165.1 cm 42.9 kg/m2 154623. 83 g 97.6 [degF] 78 /min 144 mm[Hg] 80 mm[Hg] BHUPINDER Guerrero [facility] [employer] [facility] 5 15:57:57 Date Recorded Body height Body mass index (BMI) Body weight Heart rate Respiratory rate Oxygen saturation Oxygen saturation in Arterial blood by Pulse oximetry Systolic blood pressure Diastolic blood pressure Provider Name and Address Organization Details Last Updated DateTime 5 165.1 cm 42.9 kg/m2 400934. 83 g 76 /min 14 /min 98 % 98 % 130 mm[Hg] 72 mm[Hg] Angelica Olivarez [facility] [employer] [facility] 5 10:22:53 Date Recorded Body height Body mass index (BMI) Body weight Body temperature Heart rate Oxygen saturation Oxygen saturation in Arterial blood by Pulse oximetry Systolic blood pressure Diastolic blood pressure Provider Name and Address Organization Details Last Updated DateTime 5 165.1 cm 41.6 kg/m2 203100. 37 g 98.5 [degF] 75 /min 99 % 99 % 126 mm[Hg] 64 mm[Hg] Sherly Lance MA [facility] [employer] [facility] 5 08:38:34 Date Recorded Heart rate Respiratory rate Provider N vanessa and Address Organization Details Last Updated DateTime 11/02/2024 75 /min 15 /min Arnaud Smith MD [address], [place], [address], [facility] 11/02/2024 09:05:17 Social History Question Answer Notes LastModified by Organization Details LastModified Time Tobacco Smoking Status Former Smoker quit 2002 Not Available [employer] 11/12/2022 04:15:26 Do You Have An Advance Directive? No MIGRATION.030 [id number] Information not available 11/12/2022 What Is Your Level Of Alcohol Consumption? None MIGRATION.030 051125 Information not available 11/12/2022 Are You Blind Or Do You Have Difficulty Seeing? No MIGRATION.030 [id number] Information not available 11/12/2022 What Is Your Level Of Caffeine Consumption? Occasional MIGRATION.030 [id number] Information not available 11/12/2022 How Much Tobacco Do You Chew? None MIGRATION.030 [id number] Information not available 11/12/2022 In The 14 Days Before Symptom Onset, Have You Had Close Contact With A Laboratory-conf irmed COVID-19 While That Case Was Ill? No MIGRATION.030 [id number] Information not available 11/12/2022 In The 14 Days Before Symptom Onset, Have You Had Close Contact With A Person Who Is Under Investigation For COVID-19 While That Person Was Ill? No MIGRATION.030 014136 Information not available 11/12/2022 Are You Currently Employed? No Information not available 12/09/2022 Are You Deaf Or Do You Have Serious Difficulty Hearing? Yes Wears Bilateral Hearing Aids Information not available 05/17/2024 What Type Of Diet Are You Following? REGULAR MIGRATION.030 [id number] Information not available 11/12/2022 Which Illicit Or Recreational Drugs Have You Used? None MIGRATION.030 [id number] Information not available 11/12/2022 Do You Or Have You Ever Used E-cigarettes Or Vape? Never Used Electronic Cigarettes MIGRATION.030 850159 Information not available 11/12/2022 What Is The Highest Grade Or Level Of School You Have Completed Or The Highest Degree You Have Received? [id number] MIGRATION.030 989052 Information not available 11/12/2022 Do You Have An Electrostatic Air Filter? No Information not available 12/16/2022 What Is Your Occupation? Retired MIGRATION.030 [id number] Information not available 11/12/2022 How Many Days Of Moderate To Strenuous Exercise, Like A Brisk Walk, Did You Do In The Last 7 Days? 0 [email or web address] Information not available 05/17/2024 Have You Been Exposed To Chemicals Or Toxins? No Not That Aware Of Information not available 11/02/2024 Have There Been Any Changes To Your Family Or Social Situation? No Information not available 12/09/2022 What Is The Fluoride Status Of Your Home? Unknown MIGRATION.0301 [id number] Information not available 11/12/2022 When Did You Quit Smoking? 16+yearssincelast cigarette MIGRATION.0301 [id number] Information not available 11/12/2022 Are There Any Guns Present In Your Home? No MIGRATION.0301 [id number] Information not available 11/12/2022 Do You Have A Humidifier? No Information not available 12/16/2022 Do You Use Insect Repellent Routinely? No MIGRATION.0301 [id number] Information not available 11/12/2022 [facility] MIGRATION.0301 [id number] Information not available 11/12/2022 Presence Of Domestic Violence No [email or web address] Information not available 05/17/2024 Guns Present In The Home? No [email or web address] Information not available 05/17/2024 Are You Able To Care For Yourself? Yes Information not available 05/17/2024 Are You Blind Or Do Yo Have Difficulty Seeing? No [email or web address] Information not available 05/17/2024 Are You Deaf Or Do You Have Serious Difficulty Hearing? Yes Wears Bilateral Heraing Aids. Information not available 05/17/2024 General Stress Level? Moderate Information not available 05/17/2024 Live Alone Of With Others? With Others [email or web address] Information not available 05/17/2024 Do You Have A Medical Power Of System Architect? No MIGRATION.0301 [id number] Information not available 11/12/2022 Do You Have Moisture Problems In Your Home? No Information not available 12/16/2022 What Was The Date Of Your Most Recent Tobacco Screening? 11/02/2024 Information not available 11/02/2024 How Many Children Do You Have? 2 1 Living. Son . [email or web address] Information not available 05/17/2024 Do You Have Any Pets? No MIGRATION.0301 [id number] Information not available 11/12/2022 Do You Use Protection During Sex? No [email or web address] Information not available 05/17/2024 What Is Your Relationship Status? MIGRATION.0301 901126 Information not available 11/12/2022 Do You Use Your Seat Belt Or Car Seat Routinely? Yes [email or web address] Information not available 05/17/2024 Are You Sexually Active? No [email or web address] Information not available 05/17/2024 Do You Have Smoke And Carbon Monoxide Detectors In Your Home? Yes [email or web address] Information not available 05/17/2024 Are You Passively Exposed To Smoke? No MIGRATION.0301 [id number] Information not available 11/12/2022 Do You Or Have You Ever Used Smokeless Tobacco? Never Used Smokeless Tobacco MIGRATION.0301 708622 Information not available 11/12/2022 Are There Any Smokers In Your House? No MIGRATION.0301 208543 Information not available 11/12/2022 What Types Of Sporting Activities Do You Participate In? None [email or web address] Information not available 05/17/2024 Do You Feel Stressed (tense, Restless, Nervous, Or Anxious, Or Unable To Sleep At Night)? [id number] MIGRATION.0301 [id number] Information not available 11/12/2022 Do You Use Any Illicit Or Recreational Drugs? No MIGRATION.0301 940744 Information not available 11/12/2022 Do You Use Sunscreen Routinely? No MIGRATION.0301 027228 Information not available 11/12/2022 Has Tobacco Cessation Counseling Been Provided? No [email or web address] Information not available 05/17/2024 Have You Recently Traveled Abroad? No MIGRATION.0301 [id number] Information not available 11/12/2022 Do You Have Any Dietary Restrictions? No MIGRATION.0301 406232 Information not available 11/12/2022 Do You Or Have You Ever Used Any Other Forms Of Tobacco Or Nicotine? No MIGRATION.0301 907902 Information not available 11/12/2022 Sex: Female Functional Status Question Answer Note LastModified by Organizat ion Details LastModified Time Do you have difficulty walking or climbing stairs? Yes Uses cane [email or web address] Information not available 05/17/2024 Do you have transportation difficulties? No MIGRATION.062240 3174 Information not available 11/12/2022 Are you able to walk? [email or web address] Christofer avilez Information not available 05/17/2024 Do you have difficulty doing errands alone? No [id number] Information not available 11/12/2022 Are you able to care for yourself? Yes [id number] Information not available 11/12/2022 Do you have difficulty dressing or bathing? No [id number] Information not available 11/12/2022 What is your exercise level? None [id number] Information not available 11/12/2022 Mental Status Question Answer Note LastModified by Organizat ion Details LastModified Time Do you have difficulty concentrating, remembering or making decisions? No [id number] Information not available 11/12/2022 Family History Relationship Description Onset Age of this Age Resolved Age Notes LastModified by Organization Details LastModified Time Father Heart disease [id number] Not available 11/12/2022 04:42:12 Mother Diabetes mellitus [id number] Not available 11/12/2022 04:42:12 Mother Benign essential hypertension [id number] Not available 11/12/2022 04:42:12 Sister Diabetes mellitus MIGRATION.923 [id number] Not available 11/12/2022 04:42:13 Sister Asthma MIGRATION.[id number] Not available 11/12/2022 04:42:13 Sister Heart disease deceas ed MIGRATION.320 [id number] Not available 11/12/2022 04:42:13 Sister Kidney disease MIGRATION.555 [id number] Not available 11/12/2022 04:42:13 Brother Diabetes mellitus MIGRATION.966 [id number] Not available 11/12/2022 04:42:13 Brother Malignant neoplasm of skin MIGRATION.[id number] [id number] Not available 11/12/2022 04:42:13 Unspecified Relation Arthritis [email or web address] Not available 023 11:03:00 Sister Benign essential hypertension [email or web address] Not available 11:03:11 Brother Benign essential hypertension [email or web address] Not available 11:03:14 Medical History Condition Response NERVE DISEASE N BLINDNESS N RHEUMATIC FEVER N KIDNEY STONES N BLADDER PROBLEMS N MRSA N OTHER # 1 Y POLIO N LUNG DISEASE/DISORDER N HISTORY OF DRUG ABUSE N RADIATION / CHEMOTHERAPY N COPD N Other # 2 N BLOOD DISEASES N EAR OR HEARING PROBLEMS N MUMPS N SHINGLES N BOWEL PROBLEMS Y DEPRESSION (INCLUDING POST ) N STROKE/TIA N ULCERS N BENIGN PROSTATIC HYPERPLASIA [...] INSOMNIA N HIGH CHOLESTEROL / HYPERLIPIDEMIA N EYE PROBLEMS Y HYPERTHYROIDISM N EDEMA N CHRONIC PAIN SYNDROME N HYPOTHYROIDISM [...] N ALZHEIMER'S DISEASE N Brain Problems N DEMENTIA N HERPES N SEIZURES/EPILEPSY N HEADACHES/MIGRAINES N VASCULAR DISEASE N PACEMAKER N Blood Disorder N DIZZINESS N HEART DISEASE/HEART PROBLEMS Y KIDNEY DISEASE Y MULTIPLE SCLEROSIS N CANCER: SPECIFY Y CARDIAC ARRHYTHMIA N ATRIAL FIBRILLATION N Gall Stones N PULMONARY EMBOLISM Y AUTOIMMUNE DISEASE N Gynecological History Statement/Question Response Date of Last Mammogram 05/20/2019 Date of Last Colonoscopy 12/03/2020 Desired Control Method Most Recent Bone Density 12/18/2020 Obstetrics History GPAL:G 0 P 0 0 0 0 Immunizations Vaccine Type Date Status Note Provider Antoine taveras and Address Organization Details Recorded Time COVID-19, mRNA, LNP-S, PF, 100 mcg/0.5mL dose or 50 mcg/0.25mL dose completed RASHMI Mosqueda, [place] [employer] [facility] 05/12/2024 13:33:56 COVID-19, mRNA, LNP-S, PF, 100 mcg/0.5mL dose or 50 mcg/0.25mL dose 1 completed Bridger Guidry LPN null, [facility] [facility] 05/12/2024 13:33:56 COVID-19, mRNA, LNP-S, PF, 100 mcg/0.5mL dose or 50 mcg/0.25mL dose 1 completed Not Available [facility] 09/28/2023 05:37:13 COVID-19, mRNA, LNP-S, PF, 100 mcg/0.5mL dose or 50 mcg/0.25mL dose 1 completed Bridger Guidry LPN null, [facility] [facility] 05/12/2024 13:33:56 Influenza, split virus, quadrivalent, preservative 0 completed Not Available [facility] hospital 09/28/2023 05:37:13 Influenza, split virus, quadrivalent, preservative 8 completed Not Available [facility] hospital 09/28/2023 05:37:13 Influenza, high-dose, quadrivalent, PF 2 completed Not Available Critical [facility] hospital 09/28/2023 05:37:13 Influenza, high-dose, quadrivalent, PF 1 completed Not Available [facility] 09/28/2023 05:37:13 Influenza, high-dose, quadrivalent, PF 0 completed Not Available [facility] 09/28/2023 05:37:13 Pneumococcal conjugate PCV 13 8 completed Not Available [facility] 09/28/2023 05:37:13 Influenza, high-dose, trivalent, PF 8 completed Not Available [facility] hospital 09/28/2023 05:37:13 pneumococcal polysaccharide PPV23 4 completed Not Available Critical access hospital 09/28/2023 05:37:13 Influenza, split virus, trivalent, preservative 4 completed Bridger Guidry LPN null, [facility] [employer] [facility] 05/12/2024 13:33:56 Influenza, high-dose, quadrivalent, PF 3 completed BHUPINDER Guerrero, [place] - [facility] 08/04/2023 09:46:04 Past Encounters Encounter ID Performer Location Encounter Start Date Encounter Closed Date Diagnosis/Indication Diagnosis SNOMED-CT Code Diagnosis ICD10 Code Diagnosis Note [id number] [facility] Internal [facility] [address] [facility] [address] [place] [address] 11/22/2020 00:00:00 11/22/2020 11:45:22 [id number] [facility] [address] [facility] [address] [place] [address] 12/20/2020 00:00:00 05/15/2021 17:54:18 [id number] _ATHENA_M IGRATION_ DEFAULT_1 _1 , 01/24/2021 00:00:00 01/24/2021 10:17:19 [id number] [facility] Pulmon[facility] [address] [place] [address] 03/04/2021 00:00:00 03/04/2021 13:22:53 [id number] _ATHENA_M IGRATION_ DEFAULT_1 _1 , 06/07/2021 00:00:00 06/09/2021 19:47:51 [id number] _ATHENA_M IGRATION_ DEFAULT_1 _1 , 07/11/2021 00:00:00 07/11/2021 09:49:21 [id number] [facility] [address] [facility] [address] [place] [address] 07/16/2021 00:00:00 07/17/2021 16:55:42 [id number] [facility] [address] [facility] [address] [place] [address] 11/12/2021 00:00:00 11/12/2021 09:38:05 [id number] [facility] General Surgery [address] [place], [place] [address]., [facility] [address] [place] [address] 11/21/2021 00:00:00 11/21/2021 13:33:26 [id number] _ATHENA_M IGRATION_ DEFAULT_1 _1 , 12/06/2021 00:00:00 12/08/2021 14:58:36 [id number] [facility] [address] [place] [address], [address] [address] 12/16/2021 00:00:00 12/16/2021 16:19:54 [id number] _ATHENA_M IGRATION_ DEFAULT_1 _1 , 01/09/2022 00:00:00 01/09/2022 10:21:00 [id number] [facility] Internal Med [address], [address] [address] 04/22/2022 00:00:00 04/22/2022 16:46:06 [id number] [facility] Internal Med [facility] [address] [place] [address], [address] [address] 08/12/2022 00:00:00 08/12/2022 09:45:40 [id number] [facility] [address] [place] [address] 09/18/2022 00:00:00 09/18/2022 13:38:31 [id number] Dany acosta MD [facility] Internal Med [facility] [address] [place] [address], [address] [address] 12/09/2022 08:51:09 12/09/2022 09:43:11 Screening - NAD [id number] Z13.9 C-scope: 07/03/17, Next in 10 yearsC-sco pe: 12/03/2020 : Dr Crawford Mammogram: 03/27/17: Now yearlyMamm ogram: 05/20/19: NegMammogr am: 06/18/2020 : NegMammogr am: 08/02/2021 : Neg, orderedMam mogram: 08/04/2022 : Neg PAP: Did see Ivette LUCIANO 05/18/19Dr Loryford: 05/07/2020 : 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 DEXA: 09/01/18: NegDEXA: 12/18/2020 : Neg Do yearly flu shot 07/24/2020 UTD on pneumovax 08/31/18, 08/08/14Sh ould do Tdap and Shingles vaccineUTD on COVID 19 vaccine RTC in 2 monthsDo labsER if worseShe did verbalize her understand ing of the above Hyperlipidemia 26410450 E78.5 On rosuvastat in 10mg dailyGet labs 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 038200190 E11.9 On glimeperid e 1mg bidOn trescibaOn ozempicDoe s see eye MDSees podiatry last 12/06/[address] Marie, next 09/18/2022 Hepatomegaly 94669164 R1 6.[address] A/P 08/20/2021 US liver: 11/22/2021 : Hepatomega ly: See case 11/27/2021 Needs to see GI Essential hypertension 89309262 I10 On lasix 40mgOn lisinopril 20mg dailyOn metoprolol 25mg bidShould not be on lisinopril 40mg bid, given by Dr Shailesh Lama quinapril 40mg bid given by Dr Cash IJJohn [facility] , f/u in 6 months Chronic ki dney disease 448468964 N18.[address] Cash the kidney specialist On vit d weeklyOn allopurino Jordana calcitriol Does well Sleep apnea 14472894 G47 .30 On CPAPSees Nae Jacques CONTROL PANEL OPERATOR last OV 03/04/2021 Dr Smith 12/16/2021 , next 12/16/2022 Goiter 9956481 E04.9 US thyroid 09/01/18, neg ordred by Dr Mancia eythyrox 25mcgs daily OV 12/20/2020 :US thyroid 12/18/2020 : Multiple sub centimeter thyroid nodules, Dr Marie monitors OV 11/12/2021 US thyroid 08/02/2021 Dr Marie Heart murmur 60063841 R0 1.[address] Cash Epigastric pain 19298478 R10.13 08/20/2020 : Dr Crawford EGD: Neg On PPIDoes well Pulmonary embolism [address]28 [address] chest 11/09/18: Iliana Jacques CONTROL PANEL OPERATOR On xarelto Allergic rhinitis 669327 04 J30.9 Has rhinitis, no fevers or chills, no chest pain or SOBShe has used the flonase and has helped her Abnormal u terine bleeding 1461593080 9100 N93.9 Addendum: 04/04/2020 :Seen in the ER at [facility] and [facility] for the bleedingS/ p US pelvic 03/29/2020 Now to get hysterosco py DNC by Dr Quezada/p CBC: 04/04/2020 : H/H 9.1/30.4Sh e is cleared for this by [facility] Dr Cash and is cleared for this [...] Stringer radiation oncologyAl so sees Dr Sheehan kiln placer onco Sees Dr Ortiz also OV 11/22/2020 :Keep apts with Dr Fairbanks, and Dr Stringer and Dr Sheeahn and Dr Ortiz OV 12/20/2020 :Keep apts [...] :Keep apts with Dr Ortiz Abdominal pain 12706578 R10.9 S/p ER visit on 11/17/2020 S/P CT A/P 11/17/2020 : Large cecal mass Is to see Dr Crawford will need c-scope Also should see Dr Angel AYON Concern for SBO Get another CT A/P [...] 12/09/2022 :Needs to see Dr Ortiz Asthma [id number] J45.90 9 On breoOn proair She is doing well todaySees Nae Ingram CONTROL PANEL OPERATOR and Dr Smith Obesity 189966786 E66.9 Diet and exercise, noted by pulmonary Obstructiv e sleep apnea syndrome 00324295 G47.33 On CPAPSees Nae Jacques CONTROL PANEL OPERATOR 03/04/[address] Smith 12/16/2021 , next 12/16/2022 Anemia 226065818 D64.9 07/30/2020 : Mamta Hooker NP, hematology , f/u in 3 months, 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 Keep apt with Dr Ortiz Cholecystitis 75999142 K 81.[address] A/P 08/20/2021 Dr Sheikh 11/21/2021 Deep venou s thrombosis of lower extremity 705106951 I82.409 US LE: 04/01/2022 : Dr Ortiz: R femoral DVT Keep apt with Dr Ortiz on 05/12/2022 , did speak personally on 04/21/2022 , was told to increase xarelto to 20mg daily Trigger fi nger of right hand [id number] 4446991 M65.30 R MF, there is a trigger finger, get a referral to Dr Gallegos hand orthoRefer red again [id number] Arnaud Smith MD [place] [address] 12/16/2022 10:04:42 12/17/2022 08:40:17 Obstructive sleep apnea syndrome 24706953 G47.33 [id number] Dany acosta MD [facility] Internal Med [place] [address] 1 01/20/2023 09:15:56 01/20/2023 09:53:06 Screening - NAD 880892690 Z13.9 C-scope: 07/03/17, Next in 10 yearsC-sco pe: 12/03/2020 : Dr Crawford Mammogram: 03/27/17: Now yearlyMamm ogram: 05/20/19: NegMammogr am: 06/18/2020 : NegMammogr am: 08/02/2021 : Neg, orderedMam mogram: 08/04/2022 : Neg PAP: Did see Ivette CONTROL PANEL OPERATOR 05/18/19Dr Panda: 05/07/2020 : 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 DEXA: 09/01/18: NegDEXA: 12/18/2020 : Neg Do yearly flu shot 07/24/2020 UTD on pneumovax 08/31/18, 08/08/14Sh ould do Tdap and Shingles vaccineUTD on COVID 19 vaccine RTC in 2 monthsDo labsER if worseShe did verbalize her understand ing of the above Hyperlipidemia 59308693 E78.5 On rosuvastat in 10mg dailyGet labs 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 817975853 E11.9 On glimeperid e 1mg bidOn trescibaOn ozempicDoe s see eye MDSees podiatry last 12/06/[address] Marie Hepatomegaly 11246526 R1 6.[address] A/P 08/20/2021 US liver: 11/22/2021 : Hepatomega ly: See case 11/27/2021 Needs to see GI Essential hypertension 17365100 I10 On lasix 40mgOn lisinopril 20mg daily, will decrease to 10mg daily 01/20/2023 , keep BP logsOn metoprolol 25mg bidShould not be on lisinopril 40mg bid, given by Dr Shailesh Lama quinapril 40mg bid given by Dr Shailesh Lama the xareltoDoe s [facility] Dr Cash 07/29/2022 , f/u in 6 months Chronic ki dney disease 866600337 N18.[address] Cash the kidney specialist On vit d weeklyOn allopurino Jordana calcitriol Does well Sleep apnea 67074648 G47 .30 On CPAPSees Nae Jacques CONTROL PANEL OPERATOR last OV 03/04/2021 Dr Smith 12/16/2021 , next 12/16/2022 Goiter 1930023 E04.9 US thyroid 09/01/18, neg ordred by Dr Mancia eythyrox 25mcgs daily OV 12/20/2020 :US thyroid 12/18/2020 : Multiple sub centimeter thyroid nodules, Dr Marie monitors OV 11/12/2021 US thyroid 08/02/2021 Dr Marie OV 01/20/2023 :Dr Marie 09/18/2022 Heart murmur 66112090 R0 1.[address] aCsh Epigastric pain 12264472 R10.13 08/20/2020 : Dr Crawford EGD: Neg On PPIDoes well Pulmonary embolism [address] chest 11/09/18: PESees Nae Jacques CONTROL PANEL OPERATOR On xarelto Allergic rhinitis 309232 04 J30.9 Has rhinitis, no fevers or chills, no chest pain or SOBShe has used the flonase and has helped her Abnormal u terine bleeding 2026288812 9100 N93.9 Addendum: 04/04/2020 :Seen in the ER at [facility] and [facility] for the bleedingS/ p US pelvic 03/29/2020 Now to get hysterosco py DNC by Dr Quezada/p CBC: 04/04/2020 : H/H 9.1/30.4Sh e is cleared for this by [facility] Dr Cash and is cleared for this [...] Stringer radiation oncologyAl so sees Dr Sheehan kiln placer onco Sees Dr Ortiz also OV 11/22/2020 [...] weeks, f/u in 6 weeks Abdominal pain 43293673 R10.9 S/p ER visit on 11/17/2020 S/P [...] Ortiz OV 01/20/2023 :Sees Dr Ortiz Asthma 573673389 J45.90 9 On breoOn proair She is doing well todaySees Nae Ingram CONTROL PANEL OPERATOR and Dr Smith Obesity 475584538 E66.9 Diet and exercise, noted by pulmonary Obstructiv e sleep apnea syndrome 85370825 G47.33 On CPAPSees Nae Jacques CONTROL PANEL OPERATOR 03/04/[address] Smith 12/16/2022 Anemia 870875227 D64.9 07/30/2020 : Mamta Hooker NP, hematology , f/u in 3 months, 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 Keep apt with Dr Ortiz Cholecystitis 26322977 K 81.[address] A/P 08/20/2021 Dr Sheikh 11/21/2021 Deep venou s thrombosis of lower extremity 234765424 I82.409 US LE: 04/01/2022 : Dr Ortiz: R femoral DVT Keep apt with Dr Ortiz on 05/12/2022 , did speak personally on 04/21/2022 , was told to increase xarelto to 20mg daily Trigger fi nger of right hand 8339608189 3585642 M65.30 R MF, there is a trigger finger, get a referral to Dr Gallegos hand orthoRefer red again [id number] Dany acosta MD [facility] Internal Med [facility] [address] [facility], [address] [place] [address] 02/12/2023 15:17:25 02/12/2023 16:01:32 Transition of care [id number] 105 Z75.8 Transition Care Management Questionna ireDate of Discharge 02/03/23Adm ission Date: 01/31/23Dat e of Contact: 1st attempt: 02/05/23, 2nd attempt: 02/06/23 (02/10/23 - spoke with patient)Re ason for Admission: [facility] Facility Type inpatient acute care [facility] Diagnosis( es): Noninfecti ve gastroente ritis, UTIDiagnos tic Test(s) Performed: CT (abdomen/p raquel), Other: lab work, urinalysis . upper endoscopyD id your hospital physician prescribe any new medicines upon discharge? yes: Cipro, Metronidaz oleDid you picker packer your prescripti on(s) and begin taking them [...] s) Rudy Berumen RN Screening - NAD 54174154 3 Z13.9 C-scope: 07/03/17, Next in 10 [...] her understand ing of the above Hyperlipidemia 57868439 E78.5 On rosuvastat in 10mg dailyGet labs 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 120021773 E11.9 On glimeperid e 1mg bidOn trescibaOn ozempicDoe s see eye MDSees podiatry last 12/06/[address] Marie Hepatomegaly 10454154 R1 6.[address] A/P 08/20/2021 US liver: 11/22/2021 : Hepatomega ly: See case 11/27/2021 Needs to see GI Essential hypertension 23835011 I10 On lasix 40mgOn lisinopril 10mg 1/2 tab dailyOn metoprolol 25mg 1/2 tab bidShould not be on lisinopril 40mg bid, given by Dr Shailesh Skinner on quinapril 40mg bid given by Dr Shailesh Lama the xareltoDoe s [facility] Dr Cash 07/29/2022 , f/u in 6 months Chronic ki dney disease 534312716 N18.[address] Cash the kidney specialist On vit d weeklyOn allopurino Jordana calcitriol Does well Sleep apnea 27122689 G47 .30 On CPAPSees Nae Jacques CONTROL PANEL OPERATOR last OV 03/04/2021 Dr Smith 12/16/2021 , 12/16/2022 , next 12/16/2023 Goiter 4252619 E04.9 US thyroid 09/01/18, neg ordred by Dr Mancia eythyrox 25mcgs daily OV 12/20/2020 :US thyroid 12/18/2020 : Multiple sub centimeter thyroid nodules, Dr Marie monitors OV 11/12/2021 US thyroid 08/02/2021 Dr Marie OV 01/20/2023 :Dr Marie 09/18/2022 OV 02/12/2023 :Sees Dr Marie Heart murmur 16115664 R0 1.1 Sees [facility] Dr Cash Epigastric pain 71209983 R10.13 08/20/2020 : Dr Crawford EGD: Neg On PPIDoes well Pulmonary embolism [address] chest 11/09/18: Iliana Nae Jacques CONTROL PANEL OPERATOR On xarelto Allergic rhinitis 742475 04 J30.9 Has rhinitis, no fevers or chills, no chest pain or SOBShe has used the flonase and has helped her Abnormal u terine bleeding 9521924876 9100 N93.9 Addendum: 04/04/2020 :Seen in the ER at [facility] and [facility] for the bleedingS/ p US pelvic 03/29/2020 Now to get hysterosco py DNC by Dr Quezada/patrizia CBC: 04/04/2020 : H/H 9.10/13.4Sh e is cleared for this by [facility] Dr Cash and is cleared for this [...] Stringer radiation oncologyAl so sees Dr Sheehan kiln placer onco Sees Dr Ortiz also OV 11/22/2020 [...] apts with Dr Ortiz OV 01/19/2023 :Dr Otriz 12/11/2022 , started on procrit 20K units 2 weeks, f/u in 6 weeks OV 02/12/2023 :Sees Dr Ortiz Abdominal pain 50611117 R10.9 S/p ER visit on 11/17/2020 S/P [...] : Keep apts with Dr Ortiz Asthma 653853105 J45.90 9 On breoOn proair She is doing well todaySees Nae Ingram CONTROL PANEL OPERATOR and Dr Smith Obesity 132662805 E66.9 Diet and exercise, noted by pulmonary Obstructiv e sleep apnea syndrome 34282599 G47.33 On CPAPSees Nae Jacques CONTROL PANEL OPERATOR 03/04/[address] Smith 12/16/2023 Anemia 137278812 D64.9 07/30/2020 : Mamta Hooker NP, hematology , f/u in 3 months, 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 Keep apt with Dr Ortiz Cholecystitis 46931389 K 81.[address] A/P 08/20/2021 Dr Sheikh 11/21/2021 Deep venou s thrombosis of lower extremity 548793646 I82.409 US LE: 04/01/2022 : Dr Ortiz: R femoral DVT Keep apt with Dr Ortiz on 05/12/2022 , did speak personally on 04/21/2022 , was told to increase xarelto to 20mg daily Trigger fi nger of right hand 7226069337 5787268 M65.30 R MF, there is a trigger finger, get a referral to Dr Gallegos hand orthoRefer red again Gastritis 6540924 K29.70 D/c 01/31-01/13 12/04 for gastritis, UTI, s/p EGD done, now is doing well Adult heal th examination 173204054 Z00.00 Screening for disorder 931024338 Z13.9 [id number] Dany acosta MD [facility] Internal Med [facility] [address] [facility], [address] [place] [address] 03/05/2023 15:01:45 03/05/2023 15:54:29 Screening - NAD 316032311 Z13.9 C-scope: 07/03/17, Next in 10 yearsC-sco [...] her understand ing of the above Hyperlipidemia 55497566 E78.5 On rosuvastat in 10mg dailyGet labs 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 624451889 E11.9 On glimeperid e 1mg bidOn trescibaOn ozempicDoe s see eye MDSees podiatry last 12/06/[address] Marie Hepatomegaly 92084148 R1 6.[address] A/P 08/20/2021 US liver: 11/22/2021 : Hepatomega ly: See case 11/27/2021 Needs to see GI Essential hypertension 35497455 I10 On lasix 40mgOn lisinopril 10mg 1/2 tab dailyOn metoprolol 25mg 1/2 tab bidShould not be on lisinopril 40mg bid, given by Dr Shailesh Skinner on quinapril 40mg bid given by Dr Shailesh Skinner on xareltoDoe s [facility] Dr Cash 07/29/2022 , f/u in 6 months Chronic ki dney disease 036151206 N18.[address] Cash the kidney specialist On vit d weeklyOn allopurino Jordana calcitriol Does well Sleep apnea 46050151 G47 .30 On CPAPSees Nae Jacques CONTROL PANEL OPERATOR last OV 03/04/2021 Dr Smith 12/16/2021 , 12/16/2022 , next 12/16/2023 Goiter 8664389 E04.9 US thyroid 09/01/18, neg ordred by Dr Mancia eythyrox 25mcgs daily OV 12/20/2020 :US thyroid 12/18/2020 : Multiple sub centimeter thyroid nodules, Dr Marie monitors OV 11/12/2021 US thyroid 08/02/2021 Dr Marie OV 01/20/2023 :Dr Marie 09/18/2022 OV 02/12/2023 :Sees Dr Marie OV 03/05/2023 : See Dr Marie Heart murmur 81793230 R0 1.[address] Cash Epigastric pain 32101368 R10.13 08/20/2020 : Dr Crawford EGD: Neg On PPIDoes well Pulmonary embolism [address] chest 11/09/18: Iliana Jacques CONTROL PANEL OPERATOR, referred Not on xarelto Allergic rhinitis 672914 04 J30.9 Has rhinitis, no fevers or chills, no chest pain or SOBShe has used the flonase and has helped her Abnormal u terine bleeding 4082029225 9100 N93.9 Addendum: 04/04/2020 :Seen in the ER at [facility] and [facility] for the bleedingS/ p US pelvic 03/29/2020 Now to get hysterosco py DNC by Dr Quezada/p CBC: 04/04/2020 : H/H 9.10/13.4Sh e is cleared for this by [facility] Dr Cash and is cleared for this [...] Stringer radiation oncologyAl so sees Dr Sheehan kiln placer onco Sees Dr Ortiz also OV 11/22/2020 [...] 03/05/2023 : See Dr Ortiz Abdominal pain 72768613 R10.9 S/p ER visit on 11/17/2020 S/P [...] Coffey 03/05/2023 : See Dr Ortiz Asthma 639535637 J45.90 9 On breoOn proair She is doing well todaySees Nae Ingram CONTROL PANEL OPERATOR and Dr Smith Obesity 427629889 E66.9 Diet and exercise, noted by pulmonary Obstructiv e sleep apnea syndrome 48662539 G47.33 On CPAPSees Nae Jacques CONTROL PANEL OPERATOR 03/04/[address] Smith 12/16/2023 Anemia 736060631 D64.9 07/30/2020 : Mamta Hooker NP, hematology , f/u in 3 months, 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 Keep apt with Dr Ortiz Cholecystitis 89936993 K 81.[address] A/P 08/20/2021 Dr Sheikh 11/21/2021 Deep venou s thrombosis of lower extremity 959086214 I82.409 US LE: 04/01/2022 : Dr Ortiz: R femoral DVT Keep apt with Dr Ortiz on 05/12/2022 , did speak personally on 04/21/2022 , was told to increase xarelto to 20mg daily Trigger fi nger of right hand [id number] 2345872 M65.30 R MF, there is a trigger finger, get a referral to Dr Gallegos hand orthoRefer red again Gastritis 2191523 K29.70 D/c 01/31-01/13 12/04 for gastritis, UTI, s/p EGD done, now is doing well Screening for osteoporosis 575207770 Z13.820 Screening mammography 24 307376 Z12.31 [id number] Zeny Marie MD [facility] [address] [place] [address] 04/17/2023 14:25:37 04/17/2023 15:49:26 Well controlled type 2 diabetes mellitus 601072209 E11.9 a1c 6.9% in range- patient encouraged [...] scale dosing to avoid hypoglycem ia. Hypothyroidism 13327176 E03.9 TFTs in range- continue on LT4 25 mcg daily. Dyslipidemia 950732188 E 78.5 Continue on statin therapy. Spent [...] answered and refills necessary at visit today. [id number] Dany acosta MD [facility] Internal Med [facility] [address] [facility], [place] [address] 05/07/2023 09:46:03 05/07/2023 10:25:25 Transition of care [id number] 105 Z75.8 Facility: [facility] ion Date: 04/24/23Dis charge Date: 04/26/23Dis charge Diagnoses: Obstructiv e sleep apnea syndrome, cholecysti tis, chronic kidney disease stage 3, iron deficiency anemia, acute pulmonary embolism Screening - NAD [id number] 3 Z13.9 C-scope: 07/03/17, Next in 10 yearsC-sco pe: 12/03/2020 : Dr Crawford Mammogram: 03/27/17: Now yearlyMamm ogram: 05/20/19: NegMammogr am: 06/18/2020 : NegMammogr am: 08/02/2021 : Neg, orderedMam mogram: 08/04/2022 : Neg PAP: Did see Ivette LUCIANO 05/18/19Dr [facility]: 05/07/2020 : 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 DEXA: 09/01/18: NegDEXA: 12/18/2020 : Neg Do yearly flu shot 07/24/2020 UTD on pneumovax 08/31/18, 08/08/14Sh ould do Tdap and Shingles vaccineUTD on COVID 19 vaccine RTC in 2 monthsDo labsER if worseShe did verbalize her understand ing of the above Hyperlipidemia 65770387 E78.5 On rosuvastat in 10mg dailyGet labs 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 287730214 E11.9 On glimeperid e 1mg bidOn trescibaOn ozempicDoe s see eye MDSees podiatry last 12/06/[address] Marie Hepatomegaly 13227264 R1 6.[address] A/P 08/20/2021 US liver: 11/22/2021 : Hepatomega ly: See case 11/27/2021 Needs to see GI Essential hypertension 92245408 I10 On lasix 40mgOn lisinopril 10mg 1/2 tab dailyOn metoprolol 25mg 1/2 tab bidShould not be on lisinopril 40mg bid, given by Dr Shailesh Skinner on quinapril 40mg bid given by Dr Shailesh Skinner on xareltoNow on eliquis 5mg bidDoes wellSHV Dr Cash 07/29/2022 , f/u in 6 months Chronic ki dney disease 437856568 N18.[address] Cash the kidney specialist On vit d weeklyOn allopurino Jordana calcitriol Does well Sleep apnea 18124725 G47 .30 On CPAPSees Nae Jacques CONTROL PANEL OPERATOR last OV 03/04/2021 Dr Smith 12/16/2021 , 12/16/2022 , next 12/16/2023 Goiter 2226041 E04.9 US thyroid 09/01/18, neg ordred by Dr Mancia eythyrox 25mcgs daily OV 12/20/2020 :US thyroid 12/18/2020 : Multiple sub centimeter thyroid nodules, Dr Marie monitors OV 11/12/2021 US thyroid 08/02/2021 Dr Marie OV 01/20/2023 :Dr Marie 09/18/2022 OV 02/12/2023 :Sees Dr Marie OV 03/05/2023 : See Dr Marie OV 05/07/2023 : Now will see Dr Mullins, no complaints now Heart murmur 13616641 R0 1.1 Sees [facility] Dr Cash Epigastric pain 60594479 R10.13 08/20/2020 : Dr Crawford EGD: Neg On PPIDoes well Pulmonary embolism [address]33 [address] chest 11/09/18: Iliana Jacques CONTROL PANEL OPERATOR, referred Not on xarelto 04/24/2023 : [facility] ER04/24/20 23 CTA Peng Lindo on eliquis, needs to see Dr Ortiz Allergic rhinitis 739533 04 J30.9 Has rhinitis, no fevers or chills, no chest pain or SOBShe has used the flonase and has helped her Abnormal u terine bleeding 0974920777 9100 N93.9 Addendum: 04/04/2020 :Seen in the ER at [facility] and [facility] for the bleedingS/ p US pelvic 03/29/2020 Now to get hysterosco py DNC by Dr Quezada/p CBC: 04/04/2020 : H/H 9.10/13.4Sh e is cleared for this by [facility] Dr Cash and is cleared for this [...] Stringer radiation oncologyAl so sees Dr Sheehan kiln placer onco Sees Dr Ortiz also OV 11/22/2020 [...] see Dr Ortiz 08/28/2021 OV 11/12/2021 :Dr Ortzi 10/02/2021 OV 04/22/[address] [...] does also see Dr Fairbanks Abdominal pain 03054783 R10.9 S/p ER visit on 11/17/2020 S/P [...] today, will f/u with Dr Ortiz Asthma 569906515 J45.90 9 On breoOn proair She is doing well todaySees Nae Ingram CONTROL PANEL OPERATOR and Dr Sarah Jiménez 184015300 E66.9 Diet and exercise, noted by pulmonary Obstructiv e sleep apnea syndrome 75830026 G47.33 On CPAPSees Nae Jacques NP 03/04/[address] Smith 12/16/2023 Anemia 329575529 D64.9 07/30/2020 : Mamta Hooker, CONTROL PANEL OPERATOR, hematology , f/u in 3 months, 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 Keep apt with Dr Ortiz Cholecystitis 26389328 K 81.[address] A/P 08/20/2021 Dr Sheikh 11/21/2021 Get a referral again to his office Deep venou s thrombosis of lower extremity 775504327 I82.409 US LE: 04/01/2022 : Dr Ortiz: R femoral DVT Keep apt with Dr Ortiz on 05/12/2022 , did speak personally on 04/21/2022 , was told to increase xarelto to 20mg daily OV 05/07/2023 : Now on eliquis Trigger fi nger of right hand [id number] 4186719 M65.30 R MF, there is a trigger finger, get a referral to Dr Gallegos hand orthoRefer red again Gastritis 3442906 K29.70 D/c 01/31-01/13 12/04 for gastritis, UTI, s/p EGD done, now is doing well Screening for osteoporosis 956624771 Z13.820 Screening mammography 24 652035 Z12.31 Vitamin D deficiency 347 91538 E55.9 [id number] Prabhjot Lee DPM [facility] [address], [address] [place] [address] 04/30/2023 10:10:20 04/30/2023 11:31:18 Type 2 diabetes mellitus without complication 620443862 E11.9 Patient educated on neuropathy , diabetes, diabetic diet, and daily foot exams. Patient is to check feet daily for new wounds, blisters, redness to prevent infection and ulceration s to the feet. Patient will return to clinic in 6 months for diabetic foot workup. Peripheral venous insufficiency 38471363 I87.2 recommend compressio n stockingsk eep legs elevated when at restmuscle pumps when at rest to prevent DVT Severe dry skin 62709163 2 L85.3 daily hygiene [id number] Arnaud Smith MD [facility] [address] [place] [address] 0 05/07/2023 10:22:26 05/08/2023 08:07:37 Dyspnea on exertion 34949922 R06.09 R05.9 T78.40XA D89.9 Obstructiv e sleep apnea syndrome 90716831 G47.33 Moderate p ersistent asthma 056326502 J45.40 [id number] Remington hill MD [facility] General Surgery [address] [place] [address] 1 05/21/2023 10:48:15 05/21/2023 12:22:04 Chronic cholecystitis 38579127 K81.1 [id number] Arnaud Smith MD [facility] [address] [place] [address] 0 06/30/2023 10:14:26 07/01/2023 08:34:01 Obstructive sleep apnea syndrome 72151606 G47.33 Moderate p ersistent asthma 128694863 J45.40 [id number] Dany aocsta MD [facility] Internal Med [facility] [address] [place] [address], [address] [address] 08/04/2023 09:09:28 08/04/2023 09:50:12 Transition of care [id number] 105 Z75.8 Facility: [facility] Date: 04/24/23Dis charge Date: 04/26/23Dis charge Diagnoses: Obstructiv e sleep apnea syndrome, cholecysti tis, chronic kidney disease stage 3, iron deficiency anemia, acute pulmonary embolism Screening - NAD 61870204 3 Z13.9 C-scope: 07/03/17, Next in 10 yearsC-sco pe: 12/03/2020 : Dr Crawford Mammogram: 03/27/17: Now yearlyMamm ogram: 05/20/19: NegMammogr am: 06/18/2020 : NegMammogr am: 08/02/2021 : Neg, orderedMam mogram: 08/04/2022 : NegMammogr am: 07/20/2023 : Neg PAP: Did see Ivette CONTROL PANEL OPERATOR 05/18/19Dr Mosqueda: 05/07/2020 : 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 DEXA: 09/01/18: NegDEXA: 12/18/2020 : NegDEXA: 07/20/2023 : Neg Do yearly flu shot 07/24/2020 UTD on pneumovax 08/31/18, 08/08/14Sh ould do Tdap and Shingles vaccineUTD on COVID 19 vaccineCan do RSV vaccine RTC in 4 monthsDo labsER if worseShe did verbalize her understand ing of the above Hyperlipidemia 44170219 E78.5 On rosuvastat in 10mg dailyGet labs 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 142314981 E11.9 On glimeperid e 1mg bidOn tresciba 26U dailyOn ozempicDoe s see eye MDDr Rosa 10/29/[address] Marie Hepatomegaly 60719863 R1 6.[address] A/P 08/20/2021 US liver: 11/22/2021 : Hepatomega ly: See case 11/27/2021 Needs to see GI US abd 06/30/2023 : Hepatomega ly Sees Dr Stinson Essential hypertension 16228255 I10 On lasix 40mgOn lisinopril 20mg daily Dr Cash 07/03/2023 filledOn metoprolol 25mg tab bid Dr Cash [facility] 06/27/2023 filledNot on eliquis 5mg bidShould not be on lisinopril 40mg bid, given by Dr Shailesh Skinner on quinapril 40mg bid given by Dr Shailesh Skinner on xarelto Does wellSHV Dr Cash Chronic ki dney disease 137828726 N18.[address] Cash the kidney specialist 07/07/2023 On vit d weeklyOn allopurino Jordana calcitriol Does well Sleep apnea 43618905 G47 .30 On CPAPSees Nae Jacques CONTROL PANEL OPERATOR last OV 03/04/2021 Dr Smith 12/16/2021 , 12/16/2022 , next 12/16/2023 Goiter 5155617 E04.9 US thyroid 09/01/18, neg ordred by [...] will refer to Dr Varela Heart murmur 81970613 R0 1.1 Sees [facility] Dr Cash last OV 05/26/2023 Epigastric pain 55332142 R10.13 08/20/2020 : Dr Crawford EGD: Neg On PPIDoes well Pulmonary embolism [address] chest 11/09/18: PESelmer Jacques CONTROL PANEL OPERATOR, referred Not on xarelto 04/24/2023 : [facility] ER/08/03 23 CTA R PE Allergic rhinitis 881366 04 J30.9 Has rhinitis, no fevers or chills, no chest pain or SOBShe has used the flonase and has helped her Abnormal u terine bleeding 9886723010 9100 N93.9 Addendum: 04/04/2020 :Seen in the ER at [facility] and [facility] for the bleedingS/ p US pelvic 03/29/2020 Now to get hysterosco py DNC by Dr Quezada/p CBC: 04/04/2020 : H/H 9.1/30.4Sh e is cleared for this by [facility] Dr Cash and is cleared for this [...] Stringer radiation oncologyAl so sees Dr Sheehan kiln placer onco Sees Dr Ortiz also OV 11/22/2020 [...] 08/04/2023 : Dr Fairbanks 06/19/2023 Abdominal pain 52264379 R10.9 S/p ER visit on 11/17/2020 S/P [...] 05/20/2023 , f/u in one year Asthma 521541664 J45.90 9 On breoOn proair She is doing well todaySees Nae Ingram CONTROL PANEL OPERATOR and Dr Smith Obesity 896905981 E66.9 Diet and exercise, noted by pulmonary Obstructiv e sleep apnea syndrome 23522616 G47.33 On CPAPSees Nae Jacques CONTROL PANEL OPERATOR 03/04/[address] Smith 12/16/2023 Anemia 186849463 D64.9 07/30/2020 : Mamta Hooker NP, hematology , f/u in 3 months, 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 Keep apt with Dr Ortiz Cholecystitis 69260460 K 81.[address] A/P 08/20/2021 Dr Sheikh 11/21/2021 Get a referral again to his office Dr Sheikh 05/21/2023 : F/u PRN Deep venou s thrombosis of lower extremity 034079140 I82.409 US LE: 04/01/2022 : Dr Ortiz: R femoral DVT Keep apt with Dr Ortiz on 05/12/2022 , did speak personally on 04/21/2022 , was told to increase xarelto to 20mg daily OV 05/07/2023 : Now on eliquis Trigger fi nger of right hand [id number] 6273520 M65.30 R MF, there is a trigger finger, get a referral to Dr Gallegos hand orthoRefer red again Gastritis 9295271 K29.70 D/c 01/31-01/13 12/04 for gastritis, UTI, s/p EGD done, now is doing well Vitamin D deficiency 347 24526 E55.9 Administra tion of influenza vaccine 98964051 Z23 [id number] Dany acosta MD [facility] [address] [facility], [facility] [address] [place] [address] 09/29/2023 10:26:52 09/29/2023 11:01:56 Screening - NAD 935011528 Z13.9 C-scope: 07/03/17, Next in 10 yearsC-sco [...] her understand ing of the above Hyperlipidemia 03863177 E78.5 On rosuvastat in 10mg dailyGet labs 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 581126551 E11.9 On glimeperid e 1mg bidOn tresciba 26U dailyOn ozempicDoe s see eye MDDr Rosa 10/29/[address] Marie Hepatomegaly 47059278 R1 6.[address] A/P 08/20/2021 US liver: 11/22/2021 : Hepatomega ly: See case 11/27/2021 Needs to see GI US abd 06/30/2023 : Hepatomega ly Sees Dr Stinson Essential hypertension 76001114 I10 On lasix 40mgOn lisinopril 20mg daily Dr Cash 07/03/2023 filledOn metoprolol 25mg tab bid Dr Cash [facility] 06/27/2023 filledNot on eliquis 5mg bidShould not be on lisinopril 40mg bid, given by Dr Shailesh Skinner on quinapril 40mg bid given by Dr Shailesh Skinner on xarelto Does wellSLHV Dr Cash Chronic ki dney disease 194344229 N18.[address] Cash the kidney specialist 07/07/2023 On vit d weeklyOn allopurino Jordana calcitriol Does well Sleep apnea 80907160 G47 .30 On CPAPSees Nae Jacques CONTROL PANEL OPERATOR last OV 03/04/2021 Dr Smith 12/16/2021 , 12/16/2022 , next 12/16/2023 Goiter 8013951 E04.9 US thyroid 09/01/18, neg ordred by [...] dailyNeeds to see Dr Varela Heart murmur 49166057 R0 1.[address] [facility] [address] Cash last OV 05/26/2023 Epigastric pain 60008654 R10.13 08/20/2020 : Dr Crawford EGD: Neg On PPIDoes well Pulmonary embolism [address] chest 11/09/18: Iliana Jacques CONTROL PANEL OPERATOR, referred Not on xarelto 04/24/2023 : [facility] ER04/24/20 23 CTA R PE Allergic rhinitis 786826 04 J30.9 Has rhinitis, no fevers or chills, no chest pain or SOBShe has used the flonase and has helped her Abnormal u terine bleeding 3210996673 9100 N93.9 Addendum: 04/04/2020 :Seen in the ER at [facility] and [facility] for the bleedingS/ p US pelvic 03/29/2020 Now to get hysterosco py DNC by Dr Quezada/patrizia CBC: 04/04/2020 : H/H 9.10/13.4Sh e is cleared for this by [facility] Dr Cash and is cleared for this [...] Stringer radiation oncologyAl so sees Dr Sheehan kiln placer onco Sees Dr Ortiz also OV 11/22/2020 [...] and Dr Ortiz next week Abdominal pain 65477611 R10.9 S/p ER visit on 11/17/2020 S/P [...] , f/u in one year OV 09/29/2022 :[facility] ER 08/26/2024 CT A/P 08/26/2024 : EnteritisD oes well nowIs now taking Ozempic 0.5mg weekly instead of 1mg weekly Asthma 948897726 J45.90 9 On breoOn proair She is doing well todaySees Nae Ingram CONTROL PANEL OPERATOR and Dr Smith Obesity 747012311 E66.9 Diet and exercise, noted by pulmonary Obstructiv e sleep apnea syndrome 77932226 G47.33 On CPAPSees Nae Jacques CONTROL PANEL OPERATOR 03/04/[address] Smith 12/16/2023 Anemia 457216667 D64.9 07/30/2020 : Mamta Hooker, MUSTAPHA, hematology , f/u in 3 months, 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 Keep apt with Dr Ortiz Cholecystitis 49319724 K 81.[address] A/P 08/20/2021 Dr Sheikh 11/21/2021 Get a referral again to his office Dr Sheikh 05/21/2023 : F/u PRN Deep venou s thrombosis of lower extremity 312402182 I82.409 US LE: 04/01/2022 : Dr Ortiz: R femoral DVT Keep apt with Dr Ortiz on 05/12/2022 , did speak personally on 04/21/2022 , was told to increase xarelto to 20mg daily OV 05/07/2023 : Now on eliquis OV 09/29/2023 : Not on any eliquis or xarelto Trigger fi nger of right hand [id number] 4987728 M65.30 R MF, there is a trigger fingerRefe rred again Gastritis 3747933 K29.70 D/c 01/31-01/13 12/04 for gastritis, UTI, s/p EGD done, now is doing well OV 09/29/2023 :States that she did see Dr Stinson and did have another EGD on 09/20/2023 , also advised her to cut back on the ozempic as it can cause GI upset, she states that she is now taking only 0.5mg weekly Vitamin D deficiency 347 15572 E55.9 [id number] Prabhjot Lee DPM [facility] [place] [address] [facility], [address] [place] [address] 10/29/2023 09:41:56 10/29/2023 10:32:20 Type 2 diabetes mellitus without complication 837542090 E11.9 cont pcp recommenda tion on glucose controlche ck feet dailycont supportive shoe gearfollow up in 4 mo [id number] Jaclyn Schilling NP [facility] [place] [address] [place] [address] 11/09/2023 09:44:45 11/09/2023 11:27:27 Pain in right hand 3054188037 01456 M79.741 [id number] Dany acosta MD [facility] [address], [address] [place] [address] 12/29/2023 08:58:45 12/29/2023 09:58:41 Screening - NAD 465424216 Z13.9 C-scope: 07/03/17, Next in 10 yearsC-sco [...] her understand ing of the above Hyperlipidemia 24780144 E78.5 On rosuvastat in 10mg dailyGet labs 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 783804494 E11.9 On glimeperid e 1mg bidOn tresciba 26U dailyOn ozempicDoe s see eye MDDr Rosa 10/29/[address] Marie Hepatomegaly 63694522 R1 6.[address] A/P 08/20/2021 US liver: 11/22/2021 : Hepatomega ly: See case 11/27/2021 Needs to see GI US abd 06/30/2023 : Hepatomega ly Sees Dr Stinson, last 12/21/2023 , f/u in 6 months and f/u with Dr Ortiz Essential hypertension 91065350 I10 On lasix 40mgOn lisinopril 20mg daily Dr Cash 07/03/2023 filledOn metoprolol 25mg tab bid Dr Cash [facility] 06/27/2023 filledNot on eliquis 5mg bidShould not be on lisinopril 40mg bid, given by Dr Shailesh Skinner on quinapril 40mg bid given by Dr Shailesh HANDYNot on xarelto Does wellSHV Dr Cash Chronic ki dney disease 768680365 N18.[address] Cash the kidney specialist 07/07/2023 On vit d weeklyOn allopurino Jordana calcitriol , filled 12/04/2023 Dr Cash IJ Does well Sleep apnea 05087426 G47 .30 On CPAPSees Nae Jacques CONTROL PANEL OPERATOR last OV 03/04/2021 Dr Smith next 06/30/2024 Goiter 5727312 E04.9 US thyroid 09/01/18, neg ordred by [...] daily, keep apt with endocrine Heart murmur 27649978 R0 1.[address] Cash last OV 05/26/2023 Epigastric pain 13660277 R10.13 08/20/2020 : Dr Crawford EGD: Neg On PPIDoes well Pulmonary embolism [address] chest 11/09/18: Iliana Jacques CONTROL PANEL OPERATOR, referred Not on xarelto 04/24/2023 : [facility] ER04/24/20 23 CTA R PE Allergic rhinitis 860354 04 J30.9 Has rhinitis, no fevers or chills, no chest pain or SOBShe has used the flonase and has helped her Abnormal u terine bleeding 2024513775 9100 N93.9 Addendum: 04/04/2020 :Seen in the ER at [facility] and [facility] for the bleedingS/ p US pelvic 03/29/2020 Now to get hysterosco py DNC by Dr Quezada/p CBC: 04/04/2020 : H/H 9.1.4Sh e is cleared for this by [facility] Dr Cash and is cleared for this [...] Stringer radiation oncologyAl so sees Dr Sheehan kiln placer onco Sees Dr Ortiz also OV 11/22/2020 [...] Dr Fairbanks and Dr Ortiz Abdominal pain 38076002 R10.9 S/p ER visit on 11/17/2020 S/P [...] , f/u in one year OV 09/29/2022 :[facility] ER 08/26/2024 CT A/P 08/26/2024 : EnteritisD oes well nowIs now taking Ozempic 0.5mg weekly instead of 1mg weekly OV 12/29/2023 : Does well now Asthma 700303261 J45.90 9 On breoOn proair She is doing well todaySees Nae Ingram CONTROL PANEL OPERATOR and Dr Smith Obesity 185784690 E66.9 Diet and exercise, noted by pulmonary Obstructiv e sleep apnea syndrome 06206940 G47.33 On CPAPSees Nae Jacques CONTROL PANEL OPERATOR 03/04/[address] Smith Anemia 031558954 D64.9 07/30/2020 : Mamta Hooker NP, hematology , f/u in 3 months, 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 Keep apt with Dr Ortiz Cholecystitis 08286697 K 81.[address] A/P 08/20/2021 Dr Sheikh 11/21/2021 Get a referral again to his office Dr Sheikh 05/21/2023 : F/u PRN Deep venou s thrombosis of lower extremity 390333453 I82.409 US LE: 04/01/2022 : Dr Ortiz: R femoral DVT Keep apt with Dr Ortiz on 05/12/2022 , did speak personally on 04/21/2022 , was told to increase xarelto to 20mg daily OV 05/07/2023 : Now on eliquis OV 09/29/2023 : Not on any eliquis or xarelto Trigger fi nger of right hand [id number] 6019251 M65.30 R MF, there is a trigger fingerRefe rred again Gastritis 3873898 K29.70 D/c 01/31-01/13 12/04 for gastritis, UTI, [...] in 6 months Vitamin D deficiency 347 02580 E55.9 [id number] Prabhjot Lee DPM [facility] [address], [address] [place] [address] 03/01/2024 09:25:32 03/01/2024 15:45:59 Type 2 diabetes mellitus without complication 795465883 E11.9 cont pcp recommenda tion on glucose controlche ck feet dailycont supportive shoe gearfollow up in 4 mo [id number] Dany acosta MD [facility] [address] , [address] [place] [address] 05/17/2024 15:49:22 05/17/2024 17:05:40 Screening - NAD 026516208 Z13.9 C-scope: 07/03/17, Next in 10 yearsC-sco [...] her understand ing of the above Hyperlipidemia 21628005 E78.5 On rosuvastat in 10mg dailyGet labs 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 055422484 E11.9 On glimeperid e 1mg 2 tabs bidOn tresciba 26U dailyOn ozempic will d/c d/t pancreatit isDoes see eye MDDr Rosa 10/29/[address] Marie Hepatomegaly 05951817 R1 6.[address] A/P 08/20/2021 US liver: 11/22/2021 : Hepatomega ly: See case 11/27/2021 Needs to see GI US abd 06/30/2023 : Hepatomega ly Sees Dr Stinson, last 12/21/2023 , f/u in 6 months and f/u with Dr Ortiz Essential hypertension 58240898 I10 On lasix 40mgOn lisinopril 20mg daily Dr Cash 07/03/2023 filledOn metoprolol 25mg tab bid Dr Cash [facility] 06/27/2023 filledNot on eliquis 5mg bidShould not be on lisinopril 40mg bid, given by Dr Shailesh Skinner on quinapril 40mg bid given by Dr Shailesh Skinner on xarelto Does [facility] Dr Cash Chronic ki dney disease 973750168 N18.[address] Cash the kidney specialist 07/07/2023 On vit d weeklyOn allopurino Jordana calcitriol , filled 12/04/2023 Dr Cash IJ Does well Sleep apnea 50597064 G47 .30 On CPAPSees Nae Jacques CONTROL PANEL OPERATOR last OV 03/04/2021 Dr Smith next 06/30/2024 Goiter 2290943 E04.9 US thyroid 09/01/18, neg ordred by [...] levothyrox ine 50mcgs dailyGet labs Heart murmur 68817969 R0 1.[address] [facility] [address] Cash last OV 05/26/2023 Epigastric pain 81944095 R10.13 08/20/2020 : Dr Crawford EGD: Neg On PPIDoes well Pulmonary embolism [address] chest 11/09/18: PESelmer Jacques CONTROL PANEL OPERATOR, referred Not on xarelto 04/24/2023 : [facility] ER04/24/20 23 CTA R PE Allergic rhinitis 892009 04 J30.9 Has rhinitis, no fevers or chills, no chest pain or SOBShe has used the flonase and has helped her Abnormal u terine bleeding 3930872694 9100 N93.9 Addendum: 04/04/2020 :Seen in the ER at [facility] and [facility] for the bleedingS/ p US pelvic 03/29/2020 Now to get hysterosco py DNC by Dr Quezada/patrizia CBC: 04/04/2020 : H/H 9.1/30.4Sh e is cleared for this by [facility] Dr Cash and is cleared for this [...] Stringer radiation oncologyAl so sees Dr Sheehan kiln placer onco Sees Dr Ortiz also OV 11/22/2020 [...] Sees her OB Dr Fairbanks Abdominal pain 25588876 R10.9 S/p ER visit on 11/17/2020 S/P [...] Dr Ortiz OV 08/04/2023 : Dr Shantell Stewart 05/20/2023 , f/u in one year OV 09/29/2022 :[facility] ER 08/26/2024 CT A/P 08/26/2024 : EnteritisD oes well nowIs now taking Ozempic 0.5mg weekly instead of 1mg weekly OV 12/29/2023 : Does well now OV 05/17/2024 :S/p choleSeen Dr Sheikh Asthma 534119829 J45.90 9 On breoOn proair She is doing well todaySees Nae Ingram CONTROL PANEL OPERATOR and Dr Smith Obesity 073555823 E66.9 Diet and exercise, noted by pulmonary Obstructiv e sleep apnea syndrome 27197891 G47.33 On CPAPSees Nae Jacques CONTROL PANEL OPERATOR 03/04/[address] Smith Anemia 612669678 D64.9 07/30/2020 : Mamta Hookre NP, hematology , f/u in 3 months, 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 Keep apt with Dr Ortiz Cholecystitis 59089469 K 81.[address] A/P 08/20/2021 Dr Sheikh 11/21/2021 Get a referral again to his office Dr Sheikh 05/21/2023 : F/u PRN Deep venou s thrombosis of lower extremity 060085970 I82.409 US LE: 04/01/2022 : Dr Ortiz: R femoral DVT Keep apt with Dr Ortiz on 05/12/2022 , did speak personally on 04/21/2022 , was told to increase xarelto to 20mg daily OV 05/07/2023 : Now on eliquis OV 09/29/2023 : Not on any eliquis or xarelto Trigger fi nger of right hand [id number] 1332163 M65.30 R MF, there is a trigger fingerRefe rred again Gastritis 7016538 K29.70 D/c 01/31-01/13 12/04 for gastritis, UTI, [...] in 6 months Vitamin D deficiency 347 85271 E55.9 Adult heal th examination 463646383 Z00.00 Screening for disorder 661084917 Z13.9 Screening mammography 24 954706 Z12.31 [id number] Remington hill MD [facility] General Surgery [address], [address] [place] [address] 05/05/2024 10:35:17 05/05/2024 11:09:07 [id number] Arnaud Smith MD [facility] [address] [place] [address] 0 05/19/2024 09:30:04 05/20/2024 10:33:27 Obstructive sleep apnea syndrome 13853585 G47.33 Moderate p ersistent asthma [id number] J45.40 [id number] Prabhjot Lee DPM [facility] [address], [address] [place] [address] 06/28/2024 09:38:24 06/28/2024 14:54:28 Diabetes mellitus 77915184 E11.9 continue diabetic control per PCP recommenda tionRecomm end exercise daily to reduce weight and regularly glucoseChe ck feet daily for wounds infectionW ear supportive shoe gear dailyFollo w-up in 4 months [id number] Arnaud Smith MD [facility] [address] [place] [address] 0 08/03/2024 08:30:32 09/12/2024 11:55:41 Obstructive sleep apnea syndrome 96501236 G47.33 Moderate p ersistent asthma 499680254 J45.40 [id number] Dany acosta MD [facility] [address] [facility], [place] [address] 10/06/2024 15:13:07 10/06/2024 16:42:04 Screening - NAD 969787078 Z13.9 C-scope: 07/03/17, Next in 10 yearsC-sco [...] her understand ing of the above Hyperlipidemia 15407575 E78.5 On rosuvastat in 10mg dailyGet labs 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 725417637 E11.9 Not on glimeperid e 1mg 2 tabs bidOn tresciba 8U at bedtime as per her history Dr Varela has decreased her doseNot on ozempic will d/c d/t pancreatit isDoes see eye MDDr Rosa 10/29/[address] Marie Hepatomegaly 64763405 R1 6.[address] A/P 08/20/2021 US liver: 11/22/2021 : Hepatomega ly: See case 11/27/2021 Needs to see GI US abd 06/30/2023 : Hepatomega ly Sees Dr Stinson, last 12/21/2023 , f/u in 6 months and f/u with Dr Ortiz Essential hypertension 71639282 I10 On lasix 40mg will restart 10/06/2024 [...] well[facility] Dr Cash Chronic ki dney disease 200852201 N18.[address] Cash the kidney specialist 07/07/2023 On vit d weeklyOn allopurino Jordana calcitriol , filled 12/04/2023 Dr Cash IJ Does well Sleep apnea 15235027 G47 .30 On CPAPSees Nae Jacques CONTROL PANEL OPERATOR last OV 03/04/2021 Dr Smith next 06/30/2024 Goiter 1375549 E04.9 US thyroid 09/01/18, neg ordred by [...] historyOn levothyrox ine 50mcgs daily Heart murmur 63385984 R0 1.[address] [address] Cash last OV 05/26/2023 Epigastric pain 82452174 R10.13 08/20/2020 : Dr Crawford EGD: Neg On PPIDoes well Pulmonary embolism [address] chest 11/09/18: PESelmer Jacques CONTROL PANEL OPERATOR, referred Not on xarelto 04/24/2023 : [facility] ER04/24/20 23 CTA R PE Allergic rhinitis 368477 04 J30.9 Has rhinitis, no fevers or chills, no chest pain or SOBShe has used the flonase and has helped her Abnormal u terine bleeding 2407817964 9100 N93.9 Addendum: 04/04/2020 :Seen in the ER at [facility] and [facility] for the bleedingS/ p US pelvic 03/29/2020 Now to get hysterosco py DNC by Dr Quezada/p CBC: 04/04/2020 : H/H 9.1/30.4Sh e is cleared for this by [facility] Dr Cash and is cleared for this [...] Stringer radiation oncologyAl so sees Dr Sheehan kiln placer onco Sees Dr Ortiz also OV 11/22/2020 [...] OV 10/06/2024 :Dr Ortiz 08/25/2024 Abdominal pain 28569941 R10.9 S/p ER visit on 11/17/2020 S/P [...] , f/u in one year OV 09/29/2022 :[facility] ER 08/26/2024 CT A/P 08/26/2024 : EnteritisD oes well nowIs now taking Ozempic 0.5mg weekly instead of 1mg weekly OV 12/29/2023 : Does well now OV 05/17/2024 :S/p choleSeen Dr Sheikh OV 10/06/2024 : No complaints at this time Asthma 798810953 J45.90 9 On breoOn proair She is doing well todaySees Nae Ingram CONTROL PANEL OPERATOR and Dr Smith Obesity 210141928 E66.9 Diet and exercise, noted by pulmonary Obstructiv e sleep apnea syndrome 80338949 G47.33 On CPAPSees Nae Jacques CONTROL PANEL OPERATOR 03/04/[address] Smith Anemia 478855079 D64.9 07/30/2020 : Mamta Hooker NP, hematology , f/u in 3 months, 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 Keep apt with Dr Ortiz Cholecystitis 31019293 K 81.[address] A/P 08/20/2021 Dr Sheikh 11/21/2021 Get a referral again to his office Dr Sheikh 05/21/2023 : F/u PRN Deep venou s thrombosis of lower extremity 535817679 I82.409 US LE: 04/01/2022 : Dr Ortiz: R femoral DVT Keep apt with Dr Ortiz on 05/12/2022 , did speak personally on 04/21/2022 , was told to increase xarelto to 20mg daily OV 05/07/2023 : Now on eliquis OV 09/29/2023 : Back on the eliquis, started by Dr Fairbanks Trigger fi nger of right hand [id number] 8353087 M65.30 R MF, there is a trigger fingerRefe rred again Gastritis 7817711 K29.70 D/c 01/31-01/13 12/04 for gastritis, UTI, [...] in 6 months Vitamin D deficiency 347 35062 E55.9 Screening mammography 24 244965 Z12.31 [id number] Prabhjot Lee DPM [facility] [address] [place] [address] 10/25/2024 10:12:18 10/25/2024 11:50:25 Diabetes mellitus 25178253 E11.9 continue diabetic control per PCP recommenda tionRecomm end exercise daily to reduce weight and regularly glucoseChe ck feet daily for wounds infectionW ear supportive shoe gear dailyFollo w-up in 3-4 months Dystrophia unguium 66966 009 L60.3 Nails 1 through 10 were debrided with sharp mechanical debridemen t without incident. Nails were debrided and greater than 50% length and thickness where needed. Peripheral venous insufficiency 18467440 I87.2 recommend compressio n stockingsc ontinue furosemide per PCPkeep legs elevated when at restmuscle pumps when at rest to prevent DVT 5924420 Arnaud Smith MD [facility] [place] [address] [address] 11/02/2024 08:15:26 11/02/2024 09:26:10 Obstructive sleep apnea syndrome 20598831 G47.33 Moderate p ersistent asthma 602301537 J45.40 Health Concerns Section Related Observation LastModified by Organization Detai ls LastModified Time None Recorded Concern Status LastModified by Organization Details LastModified Time None Recorded Advance Directives Directive N: Payers Encounter Date Sequence Insurance Name Policy Number Policy Gusman Covered Member ID Gusman Member ID Guarantor Name 06/28/2024 1 [facility] (MEDICARE REPLACEMENT/A DVANTAGE - HMO) [id number] Julisa De La Vegawood [id number] Julisa Pérez 08/03/2024 1 [facility] (MEDICARE REPLACEMENT/A DVANTAGE - HMO) [id number] Julisa De La [place]egawood [id number] Julisa Pérez 10/06/2024 1 [facility] (MEDICARE REPLACEMENT/A DVANTAGE - HMO) [id number] Julisa De La [place]egawood [id number] Julisa Pérez 10/25/2024 1 [facility] (MEDICARE REPLACEMENT/A DVANTAGE - HMO) [id number] Julisa De La [place]egawood [id number] Julisa Pérez 11/02/2024 1 [facility] (MEDICARE REPLACEMENT/A DVANTAGE - HMO) [id number] Julisa Pérez [id number] Julisa Pérez Notes Date Note Type Note [...] walking or rest pain. Prabhjot Lee DPM [address] [place] [address], [address], [facility] [employer] 06/28/2024 10:23:23 08/03/2024 text/html Primary care/Ref erring provider: Dany Gurrola MD Patient is here to go over her asthma management. Initial development of shortness of breath: 2012Duration of shortness of breath: 12 yearsCondition of shortness of breath: stableTiming of shortness of breath: noneFrequency:up to 3 times a dayLimits activities: yesAggravating factors: walking, climbing up stepsAlleviating factors: rest Modified [employer] [place] (mMRC) Dyspnea Scale - Grade 1Grade 0 [...] noEdema: yes Environmental exposures:Nicotine smoke: 10/13 ppd 2636-6730 = 0.5 pack yearPaint: noDye: noDust mites: [...] slight chance of dozing. Arnaud Smith MD [address] [place] [address], [place], [address], [facility] Rossolini 08/03/2024 09:27:20 10/06/2024 text/html 04/28/17Past Hx:UICOPDDMIIHTNGERDLBP Low vit DReviewed her past social, family and surgical historyHere to discuss her above issues, and some of the labs, she states that she has been able to see the associate professor of education and has had testing done for her legs and her heartShe has not yet had the sleep study d/t her insurance issues and has not been able to see the licensed massage practitioner also d/t the above lpxmyu47/19/17CV:Here with a knot on the vagina, she [...] the labsShe will see Dr Cash the naphthalene still operator tomorrowOV 10/06/17:She is here today to discuss [...] [facility] that [facility] was told she did not ave a pneumoniaShe did have labs on 11/19/18She states that now she is on xarelto, and is to see community relations director alsoShe also has a 'swelling' on the [...] or diarrhea notedShe has seen Dr Cash [facility] and Dr Ortiz and also Dr Mosqueda the OBNow is to get d/c next , and she is off the xareltoShe is also here for her MWVOV 05/22/2020:Here for her one month aptShe is doing very well todayShe did see Dr Mosqueda OB, has been diagnosed with uterine cancer and is to see Dr Salomon in [facility] on 06/08/2020 OV 07/24/2020:Here for her [...] states that she has seen Dr Cash [facility] and Dr Cash IJ, also has an [...] her f/u apt, she was d/c from [facility] on 04/20/2024 for cholelithiasis and also for pancreatitis, now doing well, has noted some 'belching', she did see Dr Sheikh on 05/05/2024 OV 10/06/2024: Here for her f/u apt, she is doing very well today, she did see hematology Dany Gurrola MD [address] [place] [address], [address], [place], [address], [facility] Rossolini 10/10/2024 09:04:58 10/25/2024 text/html . Patient is [...] any other complaints. Prabhjot Lee DPM [address] [facility], [facility] [address], [place], [address], [place] [facility] [place] 10/25/2024 11:02:28 11/02/2024 text/html Primary care/Ref erring provider: Dany Gurrola MD Patient is here to go over her asthma management. Initial development of shortness of breath: 2012Duration of shortness of breath: 13 yearsCondition of shortness of breath: stableTiming of shortness of breath: noneFrequency: up to 2 times a dayLimits activities: yesAggravating factors: walking, climbing up stepsAlleviating factors: rest Modified [employer] [place] (mMRC) Dyspnea Scale - Grade 1Grade 0 [...] noEdema: yes Environmental exposures:Nicotine smoke: 10/13 ppd 2521-7752 = 0.5 pack yearPaint: noDye: noDust mites: [...] slight chance of dozing. Arnaud Smith MD [address] [place] [address], [place], [address], [place] [facility] [employer] 11/02/2024 09:18:39 OBGyn Episode No OBEpisode recorded.
--- OUTSIDE RECORDS SUMMARY | 2024-12-12 08:17 | XMS_ITS | Continuity of Care Document ---
Author Organization [facility] Address [address] [place] [address] Phone Care Team Providers Care Ground Support Agent Name Role Phone [facility] [employer] Unavailable [...] Diagnoses Date Provider Providers Copied on Encounter [facility], [address] [place] [address] [address], [place], [place], [id number], [place] tel:[phone] [facility] No Information 0-201 0 [facility]. [address] [facility], [facility] [address], [place], [address], [place]. tel:[phone] Referring Provider: Drake plummer, [address], [place], [address]. tel:[phone] [facility], [address] [place] [address] [address], [place], [place], [address], [place] tel:[phone] [facility] No Information 6-201 0 [facility]. [address] [facility], [facility] [address], [place], [address], [place]. tel:[phone] Referring Provider: Drake Kurtisjose plummer, [facility] [place] [address], [place], [place], [facility]. tel:[phone] [facility], [address] [place] [address] [address], [place], [place], [address], tel:[phone] [facility] No Information 0 2-201 0 Christina Juan. [address] [place] [address], [place], [facility], . tel:[phone] Referring Provider: Steve Pierre, [facility] [address], [place], [place], [facility]. tel:[phone] [facility], [address] [place] [address] [address], [place], [place], [address], tel:[phone] [facility] No Information [address] Parekh Baylee. [facility] , [address], [place], [place], [facility], . tel:[phone] Referring Provider: Steve Pierre, [address] [facility] [address], [place], [place], [facility]. tel:[phone] [facility], [address] [place], [place] [address] [address], [place], [place], [address], tel:[phone] [facility] No Information [address] Parekh Baylee. [facility] , [address], [place], [place], [facility], [place]. tel:[phone] Referring Provider: Steve Pierre, [address] [facility] [address], [place], [place], [facility]. tel:[phone] Family History Family Member Type Diagnosis Age At Onset No Information Payers Payer name Insurance type Covered green party ID Authoriza tion(s) No Information Social History [...]
--- OUTSIDE RECORDS SUMMARY | 2024-12-12 08:17 | XMS_ITS ---
Author Organization [facility] Address [address] [facility] [address] [facility] [address] [place] [address] Care Team Providers Care Submarine Element Coordinator Name Role Phone Shailesh Christophe Gentile [phone] MEDICATIONS Medication SIG (Take, Route, Frequency, Duration) Notes Start Date End Date Status Ergocalciferol 1.25 MG (99207 UT) 1 capsule Orally Once a week for 30 days 10/14/2024 11/13/2024 Active Lasix 40 MG 1 tablet Orally twic e a day for 90 day(s) 07/08/2024 07/11/2025 Active Encounters Encounter Location Date Provider Diagnosis [place] [facility] [address] [facility] [address] [place] [address] 10/14/2024 Christophe Cash PLAN OF TREATMENT Medication Medication Name Sig Start Date Stop Date Notes Ergocalciferol 1.25 MG (5000 0 UT) 1 capsule Orally Once a week for 30 days 10/14/2024 11/13/2024 Lasix 40 MG 1 tablet Orally twic e a day for 90 day(s) 07/08/2024 07/11/2025 Next Appt Details Provider Name:Christophe Cash , 12/30/2024 12:15:00 PM, [address] [facility], [facility] [address], [place], [address], Progress Notes * TOMER HUTTONOB:[birth year] (74 yo F)Acc No.[id number]:10/14/2024 Patient: МАРИЯ HUTTON :1950 Age:74 Y Sex:Female Address:;;;;;, [place], [place], [place] [address] * Refills Refill Lasix Tablet, 40 MG, Orally, 180 Tablet, 1 tablet, twice a day, 90 day(s), Refills=2 Start Ergocalciferol Capsule, 1.25 MG (84459 UT), Orally, 4, 1 capsule, Once a week, 30 days * * Date:
--- OUTSIDE RECORDS SUMMARY | 2024-12-12 08:17 | XMS_ITS | Data Portability ---
Author Organization [facility]ail[facility] LOMELI Address [address] [place] [address] Assessment No assessment recorded. Plan of Treatment Reminders Order Date Submit Date Provider Last Modified By Organization Details Last Modified Time Details Appointments None recorded. Lab methicill in resistant staphyloc occus aureus, culture, unspecifi ed specimen 2016 017 [facility], [address] [facility], [address], [place], [address], 7 14:06:48 urinalysi s, dipstick 2016 017 haylee In-Office Order, Internal Use Only DO Not Attach Compendium DO Not Attach Compendium, Do Not Delete/merge, [id number] 7 21:32:51 Referral None recorded. Procedures None recorded. Surgeries None recorded. Imaging None recorded. Medication Orders None recorded. Patient TargetsNo targets recorded. Patient Instructions Encounter Date Encounter Id Patient Instructions Last Modified By Organization Details Last Modified Time 06/04/2017 [id number] MRSA: care instructions sdevriesma Not available 06/05/2017 [...] DO Not Attach Compendium, Do Not Delete/merge, [id number] 06/04/2017 18:02:06 06/04/20 17 06/04/2017 urina lysis , dipst ick Nitrite negati ve Not Available In-Office Order Internal Use Only DO Not Attach Compendium DO Not Attach Compendium, Do Not Delete/merge, [id number] 06/04/2017 18:02:06 06/04/20 17 06/04/2017 urina lysis , dipst ick Urobilinogen .2 Not Available In-Of fice Order Internal Use Only DO Not Attach Compendium DO Not Attach Compendium, Do Not Delete/merge, [id number] 06/04/2017 18:02:06 06/04/20 17 06/04/2017 urina lysis , dipst ick Protein 30 Not Available In-Office Order Internal Use Only DO Not Attach Compendium DO Not Attach Compendium, Do Not Delete/merge, 06/04/2017 18:02:06 06/04/20 17 06/04/2017 urina lysis , dipst ick pH 6.5 Not Available In-Office Order Internal Use Only DO Not Attach Compendium DO Not Attach Compendium, Do Not Delete/merge, [id number] 06/04/2017 18:02:06 06/04/20 17 06/04/2017 urina lysis , dipst ick Blood Non-He molyze d: Trace Not Available In-Office Order Internal Use Only DO Not Attach Compendium DO Not Attach Compendium, Do Not Delete/merge, 06/04/2017 18:02:06 06/04/20 17 06/04/2017 urina lysis , dipst ick Specific [place] 1.015 Not Available In-Off ice Order Internal Use Only DO Not Attach Compendium DO Not Attach Compendium, Do Not Delete/merge, [id number] 06/04/2017 18:02:06 06/04/20 17 06/04/2017 urina lysis , dipst ick Ketone Negati ve Not Available In-Office Order Internal Use Only DO Not Attach Compendium DO Not Attach Compendium, Do Not Delete/merge, [id number] 06/04/2017 18:02:06 06/04/20 17 06/04/2017 urina lysis , dipst ick Bilirubin Negati ve Not Available In-Office Order Internal Use Only DO Not Attach Compendium DO Not Attach Compendium, Do Not Delete/merge, [id number] 06/04/2017 18:02:06 06/04/20 17 06/04/2017 urina lysis , dipst ick Glucose Negati ve Not Available In-Office Order Internal Use Only DO Not Attach Compendium DO Not Attach Compendium, Do Not Delete/merge, [id number] 06/04/2017 18:02:06 06/04/20 17 06/04/2017 urina lysis , dipst ick Appearance Clear Not Available In-Offi ce Order Internal Use Only DO Not Attach Compendium DO Not Attach Compendium, Do Not Delete/merge, [id number] 06/04/2017 18:02:06 06/04/20 17 06/04/2017 urina lysis , dipst ick Color Yellow Not Available In-Office Order Internal Use Only DO Not Attach Compendium DO Not Attach Compendium, Do Not Delete/merge, [id number] 06/04/2017 18:02:06 06/04/20 17 06/06/2017 methi cilli n resis tant staph yloco ccus aureu s, cultu re, unspe cifie d speci men MRSA screening culture TNP Dupli anatoly proce dure order ed. Not Available [facility] ([facility]) [address] [place], [address], 06/07/2017 14:06:48 06/04/20 17 06/07/2017 methi cilli n resis tant staph yloco ccus aureu s, cultu re, nasal MRSA mssa screening culture Final report Not Available [facility] ([facility]) [address] [place], [address], 06/07/2017 14:06:49 06/04/20 17 06/07/2017 methi cilli n resis tant staph yloco ccus aureu s, cultu re, nasal result 1 Commen t No Methi cilli n - resis tant Staph yloco ccus aureu s. Not Available [facility] ([facility]) [address] [place], [address], 06/07/2017 14:06:49 06/04/20 17 06/07/2017 methi cilli n resis tant staph yloco ccus aureu s, cultu re, nasal result 2 Commen t No Methi cilli n-brenden cepti ble Staph yloco ccus aureu s Not Available [facility] ([facility]) [address], [place], [address], 06/07/2017 14:06:49 Result Notes None recorded. Procedures [...] Name and Address Organization Details Recorded Time 11200 metformin medicatio n other Not available Not available 06/04/2017 6809 RxNorm Start ed seein g 5 peopl e Not Available Not Available Not Available 01788 prednison e medicatio n other Not available [...] Address Organization Details Last Updated DateTime 06/04/2017 974660.53 g Gaby Enriquez MA [facility] 06/04/2017 16:45:17 Social History Question Answer Notes LastModified by Organizat ion Details LastModified Time Tobacco Smoking Status Former Smoker Gaby Enriquez MA null, [facility] 06/04/2017 17:02:56 What Is Your Level [...] SNOMED-CT Code Diagnosis ICD10 Code Diagnosis Note [id number] Vincent Kd Macdonald (STAFF EDUCATOR) [address] [place] [address] 06/04/2017 15:47:37 06/05/2017 17:03:30 Cellulitis 814818865 L03.90 right labial cellulitis . Currently on [...] Gusman Member ID Guarantor Name 06/04/2017 1 [facility]: (PPO) [id number] Julisa Pérez [id number] Julisa Pérez Notes Date Note Type [...] but it is still sore. Vincent Yi [facility] 06/06/2017 06:10:32 OBGyn Episode Ob Episode Information Episode Created Date Number of Fetuses Patient Bloodtype Patient rh Status Prepregnancy Weight lbs Domestic Partner Domestic Partner Phone Father Name Manager Software Development Status 06/04/20 17 1 CLOSED Fetus Data First Name Last Name Admitted to NICU Weight (g) Sex Living Outcome Pediatric Complications Fetus ID Race Codes Race Delivery Type M Full Term 20200 Vaginal Fox Calculation Initial Fox Date Initial [...] Complications Tubal Sterilization Discharge Date Comments 1 [place] Discharge Information Feeding Method Contraceptive Method Maternal HG B and HCT Levels
[2024-12-12 08:39] LABS: Basophils Percent Auto 0.8 % (0.2-1.2); Eosinophils Absolute Auto 0.2 K/mm3 (0-0.3); Eosinophils Percent Auto 3.3 % (0-4.4); Hematocrit 33.8 % (37.0-47.0); Hemoglobin 10.1 g/dL (12.0-15.0); Lymphocytes Absolute Auto 1.43 K/mm3 (0.9-3.2); Lymphocytes Percent Auto 29.7 % (18.3-44.2); Mean Corpuscular HGB Conc 29.9 g/dl (32-36); Mean Corpuscular Hemoglobin 25.6 pg (26-34); Mean Corpuscular Volume 85.6 fl (80-100); Mean Platelet Volume 10.6 fl (7.4-10.4); Monocytes Absolute Auto 0.3 K/mm3 (0.1-0.6); Monocytes Percent Auto 6.7 % (2.6-8.5); Neutrophils Absolute Auto 2.9 K/mm3 (1.3-6.7); Neutrophils Percent Auto 59.5 % (45.5-73.1); Platelet Count Result 204 k/mm3 (150-375); Red Blood Count 3.95 M/mm3 (4.2-5.4); White Blood Count 4.8 K/mm3 (4.5-10.0)
[2024-12-12 08:42] LABS: Blood Urea Nitrogen 74 mg/dL (8-26); Carbon Dioxide 25 mmol/L (22-30); Chloride 106 mmol/L (98-109); Estimated Glomerular Filt Rate 21; Glucose 156 mg/dL (70-105); Ionized Calcium (POC) 1.17 mmol/L (1.11-1.31); Potassium 3.6 mmol/L (3.5-4.9); Sodium 142 mmol/L (138-146)
[2024-12-12 08:43] LABS: Platelet Estimate Adequate (Adequate); Schistocytes None Seen
[2024-12-12 08:44] LABS: Anisocytosis 1+; Hypochromasia 1+; Ovalocytes 1+
[2024-12-12 09:45] LABS: Alanine Aminotransferase 15 U/L (6-35); Alkaline Phosphatase 127 U/L (38-126); Anion Gap 10 mmol/L (4-12); Aspartate Amino Transferase 31 U/L (14-36); Bilirubin,Total 0.3 mg/dL (0.2-1.3); Blood Urea Nitrogen 79 mg/dL (7-17); Calcium 9.7 mg/dL (8.4-10.2); Carbon Dioxide 26 mmol/L (22-30); Chloride 105 mmol/L (98-107); Estimated Glomerular Filt Rate 22; Glucose 163 mg/dL (65-110); Potassium 3.8 mmol/L (3.4-5.0); Sodium 141 mmol/L (137-145); Uric Acid 4.2 mg/dL (2.5-7.5)
[2024-12-12 09:49] LABS: Add Urine Microscopic? YES; Appearance Urine Clear (Clear); Bacteria Urine None Seen /hpf; Bilirubin Urine Negative (Negative); Blood Urine Negative (Negative); Color Urine Yellow (Yellow); Glucose Urine UA Negative (Negative); Ketones Urine Negative (Negative); Leukocyte Esterase Ur Trace LEU/UL (Negative); Nitrate Urine Negative (Negative); Non Pathogenic Casts 0-2; Protein Urine Negative (Negative); RBC Urine 0-2 /hpf (0-2); Specific Grav Ur 1.012 (1.001-1.035); Squamous Epithelial Cell Urine Occasional /hpf (Few); Urobilinogen Urine 0.2 mg/dL (<2.0); WBC Urine 0-5 /hpf (0-3); pH Urine 5.5 (5.0-9.0)
[2024-12-12 09:56] LABS: Hemoglobin A1C 6.7 % (<5.7)
[2024-12-12 10:20] LABS: Creatinine Urine 75.8 mg/dL
[2024-12-12 10:27] LABS: Erythrocyte Sedimentation Rate 78 mm/hr (0-20)
[2024-12-12 10:46] LABS: MALB Creatinine Ratio < 7.9 mg/g (0-30); Microalbumin Urine Random < 6.0 mg/L (0-16.7)
[2024-12-12 11:48] LABS: Vitamin D 25 Hydroxy 99.8 ng/mL
== END 2024-12-12 08:08 | disposition home or self-care (01) ==
PROVIDERS: PCP Internal Medicine; Visit Provider Specialist
DX: N18.30 Chronic kidney disease, stage 3 unspecified (principal); I13.0 Hypertensive heart and chronic kidney disease with heart failure and stage 1 through stage 4 chronic kidney disease, or unspecified chronic kidney disease; I50.9 Heart failure, unspecified; E87.20 Acidosis, unspecified; E78.5 Hyperlipidemia, unspecified; E55.9 Vitamin D deficiency, unspecified; N39.0 Urinary tract infection, site not specified; E21.3 Hyperparathyroidism, unspecified; R73.09 Other abnormal glucose
CPT/HCPCS: 36415; 80047; 80053; 81001; 82043; 82306; 83036; 83970; 84443; 84550; 85025; 85652

== ENCOUNTER 2025-02-20 09:21 | Outpatient (CLI) | payer MEDICARE, SELFPAY ==
[2025-02-20 09:54] LABS: Hematocrit 36.3 % (37.0-47.0); Hemoglobin 10.3 g/dL (12.0-15.0); Mean Corpuscular HGB Conc 28.4 g/dl (32-36); Mean Corpuscular Hemoglobin 24.8 pg (26-34); Mean Corpuscular Volume 87.5 fl (80-100); Mean Platelet Volume 9.3 fl (7.4-10.4); Platelet Count Result 218 k/mm3 (150-375); Red Blood Count 4.15 M/mm3 (4.2-5.4); Red Cell Distribution Width 19.2 % (11.5-14.5); White Blood Count 7.3 K/mm3 (4.5-10.0)
--- OUTSIDE RECORDS SUMMARY | 2025-02-20 10:10 | XMS_ITS | CONTINUITY OF CARE DOCUMENT ---
Author Name eren jason Address Unknown Organization [facility] Address [address] [place] [address] Phone [phone] Care Team Providers Care Fullerette Name Role Phone Shailesh ROMANO, Mike Unavailable COREY CLAY MD Unavailable [phone] COREY CLAY MD Unavailable [phone] PROBLEMS Condition Status Date Provider Notes HTN--echo [...] MD Leg pain, left active Gricel Rosenbaum MOLDED PARTS INSPECTOR Bleeding completed - Prabhjot Canchola Pulmonary embolism in 10/2018 active Prabhjot Motta acht Uterine cancer active Prabhjot Canchola ENCOUNTERS Date Type Provider Location Encounter Diag nosis - In-person encounter Office Visit Mike Alicea MD [place] [facility] - In-person encounter Office Visit Mike Alicea MD [facility] - In-person encounter Office Visit Mike Alicea MD [facility] - In-person encounter Office Visit Mike Alicea MD [facility] Chest pain- nl stress test 2019, echo ef nl, mild lvh, mod phtn, 04/2023 - In-person encounter Office Visit Mike Alicea MD [facility] HTN--echo ef nl, mild LVH, 03/2023 - In-person encounter Office Visit Mike Alicea MD [facility] - In-person encounter Office Visit Mike Alicea MD [facility] DVT r an l leg on Xarelto 20 mg - In-person encounter Office Visit Mike Alicea MD [facility] - In-person encounter Office Visit Mike Alicea MD [facility] Chest pain- nl stress test 2019, echo ef nl, mild lvh, mod phtn, 04/2023Sleep apnea, obstructive, moderate--on cpap - In-person encounter Office Visit Mike Alicea MD [facility] - In-person encounter Office Visit Mike Alicea MD [facility] BleedingPulmonary embolism in 10/2018Uterine cancer - In-person encounter Office Visit Mike Alicea MD [facility] Family History of CVA or Stroke:Pulmonary embolism in 10/2018 - In-person encounter Office Visit Mike Alicea MD [facility] - In-person encounter Office Visit Mike Alicea MD [facility] - In-person encounter Office Visit Mike Alicea MD [facility] Leg pain, left - In-person encounter Office Visit Mike Alicea MD [facility] - In-person encounter Office Visit Mike Alicea MD [facility] DVT r an l leg on Xarelto 20 mg - In-person encounter Office Visit Mike Alicea MD [facility] - In-person encounter Office Visit Cordell Laguna MD [facility] Leg edemaUlcer of left toeDVT r an l leg on Xarelto 20 mg - In-person encounter Office Visit Mike Alicea MD [facility] Renal disease, chronic, mild follows with IJ SinghChest pain- nl stress test 2019, echo ef nl, mild lvh, mod phtn, 04/2023Shortness of breath Moderate STANISLAV - In-person encounter Office Visit Mike Alicea MD [facility] HTN--echo ef nl, mild LVH, 03/2023Family [...] blood pressure, cuff size regular Roger kovacs [place] blood pressure, diastolic 66 mm[Hg] Fa fermín [place] blood pressure, systolic 120 mm[Hg] Keshawn [facility] oxygen saturation, oximetry 98 % [facility] pulse rate 94 /min [facility] respiratory rate E&M 18 /min Siomara Alvarez iller weight E&M 250 [lb_av] [facility] height E&M 66 [in_i] [facility] Body Mass Index (Ratio) 40.51 kg/m2 Russ [...] blood pressure, cuff size regular Ca therine [place] height E&M 66 [in_i] Dede Alberto Body Mass Index (Ratio) 43.74 kg/m2 Russ Alicea MD blood pressure, diastolic 76 mm[Hg] Ca therine [place] blood pressure, systolic 137 mm[Hg] Cat herine [place] blood pressure, cuff size regular Ca therine [place] oxygen saturation, oximetry 94 % Dede [place] respiratory rate E&M 16 /min Catheri ne Alberto pulse rate 100 /min Dede [place] weight E&M 271 [lb_av] Dede [place] height E&M 66 [in_i] Dede [place] Body Mass Index (Ratio) 42.93 kg/m2 Russ Alicea MD blood pressure, cuff size regular Cy marcia Keys blood pressure, diastolic 80 mm[Hg] Cy nthia Massimo blood pressure, systolic 132 mm[Hg] Barbara thikarla Keys oxygen saturation, oximetry 98 % Bela Keys pulse rate 93 /min Bela milton respiratory rate E&M 16 /min Bela Keys weight E&M 266 [lb_av] Prabhjot Canchola height E&M 66 [in_i] Bela milton Body Mass Index (Ratio) 45.06 kg/m2 Russ Alicea MD blood pressure, diastolic 66 mm[Hg] Delfina Casanova blood pressure, systolic 130 mm[Hg] Cassandra Casanova oxygen saturation, oximetry 93 % Pooja Casnaova respiratory rate E&M 20 /min Kristina Casanova [...] % Tonsha Weeks pulse rate 84 /min [facility] weight E&M 285 [lb_av] [facility] height E&M 66 [in_i] [facility] Body Mass Index (Ratio) 45.83 kg/m2 Russ [...] brooks pulse rate 75 /min Jaqui Barbosa [facility] weight E&M 289 [lb_av] Jaqui Familia [facility] height E&M 66 [in_i] Jaqui Familia [facility] Body Mass Index (Ratio) 47.93 kg/m2 Russ [...] Jaqui Grsashanekiyae er weight E&M 304 [lb_av] Jauqi Grthaniae er height E&M 66 [in_i] Jaqui [...] #90, 90 days supply, Prescribed by BEVERLY WOFL, Filled 01/20/2019 MONTELUKAST SODIUM 10 MG ORAL [...] 10/04 Mike Alicea MD VITAMIN D (ERGOCALCIFEROL) [id number] UNIT ORAL CAPSULE completed once a week [...] Alicea MD smoking, year quit 1999 Dede [place] smoking history, tot al pack/day 1 pk per month Dede [place] cigarette use yes Dede Alberto smoking status Former smoker Dede Ot is social history reviewed E&M revi ewed - no changes required Mike Alicea MD social history E&M S moking History: Alivia vásquez is a former smoker. Steve Parson social history reviewed E&M revi ewed - no changes required Steve Parson smoking, year quit 1999 Dede Alberto smoking history, tot al pack/day 1 pk per month Dede Alberto cigarette use yes Dede [place] smoking status Former smoker Dede Ot is [...] yes Tonsha Weeks smoking status [facility] E&M S moking History: Alivia [...] MD smoking, year quit 1999 Jaqui [facility], tot al pack/day 1 pk per month Jaqui Lakshmi cigarette use yes Jaqui [facility] smoking status Former smoker Jaqui Stuotrashi [facility] smoking, year quit 1999 Jaqui [facility]hir [facility] smoking history, tot al pack/day 1 pk per month Jaqui Lakshmi cigarette use yes Jaqui [facility] smoking status Former smoker Jaqui Stoutrashi [facility] social history reviewed E&M revi ewed - no changes required Mike Alicea MD smoking, year quit 1999 Jaqui [facility] smoking history, tot al pack/day 1 pk per month Jaqui Lakshmi cigarette use yes Jaqui [facility] smoking status Former smoker Jaqui Funk [facility] social history reviewed E&M revi ewed - no changes required Kaushal Cr social history E&M Smoking Histo ry: P thalia is a former smoker. Kaushal Cr smoking, year quit 1999 Jaqui [facility] smoking [facility], tot al pack/day 1 pk per month Jaqui Lakshmi cigarette use yes Jaqui [facility] smoking status Former smoker Jaqui Funk [facility] social history reviewed E&M revi ewed - no changes required Mike Alicea MD smoking, year quit 1999 Jaqui gracia smoking history, tot al pack/day 1 pk per month Jaqui [place] cigarette use yes Jaqui [place] smoking status Former smoker [facility] social history reviewed E&M revi ewed - no changes required Mike Alicea MD handedness R Handed Mike Alicea MD smoking history, tot al pack/day 1 pk per month Jaqui [place] smoking, year quit 1999 Jaqui gracia cigarette use yes Jaqui [facility] smoking status Former smoker Jaqui Funk [facility] FAMILY HISTORY Family Member Condition Mother Family History of Di abetes: Father Family History of Mcpherson dden Cardiac : Father Family History of CV A or Stroke: INSURANCE PROVIDERS Payer name Policy type / Coverage type Leslie red constitution party ID [employer] MEDICARE ADVANTAGE ST 0 003 (HMO POS) Medicare [id number] ADVANCE DIRECTIVES Name Date DISCUSSED - NO DECISION MADE TREATMENT PLAN Date Name Performer [id number],S, Steve Sethimedza i [id number],S, Steve Sethimedza i [id number],S, Steve Jossiemedza i [id number],S, Steve Ahmedza i [id number],S, Steve Ahmedza i [id number],B, Steve Ahmedza i [id number],S, Steve Ahmedza i [id number],S, Steve Ahmedza i [id number],S, Steve Ahmedza i [id number],S, Steve Ahmedza i [id number],S, Steve Ahmedza i [id number],S, Steve Ahmedza i [id number],B, Mike Alicea MD [id number],B, Mike Alicea MD [id number],B, Mike Alicea MD [id number],S, Mike Alicea MD [id number],B, Mike Alicea MD [id number],B, Steve medza i [id number],S, Steve medza i [id number],S, Steve medza i [id number],S, Steve medza i [id number],B, Steve medza i [id number],B, Steve Ahmedza i [id number],S, Steve Ahmedza i [id number],S, Steve Ahmedza i [id number],S, Steve Ahmedza i [id number],S, Steve Ahmedza i [id number],S, Steve Ahmedza i [id number],S, Steve Ahmedza i Cardiology: H er updated [...] Take 1 twice a day [facility]: H er updated medication list for this problem includes: Lisinopril 20 Mg Tablet (Lisinopril) ..... Take 1 tablet by mouth once daily Metoprolol Tartrate 25 Mg Tablet (Metoprolol tartrate) ..... Take 1 tablet by mouth twice daily Furosemide 40 Mg Tablet (Furosemide) ..... Take 1 twice a day [facility]: H er updated medication list for this problem includes: Lisinopril 20 Mg Tablet (Lisinopril) ..... Take 1 tablet by mouth once daily Glimepiride 1 Mg Tablet (Glimepiride) ..... Take 1 tablet by mouth twice daily before meal(s) Ozempic 1 Mg/dose (4 Mg/3 Ml) Pen Injector (Semaglutide) [facility]: H er updated medication list for this problem includes: Lisinopril 20 Mg Tablet (Lisinopril) ..... Take 1 tablet by mouth once daily Metoprolol Tartrate 25 Mg Tablet (Metoprolol tartrate) ..... Take 1 tablet by mouth twice daily Furosemide 40 Mg Tablet (Furosemide) ..... Take 1 twice a day [facility]: H er updated medication list for this problem includes: Lisinopril 20 Mg Tablet (Lisinopril) ..... Take 1 tablet by mouth once daily Metoprolol Tartrate 25 Mg Tablet (Metoprolol tartrate) ..... Take 1 tablet by mouth twice daily [facility] Steve Ahmedzai Cardiology Steve Ahmedzai Cardiology [...] MD Cardiology Mike Alicea MD Cardiology Mike Alicae MD Cardiology Mike Alicea MD Cardiology Mike [...] ..... Take one pill twice a day [facility] Follow up :The pt complains of swelling and pain in the left foot and ankle. On exam the foot is erythematous and swollen. Venous duplex revealed DVT. Will start Xarelto. [facility] Cardiology Follow up :The pt complains of swelling and pain in the left foot and ankle. On exam the foot is erythematous and swollen. Venous duplex revealed DVT. Will start Xarelto. Kaushal [facility] Cardiology Follow up Mike li MD Cardiology [...] completed EKG Mike Alicea MD completed SNOMED-CT: [id number] Physical Exam, Performed: Pulse Exam of Foot Mike Alicea MD completed SNOMED-CT: [id number] Current Medications Documented Mike Alicea MD completed Stress EKG Rickey Su MD complete d Regadenoson, 4 units Mike Alicea MD completed Cardiolite, 2 units Mike Alicea MD completed SPECT Images Mike Alicea MD complet ed SNOMED-CT: [id number] Physical Exam, Performed: Pulse Exam of Foot Mike Alicea MD completed EKG Mike Alicea MD completed SNOMED-CT: [id number] Current Medications Documented Mike Alicea MD completed
--- OUTSIDE RECORDS SUMMARY | 2025-02-20 10:10 | XMS_ITS | Clinical Summary ---
Author Organization [facility] Address [address] [place] [address] Care Team Providers Care Education Administrative Assistant Name Role Phone Dany Gurrola MD Primary Care Provider Allergies Active Allergy Reactions Criticality Noted Date Comments Glyburide Unknown 06/08/2020 Metformin Shortness of Breath/ Wheezing,Other (See Comments) High 03/29/2020 Mushroom Unknown 06/08/2020 Avella Extract Unknown 06/08/2020 Omeprazole Nausea and Vomiting [...] inhalation. Active fluticasone propionate (FLONASE) 50 mcg/spray [place], Suspension nasal inhaler Administer 2 Sprays in each nostril daily. Active zinc oxide-hydrocor tisone-ketocon azole Apply to affected area. Active fluticasone furoate-vilant clara (BREO ELLIPTA) 200-25 mcg/dose Disk with Device Take 1 Puff by inhalation daily. Active levothyroxine 25 mcg tablet TAKE 1 TABLET BY MOUTH ONCE DAILY IN THE MORNING FOR 30 DAYS 2 9 Active ketoconazole (NIZORAL) 2 % Cream ketoconazole [...] by mouth 2 times daily. 3 Active semaglutide (Ozempic) 0.25 mg or 0.5 mg (2 mg/3 mL) Pen Injector Inject 0.25 mg by subcutaneous injection every 7 days. Active Active Problems Problem Noted Date Diagnosed Date Grade 1 malignant neoplasm of endometrium 2019 DM (diabetes mellitus), type 2 07/30/2020 HTN (hypertension) 07/30/2020 Hypercoagulable state 07/30/2020 Stroke 07/30/2020 Asthma 07/30/2020 GERD (gastroesophageal reflux disease) 0 Anemia of chronic renal failure, stage 3 (modera te) 08/02/2019 Iron deficiency anemia 12/13/2018 Encounters Date Type Department Care Team Description 02/20/2025 Orders Only [facility] Oncology and Hematology [facility] [address] [place] [address] Braulio Ortiz MD Anemia of chronic renal failure, stage 3 (moderate), unspecified whether stage 3a or 3b CKD (CMS/HCC) 02/07/2025 8:30 AM CDT Office Visit [facility] Oncology and Hematology - [place] [address] [place] [id number] Braulio Ortiz MD Anemia of chronic renal failure, stage 3 (moderate), unspecified whether stage 3a or 3b CKD (CMS/HCC) (Primary Dx) 02/07/2025 Orders Only [facility] Oncology and Hematology - [place] [address] [place] [id number] Braulio Ortiz MD 02/06/2025 Orders Only [facility] Oncology and Hematology - [place] [address] [place] [address] Braulio Ortiz MD Anemia of chronic renal failure, stage 3 (moderate), unspecified whether stage 3a or 3b CKD (CMS/HCC) 02/02/2025 External Device Data STL ABSTRACTION Provider, Abstract 01/24/2025 Orders Only [facility] Oncology and Hematology - [place] [place] [address] Braulio Ortiz MD 01/23/2025 Orders Only [facility] Oncology and Hematology - [place] [address] [place] [address] Braulio Ortiz MD Anemia of chronic renal failure, stage 3 (moderate), unspecified whether stage 3a or 3b CKD (CMS/HCC) (Primary Dx) 01/23/2025 Orders Only [facility] Oncology and Hematology - [place] [place] [address] Braulio Ortiz MD Anemia of chronic renal failure, stage 3 (moderate), unspecified whether stage 3a or 3b CKD (CMS/HCC) 01/09/2025 Orders Only [facility] Oncology and Hematology - [place] [place] [address] Braulio Ortiz MD Anemia of chronic renal failure, stage 3 (moderate), unspecified whether stage 3a or 3b CKD (CMS/HCC) 12/26/2024 Orders Only [facility] Oncology and Hematology - [address] [place] [address] Braulio Ortiz MD Anemia of chronic renal failure, stage 3 (moderate), unspecified whether stage 3a or 3b CKD (CMS/HCC) 12/12/2024 9:00 AM CDT Office Visit [facility] Oncology and Hematology - [place] [address] [place] [address] Braulio Ortiz MD Anemia of chronic renal failure, stage 3 (moderate), unspecified whether stage 3a or 3b CKD (CMS/HCC) 11/30/2024 Orders Only [facility] Oncology and Hematology - [place] [address] [place] [address] Braulio Ortiz MD 11/28/2024 Orders Only [facility] Oncology and Hematology - [place] [address] [place] [address] Braulio Ortiz MD Anemia of chronic renal [...] Sign Reading Time Taken Comments Blood Pressure 131/69 02/07/2025 8:29 AM CDT Pulse 80 02/07/2025 8:29 AM CDT Temperature 36.2 C (97.2 F) 02/07/2025 8:29 AM CDT Respiratory Rate 15 02/07/2025 8:29 AM CDT Oxygen Saturation 94% 02/07/2025 8:29 AM CDT Inhaled Oxygen Concentration - - Weight 107.8 kg (237 lb 9.6 oz) 02/07/2025 8:29 AM CDT Height 165.1 cm (5' 5) 10/02/2021 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 Body Mass Index 39.54 10/02/2021 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 Plan of Treatment Upcoming Encounters Date Type Department Care Team (Late st Contact Info) Description 05/01/2025 8:30 AM CDT Office Visit [facility] Oncology and Hematology [facility] [address] [facility] [address] [place] [address] Braulio Ortiz MD [address] [place] [address] Health Maintenance Due Date Last [...] 08/31/2023 08/31/2018, 08/08/2014 INFLUENZA VACCINE (#1) 2024 3, 08/12/2022, 07/16/2021, Additional history exists COVID-19 Vaccine ( - 2023-2 5 season) 2024 09/05/2021, 01/15/2021, 12/21/2020 OSTEOPOROSIS SCREENING 07/20/2028 07/20/2023, 2020 COLORECTAL SCREENING 12/03/2030 12/03/2020 Colorectal Cancer Screening 12/03/2030 Procedures Procedure Name Priority Date/Time Associated Diagnosis Comments BASIC METABOLIC PANEL Routine 02/07/2025 12:06 PM CDT CBC WITH AUTODIFFERENTIAL Routine 2024 12:05 PM CDT BASIC METABOLIC PANEL Routine 01/23/2025 4:05 PM CDT BASIC METABOLIC PANEL Routine 01/23/2025 3:56 PM CDT CBC WITH DIFFERENTIAL Routine 01/23/2025 11:24 AM CDT CBC MIXED CELL DIFFERENTIAL Routine 12/14 3:49 PM CDT CBC WITH DIFFERENTIAL Routine 11/28/2024 2:34 PM CDT MICROALBUMIN, RANDOM URINE Routine 09/30/2021 from Last 3 Months or Most Recently Relevant to Health Maintenance Results * BASIC METABOLIC PANEL (02/07/2025 12:06 PM CDT) Only the most recent of3 resultswithin the time period is included. Blood us Braulio Ortiz MD CHEMISTRY ORDERABLES Final Resu lt * CBC WITH AUTODIFFERENTIAL (02/07/2025 12:05 PM CDT) Blood us Braulio Ortiz MD HEMATOLOGY ORDERABLES Final Res ult * CBC WITH DIFFERENTIAL (01/23/2025 11:24 AM CDT) Only the most recent of2 resultswithin the time period is included. Blood us Braulio Ortiz MD HEMATOLOGY ORDERABLES Final Res ult * CBC MIXED CELL DIFFERENTIAL (01/09/2025 3:49 PM CDT) Blood us Braulio Ortiz MD HEMATOLOGY ORDERABLES Final Res ult * MICROALBUMIN, RANDOM URINE (09/30/2021) Urine URINE SPECIMEN OBTAINED BY CLEAN CATCH PROCEDURE / Unknown us Abstract Provider URINE ORDERABLES Final Result from Last 3 Months or Most Recently Relevant to Health Maintenance Insurance Care Teams Education Administrative Assistant Relationship Specialty Start Date End Date Dany Gurrola MD PCP - General Internal Medicine 11/29/18
--- OUTSIDE RECORDS SUMMARY | 2025-02-20 10:10 | XMS_ITS | Encounter Summary ---
Author Organization [facility] Healthcare Address [address] [place] [address] Care Team Providers Care Solar Electric Installer Name Role Phone Quinton Gurrola MD Primary Care Provide r Mamta Gayle MD Unavailable Vy Sheehan MD Unavailable Encounter Details Date Type Department Care Team (Late st Contact Info) Description 06/18/2020 Telephone [facility] Advanced Medicine Radiation Oncology [address] [facility] [address] [place] [address] Ana Barraza RN Social History Tobacco Use Types Packs/Day Years Used Date Smoking Tobacco: Former Smokeless Tobacco: Never Alcohol Use Standard Drinks/Week Comments No 0 (1 standard drink = 0.6 oz pur e alcohol) PHQ-2 Answer Date Recorded PHQ-2 Score 3 11/20/2018 Comments No Sex and Gender Information Value Date Recorded Sex Assigned at Not on file Legal Sex Female 8:33 AM [employer] Gender Identity Not on file Sexual Orientation Not on file documented as of this encounter Plan of Treatment Not on file documented as of this encounter Visit Diagnoses Not on filedocumented in this encounter Care Teams Solar Electric Installer Relationship Specialty Start Date End Date Quinton Gurrola MD [address] [facility] [address] [address] [address] [place] [address] PCP - General Internal Medicine 03/09/18 Mamta Gayle MD [address] [facility] [address] [place] [address] Radiation Oncologist Radiation Oncology 09/20/20 Vy Sheehan MD [address] [facility] [address] [place] [address] Referring Physician Gynecologic Oncology 09/20/20 documented as of this encounter
--- OUTSIDE RECORDS SUMMARY | 2025-02-20 10:10 | XMS_ITS | Encounter Summary ---
Author Organization [facility] Healthcare Address [address] [place] [address] Care Team Providers Care Machine Sizer Name Role Phone Quinton Gurrola MD Primary Care Provide r Mamta Gayle MD Unavailable Vy Sheehan MD Unavailable Encounter Details Date Type Department Care Team (Late st Contact Info) Description 09/20/2020 Completion of Therapy [facility] Advanced Medicine Radiation Oncology [address] [facility] Advanced Medicine [facility] [place] [address] Mamta Gayle MD [address] [place] [address] Endometrial cancer (HCC) (Primary Dx) Social History [...] on file Legal Sex Female 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 Vy Sheehan (Ammonia Solution Preparer Onc) RADIATION ONCOLOGY COMPLETION OF THERAPY (COT) Cancer Staging Endometrial cancer (CMS/HCC) Staging form: Corpus Uteri - Carcinoma and Carcinosarcoma, AJCC 8th Edition - Clinical: FIGO Stage I - Signed by Alyce Fairbanks MD on 07/13/2020 Identifying Information: 70 y.o. 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 She [...] Mamta Gayle MD at 09/24/2020 12:10 AM POST HOLE DIGGING MACHINE OPERATOR HOLE DIGGING MACHINE OPERATOR HOLE DIGGING MACHINE OPERATOR Associated attestation - Mamta Gayle MD - 09/24/2020 12:10 AM POST HOLE DIGGING MACHINE OPERATOR Julisa Pérez was evaluated with the resident, [...] isthmus documented in this encounter Care Teams Machine Sizer Relationship Specialty Start Date End Date Quinton Gurrola MD [address] [address] PCP - General Internal Medicine 03/09/18 Mamta Gayle MD [address] [facility] [address] [place] [address] Radiation Oncologist Radiation Oncology 09/20/20 Vy Sheehan MD [address] [facility] [address] [place] [address] Referring Physician Gynecologic Oncology 09/20/20 documented as of this encounter
--- OUTSIDE RECORDS SUMMARY | 2025-02-20 10:10 | XMS_ITS | Encounter Summary ---
Author Organization [facility] Healthcare Address [address] [place] [address] Care Team Providers Care Agricultural Engineer Name Role Phone Quinton Gurrola MD Primary Care Provide r Mamta Gayle MD Unavailable Vy Sheehan MD Unavailable Encounter Details Date Type Department Care Team (Late st Contact Info) Description 07/06/2020 Telephone [facility] [address] [place] [id number] Alyce Fairbanks MD [phone] [place] [address] Social History Tobacco Use Types Packs/Day Years Used Date Smoking Tobacco: Former Smokeless Tobacco: Never Alcohol Use Standard Drinks/Week Comments No 0 (1 standard drink = 0.6 oz pur e alcohol) PHQ-2 Answer Date Recorded PHQ-2 Score 3 11/20/2018 Comments No Sex and Gender Information Value Date Recorded Sex Assigned at Not on file Legal Sex Female 8:33 AM [employer] Gender Identity Not on file Sexual Orientation Not on file documented as of this encounter Plan of Treatment Not on file documented as of this encounter Visit Diagnoses Not on filedocumented in this encounter Care Teams Agricultural Engineer Relationship Specialty Start Date End Date Quinton Gurrola MD [address] [facility] [address] [place] [address] PCP - General Internal Medicine 03/09/18 Mamta Gayle MD [address] [place] [address] Radiation Oncologist Radiation Oncology 09/20/20 Vy Sheehan MD [address] [facility] [address] [place] [address] Referring Physician Gynecologic Oncology 09/20/20 documented as of this encounter
--- OUTSIDE RECORDS SUMMARY | 2025-02-20 10:10 | XMS_ITS | Clinical Summary ---
Author Organization [facility] Physician Office Building [address] [place] [address] Care Team Providers Care Hand Laminator Name Role Phone Quinton Gurrola MD Primary Care Provide r Mamta Gayle MD Unavailable Vy Sheehan MD Unavailable Allergies Active Allergy Reactions Criticality Noted Date Comments Metformin Other (See comments) ,Shortness of breath High 03/29/2020 Glyburide Unknown 06/08/2020 Mushroom Unknown 06/08/2020 [place] Extract Unknown 06/08/2020 Omeprazole Nausea only,Nausea And Vomiting Low 10/16 Prednisone Other (See comments) ,Shortness of breath High 03/29/2020 Spinach Unknown 06/08/2020 Medications furosemide (LASIX) 40 mg tablet furosemide 40 mg tablet Active albuterol HFA (PROVENTIL HFA,VENTOLIN HFA,PROAIR HFA) [...] TABLET BY MOUTH IN THE EVENING Active metoprolol tartrate (LOPRESSOR) 25 mg immediate release tablet 2 tablets (50 mg total) daily Active rosuvastatin (CRESTOR) 10 mg tablet Take 1 tablet (10 mg total) by mouth daily Active Breo Ellipta 200-25 mcg/dose diskus inhaler INHALE 1 PUFF BY MOUTH ONCE DAILY 0 Active calcitRIOL (ROCALTROL) 0.25 mcg capsule calcitriol 0.25 mcg capsule Active ergocalciferol (VITAMIN D) 50,000 unit capsule Vitamin D2 1,250 mcg (50,000 unit) capsule TAKE 1 CAPSULE BY MOUTH EVERY TWO WEEKS Active semaglutide (Ozempic) 1 mg/dose (2 mg/1.5 mL) pen injector injection Ozempic 1 mg/dose (2 mg/1.5 mL) pen injector 0 Active levothyroxine (SYNTHROID) 50 mcg tablet Take 1 tablet (50 mcg total) by mouth daily 3 Active lisinopriL (PRINIVIL,ZESTR IL) 20 mg tablet Take 1 tablet (20 mg total) by mouth daily 4 Active apixaban (ELIQUIS) 5 mg tabletIndicatio ns:Venous Thrombosis Take 1 tablet (5 mg total) by mouth 2 (two) times a day 60 tablet [address] (NexIUM) 20 mg capsule Take 1 capsule (20 mg total) by mouth 2 (two) times a day Active cyanocobalamin (Vitamin B-12) 1,000 mcg tabletIndicatio ns:Prevention of Vitamin B12 Deficiency Take 1 tablet (1,000 mcg total) by mouth daily Active Active Problems Problem Noted Date Diagnosed [...] 7 Obesity 03/31/2017 Shortness of breath 03/31/2017 Encounters Date Type Department Care Team Description 01/20/2025 9:00 AM CDT Office Visit [facility] Obstetrics and Gynecology [address] [facility] Advanced Medicine 13th [place] [address] [place] [address] Alyce Fairbanks MD Encounter for routine cancer follow-up (Primary Dx); Endometrial cancer (HCC); Pulmonary embolism without acute cor pulmonale, unspecified chronicity, unspecified pulmonary embolism type (HCC); BMI 40.0-44.9, adult (HCC) from Last 3 Months Immunizations Immunization Administration Dates Next Due Influenza, Quadrivalent, Hig h Dose, Preservative Free, Intrr 08/12/2022,07/16/2021,07/24/2020 Influenza, Quadrivalent, Spl it, Intramuscular 07/24/2020,07/20/2018 Influenza, Trivalent, High D ose, Split, Preservative Free, Intramuscular 08/18/2018 Influenza, Trivalent, IM (MDV) 08/08/2014 Moderna SARS-CoV-2 Monovalen t Vaccination (12+ YRS) 01/15/2021,12/21/2020,12/16/2020 Moderna Sars-cov-2 Monovalen t Booster Vaccination .25 [...] on file Legal Sex Female 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 Gender Identity Not on file Sexual Orientation Not on file Obstetrics History Para Term AB IAB SAB Ectopic Multiple Livin g Live Births 1 1 1 1 Date Outcome GA Total Labor Labor/2nd/3rd Weight Sex Type Anes PTL Xiao A1 A5 Name Clin Term Last Filed Vital Signs Vital Sign Reading Time Taken Comments Blood Pressure 164/73 01/20/2025 8:48 AM CDT Pulse 90 07/22/2024 11:28 AM MEDICAL RECEPTIONIST ASSISTANT Temperature 36.8 C (98.3 F) 01/20/2025 8:48 AM CDT Respiratory Rate 22 01/20/2025 8:48 AM CDT Oxygen Saturation 98% 01/20/2025 8:48 AM CDT Inhaled Oxygen Concentration - - Weight 108.6 kg (239 lb 8 oz) 01/20/2025 8:48 AM CDT Height 165.1 cm (5' 5) 07/22/2024 11:28 AM MEDICAL RECEPTIONIST ASSISTANT Body Mass Index 39.85 07/22/2024 11:28 AM MEDICAL RECEPTIONIST ASSISTANT Plan of Treatment Health Maintenance Due [...] or PCV21) 08/31/2023 08/31/2018, 08/08/2014 Covid-19 Vaccine (5 - 2023-2 5 season) 2024 09/05/2021, 01/15/2021, 12/21/2020, Additional history exists Influenza Vaccine (Season Ended) 2025 08/12/2022, 07/16/2021, 07/24/2020, Additional history exists Osteoporosis Screening-Bone Density Scan 07/20/2025 07/20/2023, 12/18/[address] [facility] ADVANTAGE [facility] Address: [address] [address] [place] [address] [facility] MEDIC[facility] AD[facility]AGE [facility] Address: [address] [address] [place] [address] MEDICARE AD[facility]ANTAGE [facility] Address: [address] [address] [place] [address] Advance Directives For more information, please contact: [phone] * Full Code (Latest Code Status on File) Date Activated Date Inactivated Comments 08/22/2020 11:59 AM 08/22/2020 5:42 PM Care Teams Hand Laminator Relationship Specialty Start Date End Date Quinton Gurrola MD [address] [address] PCP - General Internal Medicine 03/09/18 Mamta Gayle MD [address] [place] [address] Radiation Oncologist Radiation Oncology 09/20/20 Vy Sheehan MD [address] [place] [address] Referring Physician Gynecologic Oncology 09/20/20
--- OUTSIDE RECORDS SUMMARY | 2025-02-20 10:10 | XMS_ITS | Referral Summary ---
Author Organization [facility] Physician Office Building [address] [place] [address] Care Team Providers Care Director Of Elementary Education Name Role Phone Quinton Gurrola MD Primary Care Provide r Mamta Gayle MD Unavailable Vy Sheehan MD Unavailable Encounters Date Type Department Care Team Description 01/20/2025 9:00 AM CDT Office Visit [facility] Obstetrics and Gynecology [address] [facility] Advanced Medicine 13th [place] [address] [place] [address] Alyce Fairbanks MD Encounter for routine cancer follow-up (Primary Dx); Endometrial cancer (HCC); Pulmonary embolism without acute cor pulmonale, unspecified chronicity, unspecified pulmonary embolism type (HCC); BMI 40.0-44.9, adult (HCC) from Last 3 Months Allergies Active Allergy Reactions Criticality Noted Date Comments Metformin Other (See comments) ,Shortness of breath High 03/29/2020 Glyburide Unknown 06/08/2020 Mushroom Unknown 06/08/2020 [place] Extract Unknown 06/08/2020 Omeprazole Nausea only,Nausea And [...] on file Legal 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 Gender Identity Not on file Sexual Orientation Not on file Last Filed Vital Signs Vital Sign Reading Time Taken Comments Blood Pressure 164/73 01/20/2025 8:48 AM CDT Pulse 90 07/22/2024 11:28 AM BIRD TENDER Temperature 36.8 C (98.3 F) 01/20/2025 8:48 AM CDT Respiratory Rate 22 01/20/2025 8:48 AM CDT Oxygen Saturation 98% 01/20/2025 8:48 AM CDT Inhaled Oxygen Concentration - - Weight 108.6 kg (239 lb 8 oz) 01/20/2025 8:48 AM CDT Height 165.1 cm (5' 5) 07/22/2024 11:28 AM BIRD TENDER Body Mass Index 39.85 07/22/2024 11:28 AM BIRD TENDER Plan of Treatment Not on file Insurance [facility] MEDICARE [facility] Address: [address] [address] [place] [address] [facility] MEDICARE [facility] Address: [address] [address] [facility] MEDICARE AD[facility] MEDIC[facility] Address: [address] [place] [address] Advance Directives For more information, please contact: [phone] * Full Code (Latest Code Status on File) Date Activated Date Inactivated Comments 08/22/2020 11:59 AM 08/22/2020 5:42 PM Care Teams Director Of Elementary Education Relationship Specialty Start Date End Date Quinton Gurrola MD [address] [place] [address] PCP - General Internal Medicine 03/09/18 Mamta Gayle MD [address] [facility] [address] [place] [address] Radiation Oncologist Radiation Oncology 09/20/20 Vy Sheehan MD [address] [facility] [address] [place] [address] Referring Physician Gynecologic Oncology 09/20/20
--- OUTSIDE RECORDS SUMMARY | 2025-02-20 10:10 | XMS_ITS ---
Author Organization [facility] Physician Office Building [address] [place] [address] Care Team Providers Care Recruitment Director Name Role Phone Quinton Gurrola MD Primary [...]
--- OUTSIDE RECORDS SUMMARY | 2025-02-20 10:11 | XMS_ITS | Data Portability ---
Author Organization [facility] Address [address] [place] [address] Assessment No assessment recorded. Plan of Treatment Reminders Order Date Submit Date Provider Last Modified By Organization Details Last Modified Time Details Appointments None recorded. 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 Procedures None recorded. Surgeries None recorded. Imaging None recorded. Medication Orders None recorded. Patient TargetsNo targets recorded. Patient Instructions Encounter Date Encounter Id Patient Instructions Last Modified By Organization Details Last Modified Time 06/04/2017 [id number] MRSA: care instructions [email or web address] Not available 06/05/2017 [...] DO Not Attach Compendium, Do Not Delete/merge, [id number] 06/04/2017 18:02:06 06/04/20 17 06/04/2017 urina lysis , dipst ick Nitrite negati ve Not Available In-Office Order Internal Use Only DO Not Attach Compendium DO Not Attach Compendium, Do Not Delete/merge, [id number] 06/04/2017 18:02:06 06/04/20 17 06/04/2017 urina lysis , dipst ick Urobilinogen .2 Not Available In-Of fice Order Internal Use Only DO Not Attach Compendium DO Not Attach Compendium, Do Not Delete/merge, [id number] 06/04/2017 18:02:06 06/04/20 17 06/04/2017 urina lysis , dipst ick Protein 30 Not Available In-Office Order Internal Use Only DO Not Attach Compendium DO Not Attach Compendium, Do Not Delete/merge, 06/04/2017 18:02:06 06/04/20 17 06/04/2017 urina lysis , dipst ick pH 6.5 Not Available In-Office Order Internal Use Only DO Not Attach Compendium DO Not Attach Compendium, Do Not Delete/merge, [id number] 06/04/2017 18:02:06 06/04/20 17 06/04/2017 urina lysis , dipst ick Blood Non-He molyze d: Trace Not Available In-Office Order Internal Use Only DO Not Attach Compendium DO Not Attach Compendium, Do Not Delete/merge, 06/04/2017 18:02:06 06/04/20 17 06/04/2017 urina lysis , dipst ick Specific [place] 1.015 Not Available In-Off ice Order Internal Use Only DO Not Attach Compendium DO Not Attach Compendium, Do Not Delete/merge, [id number] 06/04/2017 18:02:06 06/04/20 17 06/04/2017 urina lysis , dipst ick Ketone Negati ve Not Available In-Office Order Internal Use Only DO Not Attach Compendium DO Not Attach Compendium, Do Not Delete/merge, [id number] 06/04/2017 18:02:06 06/04/20 17 06/04/2017 urina lysis , dipst ick Bilirubin Negati ve Not Available In-Office Order Internal Use Only DO Not Attach Compendium DO Not Attach Compendium, Do Not Delete/merge, [id number] 06/04/2017 18:02:06 06/04/20 17 06/04/2017 urina lysis , dipst ick Glucose Negati ve Not Available In-Office Order Internal Use Only DO Not Attach Compendium DO Not Attach Compendium, Do Not Delete/merge, [id number] 06/04/2017 18:02:06 06/04/20 17 06/04/2017 urina lysis , dipst ick Appearance Clear Not Available In-Offi ce Order Internal Use Only DO Not Attach Compendium DO Not Attach Compendium, Do Not Delete/merge, [id number] 06/04/2017 18:02:06 06/04/20 17 06/04/2017 urina lysis , dipst ick Color Yellow Not Available In-Office Order Internal Use Only DO Not Attach Compendium DO Not Attach Compendium, Do Not Delete/merge, [id number] 06/04/2017 18:02:06 06/04/20 17 06/06/2017 methi cilli n resis tant staph yloco ccus aureu s, cultu re, unspe cifie d speci men MRSA screening culture TNP Dupli anatoly proce dure order ed. Not Available [facility] ([facility]) [address] [place], [address], 06/07/2017 14:06:48 06/04/20 17 06/07/2017 methi cilli n resis tant staph yloco ccus aureu s, cultu re, nasal MRSA mssa screening culture Final report Not Available [facility] ([facility]) [address] [place], [address], 06/07/2017 14:06:49 06/04/20 17 06/07/2017 methi cilli n resis tant staph yloco ccus aureu s, cultu re, nasal result 1 Commen t No Methi cilli n - resis tant Staph yloco ccus aureu s. Not Available [facility] ([facility]) [address] [place], [address], 06/07/2017 14:06:49 06/04/20 17 06/07/2017 methi cilli n resis tant staph yloco ccus aureu s, cultu re, nasal result 2 Commen t No Methi cilli n-brenden cepti ble Staph yloco ccus aureu s Not Available [facility] ([facility]) [address] [facility], [place], [address], 06/07/2017 14:06:49 Result Notes None recorded. Procedures Surgical History Date Name Laterality Status Provider Name and Address Organization Details Recorded Time Tubal Ligation completed Gaby Enriquez MA [facility] 06/04/2017 16:51:30 Imaging Results None recorded. Procedure Notes None recorded. Medical Equipment None Reported. Allergies Allergen ID Allergen Name Allergen Category Reaction Reaction Severity Criticality Documentation Date Start Date Code Code System Note Provider Name and Address Organization Details Recorded Time 69492 metformin medicatio n other Not available Not available 06/04/2017 6809 RxNorm Start ed seein g 5 peopl e DEANDRA Weston [facility] 7 16:46:03 73849 prednison e medicatio n other Not available Not available 06/04/2017 8640 RxNorm Black bumps DEANDRA Weston [facility] 7 16:47:02 Medications Name Sig Start Date Stop Date [...] Address Organization Details Last Updated DateTime 06/04/2017 306348.53 g Gaby Enriquez MA [facility] 06/04/2017 16:45:17 Social History Question Answer Notes LastModified by Organizat ion Details LastModified Time Tobacco Smoking Status Former Smoker Gaby Enriquez MA null, [facility] 06/04/2017 17:02:56 What Is Your Level Of Caffeine Consumption? None Information not available 06/04/2017 How Much Tobacco Do You Chew? None Information not available 06/04/2017 What Type Of Diet Are You Following? REGULAR Information not available 06/04/2017 Which Illicit Or Recreational Drugs Have You Used? None Information not available 06/04/2017 Education 12 Information no t available 06/04/2017 Live Alone Or With Others? [...] D etails LastModified Time What is your level of alcohol consumption? None Information not available 06/04/2017 Are you currently employed? No Information not available 06/04/2017 What is your occupation? retired Information not available 06/04/2017 What is your exercise level? None Information [...] SNOMED-CT Code Diagnosis ICD10 Code Diagnosis Note [id number] MD Torres Carrasco (LEASE BUYER) [address] [place] [address] 06/04/2017 15:47:37 06/05/2017 17:03:30 Cellulitis [id number] L03.90 right labial cellulitis . Currently on [...] Gusman Member ID Guarantor Name 06/04/2017 1 [facility] ([facility] [id number] Julisa Pérez [id number] Julisa Pérez Notes Date Note Type [...] but it is still sore. Vincent Yi [facility] [place] - [facility] 06/06/2017 06:10:32 OBGyn Episode Ob Episode Information Episode Created Date Number of Fetuses Patient Bloodtype Patient rh Status Prepregnancy Weight lbs Domestic Partner Domestic Partner Phone Father Name Soda Dry House Operator Status 06/04/20 17 1 CLOSED Fetus Data First Name Last Name Admitted to NICU Weight (g) Sex Living Outcome Pediatric Complications Fetus ID Race Codes Race Delivery Type M Full Term [id number] Vaginal Fox Calculation Initial Fox Date Initial [...] Complications Tubal Sterilization Discharge Date Comments 1 [place] Discharge Information Feeding Method Contraceptive Method Maternal HG B and HCT Levels
--- OUTSIDE RECORDS SUMMARY | 2025-02-20 10:11 | XMS_ITS | Continuity of Care Document ---
Author Organization [facility] Address [address] [place] [address] Phone Care Team Providers Care Granulator Machine Operator Name Role Phone [facility] Unavailable [...] Diagnoses Date Provider Providers Copied on Encounter [facility], [address] [place] [address] [address], [place], [place], [id number], [place] tel:[phone] [facility] No Information 0-201 0 [facility]. [address] [facility], [facility] [address], [place], [id number], [place]. tel:[phone] Referring Provider: Drake plummer, [address], [place], [address]. tel:[phone] [facility], [address] [place] [address] [address], [place], [place], [id number], [place] tel:[phone] [facility] No Information 6-201 0 [facility]. [address] [facility], [facility] [address], [place], [id number], [place]. tel:[phone] Referring Provider: Drake Kurtisjose plummer, [facility] [place] [address], [place], [place], [facility]. tel:[phone] [facility], [address] [place] [address] [address], [place], [place], [id number], tel:[phone] [facility] No Information 0 2-201 0 Christina Juan. [address] [place] [address], [place], [facility], . tel:[phone] Referring Provider: Steve Pierre, [facility] [address], [place], [place], [facility]. tel:[phone] [facility], [address] [place] [address] [address], [place], [place], [id number], tel:[phone] [facility] No Information [address] Pare[address] Baylee. [facility]1 [facility] , [address], [place], [place], [facility], . tel:[phone] Referring Provider: Steve Pierre, [address] [facility] [address], [place], [place], [facility]. tel:[phone] [facility], [address] [place], [place] [address] [address], [place], [place], [id number], tel:[phone] [facility] No Information [address]lee. [facility]1 [facility] , [address], [place], [place], [facility], [place]. tel:[phone] Referring Provider: Steve Pierre, [address] [facility] [address], [place], [place], [facility]. tel:[phone] Family History Family Member Type Diagnosis Age [...]
--- OUTSIDE RECORDS SUMMARY | 2025-02-20 10:11 | XMS_ITS | Data Portability ---
Author Organization [facility] Photos to Photos, Main Office Address [address] [place] [address] Care Team Providers Care Cook Fast Food Name Role Phone COREY GURROLA Primary Care Provider [phone] COREY GURROLA Referring Provider Assessment Encounter Date Assessment Date Assessment LastModified by Organization Details LastModified Time 10/06/2024 10/06/2024 45 minutes spent with the [...] 1.33 12/17/2023: Dr Ortiz H/H 9.8/33.3 04/14/2024: [facility] labs Chol 110, TG 61, HDL 64, LDL 34 A1C 6.4 04/20/2024: [facility] labs Gluc 191, Cr 1.53, GFR 40, ALT 101, AST 92, TP 6.2, ALB 2.9 H/H 8.4/29.4 08/25/2024: Dr Ortiz BUN 31, Cr 1.6, GFR 38 10/04/2024: Dr Ortiz H/H 9.1/31.1 45 minutes spent with the patient, reviewed the labs and updated her chart [email or web address] Not available 10/10/2024 09:04:51 10/25/2024 10/25/2024 This note is dictated and transcribed by [employer]. Ironing Machine Operator variances may occur. Despite proofreading, typographical errors may occur. Occasional wrong-word or '[id number]' substitutions may have occurred due to the inherent limitations of voice recording. Read the chart carefully and recognize, using context, where substitutions have occurred. [email or web address] Not available 10/25/2024 11:01:22 11/02/2024 11/02/2024 Assessment: Nicotine smoke: 10/13 ppd 9528-5975 = 0.5 pack year Moderate OSAHS, AHI [...] further management. Follow-up: 3 months, January 2025 [email or web address] Not available 11/02/2024 09:12:02 12/22/2024 12/22/2024 12/03/2022: Dr Marie/Dr Cash IJ TSH/FT4: WNL [...] 1.33 12/17/2023: Dr Ortiz H/H 9.8/33.3 04/14/2024: [facility] labs Chol 110, TG 61, HDL 64, LDL 34 A1C 6.4 04/20/2024: [facility] labs Gluc 191, Cr 1.53, GFR 40, ALT 101, AST 92, TP 6.2, ALB 2.9 H/H 8.4/29.4 08/25/2024: Dr Ortiz BUN 31, Cr 1.6, GFR 38 10/04/2024: Dr Ortiz H/H 9.1/31.1 10/13/2024: BUN/Cr./GFR 39/2.00/30 45 minutes spent with the patient, reviewed the labs and updated her chart [email or web address] Not available 12/22/2024 16:11:50 01/26/2025 01/26/2025 Assessment: Nicotine smoke: 10/13 ppd 4086-9982 = 0.5 pack year Moderate OSAHS, AHI [...] 0.1. Patient used PAP > 4 hours 95% of the time. PAP is set at [...] be sent to the home care store. Educated the patient on problems and solutions [...] is an important part of PAP therapy. Reordered [employer] Air Sense 11 auto set unit with heated humidifier, supplies and full face mask @ 13 cmH2O ordered. Further adjustment will be based on clinical response. Change store from [employer] to [employer]. Patient will setup an appointment with [facility] for supplies and pressure adjustments. A major [...] PCP for further management. Follow-up: 3 months, April 2025 [email or web address] Not available 01/26/2025 09:14:14 Plan of Treatment Reminders Order Date Submit Date Provider Last Modified By Organization Details Last Modified Time Details Appointments Any 2024 09:45A Kim bonilla MD Not available Not available Not available Any 2024 07:30A Kim Smith MD Not available Not available Not available Lab lipid panel, serum [address] (Lab), [address] [place], [address], 12/22/2024 16:22:14 TSH, serum or plasma [address] (Lab), [address] [place], [address], 12/22/2024 16:22:14 CBC w/ auto diff 2024 025 [facility] (Lab), [address] [place], [address], 12/26/2024 12:38:33 CMP, serum or plasma [address] (Lab), [address] [place], [address], 12/22/2024 16:22:15 vitamin D, 25-hydrox y, total, serum [address] (Lab), [address] [place], [address], 12/22/2024 16:22:14 glycohemo globin, total, blood [address] (Lab), [address] [place], [address], 12/22/2024 16:22:13 microalbu min, urine [address] (Lab), [address] [place], [address], 12/22/2024 16:22:14 lipid panel, serum 2024 025 [facility] (Lab), [address] [place], [address], 10/10/2024 11:23:02 TSH, serum or plasma 2024 025 [facility] (Lab), [address] [place], [address], 10/10/2024 11:44:17 vitamin D, 25-hydrox y, total, serum [address] (Lab), [address] [place], [address], 10/06/2024 16:40:38 glycohemo globin, total, blood [address] (Lab), [address] [place], [address], 10/06/2024 16:40:37 microalbu min, urine [address] (Lab), [address] [place], [address], 10/06/2024 16:40:37 Referral nephrolog ist referral - Please call pt to schedule appt. Please call patient to schedule an appointme nt. Thank you 2024 025 ALMA Cash MD (Nephrology, [address], [address], [place], [address], 01/06/2025 16:25:21 gastroent erologist referral - Please call patient to schedule an appointme nt. Thank you. 2024 025 KalpeshArelisResub shonda-Revert Radha Stinson MD, [address], [address], [place], [address], 12/29/2024 16:04:12 cardiolog ist referral - Please call pt to schedule appt. Thank you 2024 025 [place], [address], [address], [place], [address], 12/29/2024 14:00:44 pulmonolo gist referral - Per [facility] website, patient's plan does not require an insurance referral 2024 025 hrushingGaby Smith MD, [address] [place], [address], 11/24/2024 19:48:38 nephrolog ist referral - Please call pt to schedule appt. Thank youPer [facility] website, patient's plan does not require an insurance referral 2024 025 ALMA Cash MD (Nephrology, [address], [address], [place], [address], 11/29/2024 14:20:02 hematolog ist referral - Please call patient to schedule an appointme nt. Thank you. 2024 025 JAYE Ortiz MD, [address], [place], [address], 12/14/2024 16:23:48 orthopedi c surgeon referral - Per [facility] website, patient's plan does not require an insurance referral. Please call patient to schedule an appointme nt. Thank you. 2024 025 hrushingGaby Leigh MD, [address] [place], [address], 11/24/2024 19:45:12 pulmonolo gist referral - Per [facility] website, patient's plan does not require an insurance referral 2024 025 hrushingGaby Smith MD, [address] [place], [address], 11/24/2024 19:47:02 gastroent erologist referral - Please call patient to schedule an appointme nt. Thank you. 2024 ALMA Stinson MD, [address], [address], [place], [address], 11/29/2024 14:17:59 cardiolog ist referral - Please call pt to schedule appt. Thank youPer [facility] website, patient's plan does not require an insurance referral 2024 [place], [address], [address], [place], [address], 11/24/2024 21:00:58 Procedures None recorded. Surgeries None recorded. Imaging MAMMO, screening , digital, bilateral - Please call patient to schedule. Due on or around 4 2024 025 [facility], [address], [place], [address], 12/22/2024 16:32:45 MAMMO, screening , digital, bilateral - Please call patient to schedule. Due on or around 4 2024 025 [email or web address] [facility], [address], [place], [address], 10/06/2024 19:56:39 Medication Orders albuterol sulfate HFA 90 mcg/actua tion aerosol inhaler 2024 [facility], [address] [place] [address], [address], 01/26/2025 09:01:45 Breo Ellipta 200 mcg-25 mcg/dose powder for inhalatio n 2024 [facility], [address] [place] [address], [address], 01/26/2025 09:01:46 albuterol sulfate HFA 90 mcg/actua tion aerosol inhaler 2024 025 [facility], [address] [place] [address], [address], 11/02/2024 09:13:27 Breo Ellipta 200 mcg-25 mcg/dose powder for inhalatio n 2024 025 [facility], [address] [place] [address], [address], 11/02/2024 09:13:28 Patient TargetsNo targets recorded. Patient Instructions Encounter Date Encounter Id Patient Instructions Last Modified By Organization Details Last Modified Time 10/06/2024 [id number] diabetic eye exam* [email or web address] Not available 10/06/2024 16:40:38 12/22/2024 [id number] diabetic eye exam* [email or web address] Not available 12/22/2024 16:22:15 Reason for Referral Facility Attendant Referral for Ch ronic kidney disease Please call pt to schedule appt. Thank youPer [facility] website, patient's plan does not require an insurance referral Referring Physician: Satnam Chiang Medicine, Encounter Date: 10/06/2024 Supervisor Detasseling Crew Referral for He art murmur Please call pt to schedule appt. Thank youPer [facility] website, patient's plan does not require an insurance referral Referring Physician: Corey Gurrola Internal Medicine, Encounter Date: 10/06/2024 [place] Referral for A sthma Per [facility] website, patient's plan does not require an insurance referral Referring Physician: Satnam Chiang Medicine, Encounter Date: 10/06/2024 Orthopedic Surgeon Referral for Trigger finger of right hand Per [facility] website, patient's plan does not require an insurance referral. Please call patient to schedule an appointment. Thank you. Referring Physician: Satnam Chiang Medicine, Encounter Date: 10/06/2024 [place] Referral for S leep apnea Per [facility] website, patient's plan does not require an insurance referral Referring Physician: Corey Gurrola Internal Medicine, Encounter Date: 10/06/2024 Key Punch Operator Referral for Hepatomegaly Please call patient to schedule an appointment. Thank you. Referring Physician: Corey Gurrola Internal Medicine, Encounter Date: 10/06/2024 Please call patient to sched ule an appointment. Thank you. Referring Physician: Corey Gurrola Internal Medicine, Encounter Date: 10/06/2024 Facility Attendant Referral for Ch ronic kidney disease Please call pt to schedule appt. Please call patient to schedule an appointment. Thank you Referring Physician: Corey Gurrola Internal Medicine, Encounter Date: 12/22/2024 Supervisor Detasseling Crew Referral for He art murmur Please call pt to schedule appt. Thank you Referring Physician: Satnam Chiang Medicine, Encounter Date: 12/22/2024 Key Punch Operator Referral for Hepatomegaly Please call patient to schedule an appointment. Thank you. Referring Physician: Satnam Chiang Medicine, Encounter Date: 12/22/2024 Results Created Date Observation Date Name Description Value Unit Range Abnormal Flag Note LastModifiedBy Organization Detail LastModifiedTime 10/10/1910/10/2024 LIPID PANEL cholesterol 108 mg/dL 140-19 9 low NIH SHANDA NSUS RECOM MENDA TION FOR LEONEL STERO L: ADULT CHILD LOW RISK: <200 <170 BORDE RLINE : <200- 239 ----- HIGH RISK: >240 >200 Not Available [facility] (Lab) [address] [place], [address], 10/10/2024 11:23:01 10/10/19 25 10/10/2024 LIPID PANEL triglyceride s 60 mg/dL 0-150 NIH SHANDA NSUS REPOR T RECOM MENDA TION FOR TRIGL YCERI KATEY: ADULT CHILD LOW RISK: <150 ----- BODER LINE: 150-1 99 ----- HIGH RISK: >200 ----- Not Available [facility] (Lab) [address] [place], [address], 10/10/2024 11:23:01 10/10/19 25 10/10/2024 LIPID PANEL HDL cholesterol 56 mg/dL 40- Not Available [facility] (Lab) [address] [place], [address], 10/10/2024 11:23:01 10/10/19 25 10/10/2024 LIPID PANEL [...] WILL NOT BE REPOR SE. Not Available [facility] (Lab) [address] [place], [address], 10/10/2024 11:23:01 10/10/19 25 10/10/2024 TSH W/REF JOSE CARLOS FT4 TSH with reflex free T4 2.220 uIU/m L 0.465- 4.680 Not Available [facility] (Lab) [address] [place], [address], 10/10/2024 11:44:16 Result Notes None recorded. Problems Name Problem SNOMED Code Status Onset Date Resolution Date Notes Provider Name and Address Organization Details Recorded Time Allergic rhinitis 92061826 Active 2022 Arnaud Smith MD [address] [facility] [address], [place], [address] , [facility] Photos to Photos 08:54:00 Deep venous thrombosis of lower extremity 813561635 Active 2022 Arnaud Smith MD [address], [place], [address], [place] [facility] 5 08:53:27 Hypothyroid ism 72119939 Active 2022 Arnaud Smith MD [address], [place], [address], [place] [facility] 5 08:53:02 Arthritis 5501899 Active 2022 Arnaud Smith MD [address], [place], [address], [facility] 5 08:54:38 Peripheral venous insufficien cy 06818049 Active 2022 Arnaud Smith MD [address], [address], [place], [address], [employer] [facility] 5 08:52:44 Moderate persistent asthma 588287433 Active 2022 Arnaud Smith MD [address], [address], [place], [address], [facility] - [facility] 5 08:52:56 Trigger finger of right hand 3119382657852 9101 Active 2022 Arnaud Smith MD [address], [address], [place], [address], [employer] - [facility] 5 08:52:34 Vitamin D deficiency 13655346 Active 2022 Arnaud Smith MD [address], [place], [address], [facility] - [facility] 5 08:52:28 Obesity 727946315 Active 2022 Arnaud Smith MD [address], [place], [address], [facility] - [facility] 5 08:52:51 Chronic kidney disease 914478252 Active 2024 Arnaud Smith MD [address], [place], [address], [facility] - [facility] 5 08:53:31 Type 2 diabetes mellitus without complicatio n 566637639 Active 2024 Arnaud Smith MD [address], [address], [place], [address], [employer] [facility] 5 08:52:30 Gastritis 1276538 Active 2024 Arnaud Smith MD [address], [address], [place], [address], [employer] [facility] 5 08:53:12 Anemia 863768102 Active Arnaud Smith MD [address], [place], [address], [employer] [facility] [employer] 5 08:54:34 Microalbumi arlette 656028749 Active Arnaud Smith MD [address], [place], [address], [employer] [facility] 5 08:52:58 Saddle embolus of pulmonary artery 3706966400698 09 Active 2018 Arnaud Smith MD [address], [address], [place], [address], [employer] 5 08:52:38 Hyperlipide vern 93743035 Active 2021 Arnaud Smith MD [address], [address], [place], [address], [employer] [facility] 5 08:53:09 Essential hypertensio n 03392566 Active Arnaud Smith MD [address], [place], [address], [employer] [facility] 5 08:53:15 Obstructive sleep apnea syndrome 83199869 Active 2017 Arnaud Smith MD [address], [place], [address], [employer] [facility] [employer] [facility] 5 08:52:48 Notes:Medical History: Bilat eral hearing loss Rhinitis to multiple environmental allergens IgE 56 IU/mL Eosinophils 160 /uL Left thyroid nodules AAT PiMM 160 mg% Methacholine (+) moderate persistent asthma Bibasilar atelectasis Saddle embolus 11/09/18 on Eliquis Obesity with mod OSAHS, AHI = 20, 04/21/17, on CPAP c/o IVRC Hypertension T2DM with microalbuminuria Umbilical hernia Hepatomegaly CKD Iron deficiency Normocytic anemia Vit D deficiency Left knee pain Tinea pedis Procedure History: Colonoscopy 2020 Cholecystectomy 2023 Occupational History: Seamstress Problem Notes None recorded. Procedures Surgical History Date Name Laterality Status Provider Name and Address Organization Details Recorded Time 10/25/19 25 Nail Debridement completed Prabhjot Lee DPM [address] [employer] [address], [address], [place], [address], [facility] [employer] 10/25/2024 11:00:56 05/17/20 24 Medicare Wellness CPT Code, subsequent completed Bridger Guidry LPN ID [employer] [facility] Photos to Photos 05/17/2024 09:00:47 05/17/20 24 Advanced Care Planning completed Bridger Guidry LPN [employer] [facility] Photos to Photos 05/17/2024 16:59:07 04/18/20 24 Cholecystectomy completed Anneliese Rothman MA [employer] Photos [employer] Photos 05/09/2024 14:34:41 11/09/19 24 Ortho - Cortisone Injection completed Jaclyn Schilling NP [address], [place], [address], [employer] [facility] Photos to Photos 11/09/2023 11:33:37 05/07/20 23 Transitional_Care_ Management completed Corey Gurrola MD [address], [place], [address], [facility] [employer] [facility] Photos to Photos 05/07/2023 10:22:47 02/13/20 23 Medicare Wellness CPT Code, subsequent completed Renee Torres RN ID [employer] [facility] Photos to Photos 02/12/2023 15:45:44 12/19/19 21 Most Recent Bone Density completed Not Available [facility] 11/12/2022 04:42:06 12/04/19 21 Date of Last Colonoscopy completed Not Available [facility] 11/12/2022 04:42:06 04/26/20 20 Dilation and curettage completed Not Available [facility] 11/12/2022 04:42:10 Ther radiology tx plng smpl completed Not Available [facility] 11/12/2022 04:42:10 Tubal Ligation completed Not Available [facility] 11/12/2022 04:42:10 section completed Not Available [facility] 11/12/2022 04:42:10 Cataract Surgery completed Rossana Neal ESTHELASina ID [employer] [facility] Photos to Photos 08/04/2023 09:20:48 Imaging Results None recorded. Procedure Notes None recorded. Medical Equipment None Reported. Allergies Allergen ID Allergen Name Allergen Category Reaction Reaction Severity Criticality Documentation Date Start Date Code Code System Note Provider Name and Address Organization Details Recorded Time 08131 glyburide medicatio n rash Not available Not available 11/02/2024 4815 RxNorm Arnaud Smith MD [address] [facility], [address], [address], [employer] [facility] [employer] [facility] 5 09:03:52 8895 spinach extract food Not available Not available Not available 11/12/2022 00051 76 RxNorm Not Available [facility] 3 05:06:45 8896 prednison e medicatio n rash Not available Not available 11/12/2022 8640 RxNorm Arnaud Smith MD [address] [facility], [facility] [address], [place], [address], [employer] 5 09:13:25 8899 omeprazol e medicatio n nausea Not available Not available 11/12/20222018 7646 RxNorm Not Available [facility] 3 05:06:45 8901 olive extract food,medi cation Not available Not available Not available 11/12/2022 00498 UNK Not Available [facility] 3 05:06:45 8902 cultivate d mushroom extract food Not available Not available Not available 11/12/2022 14861 17 RxNorm Not Available [facility] 3 05:06:45 8904 metformin medicatio n Not available Not available Not available 11/12/2022 6809 RxNorm Not Available [facility] 3 05:06:45 8906 Glucophag e medicatio n Not available Not available Not available 11/12/2022 24745 7 RxNorm Not Available [facility] 3 05:06:45 Medications Name Sig Start Date [...] BY MOUTH ONCE DAILY FOR 90 DAYS active Not Available Not Available No [...] sulfate HFA 90 mcg/actua tion aerosol inhaler INHALE 1 PUFF BY MOUTH EVERY 4 HOURS NEEDED active Not Available Not Available No t Available ketoconaz ole 2 % topical cream APPLY [...] glipmepe ride on 04/02/20 20Stoppe d by [facility]-Dr. Nam Nunez Not Available Not Available [...] completed Not Available Not Available Not Available Baq[employer]i 3 mg/actuat ion nasal spray ADMINIST ER 1 SPRAY (3MG) INTRANAS ALLY ONCE A SINGLE DOSE active Not Available Not Available No t Available [employer] HypoPen 1-Pack 1 mg/0.2 mL subcutane ous auto-inje ctor INJECT 1 MG SUBCUTAN EOUSLY ONCE A SINGLE DOSE (MAY REPEAT ONCE AFTER 15 MINUTES IF NO RESPONSE ) 12/22 completed Not Available Not Available Not Available Ozempic 1 mg/dose (4 mg/3 mL) subcutane ous pen injector Inject 0.5 mL every week by subcutan eous route. 05/17 completed Not Available Not Available Not Available Ozempic 0.25 mg or 0.5 mg (2 mg/3 mL) subcutane ous pen injector Inject 0.25 mg by subcutan eous route. active weekly Not Available Not Available No t Available Vitals Date Recorded Body height Body mass index (BMI) Body weight Body temperature Heart rate Systolic blood pressure Diastolic blood pressure Provider Name and Address Organization Details Last Updated DateTime 165.1 cm 42.9 kg/m2 542787. 83 g 97.6 [degF] 78 /min 144 mm[Hg] 80 mm[Hg] BHUPINDER Guerrero [facility] [employer] [facility] 5 15:57:57 Date Recorded Body height Body mass index (BMI) Body weight Heart rate Respiratory rate Oxygen saturation Oxygen saturation in Arterial blood by Pulse oximetry Systolic blood pressure Diastolic blood pressure Provider Name and Address Organization Details Last Updated DateTime 165.1 cm 42.9 kg/m2 980690. 83 g 76 /min 14 /min 98 % 98 % 130 mm[Hg] 72 mm[Hg] Angelica Sher [facility] [employer] [facility] 5 10:22:53 Date Recorded Heart rate Respiratory rate Provider N viki and Address Organization Details Last Updated DateTime 11/02/2024 75 /min 15 /min Arnaud Smith MD [address] [employer] [address] [place], [address], [facility] [employer] [facility] 11/02/2024 09:05:17 Date Recorded Body height Body mass index (BMI) Body weight Body temperature Heart rate Oxygen saturation Oxygen saturation in Arterial blood by Pulse oximetry Systolic blood pressure Diastolic blood pressure Provider Name and Address Organization Details Last Updated DateTime 5 165.1 cm 41.6 kg/m2 237799. 37 g 98.5 [degF] 75 /min 99 % 99 % 126 mm[Hg] 64 mm[Hg] Sherly Lance MA [facility] [employer] [facility] 5 08:38:34 Date Recorded Body height Body mass index (BMI) Body weight Body temperature Respiratory rate Heart rate Oxygen saturation Oxygen saturation in Arterial blood by Pulse oximetry Systolic blood pressure Diastolic blood pressure Provider Name and Address Organization Details Last Updated DateTime 5 165.1 cm 40.4 kg/m2 645972. 95 g 97.3 [degF] 16 /min 73 /min 98 % 98 % 140 mm[Hg] 76 mm[Hg] Ana Leonard CNA [facility] [employer] [facility] 5 15:41:33 Date Recorded Heart rate Heart rate Respiratory rate Provider Name and Address Organization Details Last Updated DateTime 01/26/2025 74 /min 74 /min 15 /min Arnaud Smith MD [address], [facility] [address], [place], [address], [place] - [facility] Photos [employer] Photos 01/26/2025 09:13:03 Date Recorded Body height Body mass index (BMI) Body weight Body temperature Oxygen saturation Oxygen saturation in Arterial blood by Pulse oximetry Systolic blood pressure Diastolic blood pressure Provider Name and Address Organization Details Last Updated DateTime 5 165.1 cm 40.1 kg/m2 621102. 76 g 98.5 [degF] 98 % 98 % 130 mm[Hg] 78 mm[Hg] Tammy Lopez MA ID [employer] [facility] Photos to Photos 5 08:38:13 Social History Question Answer Notes LastModified by Organization Details LastModified Time Tobacco Smoking Status Former Smoker quit 2001 Not Available [employer] 11/12/2022 04:15:26 Do You Have An Advance Directive? No [email or web address] [id number] Information not available 11/12/2022 Are You Blind Or Do You Have Difficulty Seeing? No [email or web address] [id number] Information not available 11/12/2022 What Is Your Level Of Caffeine Consumption? Occasional [id number] Information not available 11/12/2022 How Much Tobacco Do You Chew? None [email or web address] [id number] Information not available 11/12/2022 In The 14 Days Before Symptom Onset, Have You Had Close Contact With A Laboratory-conf irmed COVID-19 While That Case Was Ill? No [email or web address] [id number] Information not available 11/12/2022 In The 14 Days Before Symptom Onset, Have You Had Close Contact With A Person Who Is Under Investigation For COVID-19 While That Person Was Ill? No MIGRATION.030 [id number] Information not available 11/12/2022 Are You Deaf Or Do You Have Serious Difficulty Hearing? Yes Wears Bilateral Hearing Aids [email or web address] Information not available 05/17/2024 What Type Of Diet Are You Following? REGULAR MIGRATION.030 [id number] Information not available 11/12/2022 Which Illicit Or Recreational Drugs Have You Used? None MIGRATION.030 417469 Information not available 11/12/2022 What Is The Highest Grade Or Level Of School You Have Completed Or The Highest Degree You Have Received? [id number] MIGRATION.300 [id number] Information not available 11/12/2022 Do You Have An Electrostatic Air Filter? No Information not available 12/16/2022 How Many Days Of Moderate To Strenuous Exercise, Like A Brisk Walk, Did You Do In The Last 7 Days? 0 [email or web address] Information not available 05/17/2024 Have There Been Any Changes To Your Family Or Social Situation? No Information not available 12/09/2022 What Is The Fluoride Status Of Your Home? Unknown MIGRATION.0301 [id number] Information not available 11/12/2022 When Did You Quit Smoking? 16+yearssincelast cigarette MIGRATION.0301 605347 Information not available 11/12/2022 Are There Any Guns Present In Your Home? No MIGRATION.0301 150829 Information not available 11/12/2022 Do You Have A Humidifier? No Information not available 12/16/2022 Do You Use Insect Repellent Routinely? No MIGRATION.0301 839779 Information not available 11/12/2022 Where Do You Live? [facility] MIGRATION.0301 [id number] Information not available 11/12/2022 Presence Of Domestic Violence No [email or web address] Information not available 05/17/2024 Guns Present In The Home? No [email or web address] Information not available 05/17/2024 Are You Able To Care For Yourself? Yes [email or web address] Information not available 05/17/2024 Are You Blind Or Do Yo Have Difficulty Seeing? No [email or web address] Information not available 05/17/2024 Are You Deaf Or Do You Have Serious Difficulty Hearing? Yes Wears Bilateral Heraing Aids. [email or web address] Information not available 05/17/2024 General Stress Level? Moderate [email or web address] Information not available 05/17/2024 Live Alone Of With Others? With Others [email or web address] Information not available 05/17/2024 Do You Have A Medical Power Of Towel Hemmer? No MIGRATION.0301 715090 Information not available 11/12/2022 Do You Have Moisture Problems In Your Home? No Information not available 12/16/2022 What Was The Date Of Your Most Recent Tobacco Screening? 01/26/2025 Information not available 01/26/2025 How Many Children Do You Have? 2 1 Living. Son . [email or web address] Information not available 05/17/2024 Do You Have Any Pets? No MIGRATION.0301 [id number] Information not available 11/12/2022 Do You Use Protection During Sex? No [email or web address] Information not available 05/17/2024 What Is Your Relationship Status? MIGRATION.0301 091593 Information not available 11/12/2022 Do You Use Your Seat Belt Or Car Seat Routinely? Yes Information not available 05/17/2024 Are You Sexually Active? No [email or web address] Information not available 05/17/2024 Do You Have Smoke And Carbon Monoxide Detectors In Your Home? Yes [email or web address] Information not available 05/17/2024 Are You Passively Exposed To Smoke? No MIGRATION.0301 299961 Information not available 11/12/2022 Are There Any Smokers In Your House? No MIGRATION.0301 888622 Information not available 11/12/2022 What Types Of Sporting Activities Do You Participate In? None [email or web address] Information not available 05/17/2024 Do You Use Sunscreen Routinely? No MIGRATION.0301 430427 Information not available 11/12/2022 Has Tobacco Cessation Counseling Been Provided? No Information not available 05/17/2024 Have You Recently Traveled Abroad? No MIGRATION.0301 734570 Information not available 11/12/2022 Do You Have Difficulty Walking Or Climbing Stairs? Yes Uses Cane [email or web address] Information not available 05/17/2024 Do You Have Any Dietary Restrictions? No MIGRATION.0301 937087 Information not available 11/12/2022 Sex: Female Functional Status Question Answer Note LastModified by Organizat ion Details LastModified Time Do you or have you ever used smokeless tobacco? Never used smokeless tobacco MIGRATION.87205 73796 Information not available 11/12/2022 Are you currently employed? No Information not available 12/09/2022 Have you been exposed to chemicals or toxins? No Not that aware of [email or web address] Information not available 11/02/2024 Do you have transportation difficulties? No MIGRATION.25164 80758 Information not available 11/12/2022 Are you able to care for yourself? Yes MIGRATION.94513 29955 Information not available 11/12/2022 Do you have difficulty dressing or bathing? No MIGRATION.13251 10633 Information not available 11/12/2022 Do you or have you ever used e-cigarettes or vape? Never used electronic cigarettes MIGRATION.81891 08075 Information not available 11/12/2022 What is your exercise level? None MIGRATION.72702 75150 Information not available 11/12/2022 Do you use any illicit or recreational drugs? No MIGRATION.95294 63765 Information not available 11/12/2022 Do you or have you ever used any other forms of tobacco or nicotine? No MIGRATION.39020 82906 Information not available 11/12/2022 What is your level of alcohol consumption? None MIGRATION.31327 42827 Information not available 11/12/2022 Are you able to walk? YESASSIST Christofer [email or web address] Information not available 05/17/2024 Do you have difficulty doing errands alone? No MIGRATION.50924 82042 Information not available 11/12/2022 What is your occupation? retired MIGRATION.14391 88920 Information not available 11/12/2022 Mental Status Question Answer Note LastModified by Organizat ion Details LastModified Time Do you feel stressed (tense, restless, nervous, or anxious, or unable to sleep at night)? [id number] MIGRATION.18827936 26 Information not available 11/12/2022 Do you have difficulty concentrating, remembering or making decisions? No MIGRATION.98000090 26 Information not available 11/12/2022 Family History Relationship Description Onset Age of this Age Resolved Age Notes LastModified by Organization Details LastModified Time Father Heart disease MIGRATION.000 [id number] Not available 11/12/2022 04:42:12 Mother Diabetes mellitus MIGRATION.360 [id number] Not available 11/12/2022 04:42:12 Mother Benign essential hypertension MIGRATION.787 [id number] Not available 11/12/2022 04:42:12 Sister Diabetes mellitus MIGRATION.506 [id number] Not available 11/12/2022 04:42:13 Sister Asthma MIGRATION.923 [id number] Not available 11/12/2022 04:42:13 Sister Heart disease deceas ed MIGRATION.070 1591189 Not available 11/12/2022 04:42:13 Sister Kidney disease MIGRATION.400 6080775 Not available 11/12/2022 04:42:13 Brother Diabetes mellitus MIGRATION.784 1094215 Not available 11/12/2022 04:42:13 Brother Malignant neoplasm of skin MIGRATION.727 [id number] Not available 11/12/2022 04:42:13 Unspecified Relation Arthritis [...] ARTERY DISEASE (CAD) N ADDICTION CONCERNS N ENDOMETRIOSIS N Impotence N USE OF BLOOD THINNERS Y SKIN PROBLEMS N GASTROINTESTINAL DISORDER N PERIPHERAL VASCULAR DISEASE N MUSCLE,JOINT OR BONE PROBLEMS N GASTROINTESTINAL BLEEDING N BLOOD CLOTS Y ASTHMA Y Abdominal Pain N CATARACTS N ERECTILE DYSFUNCTION N VARICOSITIES N GI PROBLEMS N Low Testosterone N INFERTILITY N AIDS/HIV N CHEMOTHERAPY / RADIATION N LIVER DISEASE N MALE HYPOGONADISM N HYPERTENSION Y Deficiency Y TOURETTE'S N ANXIETY DISORDER N BLOOD TRANSFUSION N ANEMIA/BLOOD DISORDER Y CHRONIC EAR INFECTIONS N BRONCHITIS N TUBERCULOSIS N GLAUCOMA N FOOT PROBLEM N DIVERTICULITIS N CHICKENPOX N SLEEP APNEA Y ALLERGIES/HAYFEVER Y INFECTIOUS DISEASE N HEART ARRHYTHMIA N PROSTATE N INSOMNIA N HIGH CHOLESTEROL / HYPERLIPIDEMIA N HYPERTHYROIDISM N EYE PROBLEMS Y EDEMA N CHRONIC PAIN SYNDROME N HYPOTHYROIDISM N CAROTID BLOCKAGE N CONSTIPATION N BACK / NECK PROBLEMS N ATHEROSCLEROSIS N BREAST PROBLEMS N DIALYSIS N ECZEMA N OSTEOPOROSIS N ARTHRITIS Y APPENDICITIS N DIABETES, TYPE Y BAD TEETH N ENT N HEARTBURN / REFLUX N AUTISM SPECTRUM DISORDER (ASD) N HEPATITIS / LIVER DISEASE N GOUT Y SLEEP DISORDER N ALZHEIMER'S DISEASE N Brain Problems N HERPES N DEMENTIA N HEADACHES/MIGRAINES N SEIZURES/EPILEPSY N VASCULAR DISEASE N PACEMAKER N Blood Disorder N DIZZINESS N HEART DISEASE/HEART PROBLEMS Y KIDNEY DISEASE Y MULTIPLE SCLEROSIS N CARDIAC ARRHYTHMIA N CANCER: SPECIFY Y ATRIAL FIBRILLATION N Gall Stones N PULMONARY [...] 1 completed Bridger Guidry LPN null, [facility] [employer] [facility] 05/12/2024 13:33:56 COVID-19, mRNA, LNP-S, PF, 100 mcg/0.5mL dose or 50 mcg/0.25mL dose 1 completed Bridger Guidry LPN null, [facility] [employer] [facility] 05/12/2024 13:33:56 COVID-19, mRNA, LNP-S, PF, 100 mcg/0.5mL dose or 50 mcg/0.25mL dose 1 completed Not Available [facility] 09/28/2023 05:37:13 COVID-19, mRNA, LNP-S, PF, 100 mcg/0.5mL dose or 50 mcg/0.25mL dose 1 completed Bridger Guidry LPN null, [facility] [employer] [facility] 05/12/2024 13:33:56 Influenza, split virus, quadrivalent, preservative 0 completed Not Available [facility] 09/28/2023 05:37:13 Influenza, split virus, quadrivalent, preservative 8 completed Not Available [facility] 09/28/2023 05:37:13 Influenza, high-dose, quadrivalent, PF 2 completed Not Available [facility] 09/28/2023 05:37:13 Influenza, high-dose, quadrivalent, PF 1 completed Not Available [facility] 09/28/2023 05:37:13 Influenza, high-dose, quadrivalent, PF 0 completed Not Available [facility] 09/28/2023 05:37:13 Pneumococcal conjugate PCV 13 8 completed Not Available [facility] 09/28/2023 05:37:13 Influenza, high-dose, trivalent, PF 8 completed Not Available [facility] 09/28/2023 05:37:13 pneumococcal polysaccharide PPV23 4 completed Not Available [facility] 09/28/2023 05:37:13 Influenza, split virus, trivalent, preservative 4 completed RASHMI Mosqueda, ID [employer] [facility] [employer] [facility] 05/12/2024 13:33:56 Influenza, high-dose, quadrivalent, PF 3 completed BHUPINDER Guerrero, ID [employer] [facility] [employer] [facility] 08/04/2023 09:46:04 Past Encounters Encounter ID Performer Location Encounter Start Date Encounter Closed Date Diagnosis/Indication Diagnosis SNOMED-CT Code Diagnosis ICD10 Code Diagnosis Note [id number] Corey acosta [place] [facility] [address] [place] [address] 1 11/22/2020 00:00:00 11/22/2020 11:45:22 [id number] Corey acosta MD [facility] Internal Med [facility] [address] [place] [address] 1 12/20/2020 00:00:00 05/15/2021 17:54:18 [id number] MD LIS Da Silva IGRATION_ DEFAULT_1 _1 , 01/24/2021 00:00:00 01/24/2021 10:17:19 [id number] [facility]_Histor ic_Gateway S_G Pulmonolo gy [place] [id number] [facility] [address] [place] [address] 03/04/2021 00:00:00 03/04/2021 13:22:53 [id number] [facility]_Histor ic_Gateway _LUZ IGRATION_ DEFAULT_1 _1 , 06/07/2021 00:00:00 06/09/2021 19:47:51 [id number] MD LIS Da Silva IGRATION_ DEFAULT_1 _1 , 07/11/2021 00:00:00 07/11/2021 09:49:21 [id number] MD RIGOBERTO Valencia_GMG Internal Med [facility] [address] [address] 07/16/2021 00:00:00 07/17/2021 16:55:42 [id number] Corey acosta MD [facility]_GMG Internal Med [facility] [address] [facility] [address] [address] 1 11/12/2021 00:00:00 11/12/2021 09:38:05 [id number] Remington hill MD S_[facility] General Surgery [address] [facility] [place] [address] 1 11/21/2021 00:00:00 11/21/2021 13:33:26 [id number] [facility]_[place] ic_Gateway _LUZ IGRATION_ DEFAULT_1 _1 , 12/06/2021 00:00:00 12/08/2021 14:58:36 [id number] Arnaud Smith MD [facility]_GMG [facility] [address] [address] 12/16/2021 00:00:00 12/16/2021 16:19:54 [id number] Zeny Marie MD _LUZ IGRATION_ DEFAULT_1 _1 , 01/09/2022 00:00:00 01/09/2022 10:21:00 [id number] Corey acosta MD [facility]_GMG Internal Med [facility] [address] [facility] [address] [address] 04/22/2022 00:00:00 04/22/2022 16:46:06 [id number] Corey acosta MD S_GMG Internal Med [facility] [address] [facility] [address] [address] 08/12/2022 00:00:00 08/12/2022 09:45:40 [id number] MD MICHELLE Da SilvaS_GMG Endo [place] [address] [place] [address] 09/18/2022 00:00:00 09/18/2022 13:38:31 [id number] Corey acosta MD [facility] Internal Med [facility] 15 [address] [facility], [address] [place] [address] 12/09/2022 08:51:09 12/09/2022 09:43:11 Screening - NAD [id number] Z13.9 C-scope: 07/03/17, Next in 10 yearsC-sco [...] her understand ing of the above Hyperlipidemia 55248516 E78.5 On rosuvastat in 10mg dailyGet labs 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 667661877 E11.9 On glimeperid e 1mg bidOn trescibaOn ozempicDoe s see eye MDSees podiatry last 12/06/[address] Marie, next 09/18/2022 Hepatomegaly 60607793 R1 6.[address] A/P 08/20/2021 US liver: 11/22/2021 : Hepatomega ly: See case 11/27/2021 Needs to see GI Essential hypertension 99923928 I10 On lasix 40mgOn lisinopril 20mg dailyOn metoprolol 25mg bidShould not be on lisinopril 40mg bid, given by Dr Shailesh Lama quinapril 40mg bid given by Dr Shailesh Lama the xareltoDoe s [facility] Dr Cash 07/29/2022 , f/u in 6 months Chronic ki dney disease 939558407 N18.[address] Cash the kidney specialist On vit d weeklyOn allopurino Jordana calcitriol Does well Sleep apnea 92968864 G47 .30 On CPAPSees Nae Jacques WATERPROOFER HELPER last OV 03/04/2021 Dr Smith 12/16/2021 , next 12/16/2022 Goiter 7303954 E04.9 US thyroid 09/01/18, neg ordred by Dr Mancia eythyrox 25mcgs daily OV 12/20/2020 :US thyroid 12/18/2020 : Multiple sub centimeter thyroid nodules, Dr Marie monitors OV 11/12/2021 US thyroid 08/02/2021 Dr Marie Heart murmur 53776712 R0 1.1 Sees [facility] Dr Cash Epigastric pain 08970875 R10.13 08/20/2020 : Dr Crawford EGD: Neg On PPIDoes well Pulmonary embolism [address] chest 11/09/18: PESees Nae Jacques WATERPROOFER HELPER On xarelto Allergic rhinitis 278398 04 J30.9 Has rhinitis, no fevers or chills, no chest pain or SOBShe has used the flonase and has helped her Abnormal u terine bleeding 7153105158 9100 N93.9 Addendum: 04/04/2020 :Seen in the ER at [facility] and [facility] for the bleedingS/ p US pelvic 03/29/2020 Now to get hysterosco py DNC by Dr Quezada/p CBC: 04/04/2020 : H/H 9.1/30.4Sh e is cleared for this by [facility] Dr Cash and is cleared for this [...] Stringer radiation oncologyAl so sees Dr Sheehan correctional substance abuse counselor onco Sees Dr Ortiz also OV 11/22/2020 [...] :Keep apts with Dr Ortiz Abdominal pain 48964520 R10.9 S/p ER visit on 11/17/2020 S/P CT A/P 11/17/2020 : Large cecal mass Is to see Dr Crawford will need c-scope Also should see Dr Angel MARIONP Concern for SBO Get another CT A/P [...] 12/09/2022 :Needs to see Dr Ortiz Asthma 025383453 J45.90 9 On breoOn proair She is doing well todaySees Nae Ingram WATERPROOFER HELPER and Dr Smith Obesity 170673648 E66.9 Diet and exercise, noted by pulmonary Obstructiv e sleep apnea syndrome 43495613 G47.33 On CPAPSees Nae Jacques WATERPROOFER HELPER 03/04/[address] Smith 12/16/2021 , next 12/16/2022 Anemia 023950059 D64.9 07/30/2020 : Mamta Hooker NP, hematology , f/u in 3 months, 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 Keep apt with Dr Ortiz Cholecystitis 85406100 K 81.[address] A/P 08/20/2021 Dr Sheikh 11/21/2021 Deep venou s thrombosis of lower extremity 980292727 I82.409 US LE: 04/01/2022 : Dr Ortiz: R femoral DVT Keep apt with Dr Ortiz on 05/12/2022 , did speak personally on 04/21/2022 , was told to increase xarelto to 20mg daily Trigger fi nger of right hand [id number] 3236780 M65.30 R MF, there is a trigger finger, get a referral to Dr Gallegos hand orthoRefer red again [id number] Arnaud Smith MD [facility] [address] 12/16/2022 10:04:42 12/17/2022 08:40:17 Obstructive sleep apnea syndrome 45683106 G47.33 [id number] Corey acosta MD [facility] [address] 01/20/2023 09:15:56 01/20/2023 09:53:06 Screening - NAD 332878225 Z13.9 C-scope: 07/03/17, Next in 10 yearsC-sco pe: 12/03/2020 : Dr Crawford Mammogram: 03/27/17: Now yearlyMamm ogram: 05/20/19: NegMammogr am: 06/18/2020 : NegMammogr am: 08/02/2021 : Neg, orderedMam mogram: 08/04/2022 : Neg PAP: Did see Ivette WATERPROOFER HELPER 05/18/19Dr Panda: 05/07/2020 : 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 DEXA: 09/01/18: NegDEXA: 12/18/2020 : Neg Do yearly flu shot 07/24/2020 UTD on pneumovax 08/31/18, 08/08/14Sh ould do Tdap and Shingles vaccineUTD on COVID 19 vaccine RTC in 2 monthsDo labsER if worseShe did verbalize her understand ing of the above Hyperlipidemia 12947017 E78.5 On rosuvastat in 10mg dailyGet labs 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 756546392 E11.9 On glimeperid e 1mg bidOn trescibaOn ozempicDoe s see eye MDSees podiatry last 12/06/[address] Marie Hepatomegaly 72108841 R1 6.[address] A/P 08/20/2021 US liver: 11/22/2021 : Hepatomega ly: See case 11/27/2021 Needs to see GI Essential hypertension 78281947 I10 On lasix 40mgOn lisinopril 20mg daily, will decrease to 10mg daily 01/20/2023 , keep BP logsOn metoprolol 25mg bidShould not be on lisinopril 40mg bid, given by Dr Shailesh Lama quinapril 40mg bid given by Dr Shailesh Lama the xareltoDoe s [facility] Dr Cash 07/29/2022 , f/u in 6 months Chronic ki dney disease 910085523 N18.[address] Cash the kidney specialist On vit d weeklyOn allopurino Jordana calcitriol Does well Sleep apnea 93797470 G47 .30 On CPAPSees Nae Jacques WATERPROOFER HELPER last OV 03/04/2021 Dr Smith 12/16/2021 , next 12/16/2022 Goiter 6420343 E04.9 US thyroid 09/01/18, neg ordred by Dr Mancia eythyrox 25mcgs daily OV 12/20/2020 :US thyroid 12/18/2020 : Multiple sub centimeter thyroid nodules, Dr Marie monitors OV 11/12/2021 US thyroid 08/02/2021 Dr Marie OV 01/20/2023 :Dr Marie 09/18/2022 Heart murmur 58027839 R0 1.1 Sees [facility] Dr Cash Epigastric pain 34419690 R10.13 08/20/2020 : Dr Crawford EGD: Neg On PPIDoes well Pulmonary embolism [address] chest 11/09/18: Iliana Jacques WATERPROOFER HELPER On xarelto Allergic rhinitis 285677 04 J30.9 Has rhinitis, no fevers or chills, no chest pain or SOBShe has used the flonase and has helped her Abnormal u terine bleeding 7193005204 9100 N93.9 Addendum: 04/04/2020 :Seen in the ER at [facility] and [facility] for the bleedingS/ p US pelvic 03/29/2020 Now to get hysterosco py DNC by Dr Quezada/patrizia CBC: 04/04/2020 : H/H 9.1/30.4Sh e is cleared for this by [facility] Dr Cash and is cleared for this [...] Stringer radiation oncologyAl so sees Dr Sheehan correctional substance abuse counselor onco Sees Dr Ortiz also OV 11/22/2020 [...] weeks, f/u in 6 weeks Abdominal pain 52891575 R10.9 S/p ER visit on 11/17/2020 S/P [...] Ortiz OV 01/20/2023 :Sees Dr Ortiz Asthma 529879671 J45.90 9 On breoOn proair She is doing well todaySees Nae Ingram WATERPROOFER HELPER and Dr Smith Obesity 018546104 E66.9 Diet and exercise, noted by pulmonary Obstructiv e sleep apnea syndrome 98070260 G47.33 On CPAPSees Nae Jacques WATERPROOFER HELPER 03/04/[address] Smith 12/16/2022 Anemia 542655614 D64.9 07/30/2020 : Mamta Hooker, MUSTAPHA, hematology , f/u in 3 months, 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 Keep apt with Dr Ortiz Cholecystitis 32923862 K 81.[address] A/P 08/20/2021 Dr Sheikh 11/21/2021 Deep venou s thrombosis of lower extremity 586305651 I82.409 US LE: 04/01/2022 : Dr Ortiz: R femoral DVT Keep apt with Dr Ortiz on 05/12/2022 , did speak personally on 04/21/2022 , was told to increase xarelto to 20mg daily Trigger fi nger of right hand [id number] 1775503 M65.30 R MF, there is a trigger finger, get a referral to Dr Gallegos hand orthoRefer red again [id number] Corey acosta MD S_[facility] Internal Med [address] [facility], [address] [place] [address] 02/12/2023 15:17:25 02/12/2023 16:01:32 Transition of care 2723576245 105 Z75.8 Transition Care Management Questionna ireDate of Discharge 02/03/23Adm ission Date: 01/31/23Dat e of Contact: 1st attempt: 02/05/23, 2nd attempt: 02/06/23 (02/10/23 - spoke with patient)Re ason for Admission: Abdominal pain, vomitingDi scharge Facility Name: [facility] Facility Type inpatient acute care [facility] Diagnosis( es): Noninfecti ve gastroente ritis, UTIDiagnos tic Test(s) Performed: CT (abdomen/p raquel), Other: lab work, urinalysis . upper endoscopyD id your hospital physician prescribe any new medicines upon discharge? yes: Cipro, Metronidaz oleDid you order picker/assembler your prescripti on(s) and begin taking them [...] s) Rudy Berumen RN Screening - NAD 17386749 3 Z13.9 C-scope: 07/03/17, Next in 10 [...] her understand ing of the above Hyperlipidemia 59225222 E78.5 On rosuvastat in 10mg dailyGet labs 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 241782195 E11.9 On glimeperid e 1mg bidOn trescibaOn ozempicDoe s see eye MDSees podiatry last 12/06/[address] Marie Hepatomegaly 40400032 R1 6.[address] A/P 08/20/2021 US liver: 11/22/2021 : Hepatomega ly: See case 11/27/2021 Needs to see GI Essential hypertension 62073991 I10 On lasix 40mgOn lisinopril 10mg 1/2 tab dailyOn metoprolol 25mg 1/2 tab bidShould not be on lisinopril 40mg bid, given by Dr Shailesh HANDYNot on quinapril 40mg bid given by Dr Shailesh Lama the xareltoDoe s [facility] Dr Cash 07/29/2022 , f/u in 6 months Chronic ki dney disease 233350967 N18.[address] Cash the kidney specialist On vit d weeklyOn allopurino Jordana calcitriol Does well Sleep apnea 87202866 G47 .30 On CPAPSees Nae Jacques WATERPROOFER HELPER last OV 03/04/2021 Dr Smith 12/16/2021 , 12/16/2022 , next 12/16/2023 Goiter 2588801 E04.9 US thyroid 09/01/18, neg ordred by Dr Mancia eythyrox 25mcgs daily OV 12/20/2020 :US thyroid 12/18/2020 : Multiple sub centimeter thyroid nodules, Dr Marie monitors OV 11/12/2021 US thyroid 08/02/2021 Dr Marie OV 01/20/2023 :Dr Marie 09/18/2022 OV 02/12/2023 :Sees Dr Marie Heart murmur 91527755 R0 1.1 Sees [facility] Dr Cash Epigastric pain 87684826 R10.13 08/20/2020 : Dr Crawford EGD: Neg On PPIDoes well Pulmonary embolism [address] chest 11/09/18: Iliana Jacques WATERPROOFER HELPER On xarelto Allergic rhinitis 658693 04 J30.9 Has rhinitis, no fevers or chills, no chest pain or SOBShe has used the flonase and has helped her Abnormal u terine bleeding 8018911468 9100 N93.9 Addendum: 04/04/2020 :Seen in the ER at [facility] and [facility] for the bleedingS/ p US pelvic 03/29/2020 Now to get hysterosco py DNC by Dr Quezada/p CBC: 04/04/2020 : H/H 9.1/30.4Sh e is cleared for this by [facility] Dr Cash and is cleared for this [...] Stringer radiation oncologyAl so sees Dr Sheehan correctional substance abuse counselor onco Sees Dr Ortiz also OV 11/22/2020 [...] OV 02/12/2023 :Sees Dr Ortiz Abdominal pain 15152720 R10.9 S/p ER visit on 11/17/2020 S/P [...] : Keep apts with Dr Ortiz Asthma 010574177 J45.90 9 On breoOn proair She is doing well todaySees Nae Ingram WATERPROOFER HELPER and Dr Smith Obesity 042696379 E66.9 Diet and exercise, noted by pulmonary Obstructiv e sleep apnea syndrome 03794114 G47.33 On CPAPSees Nae Jacques WATERPROOFER HELPER 03/04/[address] Smith 12/16/2023 Anemia 657337221 D64.9 07/30/2020 : Mamta Hooker NP, hematology , f/u in 3 months, 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 Keep apt with Dr Ortiz Cholecystitis 08285547 K 81.[address] A/P 08/20/2021 Dr Sheikh 11/21/2021 Deep venou s thrombosis of lower extremity 158308664 I82.409 US LE: 04/01/2022 : Dr Ortiz: R femoral DVT Keep apt with Dr Ortiz on 05/12/2022 , did speak personally on 04/21/2022 , was told to increase xarelto to 20mg daily Trigger fi nger of right hand [id number] 2708825 M65.30 R MF, there is a trigger finger, get a referral to Dr Gallegos hand orthoRefer red again Gastritis 6150613 K29.70 D/c 01/31-01/13 12/04 for gastritis, UTI, s/p EGD done, now is doing well Adult heal th examination 945918567 Z00.00 Screening for disorder 253022018 Z13.9 [id number] Corey acosta MD [facility] Internal Med [facility] [address] [facility], [address] [place] [address] 03/05/2023 15:01:45 03/05/2023 15:54:29 Screening - NAD 197335326 Z13.9 C-scope: 07/03/17, Next in 10 yearsC-sco [...] her understand ing of the above Hyperlipidemia 86624294 E78.5 On rosuvastat in 10mg dailyGet labs 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 936221011 E11.9 On glimeperid e 1mg bidOn trescibaOn ozempicDoe s see eye MDSees podiatry last 12/06/[address] Marie Hepatomegaly 19888319 R1 6.[address] A/P 08/20/2021 US liver: 11/22/2021 : Hepatomega ly: See case 11/27/2021 Needs to see GI Essential hypertension 31783905 I10 On lasix 40mgOn lisinopril 10mg 1/2 tab dailyOn metoprolol 25mg 1/2 tab bidShould not be on lisinopril 40mg bid, given by Dr Shailesh Skinner on quinapril 40mg bid given by Dr Shailesh Skinner on xareltoDoe s [facility] Dr Cash 07/29/2022 , f/u in 6 months Chronic ki dney disease 732244893 N18.[address] Cash the kidney specialist On vit d weeklyOn allopurino Jordana calcitriol Does well Sleep apnea 44527284 G47 .30 On CPAPSees Nae Jacques WATERPROOFER HELPER last OV 03/04/2021 Dr Smith 12/16/2021 , 12/16/2022 , next 12/16/2023 Goiter 7692997 E04.9 US thyroid 09/01/18, neg ordred by Dr Mancia eythyrox 25mcgs daily OV 12/20/2020 :US thyroid 12/18/2020 : Multiple sub centimeter thyroid nodules, Dr Marie monitors OV 11/12/2021 US thyroid 08/02/2021 Dr Marie OV 01/20/2023 :Dr Marie 09/18/2022 OV 02/12/2023 :Sees Dr Marie OV 03/05/2023 : See Dr Marie Heart murmur 60055708 R0 1.1 Sees [facility] Dr Cash Epigastric pain 13195335 R10.13 08/20/2020 : Dr Crawford EGD: Neg On PPIDoes well Pulmonary embolism [address] chest 11/09/18: PESees Nae Jacques WATERPROOFER HELPER, referred Not on xarelto Allergic rhinitis 108578 04 J30.9 Has rhinitis, no fevers or chills, no chest pain or SOBShe has used the flonase and has helped her Abnormal u terine bleeding 7454998189 9100 N93.9 Addendum: 04/04/2020 :Seen in the ER at [facility] and [facility] for the bleedingS/ p US pelvic 03/29/2020 Now to get hysterosco py DNC by Dr Quezada/p CBC: 04/04/2020 : H/H 9.1/30.4Sh e is cleared for this by [facility] Dr Cash and is cleared for this [...] Stringer radiation oncologyAl so sees Dr Sheehan correctional substance abuse counselor onco Sees Dr Ortiz also OV 11/22/2020 [...] 03/05/2023 : See Dr Ortiz Abdominal pain 70350492 R10.9 S/p ER visit on 11/17/2020 S/P [...] Coffey 03/05/2023 : See Dr Ortiz Asthma 837497261 J45.90 9 On breoOn proair She is doing well todaySees Nae Ingram WATERPROOFER HELPER and Dr Smith Obesity 590907407 E66.9 Diet and exercise, noted by pulmonary Obstructiv e sleep apnea syndrome 90390356 G47.33 On CPAPSees Nae Jacques WATERPROOFER HELPER 03/04/[address] Smith 12/16/2023 Anemia 536486059 D64.9 07/30/2020 : Mamta Hooker NP, hematology , f/u in 3 months, 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 Keep apt with Dr Ortiz Cholecystitis 68314510 K 81.[address] A/P 08/20/2021 Dr Sheikh 11/21/2021 Deep venou s thrombosis of lower extremity 601455914 I82.409 US LE: 04/01/2022 : Dr Ortiz: R femoral DVT Keep apt with Dr Ortiz on 05/12/2022 , did speak personally on 04/21/2022 , was told to increase xarelto to 20mg daily Trigger fi nger of right hand [id number] 2181205 M65.30 R MF, there is a trigger finger, get a referral to Dr Gallegos hand orthoRefer red again Gastritis 5743922 K29.70 D/c 01/31-01/13 12/04 for gastritis, UTI, s/p EGD done, now is doing well Screening for osteoporosis 271936039 Z13.820 Screening mammography 24 091107 Z12.31 [id number] Zeny Marie MD [facility] Ca[place] Elias [address] [place] [address] 04/17/2023 14:25:37 04/17/2023 15:49:26 Well controlled type 2 diabetes mellitus 530019900 E11.9 a1c 6.9% in range- patient encouraged [...] scale dosing to avoid hypoglycem ia. Hypothyroidism 90496451 E03.9 TFTs in range- continue on LT4 25 mcg daily. Dyslipidemia 332655776 E 78.5 Continue on statin therapy. Spent [...] answered and refills necessary at visit today. [id number] Corey acosta MD [facility] Internal Med [address] [facility], [address] [place] [address] 05/07/2023 09:46:03 05/07/2023 10:25:25 Transition of care [id number] 105 Z75.8 Facility: [facility] ion Date: 04/24/23Dis charge Date: 04/26/23Dis charge Diagnoses: Obstructiv e sleep apnea syndrome, cholecysti tis, chronic kidney disease stage 3, iron deficiency anemia, acute pulmonary embolism Screening - NAD 21262779 3 Z13.9 C-scope: 07/03/17, Next in 10 yearsC-sco pe: 12/03/2020 : Dr Crawford Mammogram: 03/27/17: Now yearlyMamm ogram: 05/20/19: NegMammogr am: 06/18/2020 : NegMammogr am: 08/02/2021 : Neg, orderedMam mogram: 08/04/2022 : Neg PAP: Did see Ivette WATERPROOFER HELPER 05/18/19Dr Mosqueda: 05/07/2020 : 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 DEXA: 09/01/18: NegDEXA: 12/18/2020 : Neg Do yearly flu shot 07/24/2020 UTD on pneumovax 08/31/18, 08/08/14Sh ould do Tdap and Shingles vaccineUTD on COVID 19 vaccine RTC in 2 monthsDo labsER if worseShe did verbalize her understand ing of the above Hyperlipidemia 29679040 E78.5 On rosuvastat in 10mg dailyGet labs 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 338589247 E11.9 On glimeperid e 1mg bidOn trescibaOn ozempicDoe s see eye MDSees podiatry last 12/06/[address] Marie Hepatomegaly 83705606 R1 6.[address] A/P 08/20/2021 US liver: 11/22/2021 : Hepatomega ly: See case 11/27/2021 Needs to see GI Essential hypertension 63663751 I10 On lasix 40mgOn lisinopril 10mg 1/2 tab dailyOn metoprolol 25mg 1/2 tab bidShould not be on lisinopril 40mg bid, given by Dr Shailesh Skinner on quinapril 40mg bid given by Dr Shailesh Skinner on xareltoNow on eliquis 5mg bidDoes [facility] Dr Cash 07/29/2022 , f/u in 6 months Chronic ki dney disease 327472561 N18.[address] Cash the kidney specialist On vit d weeklyOn allopurino Jordana calcitriol Does well Sleep apnea 72112797 G47 .30 On CPAPSees Nae Jacques WATERPROOFER HELPER last OV 03/04/2021 Dr Smith 12/16/2021 , 12/16/2022 , next 12/16/2023 Goiter 7318438 E04.9 US thyroid 09/01/18, neg ordred by Dr Mancia eythyrox 25mcgs daily OV 12/20/2020 :US thyroid 12/18/2020 : Multiple sub centimeter thyroid nodules, Dr Marie monitors OV 11/12/2021 US thyroid 08/02/2021 Dr Marie OV 01/20/2023 :Dr Marie 09/18/2022 OV 02/12/2023 :Sees Dr Marie OV 03/05/2023 : See Dr Marie OV 05/07/2023 : Now will see Dr Mullins, no complaints now Heart murmur 54532794 R0 1.[address] Cash Epigastric pain 11467886 R10.13 08/20/2020 : Dr Crawford EGD: Neg On PPIDoes well Pulmonary embolism [address] chest 11/09/18: Iliana Jacques WATERPROOFER HELPER, referred Not on xarelto 04/24/2023 : [facility] ER04/24/20 23 CTA R PENow on eliquis, needs to see Dr Ortiz Allergic rhinitis 049478 04 J30.9 Has rhinitis, no fevers or chills, no chest pain or SOBShe has used the flonase and has helped her Abnormal u terine bleeding 0853170874 9100 N93.9 Addendum: 04/04/2020 :Seen in the ER at [facility] and [facility] for the bleedingS/ p US pelvic 03/29/2020 Now to get hysterosco py DNC by Dr Quezada/p CBC: 04/04/2020 : H/H 9.1/30.4Sh e is cleared for this by [facility] Dr Cash and is cleared for this [...] Stringer radiation oncologyAl so sees Dr Sheehan correctional substance abuse counselor onco Sees Dr Ortiz also OV 11/22/2020 [...] does also see Dr Fairbanks Abdominal pain 28297917 R10.9 S/p ER visit on 11/17/2020 S/P [...] today, will f/u with Dr Ortiz Asthma 808826095 J45.90 9 On breoOn proair She is doing well todaySees Nae Ingram WATERPROOFER HELPER and Dr Smith Obesity 707220777 E66.9 Diet and exercise, noted by pulmonary Obstructiv e sleep apnea syndrome 22202455 G47.33 On CPAPSees Nae Jacques WATERPROOFER HELPER 03/04/[address] Smith 12/16/2023 Anemia 092436752 D64.9 07/30/2020 : Mamta Hooker NP, hematology , f/u in 3 months, 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 Keep apt with Dr Ortiz Cholecystitis 98062159 K 81.[address] A/P 08/20/2021 Dr Sheikh 11/21/2021 Get a referral again to his office Deep venou s thrombosis of lower extremity 785183126 I82.409 US LE: 04/01/2022 : Dr Ortiz: R femoral DVT Keep apt with Dr Ortiz on 05/12/2022 , did speak personally on 04/21/2022 , was told to increase xarelto to 20mg daily OV 05/07/2023 : Now on eliquis Trigger fi nger of right hand [id number] 3916824 M65.30 R MF, there is a trigger finger, get a referral to Dr Gallegos hand orthoRefer red again Gastritis 2184616 K29.70 D/c 01/31-01/13 12/04 for gastritis, UTI, s/p EGD done, now is doing well Screening for osteoporosis 556465275 Z13.820 Screening mammography 24 005082 Z12.31 Vitamin D deficiency 347 58416 E55.9 [id number] Prabhjot Lee DPM [facility] Podiatry [place] [address] [place] [address] 04/30/2023 10:10:20 04/30/2023 11:31:18 Type 2 diabetes mellitus without complication 816337122 E11.9 Patient educated on neuropathy , diabetes, diabetic diet, and daily foot exams. Patient is to check feet daily for new wounds, blisters, redness to prevent infection and ulceration s to the feet. Patient will return to clinic in 6 months for diabetic foot workup. Peripheral venous insufficiency 09619384 I87.2 recommend compressio n stockingsk eep legs elevated when at restmuscle pumps when at rest to prevent DVT Severe dry skin 53364525 2 L85.3 daily hygiene [id number] Arnaud Smith MD [facility] [address] [place] [address] 05/07/2023 10:22:26 05/08/2023 08:07:37 Dyspnea on exertion 57312426 R06.09 R05.9 T78.40XA D89.9 Obstructiv e sleep apnea syndrome 06084113 G47.33 Moderate p ersistent asthma 647632717 J45.40 [id number] [place] MD [facility] General Surgery [address] [address] 05/21/2023 10:48:15 05/21/2023 12:22:04 Chronic cholecystitis 39050397 K81.1 [id number] Arnaud Smith MD [address] [address] 06/30/2023 10:14:26 07/01/2023 08:34:01 Obstructive sleep apnea syndrome 37097786 G47.33 Moderate p ersistent asthma 536316953 J45.40 [id number] Corey acosta MD [facility] Internal Med [facility] [address] [facility], [address] [place] [address] 08/04/2023 09:09:28 08/04/2023 09:50:12 Transition of care 2806699582 105 Z75.8 Facility: [facility] ion Date: 04/24/23Dis charge Date: 04/26/23Dis charge Diagnoses: Obstructiv e sleep apnea syndrome, cholecysti tis, chronic kidney disease stage 3, iron deficiency anemia, acute pulmonary embolism Screening - NAD 11261603 3 Z13.9 C-scope: 07/03/17, Next in 10 yearsC-sco pe: 12/03/2020 : Dr Crawford Mammogram: 03/27/17: Now yearlyMamm ogram: 05/20/19: NegMammogr am: 06/18/2020 : NegMammogr am: 08/02/2021 : Neg, orderedMam mogram: 08/04/2022 : NegMammogr am: 07/20/2023 : Neg PAP: Did see Ivette LUCIANO 05/18/19Dr [facility]: 05/07/2020 : 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 DEXA: 09/01/18: NegDEXA: 12/18/2020 : NegDEXA: 07/20/2023 : Neg Do yearly flu shot 07/24/2020 UTD on pneumovax 08/31/18, 08/08/14Sh ould do Tdap and Shingles vaccineUTD on COVID 19 vaccineCan do RSV vaccine RTC in 4 monthsDo labsER if worseShe did verbalize her understand ing of the above Hyperlipidemia 68234198 E78.5 On rosuvastat in 10mg dailyGet labs 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 433948072 E11.9 On glimeperid e 1mg bidOn tresciba 26U dailyOn ozempicDoe s see eye MDDr Rosa 10/29/[address] Marie Hepatomegaly 90434791 R1 6.[address] A/P 08/20/2021 US liver: 11/22/2021 : Hepatomega ly: See case 11/27/2021 Needs to see GI US abd 06/30/2023 : Hepatomega ly Sees Dr Stinson Essential hypertension 39520718 I10 On lasix 40mgOn lisinopril 20mg daily Dr Cash 07/03/2023 filledOn metoprolol 25mg tab bid Dr Cash [facility] 06/27/2023 filledNot on eliquis 5mg bidShould not be on lisinopril 40mg bid, given by Dr Shailesh Skinner on quinapril 40mg bid given by Dr Shailesh Skinner on xarelto Does wellSLHV Dr Cash Chronic ki dney disease 872833573 N18.[address] Cash the kidney specialist 07/07/2023 On vit d weeklyOn allopurino Jordaan calcitriol Does well Sleep apnea 44361636 G47 .30 On CPAPSees Nae Jacques WATERPROOFER HELPER last OV 03/04/2021 Dr Smith 12/16/2021 , 12/16/2022 , next 12/16/2023 Goiter 8460045 E04.9 US thyroid 09/01/18, neg ordred by [...] will refer to Dr Varela Heart murmur 56773383 R0 1.[address] [facility] [address] Cash last OV 05/26/2023 Epigastric pain 62644684 R10.13 08/20/2020 : Dr Crawford EGD: Neg On PPIDoes well Pulmonary embolism [address] chest 11/09/18: PESees Nae Jacques WATERPROOFER HELPER, referred Not on xarelto 04/24/2023 : [facility] ER04/24/20 23 CTA R PE Allergic rhinitis 036552 04 J30.9 Has rhinitis, no fevers or chills, no chest pain or SOBShe has used the flonase and has helped her Abnormal u terine bleeding 2069595240 9100 N93.9 Addendum: 04/04/2020 :Seen in the ER at [facility] and [facility] for the bleedingS/ p US pelvic 03/29/2020 Now to get hysterosco py DNC by Dr Quezada/p CBC: 04/04/2020 : H/H 9.1/30.4Sh e is cleared for this by [facility] Dr Cash and is cleared for this [...] Stringer radiation oncologyAl so sees Dr Sheehan correctional substance abuse counselor onco Sees Dr Ortiz also OV 11/22/2020 [...] 08/04/2023 : Dr Fairbanks 06/19/2023 Abdominal pain 60351682 R10.9 S/p ER visit on 11/17/2020 S/P [...] 05/20/2023 , f/u in one year Asthma 937952714 J45.90 9 On breoOn proair She is doing well todaySees Nae Ingram WATERPROOFER HELPER and Dr Sarah Vogel916001 E66.9 Diet and exercise, noted by pulmonary Obstructiv e sleep apnea syndrome 45822690 G47.33 On CPAPSees Nae Jacques WATERPROOFER HELPER 03/04/[address] Smith 12/16/2023 Anemia 021070061 D64.9 07/30/2020 : Mamta Hooker, WATERPROOFER HELPER, hematology , f/u in 3 months, 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 Keep apt with Dr Ortiz Cholecystitis 37496886 K 81.[address] A/P 08/20/2021 Dr Sheikh 11/21/2021 Get a referral again to his office Dr Sheikh 05/21/2023 : F/u PRN Deep venou s thrombosis of lower extremity 148817967 I82.409 US LE: 04/01/2022 : Dr Ortiz: R femoral DVT Keep apt with Dr Ortiz on 05/12/2022 , did speak personally on 04/21/2022 , was told to increase xarelto to 20mg daily OV 05/07/2023 : Now on eliquis Trigger fi nger of right hand 5409249093 3579436 M65.30 R MF, there is a trigger finger, get a referral to Dr Gallegos hand orthoRefer red again Gastritis 6566466 K29.70 D/c 01/31-01/13 12/04 for gastritis, UTI, s/p EGD done, now is doing well Vitamin D deficiency 347 18373 E55.9 Administra tion of influenza vaccine 29758260 Z23 [id number] Corey acosta MD [facility] Internal Med [facility] [address] [facility], [address] [place] [address] 09/29/2023 10:26:52 09/29/2023 11:01:56 Screening - NAD 299093134 Z13.9 C-scope: 07/03/17, Next in 10 yearsC-sco pe: 12/03/2020 : Dr Crawford Mammogram: 03/27/17: Now yearlyMamm ogram: 05/20/19: NegMammogr am: 06/18/2020 : NegMammogr am: 08/02/2021 : Neg, orderedMam mogram: 08/04/2022 : NegMammogr am: 07/20/2023 : Neg PAP: Did see Ivette WATERPROOFER HELPER 05/18/19Dr Mosqueda: 05/07/2020 : 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 DEXA: 09/01/18: NegDEXA: 12/18/2020 : NegDEXA: 07/20/2023 : Neg Do yearly flu shot 07/24/2020 UTD on pneumovax 08/31/18, 08/08/14Sh ould do Tdap and Shingles vaccineUTD on COVID 19 vaccineCan do RSV vaccine RTC in 4 monthsDo labsER if worseShe did verbalize her understand ing of the above Hyperlipidemia 47433677 E78.5 On rosuvastat in 10mg dailyGet labs 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 950340468 E11.9 On glimeperid e 1mg bidOn tresciba 26U dailyOn ozempicDoe s see eye MDDr Rosa 10/29/[address] Marie Hepatomegaly 68031713 R1 6.[address] A/P 08/20/2021 US liver: 11/22/2021 : Hepatomega ly: See case 11/27/2021 Needs to see GI US abd 06/30/2023 : Hepatomega ly Sees Dr Stinson Essential hypertension 37154556 I10 On lasix 40mgOn lisinopril 20mg daily Dr Cash 07/03/2023 filledOn metoprolol 25mg tab bid Dr Cash [facility] 06/27/2023 filledNot on eliquis 5mg bidShould not be on lisinopril 40mg bid, given by Dr Shailesh Skinner on quinapril 40mg bid given by Dr Shailesh Skinner on xarelto Does wellSLHV Dr Cash Chronic ki dney disease 958958203 N18.[address] Cash the kidney specialist 07/07/2023 On vit d weeklyOn allopurino Jordana calcitriol Does well Sleep apnea 33405595 G47 .30 On CPAPSees Nae Jacques WATERPROOFER HELPER last OV 03/04/2021 Dr Smith 12/16/2021 , 12/16/2022 , next 12/16/2023 Goiter 4117940 E04.9 US thyroid 12/19/18, neg ordred by Dr Mancia eythyrox 25mcgs [...] dailyNeeds to see Dr Varela Heart murmur 55555811 R0 1.[address] Cash last OV 05/26/2023 Epigastric pain 59823189 R10.13 08/20/2020 : Dr Crawford EGD: Neg On PPIDoes well Pulmonary embolism [address] chest 11/09/18: PESees Nae Jacques WATERPROOFER HELPER, referred Not on xarelto 04/24/2023 : [facility] ER04/24/20 23 CTA R PE Allergic rhinitis 718707 04 J30.9 Has rhinitis, no fevers or chills, no chest pain or SOBShe has used the flonase and has helped her Abnormal u terine bleeding 2770509899 9100 N93.9 Addendum: 04/04/2020 :Seen in the ER at [facility] and [facility] for the bleedingS/ p US pelvic 03/29/2020 Now to get hysterosco py DNC by Dr Quezada/p CBC: 04/04/2020 : H/H 9.1/30.4Sh e is cleared for this by [facility] Dr Cash and is cleared for this [...] Stringer radiation oncologyAl so sees Dr Sheehan correctional substance abuse counselor onco Sees Dr Ortiz also OV 11/22/2020 [...] and Dr Ortiz next week Abdominal pain 92921785 R10.9 S/p ER visit on 11/17/2020 S/P [...] , f/u in one year OV 09/29/2022 :[facility] ER 08/26/2024 CT A/P 08/26/2024 : EnteritisD oes well nowIs now taking Ozempic 0.5mg weekly instead of 1mg weekly Asthma 801957357 J45.90 9 On breoOn proair She is doing well todaySees Nae Ingram WATERPROOFER HELPER and Dr Smith Obesity 993696400 E66.9 Diet and exercise, noted by pulmonary Obstructiv e sleep apnea syndrome 39362358 G47.33 On CPAPSees Nae Jacques WATERPROOFER HELPER 03/04/[address] Smith 12/16/2023 Anemia 492606640 D64.9 07/30/2020 : Mamta Hooker, WATERPROOFER HELPER, hematology , f/u in 3 months, 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 Keep apt with Dr Ortiz Cholecystitis 67404851 K 81.[address] A/P 08/20/2021 Dr Sheikh 11/21/2021 Get a referral again to his office Dr Sheikh 05/21/2023 : F/u PRN Deep venou s thrombosis of lower extremity 395455936 I82.409 LE: 04/01/2022 : Dr Ortiz: R femoral DVT Keep apt with Dr Ortiz on 05/12/2022 , did speak personally on 04/21/2022 , was told to increase xarelto to 20mg daily OV 05/07/2023 : Now on eliquis OV 09/29/2023 : Not on any eliquis or xarelto Trigger fi nger of right hand 0630843077 3395278 M65.30 R MF, there is a trigger fingerRefe rred again Gastritis 5272795 K29.70 D/c 01/31-01/13 12/04 for gastritis, UTI, s/p EGD done, now is doing well OV 09/29/2023 :States that she did see Dr Stinson and did have another EGD on 09/20/2023 , also advised her to cut back on the ozempic as it can cause GI upset, she states that she is now taking only 0.5mg weekly Vitamin D deficiency 347 93306 E55.9 [id number] Prabhjot Lee DPM [facility] Podiatry [place] [address] [facility] [address] [place] [address] 10/29/2023 09:41:56 10/29/2023 10:32:20 Type 2 diabetes mellitus without complication 112808746 E11.9 cont pcp recommenda tion on glucose controlche ck feet dailycont supportive shoe gearfollow up in 4 mo [id number] Paul Leigh MD [facility] Ortho [place] [address] [place] [address] 11/09/2023 09:44:45 11/09/2023 11:27:27 Pain in right hand 7218782663 10913 M79.130 [id number] Corey acosta MD [facility] Internal Med [facility] [address] [facility] [address] [place] [phone] 12/29/2023 08:58:45 12/29/2023 09:58:41 Screening - NAD 064584282 Z13.9 C-scope: 07/03/17, Next in 10 yearsC-sco [...] her understand ing of the above Hyperlipidemia 89490973 E78.5 On rosuvastat in 10mg dailyGet labs 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 893093715 E11.9 On glimeperid e 1mg bidOn tresciba 26U dailyOn ozempicDoe s see eye MDDr Rosa 10/29/[address] Marie Hepatomegaly 51364036 R1 6.[address] A/P 08/20/2021 US liver: 11/22/2021 : Hepatomega ly: See case 11/27/2021 Needs to see GI US abd 06/30/2023 : Hepatomega ly Sees Dr Stinson, last 12/21/2023 , f/u in 6 months and f/u with Dr Ortiz Essential hypertension 05613614 I10 On lasix 40mgOn lisinopril 20mg daily Dr Cash 07/03/2023 filledOn metoprolol 25mg tab bid Dr Cash SL 06/27/2023 filledNot on eliquis 5mg bidShould not be on lisinopril 40mg bid, given by Dr Shailesh Skinner on quinapril 40mg bid given by Dr Shailesh HANDYNot on xarelto Does wellSLHV Dr Cash Chronic ki dney disease 342224507 N18.[address] Cash the kidney specialist 07/07/2023 On vit d weeklyOn allopurino Jordana calcitriol , filled 12/04/2023 Dr Cash IJ Does well Sleep apnea 74247487 G47 .30 On CPAPSees Nae Jacques WATERPROOFER HELPER last OV 03/04/2021 Dr Smith next 06/30/2024 Goiter 7905428 E04.9 US thyroid 09/01/18, neg ordred by [...] daily, keep apt with endocrine Heart murmur 39716955 R0 1.[address] [facility] [address] Cash last OV 05/26/2023 Epigastric pain 12800263 R10.13 08/20/2020 : Dr Crawford EGD: Neg On PPIDoes well Pulmonary embolism [address] chest 11/09/18: Iliana Jacques WATERPROOFER HELPER, referred Not on xarelto 04/24/2023 : [facility] ER04/24/20 23 CTA R PE Allergic rhinitis 096601 04 J30.9 Has rhinitis, no fevers or chills, no chest pain or SOBShe has used the flonase and has helped her Abnormal u terine bleeding 9856879024 9100 N93.9 Addendum: 04/04/2020 :Seen in the ER at [facility] and [facility] for the bleedingS/ p US pelvic 03/29/2020 Now to get hysterosco py DNC by Dr Quezada/p CBC: 04/04/2020 : H/H 9.1/30.4Sh e is cleared for this by [facility] Dr Cash and is cleared for this [...] Stringer radiation oncologyAl so sees Dr Sheehan correctional substance abuse counselor onco Sees Dr Ortiz also OV 11/22/2020 [...] Dr Fairbanks and Dr Ortiz Abdominal pain 36483626 R10.9 S/p ER visit on 11/17/2020 S/P [...] OV 08/04/2023 : Dr Shantell MERINOs MAYDA tSewart 05/20/2023 , f/u in one year OV 09/29/2022 :[facility] ER 08/26/2024 CT A/P 08/26/2024 : EnteritisD oes well nowIs now taking Ozempic 0.5mg weekly instead of 1mg weekly OV 12/29/2023 : Does well now Asthma 850541306 J45.90 9 On breoOn proair She is doing well todaySees Nae Ingram WATERPROOFER HELPER and Dr Smith Obesity 529574137 E66.9 Diet and exercise, noted by pulmonary Obstructiv e sleep apnea syndrome 39353880 G47.33 On CPAPSees Nae Jacques WATERPROOFER HELPER 03/04/[address] Smith Anemia 427641609 D64.9 07/30/2020 : Mamta Hooker NP, hematology , f/u in 3 months, 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 Keep apt with Dr Ortiz Cholecystitis 48953542 K 81.[address] A/P 08/20/2021 Dr Sheikh 11/21/2021 Get a referral again to his office Dr Sheikh 05/21/2023 : F/u PRN Deep venou s thrombosis of lower extremity 272671089 I82.409 US LE: 04/01/2022 : Dr Ortiz: R femoral DVT Keep apt with Dr Ortiz on 05/12/2022 , did speak personally on 04/21/2022 , was told to increase xarelto to 20mg daily OV 05/07/2023 : Now on eliquis OV 09/29/2023 : Not on any eliquis or xarelto Trigger fi nger of right hand [id number] 4792808 M65.30 R MF, there is a trigger fingerRefe rred again Gastritis 0084840 K29.70 D/c 01/31-01/13 12/04 for gastritis, UTI, [...] in 6 months Vitamin D deficiency 347 14784 E55.9 [id number] Prabhjot Lee DPM [facility] [place] [address] [facility] [address] [place] [address] 03/01/2024 09:25:32 03/01/2024 15:45:59 Type 2 diabetes mellitus without complication 871230078 E11.9 cont pcp recommenda tion on glucose controlche ck feet dailycont supportive shoe gearfollow up in 4 mo [id number] Corey acosta MD [facility] Internal Med [facility] [address] [facility] [address] [place] [address] 05/17/2024 15:49:22 05/17/2024 17:05:40 Screening - NAD 354118374 Z13.9 C-scope: 07/03/17, Next in 10 yearsC-sco [...] her understand ing of the above Hyperlipidemia 48039421 E78.5 On rosuvastat in 10mg dailyGet labs 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 120401824 E11.9 On glimeperid e 1mg 2 tabs bidOn tresciba 26U dailyOn ozempic will d/c d/t pancreatit isDoes see eye MDDr Rosa 10/29/[address] Marie Hepatomegaly 08079570 R1 6.[address] A/P 08/20/2021 US liver: 11/22/2021 : Hepatomega ly: See case 11/27/2021 Needs to see GI US abd 06/30/2023 : Hepatomega ly Sees Dr Stinson, last 12/21/2023 , f/u in 6 months and f/u with Dr Ortiz Essential hypertension 81135707 I10 On lasix 40mgOn lisinopril 20mg daily Dr Cash 07/03/2023 filledOn metoprolol 25mg tab bid Dr Cash [facility] 06/27/2023 filledNot on eliquis 5mg bidShould not be on lisinopril 40mg bid, given by Dr Shailesh Skinner on quinapril 40mg bid given by Dr Cash IJNot on xarelto Does wellSLHV Dr Cash Chronic ki dney disease 787595597 N18.[address] Cash the kidney specialist 07/07/2023 On vit d weeklyOn allopurino Jordana calcitriol , filled 12/04/2023 Dr Cash IJ Does well Sleep apnea 86049313 G47 .30 On CPAPSees Nae Jacques WATERPROOFER HELPER last OV 03/04/2021 Dr Smith next 06/30/2024 Goiter 3790253 E04.9 US thyroid 09/01/18, neg ordred by [...] levothyrox ine 50mcgs dailyGet labs Heart murmur 60374117 R0 1.[address] Cash last OV 05/26/2023 Epigastric pain 61755096 R10.13 08/20/2020 : Dr Crawford EGD: Neg On PPIDoes well Pulmonary embolism [address] chest 11/09/18: PESees Nae Jacques WATERPROOFER HELPER, referred Not on xarelto 04/24/2023 : [facility] ER04/24/20 23 CTA R PE Allergic rhinitis 088131 04 J30.9 Has rhinitis, no fevers or chills, no chest pain or SOBShe has used the flonase and has helped her Abnormal u terine bleeding 6736542176 9100 N93.9 Addendum: 04/04/2020 :Seen in the ER at [facility] and [facility] for the bleedingS/ p US pelvic 03/29/2020 Now to get hysterosco py DNC by Dr Quezada/p CBC: 04/04/2020 : H/H 9.1/30.4Sh e is cleared for this by [facility] Dr Cash and is cleared for this [...] Stringer radiation oncologyAl so sees Dr Sheehan correctional substance abuse counselor onco Sees Dr Ortiz also OV 11/22/2020 [...] Sees her OB Dr Fairbanks Abdominal pain 03655057 R10.9 S/p ER visit on 11/17/2020 S/P [...] , f/u in one year OV 09/29/2022 :[facility] ER 08/26/2024 CT A/P 08/26/2024 : EnteritisD oes well nowIs now taking Ozempic 0.5mg weekly instead of 1mg weekly OV 12/29/2023 : Does well now OV 05/17/2024 :S/p choleSeen Dr Sheikh Asthma 738926411 J45.90 9 On breoOn proair She is doing well todaySees Nae Ingram WATERPROOFER HELPER and Dr Smith Obesity 162882457 E66.9 Diet and exercise, noted by pulmonary Obstructiv e sleep apnea syndrome 21785207 G47.33 On CPAPSees Nae Jacques WATERPROOFER HELPER 03/04/[address] Smith Anemia 603483286 D64.9 07/30/2020 : Mamta Hooker NP, hematology , f/u in 3 months, 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 Keep apt with Dr Ortiz Cholecystitis 38602067 K 81.[address] A/P 08/20/2021 Dr Sheikh 11/21/2021 Get a referral again to his office Dr Sheikh 05/21/2023 : F/u PRN Deep venou s thrombosis of lower extremity 283858961 I82.409 US LE: 04/01/2022 : Dr Ortiz: R femoral DVT Keep apt with Dr Ortiz on 05/12/2022 , did speak personally on 04/21/2022 , was told to increase xarelto to 20mg daily OV 05/07/2023 : Now on eliquis OV 09/29/2023 : Not on any eliquis or xarelto Trigger fi nger of right hand [id number] 9272753 M65.30 R MF, there is a trigger fingerRefe rred again Gastritis 2441827 K29.70 D/c 01/31-01/13 12/04 for gastritis, UTI, [...] in 6 months Vitamin D deficiency 347 48976 E55.9 Adult [facility] th examination 486060543 Z00.00 Screening for disorder 123250215 Z13.9 Screening mammography 24 389090 Z12.31 [id number] Remington hill MD [facility] General Surgery [address] [place] [address] 1 05/05/2024 10:35:17 05/05/2024 11:09:07 [id number] Arnaud Smith MD S_[facility] Pulmonolo gy [place] [address] 0 05/19/2024 09:30:04 05/20/2024 10:33:27 Obstructive sleep apnea syndrome 96613702 G47.33 Moderate p ersistent asthma 306616605 J45.40 [id number] Prabhjot Lee DPM [facility] Podiatry [address] [address] 06/28/2024 09:38:24 06/28/2024 14:54:28 Diabetes mellitus 49790413 E11.9 continue diabetic control per PCP recommenda tionRecomm end exercise daily to reduce weight and regularly glucoseChe ck feet daily for wounds infectionW ear supportive shoe gear dailyFollo w-up in 4 months [id number] Arnaud Smith MD [facility] Pulmonolo gy [place] [address] [place] [address] 08/03/2024 08:30:32 09/12/2024 11:55:41 Obstructive sleep apnea syndrome 60026973 G47.33 Moderate p ersistent asthma 686333825 J45.40 [id number] Corey acosta MD [facility] Internal Med [facility] [address] [facility], [place] [phone] 10/06/2024 15:13:07 10/06/2024 16:42:04 Screening - NAD 598964211 Z13.9 C-scope: 07/03/17, Next in 10 yearsC-sco [...] her understand ing of the above Hyperlipidemia 73136664 E78.5 On rosuvastat in 10mg dailyGet labs 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 772497924 E11.9 Not on glimeperid e 1mg 2 tabs bidOn tresciba 8U at bedtime as per her history Dr Varela has decreased her doseNot on ozempic will d/c d/t pancreatit isDoes see eye MDDr Rosa 10/29/[address] Marie Hepatomegaly 67564224 R1 6.[address] A/P 08/20/2021 US liver: 11/22/2021 : Hepatomega ly: See case 11/27/2021 Needs to see GI US abd 06/30/2023 : Hepatomega ly Sees Dr Stinson, last 12/21/2023 , f/u in 6 months and f/u with Dr Ortiz Essential hypertension 75371232 I10 On lasix 40mg will restart 10/06/2024 as she has had heidy +1 pitting edemaOn lisinopril 20mg daily Dr Cash 07/03/2023 filledOn metoprolol 25mg tab bid Dr Cash [facility] 06/27/2023 filledNot on eliquis 5mg bidShould not be on lisinopril 40mg bid, given by Dr Shailesh Skinner on quinapril 40mg bid given by Dr Shailesh HANDYNot on xarelto [facility] Chronic ki dney disease 010063682 N18.[address] Cash the kidney specialist 07/07/2023 On vit d weeklyOn allopurino Jordana calcitriol , filled 12/04/2023 Dr Cash IJ Does [facility] Sleep apnea 46983470 G47 .30 On CPAPSees Nae Jacques WATERPROOFER HELPER last OV 03/04/2021 Dr Smith next 06/30/2024 Goiter 2162246 E04.9 US thyroid 09/01/18, neg ordred by [...] historyOn levothyrox ine 50mcgs daily Heart murmur 81778099 R0 1.1 Sees [facility] Dr Cash last OV 05/26/2023 Epigastric pain 18554180 R10.13 08/20/2020 : Dr Crawford EGD: Neg On PPIDoes well Pulmonary embolism [address] chest 11/09/18: PESees Nae Jacques WATERPROOFER HELPER, referred Not on xarelto 04/24/2023 : [facility] ER04/24/20 23 CTA R PE Allergic rhinitis 046778 04 J30.9 Has rhinitis, no fevers or chills, no chest pain or SOBShe has used the flonase and has helped her Abnormal u terine bleeding 7231515237 9100 N93.9 Addendum: 04/04/2020 :Seen in the ER at [facility] and [facility] for the bleedingS/ p US pelvic 03/29/2020 Now to get hysterosco py DNC by Dr Quezada/p CBC: 04/04/2020 : H/H 9.130.4Sh e is cleared for this by [facility] Dr Cash and is cleared for this [...] Stringer radiation oncologyAl so sees Dr Sheehan correctional substance abuse counselor onco Sees Dr Ortiz also OV 11/22/2020 [...] OV 10/06/2024 :Dr Ortiz 08/25/2024 Abdominal pain 04268299 R10.9 S/p ER visit on 11/17/2020 S/P CT A/P 11/17/2020 : Large cecal mass Is to see Dr Crawford will need c-scopeAls o should see Dr Angel Dawkins n for SBO Get another CT A/P without contrast statGet on zofran, can do 4mg bidNotify if any bleeding or if any constipati onMay need to go back to the E[facility] will proceed to get the CT A/P [...] , f/u in one year OV 09/29/2022 :[facility] ER 08/26/2024 CT A/P 08/26/2024 : EnteritisD oes well nowIs now taking Ozempic 0.5mg weekly instead of 1mg weekly OV 12/29/2023 : Does well now OV 05/17/2024 :S/p choleSeen Dr Sheikh OV 10/06/2024 : No complaints at this time Asthma 640303825 J45.90 9 On breoOn proair She is doing well todaySees Nae Ingram WATERPROOFER HELPER and Dr Smith Obesity 182976528 E66.9 Diet and exercise, noted by pulmonary Obstructiv e sleep apnea syndrome 85476635 G47.33 On CPAPSees Nae Jacques WATERPROOFER HELPER 03/04/[address] Smith Anemia 224546141 D64.9 07/30/2020 : Mamta Hooker NP, hematology , f/u in 3 months, 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 Keep apt with Dr Ortiz Cholecystitis 09589671 K 81.[address] A/P 08/20/2021 Dr Sheikh 11/21/2021 Get a referral again to his office Dr Sheikh 05/21/2023 : F/u PRN Deep venou s thrombosis of lower extremity 802019112 I82.409 LE: 04/01/2022 : Dr Ortiz: R femoral DVT Keep apt with Dr Ortiz on 05/12/2022 , did speak personally on 04/21/2022 , was told to increase xarelto to 20mg daily OV 05/07/2023 : Now on eliquis OV 09/29/2023 : Back on the eliquis, started by Dr Fairbanks Trigger fi nger of right hand [id number] 4405477 M65.30 R MF, there is a trigger fingerRefe rred again Gastritis 0054792 K29.70 D/c 01/31-01/13 12/04 for gastritis, UTI, [...] in 6 months Vitamin D deficiency 347 82028 E55.9 Screening mammography 24 449257 Z12.31 [id number] Prabhjot Lee DPM [facility] [address] [place] [address] 10/25/2024 10:12:18 10/25/2024 11:50:25 Diabetes mellitus 63659840 E11.9 continue diabetic control per PCP recommenda tionRecomm end exercise daily to reduce weight and regularly glucoseChe ck feet daily for wounds infectionW ear supportive shoe gear dailyFollo w-up in 3-4 months Dystrophia unguium 82759 009 L60.3 Nails 1 through 10 were debrided with sharp mechanical debridemen t without incident. Nails were debrided and greater than 50% length and thickness where needed. Peripheral venous insufficiency 91170024 I87.2 recommend compressio n stockingsc ontinue furosemide per PCPkeep legs elevated when at restmuscle pumps when at rest to prevent DVT [id number] Arnaud Smith MD [facility] Pulmonolo gy [address] [address] 11/02/2024 08:15:26 11/02/2024 09:26:10 Obstructive sleep apnea syndrome 72317264 G47.33 Moderate p ersistent asthma 387106749 J45.40 [id number] Corey acosta MD [facility] Internal Med [facility] [address] [place], [place] [address] 12/22/2024 15:11:48 12/22/2024 16:25:10 Screening - NAD 010857371 Z13.9 C-scope: 07/03/17, Next in 10 yearsC-sco pe: 12/03/2020 : Dr Crawford Mammogram: 03/27/17: Now yearlyMamm ogram: 05/20/19: NegMammogr am: 06/18/2020 : NegMammogr am: 08/02/2021 : Neg, orderedMam mogram: 08/04/2022 : NegMammogr am: 07/20/2023 : Neg PAP: Did see Ivette LUCIANO 05/18/19Dr Loryfar [place]: 05/07/2020 : 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 DEXA: 09/01/18: NegDEXA: 12/18/2020 : NegDEXA: 07/20/2023 : Neg Do yearly flu shot 07/24/2020 UTD on pneumovax 08/31/18, 08/08/14Sh ould do Tdap and Shingles vaccineUTD on COVID 19 vaccineCan do RSV vaccine RTC in 4 monthsDo labsER if worseShe did verbalize her understand ing of the above Hyperlipidemia 44965362 E78.5 On rosuvastat in 10mg dailyGet labs 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 494843016 E11.9 Not on glimeperid e 1mg 2 tabs bidOff the tresciba 8U at bedtime as per her history Dr Varela has stopped Back on the ozempic 0.25mg weeklyDoes see eye MDDr Rosa 10/29/[address] Varela Hepatomegaly 94268814 R1 6.[address] A/P 08/20/2021 US liver: 11/22/2021 : Hepatomega ly: See case 11/27/2021 Needs to see GI US abd 06/30/2023 : Hepatomega ly Sees Dr Stinson, last 12/21/2023 , f/u in 6 months and f/u with Dr Ortiz Essential hypertension 20841231 I10 On lasix 40mg will restart 10/06/2024 as she has had heidy +1 pitting edemaOn lisinopril 20mg daily Dr Cash 07/03/2023 filledOn metoprolol 25mg tab bid Dr Cash HV 06/27/2023 filled On eliquis 5mg bid Dr Fairbanks her onclogist started her on this againShoul d not be on lisinopril 40mg bid, given by Dr Shailesh Skinner on quinapril 40mg bid given by Dr Shailesh Skinner on xarelto Does wellSHV Dr Cash Chronic ki dney disease 172045712 N18.[address] aCsh the kidney specialist 07/07/2023 On vit d weeklyOn allopurino Jordana calcitriol , filled 12/04/2023 Dr Shaielsh HANDY Does well Sleep apnea 19163040 G47 .30 On CPAPSees Nae Jacques WATERPROOFER HELPER last OV 03/04/2021 Dr Sarah Mckeon 9818546 E04.9 US thyroid 09/01/18, neg ordred by Dr De La Cruz thyroid 12/18/2020 : Multiple sub centimeter thyroid nodules, Dr Marie monitors Sees Dr Varela, next apt 11/24/2024 as per her historyOn levothyrox ine 50mcgs daily Heart murmur 47040121 R0 1.[address] [facility] [address] Cash last OV 05/26/2023 Epigastric pain 48195330 R10.13 08/20/2020 : Dr Crawford EGD: Neg On PPIDoes well Pulmonary embolism [address] chest 11/09/18: PESees Nae Jacques WATERPROOFER HELPER, referred Not on xarelto 04/24/2023 : [facility] ER04/24/20 23 CTA R PE Allergic rhinitis 238028 04 J30.9 Has rhinitis, no fevers or chills, no chest pain or SOBShe has used the flonase and has helped her Abnormal u terine bleeding 8566783668 9100 N93.9 Addendum: 04/04/2020 :Seen in the ER at [facility] and [facility] for the bleedingS/ p US pelvic 03/29/2020 Now to get hysterosco py DNC by Dr Quezada/p CBC: 04/04/2020 : H/H 9.10/13.4Sh e is cleared for this by [facility] Dr Cash and is cleared for this [...] Stringer radiation oncologyAl so sees Dr Sheehan correctional substance abuse counselor onco Sees Dr Ortiz also OV 11/22/2020 [...] Dr Fairbanks OV 10/06/2024 :Dr Ortiz 08/25/2024 OV :Sees Dr Papa Ortiz Abdominal pain 30703896 R10.9 S/p ER visit on 11/17/2020 S/P [...] , f/u in one year OV 09/29/2022 :[facility] ER 08/26/2024 CT A/P 08/26/2024 : EnteritisD oes well nowIs now taking Ozempic 0.5mg weekly instead of 1mg weekly OV 12/29/2023 : Does well now OV 05/17/2024 :S/p choleSeen Dr Sheikh OV 10/06/2024 : No complaints at this time Asthma 115260858 J45.90 9 On breoOn proair She is doing well todaySees Nae Ingram WATERPROOFER HELPER and Dr Smith Obesity 497305954 E66.9 Diet and exercise, noted by pulmonary Obstructiv e sleep apnea syndrome 56172263 G47.33 On CPAPSeke Jacques WATERPROOFER HELPER 03/04/[address] Smith Anemia 174353784 D64.9 07/30/2020 : Mamta Hooker NP, hematology , f/u in 3 months, 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 Keep apt with Dr Ortiz Cholecystitis 89987444 K 81.[address] A/P 08/20/2021 Dr Sheikh 11/21/2021 Get a referral again to his office Dr Sheikh 05/21/2023 : F/u PRN Deep venou s thrombosis of lower extremity 419933453 I82.409 US LE: 04/01/2022 : Dr Ortiz: R femoral DVT Keep apt with Dr Ortiz on 05/12/2022 , did speak personally on 04/21/2022 , was told to increase xarelto to 20mg daily OV 05/07/2023 : Now on eliquis OV 09/29/2023 : Back on the eliquis, started by Dr Fairbanks Trigger fi nger of right hand [id number] 1641209 M65.30 R MF, there is a trigger fingerRefe rred again but does not want this 12/22/2024 as it is not bothersome anymore Gastritis 1101135 K29.70 D/c 01/31-01/13 12/04 for gastritis, UTI, [...] in 6 months Vitamin D deficiency 347 85028 E55.9 Screening mammography 24 943514 Z12.31 [id number] Arnaud Smith MD [facility] Pulmonolo gy [address] [address] 01/26/2025 08:16:50 01/30/2025 16:01:43 Obstructive sleep apnea syndrome 47694026 G47.33 Moderate p ersistent asthma 290075019 J45.40 Health Concerns Section Related Observation LastModified by Organization Detai ls LastModified Time None Recorded Concern Status LastModified by Organization Details LastModified Time None Recorded Advance Directives Directive N: Payers Encounter Date Sequence Insurance Name Policy Number Policy Gusman Covered Member ID Gusman Member ID Guarantor Name 10/06/2024 1 [facility] (MEDICARE REPLACEMENT/A DVANTAGE - HMO) [id number] Julisa Alvarez Muddy [id number] Julisa Alvarez Muddy 10/25/2024 1 [facility] (MEDICARE REPLACEMENT/A DVANTAGE - HMO) [id number] Julisa De La Vegawood [id number] Julisa Alvarez Muddy 11/02/2024 1 [facility] (MEDICARE REPLACEMENT/A DVANTAGE - HMO) [id number] Julisa De La Vegawood [id number] Julisa De La Vegawood 12/22/2024 1 [facility] (MEDICARE REPLACEMENT/A DVANTAGE - HMO) [id number] Julisa Alvarez Beto [id number] Julisa Alvarez Beto 01/26/2025 1 [facility] (MEDICARE REPLACEMENT/A DVANTAGE - HMO) [id number] Julisa Alvarez Beto [id number] Julisa Alvarez Beto Notes Date Note Type Note Provider Name and Address Organization Details Recorded Time 10/06/2024 text/html 04/28/17Past Hx:UICOPDDMIIHTNGERDLBP Low vit DReviewed her past social, family and surgical historyHere to discuss her above issues, and some of the labs, she states that she has been able to see the underwear finisher and has had testing done for her legs and her heartShe has not yet had the sleep study d/t her insurance issues and has not been able to see the saw setter also d/t the above /19/17CV:Here with a knot on the vagina, she [...] also to see her OB on Dr Calles: 07/23/17:Here as she did have some L hip pain, this is located on the L side and is an achy pain, no swelling is noted, does not recall any acute traumaShe also states that she is now very compliant with the CPAP and has qvar for her COPD, she did do the labsShe will see Dr Cash the hat brusher machine tomorrowOV 10/06/17:She is here today to discuss [...] [facility] that [facility] was told she did not ave a pneumoniaShe did have labs on 11/19/18She states that now she is on xarelto, and is to see education dean alsoShe also has a 'swelling' on the L inner thigh, she would like to look at, it is tender, no d/cNo fevers or chills OV 04/19/19:Here for her routine aptNo recent labsIs to see Dr Marie and Dr Cash and is to get a stress testIs doing well otherwise OV 09/22/2019:Here for her routine aptIs doing Fariba did do the labs and is here to review theseShe still has some knee pain, she states that she did not do the PT as she could not afford the #34 copays, she is wanting to see Dr Moreno again and perhaps get the knee injections OV 01/19/2020:Tele visit, she is agreeable to do thisIs doing well at this recent labs OV 04/17/2020:Here for her post hosp follow upShe was seen in the ER for vaginal bleed and then admitted for abd cramps, she was put on antibiotics and is doing well nowThe vaginal bleed is now very minimal, no abd pain, no N/V or diarrhea notedShe has seen Dr Cash [facility] and Dr Ortiz and also Dr Mosqueda the OBNow is to get d/c next , and she is off the xareltoShe is also here for her MWVOV 05/22/2020:Here for her one month aptShe is doing very well todayShe did see Dr Mosqueda OB, has been diagnosed with uterine cancer and is to see Dr Salomon in [facility] on 06/08/2020 OV 07/24/2020:Here for her routine aptShe feels well except for epigastric painShe feels bloated and thinks perhaps the ozempic could be causing this or the nexiumShe has not yet had the EGD doneOV 11/08/2020:Here for her routine aptShe is doing Fariba did see Dr Marie on 09/27/2020 and she did see Dr Mosqueda on 05/07/2020She has done the labs on 09/24/2020 alsoOV 12/20/2020:Here for her one month follow upShe feels well todayShdarcy did do the US neck and her [...] for MWVShe did do the labs on 1Admitted and d/c for abd pain with pancreatitis, [...] states that she has seen Dr Cash [facility] and Dr Cash IJ, also has an [...] her f/u apt, she was d/c from [facility] on 04/20/2024 for cholelithiasis and also for pancreatitis, now doing well, has noted some 'belching', she did see Dr Sheikh on 05/05/2024 OV 10/06/2024: Here for her f/u apt, she is doing very well today, she did see hematology Corey Gurrola MD [address], [facility] [address], [place], [address], [employer] [facility] 10/10/2024 09:04:58 10/25/2024 text/html . Patient is [...] any other complaints. Prabhjot Lee DPM [address], [facility] [address], [place], [address], [employer] 10/25/2024 11:02:28 11/02/2024 text/html Primary care/Ref erring provider: Corey Gurrola MD Patient is here to go over her asthma management. Initial development of shortness of breath: 2012Duration of shortness of breath: 13 yearsCondition of shortness of breath: stableTiming of shortness of breath: noneFrequency: up to 2 times a dayLimits activities: yesAggravating factors: walking, climbing up stepsAlleviating factors: rest Modified Medical [employer] [place] (mMRC) Dyspnea Scale - Grade 1Grade 0 [...] noEdema: yes Environmental exposures:Nicotine smoke: 10/13 ppd [id number] = 0.5 pack yearPaint: noDye: noDust mites: [...] slight chance of dozing. Arnaud Smith MD [address] [place] [address], [facility] [address], [place], [address], [facility] 11/02/2024 09:18:39 12/22/2024 text/html 04/28/17Past Hx:UICOPDDMIIHTNGERDLBP Low vit DReviewed her past social, family and surgical historyHere to discuss her above issues, and some of the labs, she states that she has been able to see the underwear finisher and has had testing done for her legs and her heartShe has not yet had the sleep study d/t her insurance issues and has not been able to see the saw setter also d/t the above /19/17CV:Here with a knot on the vagina, she [...] also to see her OB on Dr Calles: 07/23/17:Here as she did have some L hip pain, this is located on the L side and is an achy pain, no swelling is noted, does not recall any acute traumaShe also states that she is now very compliant with the CPAP and has qvar for her COPD, she did do the labsShe will see Dr Cash the hat brusher machine tomorrowOV 10/06/17:She is here today to discuss [...] as [facility] that she was told she did not ave a pneumoniaShe did have labs on 11/19/18She states that now she is on xarelto, and is to see education dean alsoShe also has a 'swelling' on the [...] agreeable to do thisIs doing well at [facility] recent labs OV 04/17/2020:Here for her post hosp follow upShe was seen in the ER for vaginal bleed and then admitted for abd cramps, she was put on antibiotics and is doing well nowThe vaginal bleed is now very minimal, no abd pain, no N/V or diarrhea notedShe has seen Dr Cash [facility] and Dr Ortiz and also Dr Mosqueda the OBNow is to get d/c next , and she is off the xareltoShe is also here for her MWVOV 05/22/2020:Here for her one month aptShe is doing very well todayShe did see Dr Mosqueda OB, has been diagnosed with uterine cancer and is to see Dr Salomon in [facility] on 06/08/2020 OV 07/24/2020:Here for her [...] has seen Dr Cash SL and Dr aCsh IJ, also has an apt with Dr [...] her f/u apt, she was d/c from [facility] on 04/20/2024 for cholelithiasis and also for pancreatitis, now doing well, has noted some 'belching', she did see Dr Sheikh on 05/05/2024 OV 10/06/2024: Here for her f/u apt, she is doing very well today, she did see hematology OV 12/22/2024: Here for her f/u apt, she is doing well, has done labs with Dr Ortiz, she is to see him again this next Thursday, has to see Dr Fairbanks and is now on eliquis Corey Gurrola MD [address], [address], [place], [address], [place] [facility] 12/22/2024 19:44:33 01/26/2025 text/html Primary care/Ref erring provider: Corey Gurrola MD Patient is here to go over her asthma management. Initial development of shortness of breath: 2012Duration of shortness of breath: 13 yearsCondition of shortness of breath: stableTiming of shortness of breath: noneFrequency: up to 2 times a dayLimits activities: yesAggravating factors: walking, climbing up stepsAlleviating factors: rest Modified [employer] [place] (mMRC) Dyspnea Scale - Grade 1Grade 0 [...] noEdema: yes Environmental exposures:Nicotine smoke: 10/13 ppd [id number] = 0.5 pack yearPaint: noDye: noDust mites: yesMold: noDamp basement: noWood burning stove: noAnimal dander: noCockroaches: noPollen: yesArsenic: noAsbestos: noBeryllium: noCadmium: noChromium: noCoal smoke: noDiesel fumes: noNickel: noSilica: noSoot: no CC: [facility] still did not give me my new CPAP, after 6 months. They however never failed to send my supplies. At home since 11/02/24, the patient uses a [employer]Med AirSense 10 [...] - 0Sitting and talking to someone - 1Sitting quietly after lunch without alcohol - 0In a car, while stopped for a few minutes in the traffic - 0TOTAL SCORE 1Subjectively, patient has a slight chance of dozing. Arnaud Smith MD [address] [place] [address], [id number], [place] - [facility] 01/26/2025 09:14:29 OBGyn Episode No OBEpisode recorded.
--- OUTSIDE RECORDS SUMMARY | 2025-02-20 10:11 | XMS_ITS | Encounter Summary ---
Author Organization [facility] Address [address] [place] [address] Care Team Providers Care Mesh Man Name Role Phone Dany Gurrola MD Primary Care Provider Encounter Details Date Type Department Care Team (Late Contact Info) Description 02/20/2025 Orders Only [facility] Oncology and Hematology - Tadeo [address] [place] [address] Braulio Ortiz MD [address] [place] [address] Anemia of chronic renal failure, [...] Description 05/01/2025 8:30 AM CDT Office Visit [facility] Oncology and Hematology - Tadeo [address] [place] [address] Braulio Ortiz MD [address] [place] [phone] documented as of this encounter Visit Diagnoses Diagnosis Anemia of chronic renal failure, stage 3 (moderate), unspecified whether stage 3a or 3b CKD (CMS/HCC) documented in this encounter Care Teams Mesh Man Relationship Specialty Start Date End Date Dany Gurrola MD PCP - General Internal Medicine 11/29/18 documented as of this encounter
[2025-02-20 10:12] LABS: Iron 38 ug/dL (37-170)
[2025-02-20 10:23] LABS: Percent Iron Saturation 18 % (20-50)
== END 2025-02-20 09:22 | disposition home or self-care (01) ==
PROVIDERS: PCP Internal Medicine; Visit Provider Internal Medicine Hematology & Oncology
DX: N18.30 Chronic kidney disease, stage 3 unspecified (principal); D63.1 Anemia in chronic kidney disease
CPT/HCPCS: 36415; 82728; 83540; 83550; 85027